=== PATIENT | female | born 1975 | race Caucasian/White ===

== ENCOUNTER 2017-04-24 07:11 | Outpatient (RCR) | payer OTHER, SELFPAY ==
[2017-04-24 08:33] LABS: Prothrombin Time (Protime)PT. 29.9 SECONDS (11.7-14.9)
== END 2017-04-24 07:30 | disposition home or self-care (01) ==
LOC: LAB 07:11
PROVIDERS: PCP Family Medicine
DX: D68.59 Other primary thrombophilia (principal); Z79.01 Long term (current) use of anticoagulants; I82.409 Acute embolism and thrombosis of unspecified deep veins of unspecified lower extremity
CPT/HCPCS: 36415; 85610

== ENCOUNTER 2017-05-30 07:32 | Outpatient (RCR) | payer OTHER, SELFPAY ==
[2017-05-30 08:23] LABS: International Normalized Ratio 2.2; Prothrombin Time (Protime)PT. 24.4 SECONDS (11.7-14.9)
== END 2017-05-30 08:00 | disposition home or self-care (01) ==
LOC: LAB 07:32
PROVIDERS: PCP Family Medicine
DX: D68.59 Other primary thrombophilia (principal); I82.409 Acute embolism and thrombosis of unspecified deep veins of unspecified lower extremity; Z79.01 Long term (current) use of anticoagulants
CPT/HCPCS: 36415; 85610

== ENCOUNTER 2017-07-19 07:41 | Outpatient (RCR) | payer OTHER, SELFPAY ==
[2017-07-19 09:10] LABS: International Normalized Ratio 2.9; Prothrombin Time (Protime)PT. 30.3 SECONDS (11.7-14.9)
== END 2017-07-19 08:00 | disposition home or self-care (01) ==
LOC: LAB 07:41
PROVIDERS: PCP Family Medicine
DX: D68.59 Other primary thrombophilia (principal); I82.409 Acute embolism and thrombosis of unspecified deep veins of unspecified lower extremity; Z79.01 Long term (current) use of anticoagulants
CPT/HCPCS: 36415; 85610

== ENCOUNTER 2017-08-12 09:26 | Outpatient (RCR) | payer OTHER, SELFPAY ==
[2017-08-12 10:38] LABS: Prothrombin Time (Protime)PT. 39.4 SECONDS (11.7-14.9)
== END 2017-08-12 10:00 | disposition home or self-care (01) ==
LOC: LAB 09:26
PROVIDERS: PCP Family Medicine
DX: D68.59 Other primary thrombophilia (principal); I82.409 Acute embolism and thrombosis of unspecified deep veins of unspecified lower extremity; Z79.01 Long term (current) use of anticoagulants
CPT/HCPCS: 36415; 85610

== ENCOUNTER 2017-09-14 08:26 | Outpatient (RCR) | payer OTHER, SELFPAY ==
[2017-08-23 09:20] LABS: Prothrombin Time (Protime)PT. 30.9 SECONDS (11.7-14.9)
[2017-09-14 09:32] LABS: International Normalized Ratio 2.6; Prothrombin Time (Protime)PT. 27.7 SECONDS (11.7-14.9)
== END 2017-09-14 10:00 | disposition home or self-care (01) ==
LOC: LAB 08:26
PROVIDERS: PCP Family Medicine
DX: D68.59 Other primary thrombophilia (principal); I82.409 Acute embolism and thrombosis of unspecified deep veins of unspecified lower extremity; Z79.01 Long term (current) use of anticoagulants
CPT/HCPCS: 36415; 85610

== ENCOUNTER 2017-11-01 07:32 | Outpatient (RCR) | payer OTHER, SELFPAY ==
[2017-11-01 07:57] LABS: International Normalized Ratio 2.2; Prothrombin Time (Protime)PT. 24.8 SECONDS (11.7-14.9)
== END 2017-11-01 09:00 | disposition home or self-care (01) ==
LOC: LAB 07:32
PROVIDERS: PCP Family Medicine
DX: I82.409 Acute embolism and thrombosis of unspecified deep veins of unspecified lower extremity (principal)
CPT/HCPCS: 36415; 85610

== ENCOUNTER 2017-12-11 07:39 | Outpatient (RCR) | payer OTHER, SELFPAY ==
[2017-12-11 08:10] LABS: Prothrombin Time (Protime)PT. 22.9 SECONDS (11.7-14.9)
== END 2017-12-11 09:00 | disposition home or self-care (01) ==
LOC: LAB 07:39
PROVIDERS: PCP Family Medicine
DX: I82.409 Acute embolism and thrombosis of unspecified deep veins of unspecified lower extremity (principal); Z79.01 Long term (current) use of anticoagulants
CPT/HCPCS: 36415; 85610

== ENCOUNTER 2018-03-05 15:42 | Outpatient (RCR) | payer OTHER, SELFPAY ==
[2018-03-05 16:45] LABS: International Normalized Ratio 2.7; Prothrombin Time (Protime)PT. 28.6 SECONDS (11.7-14.9)
--- OUTSIDE RECORDS SUMMARY | 2018-04-21 21:12 | XMS RPT_ITS ---
:1975 Author Organization [place] Support Name Relationship Address Phone OscarWarren Unavailable Unavailable + [facility] Unavailable [address] + [place] [address] WARREN MOORE Unavailable [address] + [place] [address] [facility] Unavailable [address] + [place] [address] WARREN MOORE Unavailable [address] + [place] [address] WARREN MOORE Unavailable Unavailable + [facility] Unavailable [address] + [place] [address] WARREN MOORE Unavailable [address] + [place] [address] [facility] Unavailable [address] + [place] [address] WARREN MOORE Unavailable [address] + [place] [address] [facility] Unavailable [address] + [place] [address] WARREN MOORE Unavailable [address] + [place] [address] [facility] Unavailable [address] + [place] [address] WARREN MOORE Unavailable [address] + [place] [address] [facility] Unavailable [address] + [place] [address] WARREN MOORE Unavailable [address] + [place] [address] MICKNA, WARREN Unavailable Unavailable + [facility] Unavailable [address] + [place] [address] OSCAR WARREN Unavailable [address] + [place] [address] [facility] Unavailable [address] + [place] [address] OSCAR WARREN Unavailable [address] + [place] [address] [facility] Unavailable [address] + [place] [address] OSCAR WARREN Unavailable [address] + [place] [address] Care Team Providers Name Role Phone Michelle, Saif Attending Unavailable ALLEN VÁSQUEZ Primary Care Unavailable Michelle, Saif Referring Unavailable Michelle, Saif Attending Unavailable Michelle, Saif Referring Unavailable ALLEN VÁSQUEZ Primary Care Unavailable Michelle, Saif Attending Unavailable Michelle, Saif Referring Unavailable Zay, Radha Primary Care Unavailable ALLEN VÁSQUEZ Primary Care Unavailable Michelle, Saif Attending Unavailable Michelle, Saif Referring Unavailable Michelle, Saif Attending Unavailable Michelle, Saif Referring Unavailable ALLEN VÁSQUEZ Primary Care Unavailable Michelle, Saif Attending Unavailable Michelle, Saif Referring Unavailable ALLEN VÁSQUEZ Primary Care Unavailable Michelle, Saif Attending Unavailable Michelle, Saif Referring Unavailable ALLEN VÁSQUEZ Primary Care Unavailable Michelle, Saif Attending Unavailable Michelle, Saif Referring Unavailable ALLEN VÁSQUEZ Primary Care Unavailable Michelle, Saif Attending Unavailable Michelle, Saif Referring Unavailable ALLEN VÁSQUEZ Primary Care Unavailable Michelle, Saif Attending Unavailable Michelle, Saif Referring Unavailable Zay, Radha Primary Care Unavailable Erlinda Espinosa Attending Unavailable Zay, Radha Referring Unavailable Zay, Radha Primary Care Unavailable Michelle, Saif Ur Admitting Unavailable Michelle, Saif Ur Attending Unavailable Dr. Joshua Lyle Referring Unavailable Michelle, Saif Ur Primary Care Unavailable Michelle, Saif Ur Admitting Unavailable Michelle, Saif Ur Attending Unavailable Dr. Joshua Lyle Referring Unavailable Michelle, Saif Ur Primary Care Unavailable PROBLEMS PROBLEMS DATE TYPE CONDITION / CODE ATTENDING STATUS SOURCE 03/24/2018 Unknown D68.59 - Other MichelleMark ramirez Active [facility] thrombophilia / Hospital D68.59(ICD-10) Repository 01/08/2018 Final diagnosis Other pulmonary MichelleMark ramirez Active [facility] (discharge) embolism without Hospitals acute cor pulmonale Repository / I26.99(ICD-10) 01/08/2018 Final diagnosis Acute embolism and MichelleMark ramirez [facility]discharge[facility]als unsp lower Repository extremity / I82.409(ICD-10) 12/25/2017 Unknown I82.409 - Acute MichelleSa ashley Active [facility] embolism and Community thrombosis of Hospital unspecified deep Repository veins of unspecified lower extremity / I82.409(ICD-10) PROCEDURES PROCEDURES No Procedure Records FoundRESULTS RESULTS MG BREAST TOMOSYNTHESIS Observed: 04/11/2018 Status: F Source: [facility] BL 12:00 AM SYSTEM REPOSITORY Patient Name: VAISHNAVI MOORE Mammography Exam Date/Time 04/11/2018 16:31:23 EST Exam MG Breast Tomosynthesis BI Scr Ordering Physician MD DAVID, ERLINDA Mares Accession Number [id number] CPT4 Codes 44778 (MG Breast Tomosynthesis Scr Bl), 47092 (MG MAMMO 2D SCREENING) Reason For Exam routine Report PATIENT HISTORY: Family history of breast cancer at age 52 in mother, unknown cancer at age 65 in paternal grandmother. Ultrasound-guided core biopsy of the right breast, January 27, 2013. Took hormonal contraceptives for 3 years. Patient is a former smoker, and smoked for 15 years. Patient's BMI is 30.5. TIME SINCE LAST MAMMOGRAM: Last mammogram was performed 1 year ago. REASON FOR EXAM: screening, asymptomatic. PROCEDURE: MG BREAST TOMOSYNTHESIS BL SCR: APRIL 11, 2018 - 2D/3D Procedure 3D Bilateral CC and MLO view(s) were taken. 2D Bilateral CC and MLO view(s) were taken. Prior study comparison: April 09, 2017, bilateral MG breast tomosynthesis bl scr performed at [facility]. February 23, 2016, bilateral screening mammogram performed at [facility]. February 10, 2015, bilateral screening mammogram performed at [facility]. TISSUE DENSITY: The breast tissue is heterogeneously dense, which could obscure underlying abnormalities. . FINDINGS: Percutaneous biopsy markers are present in the upper outer right breast at anterior and middle depths. A coarsely calcified benign appearing mass in the upper outer posterior right breast is unchanged and most likely represents a degenerated fibroadenoma. No suspicious masses, architectural distortions or suspiciously clustered microcalcifications are identified. There is no evidence of skin thickening or nipple retraction. There are no significant changes when compared with prior studies. Markings on images: BB's = Nipples; skin lesions Open [place] = Palpable Line = Scar 2D digital mammography and tomosynthesis imaging were performed and reviewed with CAD. ASSESSMENT: Category 1 Negative No mammographic evidence of malignancy. RECOMMENDATION: Routine screening mammogram of both breasts in 1 year. . Report Dictated on Cancer Risk Assessment: This risk assessment is based on patient provided information collected in a risk survey taken at the time of this examination. Lifetime breast cancer risk: 19.4% - If greater than or equal to 20%, consider annual mammogram and annual screening Breast MRI or follow up in high risk clinic. Is the patient at elevated risk based on the HBOC criteria? No (Hereditary Breast and Ovarian Cancer) - If yes, consider genetic counseling and testing with high risk follow up. HNPCC mutation risk (Devine Syndrome): 1% - if greater than or equal to 5%, consider genetic counseling, testing and screening colonoscopy. Final Signed Date and Time: 04/14/2018 8:53 am Signed by: MD TAM DIANE PROTHROMBIN TIME W/INR Collected: 03/05/2018 Status: F Source: [place] 3:[place] [facility] [place] CODE TESTS RESULT OUT OF RANGE REFERENCE UNITS LAB L300.4150 11.7-14.9 SECONDS High PROTIME 28.6 LAB L300.4200 Normal INR 2.7 Performed By: #### L300.3900 #### [facility] [place], [address] CLINIC NOTE - HEME Observed: 01/08/2018 Status: COMPLETED Source: [place] ONC-FOLLOW UP VISIT 1:48 PM HOSPITALS REPOSITORY Patient Visit Information: Visit Type: Follow Up Visit History of Present Illness: Chief Complaint: Pulmonary embolism, DVT Interval History: The patient was initially seen by me in November 2012 for possible thrombophilia. She developed DVT in 2000 after a cholecystectomy, the patient was treated with blood thinner, and then the patient also complained of menorrhagia and easy bruisability. 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 At that time, the patient was taking baby aspirin, she had Foltx one tablet everyday. She also has a history of miscarriages and patient was not taking the OPC. In November 2014, the patient presented with shortness of breath with chest pain, went to the emergency room at [facility]. CAT scan did show left lung pulmonary embolism. Currently she is taking Coumadin 5 mg by mouth daily. Status post hysterectomy in January 2017. Patient doing very well and the INR has been between 2.0-2.5. Review of Systems: Review of Systems: No headache No chest pain and shortness of breath No cough No nausea vomiting Sometime patient has nonspecific abdominal pain No history of bleeding She is working full-time She is very active Allergies and Intolerances: Allergies: Demerol HCl: Drug, Other, Active Xarelto: Drug, Other, Active Outpatient Medication Profile: * Patient Currently Takes Medications as of 08-Jan-2018 13:28 documented in Structured Notes Coumadin 5 mg oral tablet: Last Dose Taken: , 1 tab(s) orally once a day, Start Date: 19-Jun-2017 B-Complex SR oral tablet, extended release: Last Dose Taken: , 1 tab(s) orally once a day Vitamin C 100 mg oral tablet: Last Dose Taken: , 1 tab(s) orally once a day Zoloft 25 mg oral tablet: Last Dose Taken: , 1 tab(s) orally once a day Benadryl 25 mg oral tablet: Last Dose Taken: , 1 tab(s) orally once a day Medical History: Skin rash: Status: Active Iron deficiency anemia: Status: Active Anemia: Status: Active Right flank pain: Status: Active Miscarriage: Status: Active Pulmonary embolism: Status: Active Deep vein thrombosis: Status: Active On anticoagulant therapy: Status: Active Thrombophilia: Status: Active Surg History: History of hysterectomy: Status: Active Family History: FH: pulmonary embolism (Brother Age Unknown) Family history of DVT (Mother Age Unknown) FH: lupus (Father Age Unknown) Social History: Smoking Status: never smoker Alcohol Use: denies Vitals and Measurements: Vitals: Temp: 36.6 HR: 86 RR: 18 BP: 113/79 SPO2%: 97 Measurements: HT(cm): 167.7 WT(kg): 84.2 BSA: 1.98 BMI: 29.9 Last 3 Weights & Heights: Date: Weight/Scale Type:Height: 08-Jan-2018 13:2584.2 kg / standing zhblo532.7 cm 03-Jul-2017 12:5787.9 kg / standing uoxwg886.7 cm 09-Jan-2017 13:2386.9 kg / standing pnsji036.1 cm Physical Exam: Constitutional: awake/alert/oriented x3, no distress, Eyes: PERRL, EOMI, clear sclera ENMT: mucous membranes moist, no apparent injury, Head/Neck: Neck supple, thyroid without mass or tenderness, No JVD, trachea midline, no bruits Respiratory/Thorax: Patent airways, CTAB, normal breath sounds Cardiovascular: Regular, rate and rhythm, normal S 1and S 2 Gastrointestinal: Nondistended, soft, non-tender, no masses palpable, no organomegaly, +BS, Musculoskeletal: ROM intact, no joint swelling, Extremities: normal extremities, no cyanosis edema, no clubbing Neurological: alert and oriented x3, intact senses, motor, response and reflexes, normal strength Lymphatic: No lymphadenopathy Psychological: Appropriate mood and behavior Skin: Warm and dry, no lesions, no rashes Lab Results: Results CBC date/time WBC HGB HCT PLT Neut 08-Jan-2018 13:22 8.1 14.2 43.1 230 5.39 INR 2.0 Assessment and Plan: Assessment and Plan: Assessment: #1 DVT #2 pulmonary embolism #3 history of her miscarriages #4 heavy menses , status post heavy menses Clinically patient is doing very well. I will continue Coumadin 5 mg by mouth daily and recheck PT, INR every 2 months. Plan: Plan discussed with the patient follow up after 6 months. Note Recipients: Radha Collazo MD - [id number] Select Yes when ready to send to Provider(s) Listed Above: Note sent to providers named above Electronic Signatures: Mark Martinez) (Signed 08-Jan-2018 13:52) Authored: Patient Visit Information, History of Present Illness, Review of Systems, Allergies and Outpatient Medication Profile, Problem List, Social History, Performance Assessments, Vitals and Measurements, Physical Exam, Results, Assessment and Plan, To Send Document via Auto Fax Last Updated: 08-Jan-2018 13:52 by Mark Martinez) CLINIC NOTE - Observed: 01/08/2018 Status: UNK Source: [facility] 1:25 PM HOSPITALS REPOSITORY Patient Visit Information: Visit TypeFollow Up Visit Patient Stateshere for a follow-up appt. Source of Informationpatient Admission Information: Admission Since Last VisitNo Vital Signs: Temp (degrees C)36.6 degrees C Temperatureskin temporal Heart Rate (beats/min)86 beats per minute Respiration (breaths/min)18 breath per minute BP Systolic (mm Hg)113 mmHg BP Diastolic (mm Hg)79 mmHg BP Mean (mm Hg)90 mmHg Height in cm167.7 centimeter(s) Height Methodmeasured Heightstanding Weight in kg84.2 kilogram(s) Weight Methodstanding scale BMI (kg/m2)29.9 BSA (m2)1.98 SpO2 (%)97 % SpO2 Patient Onroom air Pain Screening: Patient States Painno (0) Semiconductor Equipment Technician for intimate exam offered to patient: Patient hasdeclined Allergies: Demerol HCl: Drug, Other, Active Xarelto: Drug, Other, Active Outpatient Medication Profile: * Patient Currently Takes Medications as of 08-Jan-2018 13:28 documented in Structured Notes Coumadin 5 mg oral tablet: Last Dose Taken: , 1 tab(s) orally once a day, Start Date: 19-Jun-2017 B-Complex SR oral tablet, extended release: Last Dose Taken: , 1 tab(s) orally once a day Vitamin C 100 mg oral tablet: Last Dose Taken: , 1 tab(s) orally once a day Zoloft 25 mg oral tablet: Last Dose Taken: , 1 tab(s) orally once a day Benadryl 25 mg oral tablet: Last Dose Taken: , 1 tab(s) orally once a day Notification: NotificationsAnnual Screens Due Dates Advanced Directives: Jul 03, 2018 Family Violence: Jul 03, 2018 Depression: Jul 03, 2018 Substance Use - Alcohol: Jul 03, 2018 Substance Use - Drugs: Jul 03, 2018 Nutrition: Jul 03, 2018 Learning: Jul 03, 2018 Falls: Have you fallen in the last 6 monthsno Do you have a fear of fallingno Do you feel you need assistanceno Is the patient using an assistive deviceno Spiritual/Procedural: Spiritual/cultural/sikh practices important for us to knowno Electronic Signatures: Sobeida Boyd (NEHA Resendez) (Signed 08-Jan-2018 13:30) Authored: Patient Visit Information, Vital Signs, Semiconductor Equipment Technician, Allergies, Outpatient Medication Profile, Adult Admission Risk Screen Last Updated: 08-Jan-2018 13:30 by Sobeida Boyd (NEHA Resendez) CBC AND DIFFERENTIAL Collected: 01/08/2018 Status: F Source: [place] 1:22 PM HOSPITALS REPOSITORY TYPE CODE TESTS RESULT OUT OF REFERENCE UNITS RANGE LAB WBCR(LOINC 4.4 - 11.3 x10E9/L ) WBC 8.1 LAB RBCCT(LOIN 4.00 - 5.20 x10E12/L C) RBC 5.00 LAB HGB(LOINC) 12.0 - 16.0 g/dL HGB 14.2 LAB HCT(LOINC) 36.0 - 46.0 % HCT 43.1 LAB MCV(LOINC) 80 - 100 fL MCV 86 LAB MCHC2(LOIN 32.0 - 36.0 g/dL C) MCHC 32.9 LAB PLTCT(LOIN 150 - 450 x10E9/L C) PLT 230 LAB RDWCV(LOIN 11.5 - 14.5 % C) RDW-CV 13.8 LAB NEUT(LOINC 40.0 - 80.0 % ) % NEUTROPHIL 66.7 LAB LYMPH(LOIN 13.0 - 44.0 % C) % LYMPHOCYTE 25.0 LAB MONO(LOINC 2.0 - 10.0 % ) % MONOCYTE 6.2 LAB EOS(LOINC) 0.0 - 6.0 % % EOSINOPHIL 1.9 LAB BASO(LOINC 0.0 - 2.0 % ) % BASOPHIL 0.2 LAB #NEUT(LOIN 1.20 - 7.70 x10E9/L C) NEUTROPHIL 5.39 Result Comment: Percent differential counts (%) should be interpreted in the context of the absolute cell counts (cells/L). LAB #LYMP(LOINC) 1.20 - x10E9/L 4.80 LYMPHOCYTE 2.02 LAB #MONO(LOINC) 0.10 - x10E9/L 1.00 MONOCYTE 0.50 LAB #EOS(LOINC) 0.00 - x10E9/L 0.70 EOSINOPHIL 0.15 LAB #BASO(LOINC) 0.00 - x10E9/L 0.10 BASOPHIL 0.02 Performed By: #### CBCDF #### [address] [address] PT/INR Collected: 01/08/2018 Status: F Source: [place] 1:22 PM [facility] REPOSITORY TYPE CODE TESTS RESULT OUT OF REFERENCE UNITS RANGE LAB PT(LOINC) 9.8 - 12.7 sec PROTHROMBIN High TIME 32.4 LAB INR(LOINC) 0.9 - 1.1 PT, INR High 2.9 Performed By: #### PTINR #### [facility] [address] [place] [address] HOMOCYSTEINE Collected: 01/08/2018 Status: F Source: [place] 1:22 [facility] REPOSITORY TYPE CODE TESTS RESULT OUT OF REFERENCE UNITS RANGE LAB HOMC(LOINC 5.00 - 13.90 umol/L ) HOMOCYSTEINE 10.30 Result Comment: Patients receiving more than 5 mg/day of biotin may have interference in test results. A sample should be taken no sooner than eight hours after previous dose. Contact [phone] for additional information. Performed By: #### HOMC #### [facility] [address] [place] [address] PROTHROMBIN TIME W/INR Collected: 12/11/2017 Status: F Source: [place] 7:[place] [facility] [place] CODE TESTS RESULT OUT OF RANGE REFERENCE UNITS LAB L300.4150 11.7-14.9 SECONDS High PROTIME 22.9 LAB L300.4200 Normal INR 2.0 Performed By: #### L300.3900 #### [facility] [address] [place], [address] PROTHROMBIN TIME W/INR Collected: 11/01/2017 Status: F Source: [place] 7:36 [place] [facility] [place] CODE TESTS RESULT OUT OF RANGE REFERENCE UNITS LAB L300.4150 11.7-14.9 SECONDS High PROTIME 24.8 LAB L300.4200 Normal INR 2.2 Performed By: #### L300.3900 #### [facility] [address] [place], [address] PROTHROMBIN TIME W/INR Collected: 09/14/2017 Status: F Source: [place] 8:29 AM [facility] [place] CODE TESTS RESULT OUT OF RANGE REFERENCE UNITS LAB L300.4150 11.7-14.9 SECONDS High PROTIME 27.7 LAB L300.4200 Normal INR 2.6 Performed By: #### L300.3900 #### [facility] [place], [address] PROTHROMBIN TIME W/INR Collected: 08/23/2017 Status: F Source: [place] 7:35 AM [facility] [place] CODE TESTS RESULT OUT OF RANGE REFERENCE UNITS LAB L300.4150 11.7-14.9 SECONDS High PROTIME 30.9 LAB L300.4200 Normal INR 3.0 Performed By: #### L300.3900 #### [facility] [place], [address] PROTHROMBIN TIME W/INR Collected: 08/12/2017 Status: F Source: [place] 9:29 AM [facility] [place] CODE TESTS RESULT OUT OF REFERENCE UNITS RANGE LAB L300.4150 11.7-14.9 SECONDS High PROTIME 39.4 LAB L300.4200 High alert INR 4.0 Result Comment: CRITICAL VALUE VERIFIED. CALLED TO ALYSSIA SOLOMON 08/12/17 Gus4 Clayton Putnam RESULTS READ BACK BY SAME. Performed By: #### L300.3900 #### [facility] [address] [place], [address] PROTHROMBIN TIME W/INR Collected: 07/19/2017 Status: F Source: [place] 7:49 AM [facility] [place] TYPE CODE TESTS RESULT OUT OF RANGE REFERENCE UNITS LAB L300.4150 11.7-14.9 SECONDS High PROTIME 30.3 LAB L300.4200 Normal INR 2.9 Performed By: #### L300.3900 #### [facility] [address] [place], [address] CLINIC NOTE - HEME Observed: 07/03/2017 Status: COMPLETED Source: [place] ONC-FOLLOW UP VISIT 1:10 PM HOSPITALS REPOSITORY Patient Visit Information: Visit Type: Follow Up Visit History of Present Illness: Chief Complaint: Pulmonary embolism in 2014, DVT in 2000 Interval History: The patient was initially seen by me in November 2012 for possible thrombophilia. She developed DVT in 2000 after a cholecystectomy, the patient was treated with blood thinner, and then the patient also complained of menorrhagia and easy bruisability. 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 At that time, the patient was taking baby aspirin, she had Foltx one tablet everyday. She also has a history of miscarriages and patient was not taking the OPC. In November 2014, the patient presented with shortness of breath with chest pain, went to the emergency room at [facility]. CAT scan did show left lung pulmonary embolism. Currently she is taking Coumadin 6 mg by mouth alternating 5 mg by mouth daily. Status post hysterectomy in January 2017. Patient doing very well and the INR has been therapeutic. Review of Systems: Review of Systems: No headache No chest pain No shortness of breath No abdominal pain No rectal bleeding, no black stool No dysuria and hematuria No joint pain Working full-time Very active Allergies and Intolerances: Allergies: Demerol HCl: Drug, Other, Active Xarelto: Drug, Other, Active Outpatient Medication Profile: * Patient Currently Takes Medications as of 03-Jul-2017 13:04 documented in Structured Notes Coumadin 5 mg oral tablet: Last Dose Taken: , 1 tab(s) orally once a day, Start Date: 19-Jun-2017 Coumadin 1 mg oral tablet: Last Dose Taken: , 1 tab(s) orally once a day, Start Date: 30-Jul-2016 B-Complex SR oral tablet, extended release: Last Dose Taken: , 1 tab(s) orally once a day Vitamin C 100 mg oral tablet: Last Dose Taken: , 1 tab(s) orally once a day Zoloft 25 mg oral tablet: Last Dose Taken: , 1 tab(s) orally once a day Medical History: Skin rash: Status: Active Iron deficiency anemia: Status: Active Anemia: Status: Active Right flank pain: Status: Active Miscarriage: Status: Active Pulmonary embolism: Status: Active Deep vein thrombosis: Status: Active On anticoagulant therapy: Status: Active Thrombophilia: Status: Active Surg History: History of hysterectomy: Status: Active Family History: FH: pulmonary embolism (Brother Age Unknown) Family history of DVT (Mother Age Unknown) FH: lupus (Father Age Unknown) Social History: Smoking Status: never smoker (1) Alcohol Use: denies(1) Drug Use: denies (1) Vitals and Measurements: Vitals: Temp: 36.4 HR: 82 RR: 16 BP: 114/75 SPO2%: 96 Measurements: HT(cm): 167.7 WT(kg): 87.9 BSA: 2.02 BMI: 31.2 Last 3 Weights & Heights: Date: Weight/Scale Type: Height: 03-Jul-2017 12:57 87.9 kg / standing scale 167.7 cm 09-Jan-2017 13:23 86.9 kg / standing scale 167.1 cm 11-Jul-2016 13:15 85 kg / standing scale 167.1 cm Physical Exam: Constitutional: Well developed, awake/alert/oriented x3, no distress, Eyes: PERRL, EOMI, clear sclera ENMT: mucous membranes moist, no apparent injury, Head/Neck: Neck supple, thyroid without mass or tenderness, No JVD, trachea midline, no bruits Respiratory/Thorax: Patent airways, CTAB, normal breath sounds Cardiovascular: Regular, rate and rhythm, normal S 1and S 2 Gastrointestinal: Nondistended, soft, non-tender, no rebound tenderness or guarding, no masses palpable, no organomegaly, +BS, Musculoskeletal: ROM intact, no joint swelling, normal strength Extremities: normal extremities, no cyanosis edema, no clubbing Neurological: alert and oriented x3, Lymphatic: No lymphadenopathy Psychological: Appropriate mood and behavior Skin: Warm and dry, no lesions, no rashes Lab Results: ? Results CBC date/time WBC HGB HCT PLT Neut 03-Jul-2017 12:45 8.3 14.0 42.0 217 5.95 Assessment and Plan: Assessment and Plan: Assessment: #1 DVT #2 pulmonary embolism #3 history of her miscarriages #4 heavy menses Plan: Clinically stable, continue same dose of Coumadin. Patient advised to have regular exercise. Reevaluation after 6 months. We have long discussion regarding stopping the Coumadin. Patient has 2 episodes of 4 thrombosis including DVT in 2000 and pulmonary embolism in 2014 IE suggest to continue anticoagulant. The other option are #1 continue therapeutic dose of Coumadin #2. Preventive dose of anticoagulant-like Coumadin 3 mg by mouth daily or Eliquis 2.5 mg by mouth twice a day. After long discussion patient continued to take therapeutic dose of Coumadin and will be reevaluated after the six-month period Note Recipients: Radha Collazo MD - [id number] Select Yes when ready to send to Provider(s) Listed Above: Note sent to providers named above Electronic Signatures: Mark Martinez) (Signed 03-Jul-2017 13:40) Authored: Patient Visit Information, History of Present Illness, Review of Systems, Allergies and Outpatient Medication Profile, Problem List, Social History, Performance Assessments, Vitals and Measurements, Physical Exam, Results, Assessment and Plan, To Send Document via Auto Fax Last Updated: 03-Jul-2017 13:40 by Mark Martinez) References: 1. Data Referenced From Clinic Note - Heme Onc-Follow Up Visit 01/09/2017 01:20 PM CLINIC NOTE - Observed: 07/03/2017 Status: UNK Source: [facility] 12:57 PM HOSPITALS REPOSITORY Patient Visit Information: ? Visit Type Follow Up Visit ? Patient States follow up appt. ? Source of Information patient Admission Information: ? Admission Since Last Visit No Vital Signs: ? Temp (degrees C) 36.4 degrees C ? Temperature tympanic ? Heart Rate (beats/min) 82 beats per minute ? Respiration (breaths/min) 16 breath per minute ? BP Systolic (mm Hg) 114 mmHg ? BP Diastolic (mm Hg) 75 mmHg ? BP Mean (mm Hg) 88 mmHg ? Height in cm 167.7 centimeter(s) ? Height Method measured 07/03/17- no shoes on ? Height standing ? Weight in kg 87.9 kilogram(s) ? Weight Method standing scale ? BMI (kg/m2) 31.2 ? BSA (m2) 2.02 ? SpO2 (%) 96 % ? SpO2 Patient On room air Pain Screening: ? Patient States Pain no (0) Semiconductor Equipment Technician for intimate exam offered to patient: ? Patient has declined Allergies: Demerol HCl: Drug, Other, Active Xarelto: Drug, Other, Active Outpatient Medication Profile: * Patient Currently Takes Medications as of 03-Jul-2017 13:04 documented in Structured Notes Coumadin 5 mg oral tablet: Last Dose Taken: , 1 tab(s) orally once a day, Start Date: 19-Jun-2017 Coumadin 1 mg oral tablet: Last Dose Taken: , 1 tab(s) orally once a day, Start Date: 30-Jul-2016 B-Complex SR oral tablet, extended release: Last Dose Taken: , 1 tab(s) orally once a day Vitamin C 100 mg oral tablet: Last Dose Taken: , 1 tab(s) orally once a day Zoloft 25 mg oral tablet: Last Dose Taken: , 1 tab(s) orally once a day Each Visit: Have you fallen in the last 6 months? no Do you have a fear of falling? no Is the patient using an assistive device no Do you feel you need assistance? no Annual: Declaration of Mental Health Treatment no Healthcare POA no Are you or have you been threatened or abused physically,emotionally or sexually abused by anyone no Do you feel UNSAFE going back to the place you are living no During the past two weeks, have you felt down, depressed or hopeless no Have you had thoughts of harming anyone else no Have you had thoughts of harming yourself no During the past two weeks, have you felt little interest or pleasure doing things no How many times in the past year have you had 4 or more drinks within 24 hours 0 How many times in past year have you used recreational or prescription drugs for non-medical reasons 0 In the past month, was there any day when you or anyone in your family went hungry because you didn't have enough food no Primary Language Malay Other Venegas Learner no Living Will no Do you, or those with you today, need extra help because of problems with hearing, speaking, seeing, moving around, or learning no Patient Declined to Answer no social drinker Living Will Forms declines more information Healthcare POA Forms declined more information Mental Health Forms declines more information Electronic Signatures: Sobeida Boyd I) (Signed 03-Jul-2017 13:05) Authored: Patient Visit Information, Vital Signs, Semiconductor Equipment Technician, Allergies, Outpatient Medication Profile, Adult Admission Risk Screen Last Updated: 03-Jul-2017 13:05 by Sobieda Boyd I) CBC AND DIFFERENTIAL Collected: 07/03/2017 Status: F Source: [place] 12:45 PM HOSPITALS REPOSITORY TYPE CODE TESTS RESULT OUT OF REFERENCE UNITS RANGE LAB WBCR(LOINC 4.4 - 11.3 x10E9/L ) WBC 8.3 LAB RBCCT(LOIN 4.00 - 5.20 x10E12/L C) RBC 5.06 LAB HGB(LOINC) 12.0 - 16.0 g/dL HGB 14.0 LAB HCT(LOINC) 36.0 - 46.0 % HCT 42.0 LAB MCV(LOINC) 80 - 100 fL MCV 83 LAB MCHC2(LOIN 32.0 - 36.0 g/dL C) MCHC 33.3 LAB PLTCT(LOIN 150 - 450 x10E9/L C) PLT 217 LAB RDWCV(LOIN 11.5 - 14.5 % C) RDW-CV 14.5 LAB NEUT(LOINC 40.0 - 80.0 % ) % NEUTROPHIL 71.5 LAB LYMPH(LOIN 13.0 - 44.0 % C) % LYMPHOCYTE 20.0 LAB MONO(LOINC 2.0 - 10.0 % ) % MONOCYTE 6.6 LAB EOS(LOINC) 0.0 - 6.0 % % EOSINOPHIL 1.8 LAB BASO(LOINC 0.0 - 2.0 % ) % BASOPHIL 0.1 LAB #NEUT(LOIN 1.20 - 7.70 x10E9/L C) NEUTROPHIL 5.95 Result Comment: Percent differential counts (%) should be interpreted in the context of the absolute cell counts (cells/L). LAB #LYMP(LOINC) 1.20 - x10E9/L 4.80 LYMPHOCYTE 1.67 LAB #MONO(LOINC) 0.10 - x10E9/L 1.00 MONOCYTE 0.55 LAB #EOS(LOINC) 0.00 - x10E9/L 0.70 EOSINOPHIL 0.15 LAB #BASO(LOINC) 0.00 - x10E9/L 0.10 BASOPHIL 0.01 Performed By: #### CBCDF #### [id number] [place] [address] PT/INR Collected: 07/03/2017 Status: F Source: [place] 12:45 PM [facility] REPOSITORY TYPE CODE TESTS RESULT OUT OF REFERENCE UNITS RANGE LAB PT(LOINC) 9.8 - 12.7 sec PROTHROMBIN High TIME 35.1 LAB INR(LOINC) 0.9 - 1.1 PT, INR High 3.1 Performed By: #### PTINR #### [facility] [address] [place] [address] PROTHROMBIN TIME W/INR Collected: 05/30/2017 Status: F Source: [place] 7:36 [place] [facility] [place] CODE TESTS RESULT OUT OF RANGE REFERENCE UNITS LAB L300.4150 11.7-14.9 SECONDS High PROTIME 24.4 LAB L300.4200 Normal INR 2.2 Performed By: #### L300.3900 #### [facility] [address] [place], [place], [address] PROTHROMBIN TIME W/INR Collected: 04/24/2017 Status: F Source: [place] 7:13 [place] [facility] [place] CODE TESTS RESULT OUT OF RANGE REFERENCE UNITS LAB L300.4150 11.7-14.9 SECONDS High PROTIME 29.9 LAB L300.4200 Normal INR 3.0 Performed By: #### L300.3900 #### [facility] [address] [place], [address] ALLERGIES ALLERGIES DATE TYPE / CODE NAME / CODE REACTION SEVERITY SOURCE 01/23/2017 Drug meperidine Nausea Unknown [place] Allergy/365580518(S HCl/[id number]( Community NOMED CT) RXNORM) Hospital Repository 01/23/2017 Drug Sulfa Rash Unknown [place] Allergy/621030500(S (Sulfonamide Community NOMED CT) Antibiotics)/F0 Hospital [id number](RXNORM Repository ) 01/23/2017 Drug rivaroxaban/F00 CHEST PAIN Unknown [place] Allergy/924588452(S 9714127(RXNORM) [facility] NOMED CT) Hospital Repository 01/23/2017 Miscellaneous IV IRON Hives Unknown [place] Allergy/804397898(S Community NOMED CT) Hospital Repository ENCOUNTERS ENCOUNTERS ADMIT/DISCHARGE ACCOUNT NUMBER ADMITTING ENCOUNTER LOCATION SOURCE CLASS 04/11/2018 [id number] Ambulatory [facility] Repository 03/25/2018 [id number] [facility] ding:LAB Repository 03/05/2018/03/05/20 [id number] Ambulatory [address] ding:LAB Repository 01/08/2018 [id number] [facility] Ambulatory [facility] Repository 12/11/2017/12/12/19 [id number] Ambulatory [address] ding:LAB Repository 11/01/2017/11/02/19 [id number] Ambulatory [address] ding:LAB Repository 09/14/2017/09/15/19 [id number] Ambulatory [address] ding:LAB Repository 08/12/2017/08/13/19 [id number] Ambulatory [address] ding:LAB Repository 07/19/2017/07/20/19 [id number] Ambulatory [address] ding:LAB Repository 07/03/2017 [id number] [facility] Ambulatory [facility] Repository 05/30/2017/05/31/19 [id number] Ambulatory [address] ding:LAB Repository 04/30/2017 [id number] Ambulatory [facility] ding:LAB Repository 04/24/2017/04/24/19 [id number] Ambulatory [facility] ding:LAB Repository PAYERS PAYERS ENCOUNTER GUARANTOR PAYER SUBSCRIBER SOURCE 04/11/2018 Vaishnavi Kc [facility] MicknaDOB: Insurance:Medical MicknaDOB: System [id number] [facility] [id number] [facility] Number: [place] Date: [address]Dav: () 03/25/2018 VAISHNAVI L Primary Insurance:MED WARREN Ely [id number] [facility] MICKNADOB: [facility] Number: [id number] [place], [place] [id number] Repository 265[address]Gcu: (330) Date:9693-11-08KQ [phone] () [address], [place] [address]OD: CHECK WEBSITE 03/25/2018 Secondary NOT GIVENUNK [place] Insurance:SELF PAY [facility] Number: Effective Repository Date:2018-03-24 03/05/2018 VAISHNAVI L Primary Insurance:MED WARREN Ely [id number] [facility] MICKNADOB: [facility] Number: [id number] [id number] Repository [address]Nhr: (330) Date:8029-91-48IR [phone] () [address], [place] [address]HL: CHECK WEBSITE 03/05/2018 Secondary NOT GIVENUNK [place] Insurance:SELF PAY [facility] Number: Effective Repository Date:2017-12-25 01/08/2018 [facility] Primary [facility] MICKNADOB: Insurance:Medical MICKNADOB: [facility] [id number] [facility] [id number] [facility] Number: [address] [place], [place] [id number] [place], [place] [address]Ulj: (330) Date:Plan Name:Health [id number]: () [phone] () 12/11/2017 VAISHNAVI L Primary Insurance:MED Warren Ely [id number] [facility] MicknaDOB: [facility] Number: [id number] [place], [place] [id number] Repository [address]Hdu: (330) Date:6311-77-54BE [phone] () [address], [place] [address]LO: CHECK WEBSITE 12/11/2017 Secondary NOT GIVENUNK [place] Insurance:SELF PAY [facility] Number: Effective Repository Date:2017-11-26 11/01/2017 VAISHNAVI L Primary Insurance:MED Warren A [facility] [place] [id number] MUTUAL TPAPolicy MicknaDOB: [facility] Number: [id number] [place], [place] [id number] Repository [address]Hdz: (330) Date:5154-94-16GV [phone] () [address], [place] [address]DW: CHECK WEBSITE 11/01/2017 Secondary NOT GIVENUNK [place] Insurance:SELF PAY [facility] Number: Effective Repository Date:2017-09-20 09/14/2017 VAISHNAVI L Primary Insurance:MED Warren A [place] [id number] MUTUAL TPAPolicy MicknaDOB: [facility] Number: [id number] [place], [place] [id number] Repository [address]Uyh: (330) Date:7675-49-65CM [phone] () [address]AD[place]OY[place], [place] [address]FH: CHECK WEBSITE 09/14/2017 Secondary NOT GIVENUNK [place] Insurance:SELF PAY [facility] Number: Effective Repository Date:2017-08-22 08/12/2017 VAISHNAVI L Primary Insurance:MED Warren A [place] [id number] MUTUAL TPAPolicy MicknaDOB: [facility] Number: [id number] [place], [place] [id number] Repository [address]Jts: (330) Date:5652-59-99FQ [phone] () [address]RVRFZXUSF, [place] [address]VB: CHECK WEBSITE 08/12/2017 Secondary NOT GIVENUNK [place] Insurance:SELF PAY [facility] Number: Effective Repository Date:2017-07-23 07/19/2017 VAISHNAVI L Primary Insurance:MED Warren A [place] [id number] MUTUAL TPAPolicy MicknaDOB: [facility] Number: [id number] [place], [place] [id number] Repository 4[address]Nau: (330) Date:4282-19-87UK [phone] () [address]GWMWBTFGV, [place] [address]OT: CHECK WEBSITE 07/19/2017 Secondary NOT GIVENUNK [place] Insurance:SELF PAY [facility] Number: Effective Repository Date:2017-06-24 07/03/2017 VAISHNAVI Primary [facility] MICKNADOB: Insurance:Medical MICKNADOB: [facility] [id number] [facility] [id number] Repository [place] Number: [address] [place], [place] [id number] [place], [place] [address]Oer: (330) Date:Plan Name:Health [id number]: (HP) [phone] (HP) 05/30/2017 Vaishnavi Primary Insurance:MED Warren A [place] [id number] [facility]UAL [facility] MicknaD[facility]: [facility] Number: [id number] [place], [place] [id number] Repository [address]Vnt: (330) Date:6377-37-95ZO [phone] () [address]FATZFVJLV, [place] [address]JF: CHECK WEBSITE 05/30/2017 Secondary NOT GIVENUNK [place] Insurance:SELF PAY [facility] Number: Effective Repository Date:2017-05-30 04/30/2017 Vaishnavi Primary Insurance:MED Warren A [place] [id number] [facility] MicknaDOB: [facility] Number: [id number] [place], [place] [id number] Repository [address]Pfe: (330) Date:8445-63-19IJ [phone] () [address]QAAHK[place], [place] [address]AH: CHECK WEBSITE 04/30/2017 Secondary NOT GIVENUNK [place] Insurance:SELF PAY [facility] Number: Effective Repository Date:2017-04-30 04/24/2017 Vaishnavi Primary Insurance:MED Warren A Jhoana [id number] MUTUAL [facility]ITALPoly MicknaDOB: [facility] Number: [id number] [place], [place] [id number] Repository [address]Yar: (330) Date:6946-65-08VB [phone] ([place]) [address]MTYSCVSWI, [place] [address]VM: CHECK WEBSITE 04/24/2017 Secondary NOT GIVENUNK [place] Insurance:SELF PAY [facility] Number: Effective Repository Date:2017-03-25
== END 2018-03-05 16:00 | disposition home or self-care (01) ==
LOC: LAB 15:42
PROVIDERS: Family Provider Family Medicine; PCP Family Medicine
DX: D68.59 Other primary thrombophilia (principal); I82.409 Acute embolism and thrombosis of unspecified deep veins of unspecified lower extremity; Z79.01 Long term (current) use of anticoagulants
CPT/HCPCS: 36415; 85610

== ENCOUNTER → 2018-05-09 15:45 | Outpatient (CLI) | payer OTHER, SELFPAY ==
--- NOTE | 2018-05-09 | COLBX_PTH ---
PATIENT: ANTIONETTE MOORE LOC: DES U#:[id number] AGE/SX: 49/F ROOM: RE05/09/[address]: Dr. Homero Lucero MD : 1975 BED: DIS: SPEC #: [id number] RECD: 05/09/18 15:30 STATUS: HEAVEN TOMÁS #: [id number] JESSICA: 05/09/18 00:[address]: Homero Lucero DEPT: SURGICAL PATHOLOGY RECD BY: Patrick Aquino ENTERED: 05/12/18 08:04 SP TYPE: COLON BX OTHR DR: Dr. Radha Collazo MD [facility] Tissues: Sigmoid colon biopsy Procedures: Surgery Specimen Level IV HEADER OPERATION: Colonoscopy with polypectomy PRE-OP DIAGNOSIS: Rectal bleeding TISSUE SUBMITTED: Sigmoid polyp, rule out adenoma MICROSCOPIC DIAGNOSIS Sigmoid colon polyp, biopsy: Tubular adenoma. AM:leeroy 05/13/18 MICROSCOPIC DESCRIPTION Slides are reviewed. GROSS DESCRIPTION Received in fixative is one container labeled with the patient's name and designated sigmoid. The specimen consists of one irregular fragment of light olea soft tissue that measures 0.3 x 0.3 x 0.2 cm. The specimen is totally submitted in one cassette. / SJ:leeroy 05/12/18 TC:5 CPT: 06367
== END ==
PROVIDERS: Family Provider Family Medicine; PCP Family Medicine; Referring Provider Internal Medicine Gastroenterology; Visit Provider Internal Medicine Gastroenterology
DX: K62.5 Hemorrhage of anus and rectum (principal)
CPT/HCPCS: 88305

== ENCOUNTER 2018-05-17 08:48 | Outpatient (RCR) | payer OTHER, SELFPAY ==
[2018-05-03 11:15] LABS: International Normalized Ratio 2.5; Prothrombin Time (Protime)PT. 26.9 SECONDS (11.7-14.9)
[2018-05-17 10:22] LABS: Prothrombin Time (Protime)PT. 22.6 SECONDS (11.7-14.9)
== END 2018-05-22 14:18 | disposition home or self-care (01) ==
LOC: LAB 08:48
PROVIDERS: Family Provider Family Medicine; PCP Family Medicine
DX: I82.409 Acute embolism and thrombosis of unspecified deep veins of unspecified lower extremity (principal); Z79.01 Long term (current) use of anticoagulants
CPT/HCPCS: 36415; 85610

== ENCOUNTER 2018-06-25 07:20 | Outpatient (RCR) | payer OTHER, SELFPAY ==
[2018-06-25 09:21] LABS: International Normalized Ratio 3.4; Prothrombin Time (Protime)PT. 34.5 SECONDS (11.7-14.9)
== END 2018-07-22 16:00 | disposition home or self-care (01) ==
LOC: LAB 07:20
PROVIDERS: Family Provider Family Medicine; PCP Family Medicine
DX: I82.409 Acute embolism and thrombosis of unspecified deep veins of unspecified lower extremity (principal); Z79.01 Long term (current) use of anticoagulants
CPT/HCPCS: 36415; 85610

== ENCOUNTER 2018-09-03 07:37 | Outpatient (RCR) | payer OTHER, SELFPAY ==
[2018-08-25 13:45] LABS: International Normalized Ratio 3.2; Prothrombin Time (Protime)PT. 33.1 SECONDS (11.7-14.9)
[2018-09-03 08:17] LABS: International Normalized Ratio 2.5; Prothrombin Time (Protime)PT. 27.2 SECONDS (11.7-14.9)
== END 2018-09-21 12:00 | disposition home or self-care (01) ==
LOC: LAB 07:37
PROVIDERS: Family Provider Family Medicine; PCP Family Medicine
DX: I82.409 Acute embolism and thrombosis of unspecified deep veins of unspecified lower extremity (principal); Z79.01 Long term (current) use of anticoagulants
CPT/HCPCS: 36415; 85610

== ENCOUNTER 2018-10-04 10:39 | Outpatient (RCR) | payer OTHER, SELFPAY ==
[2018-10-04 11:18] LABS: International Normalized Ratio 1.2
[2018-10-18 09:19] LABS: International Normalized Ratio 1.7; Prothrombin Time (Protime)PT. 19.5 SECONDS (11.7-14.9)
== END 2018-10-04 11:00 | disposition home or self-care (01) ==
LOC: LAB 10:39
PROVIDERS: Family Provider Family Medicine; PCP Family Medicine
DX: I82.409 Acute embolism and thrombosis of unspecified deep veins of unspecified lower extremity (principal); Z79.01 Long term (current) use of anticoagulants
CPT/HCPCS: 36415; 85610

== ENCOUNTER 2018-11-10 07:40 | Outpatient (RCR) | payer OTHER, SELFPAY ==
[2018-11-10 08:57] LABS: International Normalized Ratio 1.9; Prothrombin Time (Protime)PT. 21.4 SECONDS (11.7-14.9)
== END 2018-11-10 09:00 | disposition home or self-care (01) ==
LOC: LAB 07:40
PROVIDERS: Family Provider Family Medicine; PCP Family Medicine
DX: I82.409 Acute embolism and thrombosis of unspecified deep veins of unspecified lower extremity (principal); Z79.01 Long term (current) use of anticoagulants
CPT/HCPCS: 36415; 85610

== ENCOUNTER 2018-12-17 07:38 | Outpatient (RCR) | payer OTHER, SELFPAY ==
[2018-11-29 13:02] LABS: International Normalized Ratio 1.8; Prothrombin Time (Protime)PT. 20.7 SECONDS (11.7-14.9)
[2018-12-17 09:05] LABS: International Normalized Ratio 3.2; Prothrombin Time (Protime)PT. 33.1 SECONDS (11.7-14.9)
== END 2018-12-17 10:00 | disposition home or self-care (01) ==
LOC: LAB 07:38
PROVIDERS: Family Provider Family Medicine; PCP Family Medicine
DX: I82.409 Acute embolism and thrombosis of unspecified deep veins of unspecified lower extremity (principal); Z79.01 Long term (current) use of anticoagulants
CPT/HCPCS: 36415; 85610

== ENCOUNTER 2019-01-10 09:32 | Outpatient (RCR) | payer OTHER, SELFPAY ==
[2019-01-10 11:02] LABS: International Normalized Ratio 1.6; Prothrombin Time (Protime)PT. 19.1 SECONDS (11.7-14.9)
[2019-01-10 11:35] LABS: ALB/GLOB Ratio 1.1 RATIO (0.9-2.4); AST(SGOT) 12 U/L (15-37); Alanine Aminotransfer ALT/SGPT 21 U/L (13-56); Albumin, Serum 3.6 g/dL (3.2-5.0); Alkaline Phosphatase 55 U/L (45-117); Anion Gap 5 (5-15); BUN 13 mg/dL (7-18); BUN/Creat Ratio 21.7 RATIO (10-20); Chloride 109 mmol/L (98-107); Cholesterol 222 mg/dL (200); EST Glomerular Filtration Rate 115 mL/min (>60); Est Glom Filt Rate - Afr Amer 139 mL/min (>60); Globulin 3.4 g/dL (2.2-4.2); Glucose 91 mg/dL (74-106); High Density Lipoprotein 44 mg/dL; Sodium Level 143 mmol/L (136-145); Triglycerides 113 mg/dL; Very Low Density Lipoprotein 23 mg/dL (5-40)
== END 2019-01-10 18:00 | disposition home or self-care (01) ==
LOC: LAB 09:32
PROVIDERS: Family Provider Family Medicine; PCP Family Medicine
DX: D68.59 Other primary thrombophilia (principal); Z86.718 Personal history of other venous thrombosis and embolism; Z86.711 Personal history of pulmonary embolism; Z13.1 Encounter for screening for diabetes mellitus; Z13.220 Encounter for screening for lipoid disorders
CPT/HCPCS: 36415; 80053; 80061; 85610

== ENCOUNTER 2019-07-24 11:02 | Emergency (ER) | payer OTHER, SELFPAY ==
[2019-07-24 11:03] VITALS: BP 140/100; PULSE 109; RESP 29; TEMP 36.6; O2SAT 100; BMI 30.6
--- NOTE | 2019-07-24 11:22 | EKG12_ITS ---
Test Reason : CP Blood Pressure : / mmHG Vent. Rate : 110 BPM Atrial Rate : 110 BPM P-R Int : 124 ms QRS Dur : 078 ms QT Int : 344 ms P-R-T Axes : 059 027 048 degrees QTc Int : 465 ms Sinus tachycardia Nonspecific ST abnormality Abnormal ECG Confirmed by LAMIN PIERSON, DOMENIC ([id number]), film and video editor MARIAM TOMLINSON ([id number]) on 07/27/2019 2:32:47 PM Referred By: MARINO Confirmed By:DOMENIC KIMBLE MD
--- NOTE | 2019-07-24 11:26 | ED.DCSUM_ITS ---
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 She was having palpitations rapid heart rate and shortness of breath she thought it was anxiety which she has a history of and took a Xanax but it did not help. She called squad. They noticed her heart rate was 220. They gave her 6 mg of adenosine which did not help and they gave her 12 mg of adenosine and on arrival she has a normal sinus rhythm rate of 100 bpm which she states is her normal heart rate. No history of similar. She feels well at this time. Rest review of systems are negative Prior similar symptoms: No Recent Illness/Hospitalization: No <Raymundo Torres - Last Filed: 07/24/19 12:33> <John Cartwright - Last Filed: 07/24/19 15:05> Chief Complaint: Palpitations Past Medical History Prior records reviewed: Yes Past Medical History: - - Clotting Disorder and pulmonary embolism Surgical History: hysterectomy Lives: With Family Smoking Status: Former smoker Alcohol: None Drugs: None <Raymundo Torres - Last Filed: 07/24/19 12:33> <John Cartwright - Last Filed: 07/24/19 15:05> - Allergies and Home Meds Allergies/Adverse Reactions: Allergies rivaroxaban [From Xarelto] Allergy (Verified 07/24/19 11:03) CHEST PAIN Sulfa (Sulfonamide Antibiotics) Allergy (Verified 07/24/19 11:03) Rash meperidine HCl [From Demerol] Adverse Reaction (Verified 07/24/19 11:03) Nausea IV IRON Allergy (Uncoded 07/24/19 11:03) Hives Primary Care Physician: Henrique Medina MD [Primary Care Provider] - Jsoe Johnson MD [STAFF PHYSICIAN] - As soon as possible Review of Systems All systems negative except as indicated General: Denies: Chills, Fever Eyes: Denies: Visual changes - bilaterally, Blurred Vision - bilaterally, Diplopia ENT: Denies: Rhinorrhea, Sore throat Cardiovascular: Reports: Palpitations, Heart racing. Denies: Chest pain Respiratory: Denies: Dyspnea, Cough, Sputum Gastrointestinal: Denies: Abdominal pain, Nausea, Vomiting, Diarrhea Genitourinary: Denies: Dysuria, Hematuria, Frequency Musculoskeletal: Denies: Myalgias, Arthralgias, Neck pain, Back pain, Swelling, Extremity Pain Skin: Denies: Rash, Abscess, Abrasions, Wounds Neurological: Denies: Headache, Weakness, Parasthesia, Numbness Psych: Reports: Depression, Anxiety. Denies: Suicidal thoughts, Suicidal ideations <Raymundo Torres - Last Filed: 07/24/19 12:33> Physical Exam Vital Signs/Narrative: Vital Signs Temp Pulse Resp BP Pulse Ox 07/24/19 11:03 97.8 F 109 H 29 H 140/100 H 100 Inital Vital Signs reviewed: Yes General: Well nourished, Well developed, No Acute Distress Head: Normocephalic, Atraumatic Eyes: Perrl, EOMI ENT: Moist mucous membranes Neck: Supple, Nontender, No lymphadenopathy, No JVD Cardiovascular: Regular rhythm, No murmurs, Tachycardia Respiratory: No distress, CTA bilaterally, Chest nontender Abdomen: Soft, Nontender, Nondistended, Normal bowel sounds, No masses Back: Nontender, Normal Inspection Extremities: Nontender, No edema Skin: Normal color, No rash, No Trauma Neurological: Alert, Oriented x3 Psychological: Normal affect, Normal Mood <Raymundo Torres - Last Filed: 07/24/19 12:33> Vital Signs/Narrative: Vital Signs Temp Pulse Resp BP Pulse Ox 07/24/19 12:37 97 12 116/86 H 96 07/24/19 11:59 112 H 19 H 103/71 97 07/24/19 11:39 112 H 21 H 127/91 H 98 07/24/19 11:03 97.8 F 109 H 29 H 140/100 H 100 <John Cartwright - Last Filed: 07/24/19 15:05> Diagnostic/Tx/Re-eval Chest X-Ray - ED: 1 View, Read by ED Physician, Read by Radiologist, No Acute Disease - Rhythm Strip Rhythm Strip: Sinus Rhythm Rate: 111 Ectopy: None - EKG Initial EKG Interpretation: No Acute Injury Pattern, Sinus Tachycardia Prior: No Prior - Medical Decision Making On patient's arrival to the emergency department she is in sinus rhythm rate of 110 bpm. EKG showed no signs of ischemia. Paramedics report patient has been given an initial dose of 6 mg of adenosine because the patient had a heart rate of 220 bpm. That did not improve the patient's heart rate they ended up giving her 12 mg adenosine with a second dose. Her heart rate then improved to 120 bpm. Patient had a normal blood pressure. Her laboratory work-up in the emergency department was unremarkable. Her chest x-ray was unremarkable as well. Her heart rate remained around 100 bpm in sinus rhythm. She does admit to taking Sudafed for a cold that she is currently experiencing. This could have contributed to her symptoms. At this time we feel she is safe for discharge. Her INR level was 2.7. She will follow-up with cardiology as an outpatient next week. Return precautions discussed. <Raymundo Torres - Last Filed: 07/24/19 12:33> - Medical Decision Making Patient was seen with me. I did a [id number] examination with the patient. Patient presents with palpitations that began today. Patient sat down to work at home today when she started feeling lightheaded. Patient states she felt like this might be an anxiety attack coming on so she took a half a tablet of Xanax. Patient had no improvement after this. Patient checked her heart rate and it was 220 at home. Patient called EMS. EMS administered 6 mg of adenosine with no improvement. EMS then administered 12 mg of adenosine. Patient converted back to a normal sinus rhythm after this. Vital signs are stable here in the emergency department. Patient is afebrile. Patient is in no acute distress. Oral mucosa is pink and moist. Neck is supple. Trachea is midline. There is no JVD. Heart was regular rate and rhythm. Lungs are clear and equal bilaterally. Abdomen is soft and nontender. Cranial nerves II through XII are intact. There are no focal motor or sensory deficits noted. EKG showed sinus tachycardia but there are no acute ST or T wave changes. Chest x-ray was unremarkable. CBC, metabolic profile, and troponin were obtained were all within normal limits. On reevaluation, the patient stated she had been taking Sudafed for an ear infection. Patient was instructed to stop taking the Sudafed. Patient was instructed to finish her antibiotic as prescribed. Patient was instructed to follow-up with her primary care physician in 5 to 7 days. Patient understood and was agreeable with the plan. All questions were answered. <John Cartwright - Last Filed: 07/24/19 15:05> ED Disposition <Raymundo Torres - Last Filed: 07/24/19 12:33> <John Cartwright - Last Filed: 07/24/19 15:05> - Plan for ED Patient: Disposition: Home or Assisted Living Diagnosis: SVT (supraventricular tachycardia) Instructions: ED Tachycardia PAT Referrals: Henrique Medina MD [Primary Care Provider] - Jose Johnson MD [STAFF PHYSICIAN] - As soon as possible
[2019-07-24 11:28] LABS: Absolute Lymphocyte Count 1.65 X10^3/uL (0.83-4.51); Absolute Neutrophil Count 3.7 X10^3/uL (2.0-7.7); Basophil# 0.02 X10^3/uL; Basophil% 0.3 % (0-1); Eosinophils% 1.7 % (0-5); Hemoglobin 14.5 g/dL (12.0-15.0); Lymphocyte # 1.65 X10^3/ul (4.0); Lymphocyte % 28.5 % (19-41); Mean Corp Hgb Conc 33.7 g/dL (32-36); Mean Corpuscular Volume 83.2 fL (81-99); Mean Platelet Vol. 10.3 fl (6.2-12.0); Monocyte# 0.32 X10^3/uL; Monocyte% 5.5 % (0-10); NRBC Flagged by Analyzer 0 % (0-5); Neutrophil # 3.68 X10^3/uL (2.7-7.7); Neutrophil % 63.7 % (47-70); Platelet Count 192 K/mm3 (150-450); RBC Distribution Width CV 13.2 % (11.6-14.6); Red Blood Count 5.17 M/mm3 (4.2-5.4); White Blood Count 5.8 K/mm3 (4.4-11.0)
--- NOTE | 2019-07-24 11:29 | RAD_ITS ---
STUDY: X-RAY CHEST REASON FOR EXAM: Female, 44 years old. Sudden palpitations with chest pain and sob. TECHNIQUE: Single AP portable view of the chest. COMPARISON: None. FINDINGS: EKG electrodes are seen. The lungs are clear and expanded. There is no demonstrated pleural abnormality. Normal size heart. Normal mediastinum and oren. Normal visualized pulmonary arteries. Normal visualized aortic arch and descending thoracic aorta. Normal visualized thoracic spine. Normal visualized ribs, clavicles, and shoulders. There is no demonstrated abnormality of the visualized soft tissue structures of the upper abdomen. RAD/Chest 1 View (Portable) IMPRESSION: Normal x-ray examination of the chest. Electronically Signed: Roderick Moreira, at 12:08 EDT , Service support ,
[2019-07-24 11:34] LABS: International Normalized Ratio 2.7; Prothrombin Time (Protime)PT. 28.3 SECONDS (11.7-14.9)
[2019-07-24 11:39] VITALS: BP 127/91; PULSE 112; RESP 21; O2SAT 98
[2019-07-24 11:49] LABS: Anion Gap 10 (5-15); BUN 9 mg/dL (7-18); Calcium,Total 8.8 mg/dL (8.5-10.1); Chloride 109 mmol/L (98-107); Creatinine, Serum 0.75 mg/dL (0.55-1.02); EST Glomerular Filtration Rate 88 mL/min (>60); Est Glom Filt Rate - Afr Amer 107 mL/min (>60); Estimated Creatinine Clearance 87.74 ml/min; Glucose 135 mg/dL (74-106); Potassium 2.9 mmol/L (3.5-5.1); Sodium Level 141 mmol/L (136-145); Thyroid Stim Hormone (TSH) 1.34 uIU/mL (0.358-3.74)
[2019-07-24 11:59] VITALS: BP 103/71; PULSE 112; RESP 19; O2SAT 97
[2019-07-24 12:37] VITALS: BP 116/86; PULSE 97; RESP 12; O2SAT 96
== END 2019-07-24 13:01 | disposition home or self-care (01) ==
PROVIDERS: Emergency Provider Physician Assistant Medical; PCP Family Medicine
DX: I47.1 Supraventricular tachycardia (principal); Z86.711 Personal history of pulmonary embolism; Z79.01 Long term (current) use of anticoagulants; Z87.891 Personal history of nicotine dependence
CPT/HCPCS: 71045; 80048; 84443; 84484; 85025; 85610; 93005; 99285

== ENCOUNTER → 2019-08-07 13:06 | Outpatient (CLI) | payer OTHER, SELFPAY ==
[2019-08-05 15:40] VITALS: BMI 29.6
[2019-08-07 15:08] LABS: Anion Gap 7 (5-15); BUN 12 mg/dL (7-18); BUN/Creat Ratio 20.7 RATIO (10-20); Calcium,Total 8.7 mg/dL (8.5-10.1); Chloride 107 mmol/L (98-107); Creatinine, Serum 0.58 mg/dL (0.55-1.02); EST Glomerular Filtration Rate 119 mL/min (>60); Est Glom Filt Rate - Afr Amer 144 mL/min (>60); Glucose 82 mg/dL (74-106); Magnesium 1.9 mg/dL (1.6-2.6); Potassium 3.8 mmol/L (3.5-5.1); Sodium Level 141 mmol/L (136-145)
== END ==
PROVIDERS: PCP Family Medicine; Referring Provider Internal Medicine Cardiovascular Disease; Visit Provider Internal Medicine Cardiovascular Disease
DX: R00.0 Tachycardia, unspecified (principal); I26.99 Other pulmonary embolism without acute cor pulmonale; Z86.718 Personal history of other venous thrombosis and embolism
CPT/HCPCS: 36415; 80048; 83735

== ENCOUNTER → 2019-08-10 09:00 | Outpatient (CLI) | payer OTHER, SELFPAY ==
[2019-08-05 15:40] VITALS: BMI 29.6
== END ==
PROVIDERS: PCP Family Medicine; Referring Provider Internal Medicine Cardiovascular Disease; Visit Provider Internal Medicine Cardiovascular Disease
DX: R00.0 Tachycardia, unspecified (principal); I26.99 Other pulmonary embolism without acute cor pulmonale; Z86.718 Personal history of other venous thrombosis and embolism
CPT/HCPCS: 93225; 93226

== ENCOUNTER → 2019-08-21 10:31 | Outpatient (CLI) | payer OTHER, SELFPAY ==
[2019-08-05 15:40] VITALS: BMI 29.6
[2019-08-21 11:09] LABS: Anion Gap 3 (5-15); BUN 9 mg/dL (7-18); BUN/Creat Ratio 13.7 RATIO (10-20); Calcium,Total 9.1 mg/dL (8.5-10.1); Chloride 111 mmol/L (98-107); Creatinine, Serum 0.66 mg/dL (0.55-1.02); EST Glomerular Filtration Rate 103 mL/min (>60); Est Glom Filt Rate - Afr Amer 125 mL/min (>60); Glucose 90 mg/dL (74-106); Potassium 4.3 mmol/L (3.5-5.1); Sodium Level 142 mmol/L (136-145)
== END ==
PROVIDERS: PCP Family Medicine; Referring Provider Internal Medicine Cardiovascular Disease; Visit Provider Internal Medicine Cardiovascular Disease
DX: R00.0 Tachycardia, unspecified (principal); E87.6 Hypokalemia
CPT/HCPCS: 36415; 80048

== ENCOUNTER → 2019-08-26 10:02 | Outpatient (CLI) | payer OTHER, SELFPAY ==
[2019-08-05 15:40] VITALS: BMI 29.6
--- NOTE | 2019-08-26 10:04 | ECHOCS_ITS ---
Reason For Study: ARRHYTHMIA Procedure This was a 2D Doppler, Color Flow transthoracic echocardiogram. The study was technically difficult. Due to respiratory interference. Contrast injection was performed. Exam performed in department. Left Ventricle Normal LV size. Apical false tendon noted. Left ventricular systolic function is normal. The estimated ejection fraction is 55 %. No evidence for diastolic dysfunction. No regional wall motion abnormalities noted. Right Ventricle Normal RV size. Normal systolic function. Atria Normal left atrium. Normal right atrium. No doppler evidence for ASD. Mitral Valve There is no mitral annular calcification. Normal mitral valve. Trivial mitral valve insufficiency. Tricuspid Valve Normal tricuspid valve. Trivial tricuspid valve insufficiency. Unable to estimate RV systolic pressure/pulmonary artery pressure due to technically difficult study. Aortic Valve Trisinus/trileaflet aortic valve. Mild focal aortic valve calcification. Pulmonic Valve The pulmonic valve is not well visualized. Great Vessels Normal sized aortic root. Pericardium/Pleural No pericardial effusion. Medication 22 gauge I.V. with prn adaptor inserted into right arm. Diluted definity 3.0ml given slow IV push to enhance endocardial definition. MMode/2D Measurements & Calculations LVIDd: 5.1 cm IVSd: 0.88 cm Ao root diam: 2.7 cm LVIDs: 3.5 cm LVPWd: 0.83 cm RVDd: 2.9 cm FS: 30.5 % LAV(MOD-bp): 53.4 ml LA A4 area: 19.0 cm2 LA dimension(2D): 3.6 cm LAV(MOD-bp) Indexed: 27.4 ml/m2 LAV(MOD-sp2): 48.9 ml LAV(MOD-sp4): 54.4 ml RA A4 area: 14.3 cm2 Time Measurements MV dec time: 0.14 sec Doppler Measurements & Calculations MV E max prince: 81.1 cm/sec Lat Peak E' Prince: 13.2 cm/sec Med Peak E' Prince: 8.4 cm/sec MV A max prince: 65.4 cm/sec E/E' lat: 6.1 E/E' med: 9.7 MV E/A: 1.2 Ao V2 max: 109.5 cm/sec LV V1 max: 96.7 cm/sec PA V2 max: 84.6 cm/sec Ao max P.8 mmHg LV V1 max P.7 mmHg Interpretation Summary The study was technically difficult. Contrast injection was performed. Left ventricular systolic function is normal. The estimated ejection fraction is 55 %. Apical false tendon noted. Trivial mitral valve insufficiency. Trivial tricuspid valve insufficiency. Mild focal aortic valve calcification. Unable to estimate RV systolic pressure/pulmonary artery pressure due to technically difficult study. No evidence for diastolic dysfunction. Ordering Physician: Jose Johnson Referring Physician: Henrique Medina Performed By: Lynette Vega RDCS, RVT
== END ==
PROVIDERS: PCP Family Medicine; Referring Provider Internal Medicine Cardiovascular Disease; Visit Provider Internal Medicine Cardiovascular Disease
DX: R00.0 Tachycardia, unspecified (principal); I26.99 Other pulmonary embolism without acute cor pulmonale; Z86.718 Personal history of other venous thrombosis and embolism
CPT/HCPCS: 93306; Q9957; A4216; C8929

== ENCOUNTER 2019-08-26 11:12 | Outpatient (RCR) | payer OTHER, SELFPAY ==
[2019-08-05 15:40] VITALS: BMI 29.6
[2019-08-26 11:52] LABS: International Normalized Ratio 1.8
== END 2019-08-26 18:00 | disposition home or self-care (01) ==
LOC: LAB 11:12
PROVIDERS: PCP Family Medicine; Referring Provider Registered Nurse; Visit Provider Registered Nurse
DX: D68.9 Coagulation defect, unspecified (principal)
CPT/HCPCS: 36415; 85610

== ENCOUNTER 2019-10-08 10:40 | Outpatient (RCR) | payer OTHER, SELFPAY ==
[2019-08-05 15:40] VITALS: BMI 29.6
[2019-10-08 11:21] LABS: International Normalized Ratio 2.5; Prothrombin Time (Protime)PT. 26.6 SECONDS (11.7-14.9)
== END 2019-10-08 18:00 | disposition home or self-care (01) ==
LOC: LAB 10:40
PROVIDERS: PCP Family Medicine; Referring Provider Registered Nurse; Visit Provider Registered Nurse
DX: D68.9 Coagulation defect, unspecified (principal)
CPT/HCPCS: 36415; 85610

== ENCOUNTER → 2019-10-20 13:31 | Outpatient (CLI) | payer OTHER, SELFPAY ==
[2019-08-05 15:40] VITALS: BMI 29.6
== END ==
PROVIDERS: PCP Family Medicine; Visit Provider Family Medicine Hospice and Palliative Medicine
DX: Z11.59 Encounter for screening for other viral diseases (principal)
CPT/HCPCS: 87635; 94799; U0003

== ENCOUNTER 2019-11-16 09:26 | Outpatient (RCR) | payer OTHER, SELFPAY ==
[2019-08-05 15:40] VITALS: BMI 29.6
[2019-11-04 11:35] VITALS: BMI 29.7
[2019-11-04 13:52] LABS: International Normalized Ratio 3.3; Prothrombin Time (Protime)PT. 33.2 SECONDS (11.7-14.9)
[2019-11-16 10:11] LABS: International Normalized Ratio 2.7; Prothrombin Time (Protime)PT. 28.1 SECONDS (11.7-14.9)
== END 2019-11-23 18:00 | disposition home or self-care (01) ==
LOC: LAB 09:26
PROVIDERS: PCP Family Medicine; Referring Provider Registered Nurse; Visit Provider Registered Nurse
DX: D68.9 Coagulation defect, unspecified (principal)
CPT/HCPCS: 36415; 85610

== ENCOUNTER 2019-12-17 16:00 | Outpatient (RCR) | payer OTHER, SELFPAY ==
[2019-11-04 11:35] VITALS: BMI 29.7
[2019-12-04 15:20] LABS: International Normalized Ratio 3.5
[2019-12-17 17:25] LABS: International Normalized Ratio 2.4
== END 2019-12-17 18:00 | disposition home or self-care (01) ==
LOC: LAB 16:00
PROVIDERS: PCP Family Medicine; Referring Provider Registered Nurse; Visit Provider Registered Nurse
DX: D68.9 Coagulation defect, unspecified (principal)
CPT/HCPCS: 36415; 85610

== ENCOUNTER 2020-01-13 10:17 | Outpatient (RCR) | payer OTHER, SELFPAY ==
[2019-11-04 11:35] VITALS: BMI 29.7
[2020-01-13 11:03] LABS: International Normalized Ratio 2.6; Prothrombin Time (Protime)PT. 27.8 SECONDS (11.7-14.9)
== END 2020-01-13 18:00 | disposition home or self-care (01) ==
LOC: LAB 10:17
PROVIDERS: PCP Family Medicine; Referring Provider Registered Nurse; Visit Provider Registered Nurse
DX: D68.9 Coagulation defect, unspecified (principal)
CPT/HCPCS: 36415; 85610

== ENCOUNTER → 2020-02-16 10:16 | Outpatient (CLI) | payer OTHER, SELFPAY ==
[2019-11-04 11:35] VITALS: BMI 29.7
== END ==
PROVIDERS: PCP Family Medicine; Referring Provider Internal Medicine Cardiovascular Disease; Visit Provider Internal Medicine Cardiovascular Disease
DX: R00.0 Tachycardia, unspecified (principal)
CPT/HCPCS: 93225; 93226

== ENCOUNTER 2020-02-16 11:07 | Outpatient (RCR) | payer OTHER, SELFPAY ==
[2019-11-04 11:35] VITALS: BMI 29.7
[2020-02-16 12:18] LABS: International Normalized Ratio 1.9; Prothrombin Time (Protime)PT. 21.5 SECONDS (11.7-14.9)
[2020-02-16 12:55] LABS: Anion Gap 2 (5-15); BUN 10 mg/dL (7-18); BUN/Creat Ratio 18.5 RATIO (10-20); Calcium,Total 8.9 mg/dL (8.5-10.1); Chloride 109 mmol/L (98-107); Creatinine, Serum 0.54 mg/dL (0.55-1.02); EST Glomerular Filtration Rate 128 mL/min (>60); Est Glom Filt Rate - Afr Amer 155 mL/min (>60); Glucose 87 mg/dL (74-106); Potassium 4.1 mmol/L (3.5-5.1); Sodium Level 140 mmol/L (136-145)
== END 2020-02-16 18:00 | disposition home or self-care (01) ==
LOC: LAB 11:07
PROVIDERS: PCP Family Medicine; Referring Provider Registered Nurse; Visit Provider Registered Nurse
DX: D68.9 Coagulation defect, unspecified (principal)
CPT/HCPCS: 36415; 80048; 83735; 85610

== ENCOUNTER 2020-04-20 14:59 | Outpatient (RCR) | payer OTHER, SELFPAY ==
[2019-11-04 11:35] VITALS: BMI 29.7
[2020-03-28 09:53] LABS: International Normalized Ratio 2.4; Prothrombin Time (Protime)PT. 25.7 SECONDS (11.7-14.9)
[2020-04-04 17:47] LABS: International Normalized Ratio 2.7; Prothrombin Time (Protime)PT. 27.8 SECONDS (11.7-14.9)
[2020-04-20 17:48] LABS: International Normalized Ratio 2.3
== END 2020-04-20 18:00 | disposition home or self-care (01) ==
LOC: LAB 14:59
PROVIDERS: PCP Family Medicine; Referring Provider Registered Nurse; Visit Provider Registered Nurse
DX: D68.9 Coagulation defect, unspecified (principal)
CPT/HCPCS: 36415; 85610

== ENCOUNTER 2020-05-12 09:16 | Outpatient (RCR) | payer OTHER, SELFPAY ==
[2019-11-04 11:35] VITALS: BMI 29.7
[2020-05-02 14:14] LABS: International Normalized Ratio 2.2; Prothrombin Time (Protime)PT. 24.2 SECONDS (11.7-14.9)
[2020-05-12 10:12] LABS: Prothrombin Time (Protime)PT. 30.7 SECONDS (11.7-14.9)
== END 2020-05-12 18:00 | disposition home or self-care (01) ==
LOC: LAB 09:16
PROVIDERS: PCP Family Medicine; Referring Provider Registered Nurse; Visit Provider Registered Nurse
DX: D68.9 Coagulation defect, unspecified (principal)
CPT/HCPCS: 36415; 85610

== ENCOUNTER 2020-06-15 09:38 | Outpatient (RCR) | payer OTHER, SELFPAY ==
[2019-11-04 11:35] VITALS: BMI 29.7
[2020-05-25 09:53] LABS: International Normalized Ratio 2.8; Prothrombin Time (Protime)PT. 29.5 SECONDS (11.7-14.9)
[2020-06-15 10:56] LABS: International Normalized Ratio 2.5; Prothrombin Time (Protime)PT. 26.4 SECONDS (11.7-14.9)
== END 2020-06-15 18:00 | disposition home or self-care (01) ==
LOC: LAB 09:38
PROVIDERS: PCP Family Medicine; Referring Provider Registered Nurse; Visit Provider Registered Nurse
DX: D68.9 Coagulation defect, unspecified (principal)
CPT/HCPCS: 36415; 85610

== ENCOUNTER 2020-07-04 12:26 | Outpatient (RCR) | payer OTHER, SELFPAY ==
[2019-11-04 11:35] VITALS: BMI 29.7
[2020-07-04 13:01] LABS: International Normalized Ratio 2.7; Prothrombin Time (Protime)PT. 27.8 SECONDS (11.7-14.9)
== END 2020-07-04 18:00 | disposition home or self-care (01) ==
LOC: LAB 12:26
PROVIDERS: PCP Family Medicine; Referring Provider Registered Nurse; Visit Provider Registered Nurse
DX: D68.9 Coagulation defect, unspecified (principal); Z79.01 Long term (current) use of anticoagulants
CPT/HCPCS: 36415; 85610

== ENCOUNTER 2020-07-29 07:35 | Outpatient (RCR) | payer OTHER, SELFPAY ==
[2019-11-04 11:35] VITALS: BMI 29.7
[2020-07-29 08:25] LABS: International Normalized Ratio 2.3; Prothrombin Time (Protime)PT. 24.3 SECONDS (11.7-14.9)
== END 2020-07-29 18:00 | disposition home or self-care (01) ==
LOC: LAB 07:35
PROVIDERS: PCP Family Medicine; Referring Provider Registered Nurse; Visit Provider Registered Nurse
DX: D68.9 Coagulation defect, unspecified (principal); Z79.01 Long term (current) use of anticoagulants
CPT/HCPCS: 36415; 85610

== ENCOUNTER 2020-09-12 10:13 | Outpatient (RCR) | payer OTHER, SELFPAY ==
[2019-11-04 11:35] VITALS: BMI 29.7
[2020-09-01 09:49] LABS: International Normalized Ratio 1.8
[2020-09-12 11:44] LABS: International Normalized Ratio 2.3; Prothrombin Time (Protime)PT. 24.2 SECONDS (11.7-14.9)
== END 2020-09-12 18:00 | disposition home or self-care (01) ==
LOC: LAB 10:13
PROVIDERS: PCP Family Medicine; Referring Provider Registered Nurse; Visit Provider Registered Nurse
DX: D68.9 Coagulation defect, unspecified (principal); Z79.01 Long term (current) use of anticoagulants
CPT/HCPCS: 36415; 85610

== ENCOUNTER 2020-09-30 10:12 | Outpatient (RCR) | payer OTHER, SELFPAY ==
[2019-11-04 11:35] VITALS: BMI 29.7
[2020-09-30 11:34] LABS: Prothrombin Time (Protime)PT. 21.9 SECONDS (11.7-14.9)
== END 2020-09-30 18:00 | disposition home or self-care (01) ==
LOC: LAB 10:12
PROVIDERS: PCP Family Medicine; Referring Provider Registered Nurse; Visit Provider Registered Nurse
DX: D68.9 Coagulation defect, unspecified (principal); Z79.01 Long term (current) use of anticoagulants
CPT/HCPCS: 36415; 85610

== ENCOUNTER 2020-11-03 07:58 | Outpatient (RCR) | payer OTHER, SELFPAY ==
[2019-11-04 11:35] VITALS: BMI 29.7
[2020-11-03 08:27] LABS: International Normalized Ratio 3.2; Prothrombin Time (Protime)PT. 31.6 SECONDS (11.7-14.9)
== END 2020-11-03 18:00 | disposition home or self-care (01) ==
LOC: LAB 07:58
PROVIDERS: PCP Family Medicine; Referring Provider Registered Nurse; Visit Provider Registered Nurse
DX: D68.9 Coagulation defect, unspecified (principal); Z79.01 Long term (current) use of anticoagulants
CPT/HCPCS: 36415; 85610

== ENCOUNTER 2020-12-15 07:51 | Outpatient (RCR) | payer OTHER, SELFPAY ==
[2020-11-22 23:30] VITALS: BMI 29.7
[2020-11-24 08:28] LABS: International Normalized Ratio 2.4; Prothrombin Time (Protime)PT. 25.6 SECONDS (11.7-14.9)
[2020-12-15 09:39] LABS: International Normalized Ratio 2.5; Prothrombin Time (Protime)PT. 26.2 SECONDS (11.7-14.9)
== END 2020-12-15 18:00 | disposition home or self-care (01) ==
LOC: LAB 07:51
PROVIDERS: Registered Nurse; PCP Family Medicine; Referring Provider Internal Medicine Cardiovascular Disease; Visit Provider Internal Medicine Cardiovascular Disease
DX: D68.9 Coagulation defect, unspecified (principal); Z79.01 Long term (current) use of anticoagulants; Z86.718 Personal history of other venous thrombosis and embolism; Z86.711 Personal history of pulmonary embolism
CPT/HCPCS: 36415; 85610

== ENCOUNTER 2021-01-18 07:42 | Outpatient (RCR) | payer OTHER, SELFPAY ==
[2020-12-22 21:21] VITALS: BMI 29.7
[2021-01-18 09:29] LABS: International Normalized Ratio 3.1; Prothrombin Time (Protime)PT. 31.4 SECONDS (11.7-14.9)
== END 2021-01-22 18:00 | disposition home or self-care (01) ==
LOC: LAB 07:42
PROVIDERS: PCP Family Medicine; Referring Provider Internal Medicine Cardiovascular Disease; Visit Provider Internal Medicine Cardiovascular Disease
DX: D68.9 Coagulation defect, unspecified (principal); Z79.01 Long term (current) use of anticoagulants; Z86.711 Personal history of pulmonary embolism; Z86.718 Personal history of other venous thrombosis and embolism
CPT/HCPCS: 36415; 85610

== ENCOUNTER 2021-02-15 07:43 | Outpatient (RCR) | payer OTHER, SELFPAY ==
[2021-01-22 20:10] VITALS: BMI 29.7
[2021-02-15 09:13] LABS: Prothrombin Time (Protime)PT. 30.7 SECONDS (11.7-14.9)
== END 2021-02-21 18:00 | disposition home or self-care (01) ==
LOC: LAB 07:43
PROVIDERS: PCP Family Medicine; Referring Provider Internal Medicine Cardiovascular Disease; Visit Provider Internal Medicine Cardiovascular Disease
DX: D68.9 Coagulation defect, unspecified (principal); Z79.01 Long term (current) use of anticoagulants; Z86.711 Personal history of pulmonary embolism; Z86.718 Personal history of other venous thrombosis and embolism
CPT/HCPCS: 36415; 85610

== ENCOUNTER 2021-03-02 08:12 | Outpatient (RCR) | payer OTHER, SELFPAY ==
[2021-02-22 03:28] VITALS: BMI 29.7
[2021-02-23 09:05] LABS: International Normalized Ratio 1.8; Prothrombin Time (Protime)PT. 20.5 SECONDS (11.7-14.9)
[2021-03-02 09:44] LABS: International Normalized Ratio 2.1; Prothrombin Time (Protime)PT. 22.4 SECONDS (11.7-14.9)
== END 2021-03-25 18:00 | disposition home or self-care (01) ==
LOC: LAB 08:12
PROVIDERS: PCP Family Medicine; Referring Provider Internal Medicine Cardiovascular Disease; Visit Provider Internal Medicine Cardiovascular Disease
DX: D68.9 Coagulation defect, unspecified (principal); Z79.01 Long term (current) use of anticoagulants; Z86.711 Personal history of pulmonary embolism; Z86.718 Personal history of other venous thrombosis and embolism
CPT/HCPCS: 36415; 85610

== ENCOUNTER 2021-03-31 09:51 | Outpatient (RCR) | payer OTHER, SELFPAY ==
[2021-03-26 04:30] VITALS: BMI 29.7
[2021-03-31 11:26] LABS: International Normalized Ratio 2.9; Prothrombin Time (Protime)PT. 29.4 SECONDS (11.7-14.9)
== END 2021-04-24 18:00 | disposition home or self-care (01) ==
LOC: LAB 09:51
PROVIDERS: PCP Family Medicine; Referring Provider Internal Medicine Cardiovascular Disease; Visit Provider Internal Medicine Cardiovascular Disease
DX: D68.9 Coagulation defect, unspecified (principal); Z79.01 Long term (current) use of anticoagulants; Z86.718 Personal history of other venous thrombosis and embolism; Z86.711 Personal history of pulmonary embolism
CPT/HCPCS: 36415; 85610

== ENCOUNTER 2021-05-09 07:45 | Outpatient (RCR) | payer OTHER, SELFPAY ==
[2021-04-25 01:20] VITALS: BMI 29.7
[2021-05-09 08:42] LABS: International Normalized Ratio 2.7; Prothrombin Time (Protime)PT. 27.6 SECONDS (11.7-14.9)
== END 2021-05-09 23:59 | disposition home or self-care (01) ==
LOC: LAB 07:45
PROVIDERS: PCP Family Medicine; Referring Provider Internal Medicine Cardiovascular Disease; Visit Provider Internal Medicine Cardiovascular Disease
DX: D68.9 Coagulation defect, unspecified (principal); Z79.01 Long term (current) use of anticoagulants; Z86.711 Personal history of pulmonary embolism; Z86.718 Personal history of other venous thrombosis and embolism
CPT/HCPCS: 36415; 85610

== ENCOUNTER 2021-06-14 09:02 | Outpatient (RCR) | payer OTHER, SELFPAY ==
[2021-05-23 09:48] VITALS: BMI 29.7
[2021-06-14 09:54] LABS: International Normalized Ratio 3.4; Prothrombin Time (Protime)PT. 33.5 SECONDS (11.7-14.9)
== END 2021-06-22 18:00 | disposition home or self-care (01) ==
LOC: LAB 09:02
PROVIDERS: PCP Family Medicine; Referring Provider Internal Medicine Cardiovascular Disease; Visit Provider Internal Medicine Cardiovascular Disease
DX: D68.9 Coagulation defect, unspecified (principal); Z79.01 Long term (current) use of anticoagulants; Z86.718 Personal history of other venous thrombosis and embolism; Z86.711 Personal history of pulmonary embolism
CPT/HCPCS: 36415; 85610

== ENCOUNTER 2021-07-07 07:56 | Outpatient (RCR) | payer OTHER, SELFPAY ==
[2021-06-23 02:36] VITALS: BMI 29.7
[2021-07-07 08:36] LABS: International Normalized Ratio 2.5; Prothrombin Time (Protime)PT. 26.3 SECONDS (11.7-14.9)
== END 2021-07-07 18:00 | disposition home or self-care (01) ==
LOC: LAB 07:56
PROVIDERS: PCP Family Medicine; Referring Provider Internal Medicine Cardiovascular Disease; Visit Provider Internal Medicine Cardiovascular Disease
DX: D68.9 Coagulation defect, unspecified (principal); Z79.01 Long term (current) use of anticoagulants; Z86.718 Personal history of other venous thrombosis and embolism; Z86.711 Personal history of pulmonary embolism
CPT/HCPCS: 36415; 85610

== ENCOUNTER 2021-08-17 12:42 | Outpatient (RCR) | payer OTHER, SELFPAY ==
[2021-07-23 03:30] VITALS: BMI 29.7
[2021-08-17 13:25] LABS: International Normalized Ratio 1.8
== END 2021-08-17 18:00 | disposition home or self-care (01) ==
LOC: LAB 12:42
PROVIDERS: PCP Family Medicine; Referring Provider Internal Medicine Cardiovascular Disease; Visit Provider Internal Medicine Cardiovascular Disease
DX: D68.9 Coagulation defect, unspecified (principal); Z79.01 Long term (current) use of anticoagulants; Z86.718 Personal history of other venous thrombosis and embolism; Z86.711 Personal history of pulmonary embolism
CPT/HCPCS: 36415; 85610

== ENCOUNTER 2021-09-07 12:21 | Outpatient (RCR) | payer OTHER, SELFPAY ==
[2021-08-22 20:50] VITALS: BMI 29.7
[2021-09-07 13:34] LABS: International Normalized Ratio 3.1; Prothrombin Time (Protime)PT. 31.8 SECONDS (11.7-14.9)
== END 2021-09-07 23:59 | disposition home or self-care (01) ==
LOC: LAB 12:21
PROVIDERS: PCP Family Medicine; Referring Provider Internal Medicine Cardiovascular Disease; Visit Provider Internal Medicine Cardiovascular Disease
DX: D68.9 Coagulation defect, unspecified (principal); Z79.01 Long term (current) use of anticoagulants; Z86.718 Personal history of other venous thrombosis and embolism; Z86.711 Personal history of pulmonary embolism
CPT/HCPCS: 36415; 85610

== ENCOUNTER 2021-10-03 11:01 | Outpatient (RCR) | payer OTHER, SELFPAY ==
[2021-09-22 07:07] VITALS: BMI 29.7
[2021-10-03 12:42] LABS: International Normalized Ratio 2.2; Prothrombin Time (Protime)PT. 23.7 SECONDS (11.7-14.9)
== END 2021-10-22 02:45 | disposition home or self-care (01) ==
LOC: LAB 11:01
PROVIDERS: PCP Family Medicine; Referring Provider Internal Medicine Cardiovascular Disease; Visit Provider Internal Medicine Cardiovascular Disease
DX: D68.9 Coagulation defect, unspecified (principal); Z79.01 Long term (current) use of anticoagulants; Z86.711 Personal history of pulmonary embolism; Z86.718 Personal history of other venous thrombosis and embolism
CPT/HCPCS: 36415; 85610

== ENCOUNTER 2021-11-17 14:31 | Outpatient (RCR) | payer OTHER, SELFPAY ==
[2021-10-22 02:46] VITALS: BMI 29.7
[2021-11-17 15:59] LABS: International Normalized Ratio 1.6
== END 2021-11-17 18:00 | disposition home or self-care (01) ==
LOC: LAB 14:31
PROVIDERS: PCP Family Medicine; Referring Provider Internal Medicine Cardiovascular Disease; Visit Provider Internal Medicine Cardiovascular Disease
DX: D68.9 Coagulation defect, unspecified (principal); Z79.01 Long term (current) use of anticoagulants; Z86.711 Personal history of pulmonary embolism; Z86.718 Personal history of other venous thrombosis and embolism
CPT/HCPCS: 36415; 85610

== ENCOUNTER 2021-12-11 11:30 | Outpatient (RCR) | payer OTHER, SELFPAY ==
[2021-11-22 23:11] VITALS: BMI 29.7
[2021-12-11 13:05] LABS: Anion Gap 7 (5-15); BUN 13 mg/dL (7-18); BUN/Creat Ratio 22.3 RATIO (10-20); Chloride 108 mmol/L (98-107); Creatinine, Serum 0.58 mg/dL (0.55-1.02); EST Glomerular Filtration Rate 117 mL/min (>60); Est Glom Filt Rate - Afr Amer 141 mL/min (>60); Glucose 98 mg/dL (74-106); Sodium Level 142 mmol/L (136-145)
== END 2021-12-11 18:00 | disposition home or self-care (01) ==
LOC: LAB 11:30
PROVIDERS: Nurse Practitioner Gerontology; PCP Family Medicine; Referring Provider Internal Medicine Cardiovascular Disease; Visit Provider Internal Medicine Cardiovascular Disease
DX: D68.9 Coagulation defect, unspecified (principal); Z79.01 Long term (current) use of anticoagulants; Z86.711 Personal history of pulmonary embolism; Z86.718 Personal history of other venous thrombosis and embolism
CPT/HCPCS: 36415; 80048; 85610

== ENCOUNTER 2022-01-30 10:42 | Outpatient (RCR) | payer OTHER, SELFPAY ==
[2021-12-22 21:42] VITALS: BMI 29.7
[2022-01-30 11:29] LABS: International Normalized Ratio 2.2; Prothrombin Time (Protime)PT. 24.5 SECONDS (11.7-14.9)
== END 2022-02-21 18:00 | disposition home or self-care (01) ==
LOC: LAB 10:42
PROVIDERS: PCP Family Medicine; Referring Provider Internal Medicine Cardiovascular Disease; Visit Provider Internal Medicine Cardiovascular Disease
DX: D68.9 Coagulation defect, unspecified (principal); Z79.01 Long term (current) use of anticoagulants; Z86.711 Personal history of pulmonary embolism; Z86.718 Personal history of other venous thrombosis and embolism
CPT/HCPCS: 36415; 85610

== ENCOUNTER 2022-04-02 10:39 | Outpatient (RCR) | payer OTHER, SELFPAY ==
[2022-02-22 00:30] VITALS: BMI 29.7
[2022-04-02 11:25] LABS: International Normalized Ratio 2.4; Prothrombin Time (Protime)PT. 25.4 SECONDS (11.7-14.9)
== END 2022-04-02 18:00 | disposition home or self-care (01) ==
LOC: LAB 10:39
PROVIDERS: PCP Family Medicine; Referring Provider Internal Medicine Cardiovascular Disease; Visit Provider Internal Medicine Cardiovascular Disease
DX: D68.9 Coagulation defect, unspecified (principal); Z79.01 Long term (current) use of anticoagulants; Z86.711 Personal history of pulmonary embolism; Z86.718 Personal history of other venous thrombosis and embolism
CPT/HCPCS: 36415; 85610

== ENCOUNTER 2022-04-27 11:19 | Emergency (ER) | payer OTHER, SELFPAY ==
[2022-04-27 11:20] VITALS: BP 122/70; PULSE 96; RESP 21; TEMP 36.4; O2SAT 98; BMI 32.5
--- NOTE | 2022-04-27 11:31 | EKG12_ITS ---
Test Reason : Blood Pressure : / mmHG Vent. Rate : 096 BPM Atrial Rate : 096 BPM P-R Int : 136 ms QRS Dur : 076 ms QT Int : 350 ms P-R-T Axes : 052 004 020 degrees QTc Int : 442 ms Normal sinus rhythm Normal ECG Confirmed by ASTIRD CAICEDO MD ([id number]), publication editor SHIV SOUSA ([id number]) on 04/30/2022 11:09:59 AM Referred By: ABNER Confirmed By:ASTRID CAICEDO MD
--- NOTE | 2022-04-27 11:32 | EX.ED.DYSGE1 ---
HPI History of Present Illness Chief Complaint: Palpitations Informant: patient Onset/Context/Timing Onset: Today Narrative Narrative: Patient presents via EMS secondary to SVT. Patient states that she has had 1 prior episode of SVT in the past. This morning she leaned over to let her dogs out and felt sudden onset of heart racing and palpitations. She denies chest pain. Did not feel she was going to pass out. Actually took a shower and then called EMS. Squad gave 6 mg of IV adenosine and patient is currently in sinus rhythm. [facility] Medical History Clotting disorder History of DVT (deep vein thrombosis) History of pulmonary embolus (PE) Hypokalemia [facility] (current) use of anticoagulants Panic attacks Paroxysmal supraventricular tachycardia Tachycardia Home Medications vitamin B complex-folic acid 0.4 mg tablet 0.4 mg PO QHS 01/23/17 [History Last Taken Unknown] alprazolam 0.25 mg tablet 0.25 mg PO TID PRN PRN Anxiety 07/24/19 [History Last Taken Unknown] metoprolol succinate 25 mg tablet,extended release 24 hr 25 mg PO DAILY #90 tabs 05/08/21 [Rx Last Taken Unknown] warfarin 5 mg tablet 5 mg PO DAILY #90 tabs 06/20/21 [Rx Last Taken Unknown] acetaminophen 650 mg tablet,extended release (Tylenol Arthritis Pain) 650 mg PO Q12H 11/29/21 [History Last Taken Unknown] ascorbic acid (vitamin C) 500 mg capsule mg PO DAILY 11/29/21 [History Last Taken Unknown] atorvastatin 20 mg tablet 20 mg PO QHS 11/29/21 [History Last Taken Unknown] cetirizine 10 mg capsule (Zyrtec) 10 mg PO DAILY PRN 11/29/21 [History Last Taken Unknown] coenzyme Q10 75 mg capsule (Ultra CoQ10) 75 mg PO DAILY 11/29/21 [History Last Taken Unknown] zinc acetate 50 mg (zinc) capsule (Galzin) 50 mg PO DAILY 11/29/21 [History Last Taken Unknown] potassium chloride 10 mEq tablet,extended release 10 meq PO DAILY #90 tabs 04/04/22 [Rx Last Taken Unknown] metoprolol succinate 50 mg tablet,extended release 24 hr 50 mg PO DAILY #30 tabs 04/27/22 [Rx Last Taken Unknown] Allergy/AdvReac Type Severity Reaction Status Date / Time adhesive tape Allergy Unknown Unknown Verified 04/27/22 11:26 rivaroxaban [From Xarelto] Allergy CHEST PAIN Verified 04/27/22 11:26 Sulfa (Sulfonamide Allergy Rash Verified 04/27/22 11:26 Antibiotics) meperidine [From Demerol] AdvReac Severe Nausea and Verified 04/27/22 11:26 vomiting meperidine HCl [From Demerol] AdvReac Nausea Verified 04/27/22 11:26 IV IRON Allergy Hives Uncoded 04/27/22 11:26 Family History Mother Hypertension History of DVT (deep vein thrombosis) Cancer breast Father Heart disease Diabetes Hypertension Lupus Surgical History History of cholecystectomy History of hysterectomy Social History Smoking Status: Former smoker alcohol intake: never substance use type: does not use caffeine: No ROS ROS ED Constitutional Constitutional ED: Denies chills or fever(s) Eyes Eyes: Denies change in vision or discharge from eye(s) ENT ENT ED: Denies discharge from eye(s), rhinorrhea or sore throat Cardiovascular Cardiovascular: Reports palpitations and racing heartbeat; Denies chest pain Respiratory/Chest Respiratory/Chest: Denies cough or dyspnea Gastrointestinal Gastrointestinal: Denies abdominal pain, diarrhea, nausea or vomiting Genitourinary Genitourinary ED: Denies difficulty urinating or dysuria Musculoskeletal Musculoskeletal: Denies back pain or extremity pain Integumentary Denies Abrasions or rash Neurologic Neurologic: Denies headache(s) or weakness Psychiatric Psychiatric: Denies anxiety or depression Allergic/Immunologic Allergic/Immunologic ED: Denies lip swelling or urticaria EXAM Physical Exam Const Vital Signs: 04/27/22 11:20 04/27/22 11:26 Temperature 97.6 F L Temperature Source Oral Pulse Rate 96 Respiratory Rate 21 H Respiratory Effort Normal Non-Labored Respiratory Pattern Normal Blood Pressure 122/70 H Blood Pressure Mean 87 Pulse Ox 98 Oxygen Delivery Method Room Air Positive well nourished and well developed General Appearance ED: well developed HEENT Reports normocephalic and head/scalp atraumatic Eyes PERRL and EOMs intact bilaterally Neck supple Chest Wall inspection of chest normal and palpation of chest normal Resp normal respiratory effort and clear to auscultation bilaterally Cardio regular rate and regular rhythm GI normal to inspection, nondistended, normoactive bowel sounds Palpation: soft Extremity normal to inspection Neuro oriented x3 and no sensory deficits noted Sensorium / Orientation: alert Motor Exam: strength 5/5 throughout Psych mental status grossly normal Skin no rashes or lesions noted MDM MDM MDM Narrative Medical decision making narrative: Patient placed on press smith helper. EKG and lab work obtained. Lab Data Attestation: I reviewed the patient's lab results. Labs: Laboratory Results - last 24 hr 04/27/22 04/27/22 04/27/22 11:35 11:35 11:35 WBC 6.4 RBC 5.34 Hgb 15.2 H Hct 45.6 MCV 85.4 MCH 28.5 MCHC 33.3 RDW Std Deviation 39.0 RDW Coeff of Marilee 12.7 Plt Count 198 MPV 10.3 Immature Gran % (Auto) 0.500 Neut % (Auto) 68.2 Lymph % (Auto) 21.5 [place] % (Auto) 6.9 Eos % (Auto) 2.4 Baso % (Auto) 0.5 Absolute Neuts (auto) 4.4 Absolute Lymphs (auto) 1.37 Nucleated RBC % 0 PT 24.5 H INR 2.3 Sodium 148 H Potassium 3.4 L Chloride 112 H Carbon Dioxide 27.0 Anion Gap 9 BUN 10 Creatinine 0.66 Estim Creat Clear Calc 96.52 Est GFR (MDRD) Af Amer 122 Est GFR (MDRD) Non-Af 101 BUN/Creatinine Ratio 15.1 Glucose 113 H Calcium 9.4 Troponin I High Sens 10 TSH 1.91 EKG Initial EKG: Attestation: I personally reviewed and interpreted this EKG as follows: Interpretation: Sinus Rhythm (Sinus at 96 with no acute ischemia.) Treatment and Re-Evaluation Narrative: I reviewed the 4-lead from EMS. Patient had evidence of narrow complex tachycardia consistent with SVT. No evidence of WPW. Patient has been in sinus rhythm with heart rate in the 90s since arrival to the emergency room. CBC is unremarkable. Chemistry studies revealed slightly low potassium at 3.4. Her sodium was 148 and her chloride is 112. Troponin is normal at 10. TSH is normal at 1.91. INR is therapeutic at 2.3. On repeat evaluation patient's had no recurrent symptoms. I saw her cardiology. Patient will increase her metoprolol from 25 mg nightly to 50 mg. New prescription will be sent for her. Return instructions given. Discharge Plan Triage Chief Complaint: Palpitations ED Provider: Italia Palacio Dx/Rx/DC Orders Clinical Impression: SVT (supraventricular tachycardia) Instructions: ED Understanding Supraventricular Tachycardia (SVT) Prescriptions: New metoprolol succinate 50 mg tablet extended release 24 hr 50 mg PO DAILY Qty: 30 0RF No Action atorvastatin 20 mg tablet 20 mg PO QHS Ultra CoQ10 75 mg capsule 75 mg PO DAILY acetaminophen [Tylenol Arthritis Pain] 650 mg tablet extended release 650 mg PO Q12H ascorbic acid (vitamin C) 500 mg capsule PO DAILY Galzin 50 mg (zinc) capsule 50 mg PO DAILY Zyrtec 10 mg capsule 10 mg PO DAILY PRN vitamin B complex-folic acid 0.4 MG tablet 0.4 mg PO QHS alprazolam 0.25 MG tablet 0.25 mg PO TID PRN PRN (Reason: Anxiety) metoprolol succinate 25 mg tablet extended release 24 hr 25 mg PO DAILY Qty: 90 3RF warfarin 5 mg tablet 5 mg PO DAILY Qty: 90 3RF Protocol: Dose Management Condition: Saturday Dose/Route: 5 mg Instruction: 1 x 5 mg tablet Condition: Saturday Dose/Route: 5 mg Instruction: 1 x 5 mg tablet Condition: Saturday Dose/Route: 5 mg Instruction: 1 x 5 mg tablet Condition: Saturday Dose/Route: 5 mg Instruction: 1 x 5 mg tablet Condition: Dose/Route: 5 mg Instruction: 1 x 5 mg tablet Condition: Saturday Dose/Route: 5 mg Instruction: 1 x 5 mg tablet Condition: Saturday Dose/Route: 5 mg Instruction: 1 x 5 mg tablet Protocol Text: Adjustment Start Date: Saturday04/02/22 INR Value: 2.4 INR Date: 04/02/22 Recheck Date: 04/30/22 potassium chloride 10 mEq tablet extended release 10 meq PO DAILY Qty: 90 3RF Primary Care Provider: Henrique Medina Referrals: Henrique Medina MD [Primary Care Provider] - Jose Johnson MD [Med Staff - Active Staff] - 1-2 Weeks Disposition Disposition: Home, Self Care
[2022-04-27 11:43] LABS: Absolute Lymphocyte Count 1.37 X10^3/uL (0.83-4.51); Absolute Neutrophil Count 4.4 X10^3/uL (2.0-7.7); Basophil# 0.03 X10^3/uL; Basophil% 0.5 % (0-1); Eosinophil# 0.15 X10^3/uL; Eosinophils% 2.4 % (0-5); Hematocrit 45.6 % (37-47); Hemoglobin 15.2 g/dL (12.0-15.0); Lymphocyte # 1.37 X10^3/ul (0.83-4.51); Lymphocyte % 21.5 % (19-41); Mean Corp Hgb Conc 33.3 g/dL (32-36); Mean Corpuscular Hgb 28.5 pg (27.0-32.0); Mean Corpuscular Volume 85.4 fL (81-99); Mean Platelet Vol. 10.3 fl (6.2-12.0); Monocyte# 0.44 X10^3/uL; Monocyte% 6.9 % (0-10); NRBC Flagged by Analyzer 0 % (0-5); Neutrophil # 4.36 X10^3/uL (2.7-7.7); Neutrophil % 68.2 % (47-70); Platelet Count 198 K/mm3 (150-450); RBC Distribution Width CV 12.7 % (11.6-14.6); Red Blood Count 5.34 M/mm3 (4.2-5.4); White Blood Count 6.4 K/mm3 (4.4-11.0)
[2022-04-27 12:13] LABS: Anion Gap 9 (5-15); BUN 10 mg/dL (7-18); BUN/Creat Ratio 15.1 RATIO (10-20); Calcium,Total 9.4 mg/dL (8.5-10.1); Chloride 112 mmol/L (98-107); Creatinine, Serum 0.66 mg/dL (0.55-1.02); EST Glomerular Filtration Rate 101 mL/min (>60); Est Glom Filt Rate - Afr Amer 122 mL/min (>60); Estimated Creatinine Clearance 96.52 ml/min; Glucose 113 mg/dL (74-106); Potassium 3.4 mmol/L (3.5-5.1); Sodium Level 148 mmol/L (136-145); Thyroid Stim Hormone (TSH) 1.91 uIU/mL (0.358-3.74); Troponin-I HS 10 pg/mL (3.0-54.0)
[2022-04-27 12:18] LABS: International Normalized Ratio 2.3; Prothrombin Time (Protime)PT. 24.5 SECONDS (11.7-14.9)
[2022-04-27 12:56] VITALS: BP 126/95; PULSE 87; RESP 12; O2SAT 98
[2022-04-27] MEDS: Potassium Chloride Oral Tablet 20 MEQ 40 MEQ PO (12:57)
== END 2022-04-27 13:03 | disposition home or self-care (01) ==
PROVIDERS: Emergency Provider Emergency Medicine; PCP Family Medicine; Visit Provider Emergency Medicine
DX: I47.1 Supraventricular tachycardia (principal); Z86.718 Personal history of other venous thrombosis and embolism; Z86.711 Personal history of pulmonary embolism; Z87.891 Personal history of nicotine dependence
CPT/HCPCS: 80048; 84443; 84484; 85025; 85610; 93005; 99285

== ENCOUNTER → 2024-12-29 | Outpatient (CLI) | payer OTHER, SELFPAY ==
[2024-12-29 08:42] LABS: Prothrombin Time (Protime)PT. 31.5 SECONDS (11.7-14.9)
== END | disposition home or self-care (01) ==
PROVIDERS: PCP Nurse Practitioner Family; Referring Provider Nurse Practitioner Family; Visit Provider Nurse Practitioner Family
DX: Z86.718 Personal history of other venous thrombosis and embolism (principal); Z86.711 Personal history of pulmonary embolism
CPT/HCPCS: 36415; 85610

== ENCOUNTER → 2025-01-07 | Outpatient (CLI) | payer OTHER, SELFPAY ==
--- OUTSIDE RECORDS SUMMARY | 2025-01-07 08:11 | XMS RPT_ITS | CCD ---
Author Organization [facility] Care Team Providers Care Nick Setter Name Role Phone Henrique Mckee Primary Care Provider Yareli Louis Attending Unavailable PROVIDER, UNKNOWN Referring Unavailable Rylee, Henrique Primary Care Unavailable Yareli Louis Attending Unavailable PROVIDER, UNKNOWN Referring Unavailable Rylee, Henrique Primary Care Unavailable Rylee, Henrique Primary Care Unavailable Yareli Louis Attending Unavailable PROVIDER, UNKNOWN Referring Unavailable Dr. Henrique Mckee Primary Care Provider Dr. Henrique Mckee Referring Provider [phone] Matteo PROTOTYPE DEICER ASSEMBLER, PROTOTYPE DEICER ASSEMBLER-C Marisela Attending Provider Henrique Mckee Primary Care Provider Dr. Henrique Mckee Primary Care Provider Dr. Henrique Mckee Referring Provider [phone] Matteo PROTOTYPE DEICER ASSEMBLER, PROTOTYPE DEICER ASSEMBLER-C Marisela Attending Provider Henrique Mckee MD Primary Care Provider Henrique Mckee MD Primary Care Provider HENRIQUE MCKEE Primary Care Unavailable RYLEE, HENRIQUE Primary Care Unavailable YARELI LOUIS Attending Unavailable RYLEE, HENRIQUE Primary Care Unavailable RYLEE, HENRIQUE Primary Care Unavailable YARELI LOUIS Attending Unavailable RYLEE, HENRIQUE Primary Care Unavailable YARELI LOUIS Attending Unavailable RYLEE, HENRIQUE Primary Care Unavailable RLYEE, HENRIQUE Primary Care Unavailable RYLEE, HENRIQUE Primary Care Unavailable YARELI LOUIS Attending Unavailable YARELI LOUIS Referring Unavailable RYLEE, HENRIQUE Primary Care Unavailable YARELI LOUIS Attending Unavailable YARELI LOUIS Referring Unavailable RYLEE, HENRIQUE Primary Care Unavailable RYLEE, HENRIQUE Primary Care Unavailable YARELI LOUIS Attending Unavailable RYLEE, HENRIQUE Primary Care Unavailable RYLEE, HENRIQUE Primary Care Unavailable RYLEE, HENRIQUE Primary Care Unavailable RYLEE, HENRIQUE Primary Care Unavailable MARIA DEL CARMEN GARZA Attending Unavailable MAINOR LAKHANI Attending Unavailable YARELI LOUIS Referring Unavailable RYLEE, HENRIQUE Primary Care Unavailable RYLEE, HENRIQUE Primary Care Unavailable RYLEE, HENRIQUE Primary Care Unavailable RYLEE, HENRIQUE Primary Care Unavailable Genevieve Llanos Attending Unavailable Genevieve Llanos Primary Care Unavailable Genevieve Llanos Attending Unavailable Boyd Llanosley Referring Unavailable Tannhof, Genevieve Primary Care Unavailable Allergies Allergy Classification Reported Allergen(s) Allergy Type Date of Onset Reaction(s) Facility (20 sources) Azithromycin Drug Allergy 5 Nausea Only, Hives, Unknown, Diarrhea [place] (20 sources) Iron Drug Allergy 6 Itching, H[place] (20 sources) Meperidine Drug Allergy 7 Nausea [place] Vomiting [place] (18 sources) rivaroxaban Drug Allergy 6 Intolerance [place] (13 sources) Adhesive Tape; Translations: [adhesive tape] Propensity to adverse reactions to drug 0 Other (See Comments) [place] (4 sources) Sulfonamides (Antibiotic) Propensity to adverse reactions to drug 7 [place] (8 sources) Iron Drug Allergy 1 Hives [facility] (20 sources) Meperidine; Translations: [meperidine HCl] Drug Allergy 1 Nausea [facility] (10 sources) Sulfonamides (Antibiotic); Translations: [Sulfa (Sulfonamide Antibiotics)] Allergy to substance 7 Rash [facility] (20 sources) rosuvastatin Drug Allergy 2 Unknown [facility] Work Phone: (1 source) Adhesive agent Drug Allergy 0 Hives, Unknown [facility] (1 source) Meperidine Drug Allergy 7 Vomiting [facility] Work Phone: (20 sources) Enoxaparin Drug Allergy 2 [facility] (20 sources) rivaroxaban Drug Allergy 6 Unknown [facility] (20 sources) Rosuvastatin calcium Propensity to adverse reactions 2 [facility] (20 sources) Sulfonamides (Antibiotic) Drug Intolerance 7 Rash [facility] (20 sources) Wound Dressing Adhesive Drug Intolerance 0 Hives, Unknown [facility] (20 sources) Adhesive Tape Drug Intolerance 3 [facility] (20 sources) nickel sulfate Drug Allergy 3 [facility] (4 sources) Seasonal allergy Propensity to adverse reactions 5 [facility] (1 source) Iron Drug Allergy 3 [facility] (1 source) Meperidine Drug Allergy 3 [facility] (1 source) rivaroxaban Drug Allergy 3 [facility] Medications Current Medications Medication Drug Class(es) Dates Sig (Normalized) Sig (Original) 8 hr acetaminophen 650 mg extended release oral tablet (20 sources) Start: 11-29-2021 acetaminophen (Tylenol 8 Hour) 650 MG ER tablet Take by mouth. 11/29/2021 Active Comment on above: Take by mouth. [id number] 200 actuat albuterol 0.09 mg/actuat metered dose inhaler (15 sources) beta2-Adrenergic Agonist Start: 12-08-2024 End: 02-06-2025 take 2 puff(s) by inhalation every four hours as needed for wheezing albuterol (Ventolin HFA) 108 (90 Base) MCG/ACT inhaler Indications: Shortness of breath Inhale 2 puffs every 4 hours as needed for wheezing or shortness of breath. 8 g 1 12/08/2024 02/06/2025 Active Start: 12-09-2018 End: 06-13-2022 take 2 puff(s) by inhalation every six hours as needed albuterol 108 (90 Base) MCG/ACT inhaler Inhale 2 puffs every 6 hours as needed. 0 12/09/2018 06/13/2022 Discontinued (Therapy completed) Comment on above: Inhale 2 Puffs as in structed every 6 hours as needed. ALPRAZolam 0.25 mg oral tablet (20 sources) Benzodiazepine Start: 3 End: 5 take 1 tablet by mouth every eight hours as needed for anxiety and anxiety and anxiety ALPRAZolam (Xanax) 0.25 MG tablet Indications: Anxiety Take 1 tablet (0.25 mg) by mouth every 8 hours as needed for anxiety. 15 tablet 09/16/2024 Active Start: 07-24-2019 ALPRAZolam (Xa nax) 0.25 MG tablet Take 0.25 mg by mouth. 0 07/24/2019 Active Start: 07-24-2019 ALPRAZolam (Xa nax) 0.25 MG tablet Take 0.25 mg by mouth. 0 07/24/2019 Active Comment on above: Take 0.25 mg by mout h. ascorbic acid 500 mg oral capsule (20 sources) Vitamin C Start: 11-29-2021 take 1 mg by mouth once daily Ascorbic Acid (Vitamin C) Active MG PO DAILY November 28, 2021 11:00pm Start: 01-23-2017 ascorbic acid (Vitamin C) 500 MG ER capsule Take 500 mg by mouth. 01/23/2017 Active Start: 01-23-2017 ascorbic acid, vitamin C, 500 mg cap Take 500 mg by mouth. 0 01/23/2017 Active Ascorbic Acid (V ITAMIN C) 250 MG tablet Take by mouth daily 0 Active Comment on above: Take 500 mg by mouth . atorvastatin 20 mg oral tablet (20 sources) HMG-CoA Reductase Inhibitor Start: 5 take 1 tablet by mouth once daily atorvastatin (Lipitor) 20 MG tablet Take 1 tablet (20 mg) by mouth daily. 90 tablet 1 11/09/2024 Active Start: 07-09-2022 End: 11-07-2024 take 1 tablet by mouth once daily atorvastatin (Lipitor) 20 MG tablet take 1 tablet by mouth once daily 180 tablet 04/06/2024 11/07/2024 Discontinued (Reorder) Start: 11-10-2021 take 1 tablet by carlos th once daily atorvastatin (Lipitor) 20 MG tablet Take 1 tablet by mouth daily. 0 11/29/2021 Active Comment on above: Take by mouth. b complex vitamins capsule (20 sources) take 1 capsule by mouth once daily b complex vitamins capsule Take 1 capsule by mouth daily. Active take 1 capsule by mouth once gaurav ly b complex vitamins capsule Take 1 capsule by mouth daily. 0 Active take 1 capsule by mouth once gaurav ly b complex vitamins capsule Take 1 capsule by mouth daily 0 Active 24 hr buPROPion hydrochloride 150 mg extended release oral tablet (19 sources) Aminoketone Start: 09-16-2024 End: 11-15-2024 take 1 tablet by mouth once daily in the morning buPROPion XL (Wellbutrin XL) 150 MG 24 hr tablet Indications: Other depression , Difficulty concentrating Take 1 tablet (150 mg) by mouth every morning. Do not crush, chew, or split. 90 tablet 1 11/09/2024 Active cetirizine hydrochloride 10 mg oral capsule (20 sources) Histamine-1 Receptor Antagonist Start: 07-24-2019 End: 11-29-2021 take 1 capsule by mouth once daily Cetirizine (Zyrtec) 10 mg capsule Active 10 MG PO DAILY November 28, 2021 11:00pm cetirizine (ZyrT EC) 10 MG tablet Take by mouth. Active diphenhydrAMINE hydrochloride 25 mg oral capsule (20 sources) Histamine-1 Receptor Antagonist Start: 01-23-2017 take 1 capsule by mouth every eight hours as needed diphenhydrAMINE (BENADryl) 25 MG capsule Take 25 mg by mouth every 8 hours as needed. 01/23/2017 Active Comment on above: 25 mg. fluticasone propionate 0.05 mg/actuat metered dose nasal spray (20 sources) Corticosteroid Start: 01-10-2022 fluticasone (Flonase) 50 MCG/ACT nasal spray Administer 2 sprays into each nostril as needed. 01/10/2022 Active guaiFENesin 20 mg/ml oral solution (4 sources) Start: 01-14-2019 take 10 mL by mouth three times daily as needed for cough guaiFENesin (ROBITUSSIN) 100 MG/5ML liquid Indications: Productive cough Take 10 mLs by mouth 3 times daily as needed for Cough or Congestion 210 mL 0 01/14/2019 Active lidocaine 0.05 mg/mg medicated patch (20 sources) Antiarrhythmic, Amide Local Anesthetic Start: 01-01-2022 lidocaine (Lidoderm) 5 % patch Place 1 patch on the skin. 01/01/2022 Active Start: 01-01-2022 End: 04-12-2022 apply 1 dose transdermal route once daily lidocaine (Lidoderm) 5 % patch PLACE 1 PATCH ONTO THE SKIN DAILY 12 HOURS ON AND 12 HOURS OFF 0 01/01/2022 04/12/2022 Discontinued (Duplicate order) 24 hr metoprolol succinate 50 mg extended release oral tablet (20 sources) beta-Adrenergic Lv Start: 05-14-2022 End: 09-30-2024 take 1 tablet by mouth once daily metoprolol succinate XL (Toprol-XL) 50 MG 24 hr tablet Indications: SVT (supraventricular tachycardia) (HCC) Take 1 tablet (50 mg) by mouth daily. 90 tablet 1 09/30/2024 Active Start: 10-28-2021 End: 04-12-2022 take 1 tablet by mouth every twenty-four hours in the morning metoprolol succinate XL (Toprol-XL) 25 MG 24 hr tablet Take 25 mg by mouth in the morning. 0 10/28/2021 04/12/2022 Discontinued (Duplicate order) Start: 12-22-2020 End: 05-14-2022 take 1 tablet by mouth once daily metoprolol succinate XL (Toprol-XL) 25 MG 24 hr tablet Take 1 tablet by mouth daily. 0 04/12/2021 05/14/2022 Discontinued Start: 02-25-2020 End: 12-22-2020 take 12.5 mg by mouth once daily Metoprolol Succinate Discontinued 12.5 MG PO DAILY February 25, 2020 4:06pm December 22, 2020 3:15pm Comment on above: Take 25 mg by mouth once daily. mometasone furoate 1 mg/ml topical cream (5 sources) Corticosteroid Start: 05-09-2017 mometasone (ELOCON) 0.1 % cream Indications: Rash and nonspecific skin eruption Apply topically daily. 15 g 1 05/09/2017 Active mupirocin 0.02 mg/mg topical ointment (20 sources) RNA Synthetase Inhibitor Antibacterial Start: 05-03-2021 mupirocin (Bactroban) 2 % ointment APPLY TO AFFECTED AREA 3 TIMES A DAY 05/03/2021 Active Start: 05-03-2021 mupirocin (NICOLA TROBAN) 2 % ointment APPLY TO AFFECTED AREA 3 TIMES A DAY 22 g 3 05/03/2021 Active potassium chloride 10 meq extended release oral tablet (20 sources) Start: 12-04-2023 take 2 tablets by mouth once daily potassium chloride CR (Klor-Con) 10 MEQ ER tablet Indications: SVT (supraventricular tachycardia) (HCC) , Hypokalemia Take 20 mEq by mouth daily. 12/04/2023 Active Start: 05-14-2022 End: 01-31-2024 potassium chloride CR (Klor- Con M10) 10 MEQ ER tablet Indications: Hypokalemia Take 2 tablets (20 mEq) by mouth in the morning. 1 tablet 05/14/2022 01/31/2024 Discontinued (Med list cleanup) Start: 12-19-2020 End: 05-14-2022 take 1 tablet by mouth in the morning potassium chloride CR (Klor-Con M10) 10 MEQ ER tablet Take 1 tablet by mouth in the morning. 0 12/19/2020 05/14/2022 Discontinued Start: 11-10-2019 take 1 tablet by carlos th once daily potassium chloride (KLOR-CON M) 10 MEQ extended release tablet Take 1 tablet by mouth daily 30 tablet 3 11/10/2019 Active Start: 07-31-2019 End: 04-12-2022 take 1 tablet by mouth once daily potassium chloride CR (Klor-Con) 10 MEQ ER tablet Take 10 mEq by mouth daily. 0 02/02/2022 04/12/2022 Discontinued (Duplicate order) Comment on above: Take 1 tablet by carlos th once daily. pramoxine hydrochloride 10 mg/ml rectal foam (20 sources) Start: 2023 pramoxine (Proctofoam) 1 % foam Indications: External hemorrhoids Apply to anal area, as needed, up to 5 times daily. 15 g 11/11/2023 Active 72 hr scopolamine 0.0139 mg/hr transdermal system (20 sources) Anticholinergic Start: 2024 scopolamine (Transderm-Scop) 1 MG/3DAYS patch 72 hour Indications: Motion sickness, initial encounter Apply 1 patch behind ear at least 4 hours prior to required antiemetic effect for use up to 72 hours; if needed for >72 hours, remove old patch and place new one behind other ear. 10 patch 05/20/2024 Active semaglutide (Ozempic) 2 MG/3ML solution pen-injector (13 sources) Start: 08-25- 2025 inject 0.25 mg by subcutaneous injection every week semaglutide (Ozempic) 2 MG/3ML solution pen-injector Indications: Hyperlipidemia LDL goal , Prediabetes , Class 1 obesity due to excess calories without serious comorbidity with body mass index (BMI) of 33.0 to 33.9 in adult Inject 0.25 mg under the skin 1 (one) time per week. 3 mL 11/16/2024 Active sertraline 25 mg oral tablet (20 sources) Serotonin Reuptake Inhibitor Start: 2024 take 1 tablet by mouth once daily sertraline (Zoloft) 25 MG tablet Indications: Anxiety Take 1 tablet (25 mg) by mouth daily. 11/16/2024 Active Start: 10-07-2023 End: 11-16-2024 take 1 tablet by mouth once daily sertraline (Zoloft) 50 MG tablet Indications: Anxiety , Grief take 1 tablet by mouth once daily 90 tablet 1 04/21/2024 11/16/2024 Discontinued Start: 09-03-2022 End: 04-01-2023 take 1 tablet by mouth once daily sertraline (Zoloft) 50 MG tablet Indications: Anxiety , Grief take 1 tablet by mouth once daily 90 tablet 1 04/01/2023 Active Start: 05-14-2022 End: 07-27-2022 take 1 tablet by mouth once daily sertraline (Zoloft) 50 MG tablet Indications: Anxiety Take 1 tablet (50 mg) by mouth daily. 90 tablet 1 05/28/2022 07/27/2022 Active Start: 01-27-2022 take 1 tablet by carlos once daily sertraline (Zoloft) 25 MG tablet Take 25 mg by mouth daily. 0 01/27/2022 Active Start: 01-23-2017 End: 12-29-2021 take 25 mg by mouth at bedtime Sertraline Discontinued 25 MG PO AT BEDTIME January 22, 2017 11:00pm November 29, 2021 2:33pm Comment on above: Take 25 mg by mouth once daily. spironolactone 50 mg oral tablet (20 sources) Aldosterone Antagonist Start: 024 End: take 1 tablet by mouth once daily spironolactone (Aldactone) 50 MG tablet Indications: Acne vulgaris take 1 tablet by mouth once daily 30 tablet 1 04/06/2024 04/28/2024 Discontinued (Ineffective) tretinoin 0.25 mg/ml topical cream (20 sources) Retinoid Start: 023 End: tretinoin (Retin-A) 0.025 % cream Indications: Acne vulgaris Apply a thin layer to affected areas every third night, increase to nightly as tolerated. 45 g 6 12/24/2022 Active triamcinolone acetonide 1 mg/ml topical cream (20 sources) Corticosteroid Start: 024 End: triamcinolone (Kenalog) 0.1 % cream Indications: Rash and nonspecific skin eruption Apply thin layer to affected area 1-2 times daily as needed. 45 g 09/23/2023 11/22/2023 Active Start: 10-29-2022 End: 12-28-2022 triamcinolone (Kenalog) 0.1 % cream Indications: Chronic eczema Apply thin layer to affected area 1-2 times daily as needed. 45 g 0 10/29/2022 12/28/2022 Active ubidecarenone 75 mg oral capsule (20 sources) Start: 11-29-2021 End: 11-11-2023 coenzyme Q-10 75 MG capsule Take by mouth. 0 11/29/2021 Active Comment on above: Take by mouth. Vitamin B Complex-Folic Acid (8 sources) Start: 01-23-2017 take 0.4 mg by mouth at bedtime Vitamin B Complex-Folic Acid Active 0.4 MG PO AT BEDTIME January 23, 2017 2:59pm Start: 01-23-2017 take 0.4 mg by mouth at bedtim e Vitamin B Complex-Folic Acid Active 0.4 MG PO AT BEDTIME January 22, 2017 11:00pm Start: 01-23-2017 take 0.4 mg by mouth at bedtim e Vitamin B Complex-Folic Acid Active 0.4 MG PO AT BEDTIME January 23, 2017 12:00am warfarin sodium 5 mg oral tablet (20 sources) Vitamin K Antagonist Start: 03-02-2024 End: 08-28-2024 take 1 tablet by mouth once daily warfarin (Coumadin) 5 MG tablet take 1 tablet by mouth NIGHTLY 90 tablet 1 08/28/2024 Active Start: 08-05-2023 take 1 tablet by carlos th once daily warfarin (Coumadin) 5 MG tablet take 1 tablet by mouth nightly 90 tablet 1 08/05/2023 Active Start: 12-06-2022 End: 11-09-2024 warfarin (Coumadin) 1 MG tab let Indications: Clotting disorder (CMS/HCC) (HCC) take 1 tablet by mouth ON SATURDAY, SATURDAY, AND SATURDAY ALONG WITH 5MG TABLET TO EQUAL 6MG 60 tablet 1 10/22/2023 11/09/2024 Discontinued Start: 07-17-2022 End: 01-28-2023 take 1 tablet by mouth once daily warfarin (Coumadin) 5 MG tablet take 1 tablet by mouth nightly 90 tablet 1 01/28/2023 Active Start: 12-18-2021 End: 04-12-2022 take 1 tablet by mouth once warfarin (Coumadin) 5 MG t ablet take 1 tablet by mouth once daily or PER PROTOCOL 0 12/18/2021 04/12/2022 Discontinued (Duplicate order) Start: 08-21-2019 warfarin (COUM VALORIE) 1 MG tablet As directed for Coumadin dosing 30 tablet 2 08/21/2019 Active Start: 08-21-2019 take 1 tablet by carlos th once daily warfarin (COUMADIN) 3 MG tablet Take 1 tablet by mouth daily 30 tablet 2 08/21/2019 Active Start: 07-31-2019 End: 11-30-2020 take 1 tablet by mouth once daily Warfarin (Coumadin) 1 mg tablet Discontinued 1 MG PO DAILY July 30, 2019 11:00pm November 30, 2020 1:57pm Start: 07-31-2019 End: 11-30-2020 take 1 tablet by mouth once daily Warfarin (Coumadin) 4 mg tablet Discontinued 4 MG PO DAILY July 30, 2019 11:00pm November 30, 2020 1:57pm Start: 06-11-2019 warfarin (COUM VALORIE) 1 MG tablet Alternate 5 mg and 6 mg dosing with 4 mg tablets. 30 tablet 1 06/11/2019 Active Start: 04-20-2019 warfarin (COUM VALORIE) 1 MG tablet ALTERNATE 5 MG AND 6 MG DOSING WITH 4 MG TABLETS. 30 tablet 1 04/20/2019 Active Start: 03-16-2019 warfarin (COUM VALORIE) 1 MG tablet ALTERNATE 5 MG AND 6 MG DOSING WITH 4 MG TABLETS. 30 tablet 0 03/16/2019 Active Start: 01-29-2019 warfarin (COUM VALORIE) 4 MG tablet Take 1 tablet on Mondays and Fridays 30 tablet 0 01/29/2019 Active Start: 10-17-2017 End: 06-20-2021 take 1 tablet by mouth once daily warfarin (Coumadin) 5 MG tablet Take 1 tablet by mouth daily. 0 10/17/2017 Active Start: 01-23-2017 End: 07-31-2019 take 5 mg by mouth every other day Warfarin Discontinued 5 MG PO EVERY OTHER DAY January 22, 2017 11:00pm July 31, 2019 2:56pm Start: 01-23-2017 End: 07-31-2019 take 6 mg by mouth every other day Warfarin Discontinued 6 MG PO EVERY OTHER DAY January 22, 2017 11:00pm July 31, 2019 2:57pm Comment on above: TAKE 1 TABLET BY CARLOS TH EVERY DAY zinc acetate 50 mg oral capsule (20 sources) Start: 11-29-2021 Zinc Acetate 50 MG capsule Take by mouth. 11/29/2021 Active Comment on above: Take by mouth. Completed/Discontinued Medications Medication Drug Class(es) Dates Sig (Normalized) Sig (Original) aspirin 81 mg oral tablet (1 source) Platelet Aggregation Inhibitor, Nonsteroidal Anti-inflammatory Drug Start: 09-22-2011 End: 12-29-2021 take 1 tablet by mouth once daily at mealtime Aspirin 81 mg Tab Take 1 tablet by mouth once daily. Take with food. 30 tablet 11 09/22/2011 12/29/2021 Discontinued Comment on above: Take 1 tablet by carlos th once daily. Take with food. azithromycin 250 mg oral tablet (20 sources) Macrolide Antimicrobial Start: 04-19-2023 End: 09-09-2023 azithromycin (Zithromax) 250 MG tablet Take 2 tabs (500 mg) on day 1, and take 1 tab (250 mg) on days 2 through 5 6 tablet 0 04/19/2023 09/09/2023 Discontinued (Med list cleanup) Start: 06-13-2022 End: 06-18-2022 azithromycin (Zithromax) 250 MG tablet Indications: Acute non-recurrent frontal sinusitis Take 2 tabs (500 mg) by mouth today, than 1 daily for 4 days. 6 tablet 0 06/13/2022 06/18/2022 Active benzoyl peroxide 50 mg/ml topical solution (20 sources) Start: 03-07-2022 End: 11-16-2024 benzoyl peroxide (Benzoyl Peroxide Wash) 5 % external wash Indications: Hidradenitis suppurativa Use to wash affected areas on the face and groin once daily in the shower. Rinse thoroughly as this can bleach out fabrics, so rinse skin well. 236 g 6 06/27/2022 11/16/2024 Discontinued (Therapy completed) 12 hr buPROPion hydrochloride 90 mg / naltrexone hydrochloride 8 mg extended release oral tablet (20 sources) Opioid Antagonist, Aminoketone Start: 10-29-2022 End: 04-12-2023 naltrexone-buPROPion ER (Contrave) 8-90 MG ER tablet Indications: Class 1 obesity due to excess calories without serious comorbidity with body mass index (BMI) of 32.0 to 32.9 in adult One tab once daily in the morning for 1 week; week 2, increase to 1 table twice daily; at week 3, increase to 2 tablets in the morning and 1 tablet in the evening; at week 4, increase to 2 tablets twice daily. 70 tablet 0 02/13/2023 04/12/2023 Discontinued cholecalciferol 0.05 mg oral capsule (20 sources) Vitamin D End: 05-20-2024 take 1 capsule by mouth once daily cholecalciferol (Vitamin D-3) 50 MCG (2000 UT) capsule Take 400 Units by mouth daily. 05/20/2024 Discontinued (Med list cleanup) clindamycin 10 mg/ml topical lotion (20 sources) Lincosamide Antibacterial Start: 03-07-2022 End: 11-16-2024 clindamycin (Cleocin T) 1 % lotion Indications: Hidradenitis suppurativa Apply a thin layer to affected areas on the face and groin once daily. 60 mL 6 06/27/2022 11/16/2024 Discontinued (Therapy completed) cyclobenzaprine hydrochloride 10 mg oral tablet (2 sources) Muscle Relaxant Start: 12-29-2021 End: 04-13-2022 take 0.5-1 tablets by mouth three times daily cyclobenzaprine (Flexeril) 10 MG tablet take 1/2 to 1 tablet by mouth three times a day if needed for up to 15 DAYS 0 12/29/2021 04/13/2022 Discontinued (Med list cleanup) Comment on above: Take 0.5-1 tablets b y mouth three times daily as needed for up to 15 days. diclofenac sodium 0.01 mg/mg topical gel (19 sources) Nonsteroidal Anti-inflammatory Drug Start: 04-13-2022 End: 10-29-2022 Diclofenac Sodium (Voltaren) 1 % gel Indications: Chronic right hip pain , Chronic pain of left thumb Apply 2 g topically 2 times daily as needed (pain). 50 g 2 04/13/2022 10/29/2022 Discontinued (Med list cleanup) docusate sodium 100 mg oral capsule (8 sources) Start: 02-04-2017 End: 07-31-2019 take 100 mg by mouth twice daily as needed Docusate Sodium Discontinued 100 MG PO TWICE DAILY NEEDED 60 February 04, 2017 12:00am July 31, 2019 2:57pm docusate sodium 50 mg / sennosides, fci 8.6 mg oral tablet (17 sources) Start: 07-24-2019 End: 07-31-2019 take 1 tablet by mouth at bedtime Sennosides-Docusate Sodium Discontinued 1 TABLET PO AT BEDTIME July 23, 2019 11:00pm July 31, 2019 2:57pm take 8.6-50 mg by mouth once sen na-docusate (PERICOLACE) 8.6-50 MG per tablet Take 1 tablet by mouth daily 0 Active doxycycline hyclate 100 mg oral capsule (2 sources) Tetracycline-class Drug Start: 05-01-2024 End: 05-20-2024 doxycycline (Vibramycin) 100 MG capsule Take 1 capsule (100 mg) by mouth 2 times daily for 7 days. Take with at least 8 ounces (large glass) of water, do not lie down for 30 minutes after 14 capsule 05/01/2024 05/20/2024 Discontinued (Therapy completed) Start: 12-09-2018 End: 12-29-2021 take 1 capsule by mouth twice daily doxycycline monohydrate (MONODOX) 100 mg capsule Indications: Pneumonia of right lung due to infectious organism, unspecified part of lung Take 1 capsule by mouth twice daily. 20 capsule 0 12/09/2018 12/29/2021 Discontinued Comment on above: Take 1 capsule by [facility] twice daily. fexofenadine hydrochloride 6 mg/ml oral suspension (1 source) Histamine-1 Receptor Antagonist End: 04-13-2022 fexofenadine (Skye) 30 MG/5ML suspension Take by mouth. 0 04/13/2022 Discontinued (Med list cleanup) folic acid 1 mg oral tablet (11 sources) Start: 12-23-2009 End: 06-13-2022 folic acid (Folvite) 1 MG tablet Take by mouth. 0 12/23/2009 06/13/2022 Discontinued (Therapy completed) Comment on above: Take one(1) tablet d aily. hydrocortisone acetate 25 mg/ml / pramoxine hydrochloride 10 mg/ml rectal cream (20 sources) Corticosteroid Start: 01-10-2022 End: 04-12-2022 pramoxine-hydrocortiso ne, perianal, (Analpram-HC) 2.5-1 % cream APPLY RECTALLY 3 TIMES A DAY 0 01/10/2022 04/12/2022 Discontinued (Duplicate order) Start: 04-16-2018 Pramoxine-HC ( Hydrocortisone Shay-Pramoxine) 2.5-1 % cream Insert into the rectum. 04/16/2018 Active Start: 04-16-2018 Pramoxine-HC ( Hydrocortisone Shay-Pramoxine) 2.5-1 % cream Insert into the rectum. 0 04/16/2018 Active Start: 04-16-2018 hydrocortisone -pramoxine (ANALPRAM-HC) 2.5-1 % rectal cream APPLY TO AFFECTED AREA TWICE A DAY 1 04/16/2018 Active iopamidol (Isovue-370) 76 % injection 75 mL (4 sources) Start: 11-27-2023 End: 11-27-2023 take 75 mL intravenously once as needed 75 mL, IntraVENous, IMG once PRN, contrast, Starting on Sat11/27/23 at 1040, For 1 dose Start: 08-12-2023 End: 08-12-2023 iopamidol (Isovue-370) 76 % injection 75 mL ketoconazole 20 mg/ml topical cream (1 source) Azole Antifungal Start: 12-14-2011 End: 12-29-2021 ketoconazole 2 % cream Indications: Tinea Apply 1 application to affected area twice daily. 60 g 1 12/14/2011 12/29/2021 Discontinued Comment on above: Apply 1 application to affected area twice daily. rosuvastatin calcium 5 mg oral tablet (11 sources) HMG-CoA Reductase Inhibitor Start: 11-17-2020 End: 04-13-2022 take 1 tablet by mouth once daily rosuvastatin (Crestor) 5 MG tablet Take 5 mg by mouth daily. 0 09/07/2021 04/13/2022 Discontinued (Med list cleanup) sennosides, fci 8.6 mg oral capsule (8 sources) Start: 08-05-2019 End: 11-29-2021 take 1 capsule by mouth twice daily Sennosides (Senna) 8.6 mg capsule Discontinued 8.6 MG PO TWICE A DAY August 04, 2019 11:00pm November 29, 2021 2:34pm Vitamin B Complex (1 source) Start: 12-23-2009 vitamin b comp julius (B COMPLEX-VITAMIN B12) ORAL Tab vitamin b6 100 mg oral tablet (11 sources) Start: 09-22-2011 End: 06-13-2022 take 1 tablet by mouth in the morning pyridoxine (B-6) 100 MG tablet Take 100 mg by mouth in the morning. 0 09/22/2011 06/13/2022 Discontinued (Therapy completed) Comment on above: Take 1 tablet by carlos th once daily. Problems Active Problems Problem Classification Problem Date Documented Date Episodic/Chronic Abdominal pain (2 sources) Abdominal pain - cause unknown; Translations: [Right sided abdominal pain] 05-20-2024 Episodic Adjustment disorders (5 sources) Grief finding; Translations: [Adjustment disorder with depressed mood] 09-12-2022 Chronic Anxiety disorders (20 sources) Anxiety about body function or health; Translations: [Panic attack] Onset: 08-09-19 17 08-08-2016 Chronic Cardiac dysrhythmias (20 sources) Supraventricular tachycardia; Translations: [Supraventricular tachycardia] Onset: 11-11-19 24 07-25-2019 Chronic Coagulation and hemorrhagic disorders (20 sources) Blood coagulation disorder; Translations: [Disorder of hemostatic system] Onset: 08-09-19 17 08-08-2016 Chronic Diabetes mellitus without complication (20 sources) Prediabetes; Translations: [Prediabetes] Onset: 11-12-19 24 11-12-2023 Episodic Disorders of lipid metabolism (20 sources) Hyperlipidemia; Translations: [Hyperlipidemia, unspecified] Onset: 10-15-19 21 10-14-2020 Chronic Essential hypertension (20 sources) Essential hypertension; Translations: [Essential (primary) hypertension] Onset: 01-31-20 24 01-31-2024 Chronic Fluid and electrolyte disorders (20 sources) Hypokalemia; Translations: [Hypokalemia] Onset: 07-29-19 20 07-29-2019 Episodic Hemorrhoids (20 sources) Hemorrhoids; Translations: [Other hemorrhoids] Onset: 01-11-2003-07-2022 Episodic Immunizations and screening for infectious disease (3 sources) Tuberculosis screening status; Translations: [Encounter for screening for respiratory tuberculosis] 10-29-2022 Episodic Mood disorders (20 sources) Depressive disorder; Translations: [Depression] Onset: 09-17-19 25 09-16-2024 Chronic Other acquired deformities (6 sources) Disorder of skull; Translations: [Other acquired deformity of head] 02-13-2023 Episodic Other aftercare (8 sources) Long-term current use of anticoagulant; Translations: [emt intermediate (current) use of anticoagulants] 12-15-2020 Episodic Other and unspecified benign neoplasm (7 sources) Benign neoplasm of skull and facial bones; Translations: [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] 11-13-2023 Episodic Other diseases of veins and lymphatics (1 source) Stasis dermatitis; Translations: [Venous insufficiency (chronic) (peripheral)] 10-01-2023 Episodic Other female genital disorders (8 sources) Abnormal vaginal bleeding; Translations: [Abnormal uterine and vaginal bleeding, unspecified] 01-27-2015 Chronic Other lower respiratory disease (3 sources) Dyspnea; Translations: [Shortness of breath] Onset: 12-09-1912-08-2024 Episodic Other lower respiratory disease (1 source) Shortness of breath; Translations: [Shortness of breath] Onset: 12-09-19 Episodic Other nervous system disorders (2 sources) Poor concentration; Translations: [Attention and concentration deficit] 09-16-2024 Chronic Other nutritional; endocrine; and metabolic disorders (20 sources) Hyperhomocysteinemia ; Translations: [Homocystinuria] Onset: 08-09-19 Resolved : 12-25-19 19 12-24-2018 Chronic Other nutritional; endocrine; and metabolic disorders (2 sources) Obesity; Translations: [Other obesity due to excess calories] 10-29-2022 Chronic Other nutritional; endocrine; and metabolic disorders (15 sources) Obesity caused by energy imbalance; Translations: [Other obesity due to excess calories] Onset: 11-17-1902-13-2023 Chronic Other nutritional; endocrine; and metabolic disorders (2 sources) Homocystinuria; Translations: [Homocystinuria (HCC)] Onset: 03-07-20 Chronic Other nutritional; endocrine; and metabolic disorders (2 sources) Other obesity due to excess calories; Translations: [Other obesity due to excess calories] Onset: 11-17-19 Chronic Other nutritional; endocrine; and metabolic disorders (2 sources) Body mass index (BMI) 33.0-33.9, adult; Translations: [Body mass index (BMI) 33.0-33.9, adult] Onset: 11-17-19 Chronic Other screening for suspected conditions (not mental disorders or infectious disease) (20 sources) Homocystinemia; Translations: [Other specified abnormal findings of blood chemistry] Onset: 05-26-19 Resolved : 12-25-1912-24-2018 Episodic Other skin disorders (3 sources) Hidradenitis suppurativa; Translations: [Hidradenitis suppurativa] Episodic Other skin disorders (4 sources) Mass of scalp; Translations: [Localized swelling, mass and lump, head] 08-12-2023 Episodic Other skin disorders (1 source) Eruption; Translations: [Rash and other nonspecific skin eruption] 09-09-2023 Episodic Other skin disorders (2 sources) Pilar cyst of scalp; Translations: [Pilar cyst] 10-01-2023 Episodic Other skin disorders (1 source) Seborrheic keratosis; Translations: [Other seborrheic keratosis] 11-16-2024 Episodic Other skin disorders (2 sources) Other seborrheic keratosis; Translations: [Other seborrheic keratosis] Onset: 11-17-19 Episodic Other upper respiratory disease (2 sources) Seasonal allergic rhinitis; Translations: [Other seasonal allergic rhinitis] 12-08-2024 Chronic Other upper respiratory infections (20 sources) Acute frontal sinusitis; Translations: [Acute frontal sinusitis, unspecified] Onset: 03-22-20 23 Resolved : 07-19-19 23 Episodic Phlebitis; thrombophlebitis and thromboembolism (20 sources) H/O: Deep vein thrombosis; Translations: [Personal history of other venous thrombosis and embolism] Onset: 08-09-19 17 08-08-2016 Episodic Pulmonary heart disease (18 sources) Pulmonary embolism; Translations: [Other pulmonary embolism without acute cor pulmonale] Onset: 01-06-20 Resolved : 12-25-19 19 12-24-2018 Episodic Residual codes; unclassified (1 source) H/O: hysterectomy; Translations: [History of hysterectomy] Onset: 09-16-19 20 09-16-2019 Episodic Residual codes; unclassified (1 source) Tobacco use and exposure - finding; Translations: [Tobacco use] 09-22-2011 Episodic Residual codes; unclassified (3 sources) Family history of diabetes mellitus; Translations: [Family history of diabetes mellitus] 11-11-2023 Episodic Residual codes; unclassified (1 source) Influenza vaccination declined; Translations: [Immunization not carried out because of patient refusal] 05-20-2024 Episodic Residual codes; unclassified (2 sources) Generalized aches and pains; Translations: [Pain, unspecified] 12-08-2024 Episodic Residual codes; unclassified (2 sources) Pain, unspecified; Translations: [Pain, unspecified] Onset: 12-09-19 Episodic Unclassified (1 source) Supraventricular tachycardia, unspecified (HCC); Translations: [Supraventricular tachycardia, unspecified (HCC)] Onset: 11-11-19 Unclassified (1 source) Obesity, class 1; Translations: [Obesity, class 1] Onset: 11-17-19 Unclassified (2 sources) Blood Work; Translations: [Blood Work] Onset: 03-23-20 24 Viral infection (2 sources) Disease caused by 2019-nCoV; Translations: [COVID-19] 04-12-2023 Episodic Past or Other Problems Problem Classification Problem Date Documented Date Episodic/Chronic Allergic reactions (20 sources) Chronic eczema; Translations: [Dermatitis, unspecified] Onset: 3 10-29-2022 Episodic Calculus of urinary tract (20 sources) Kidney stone; Translations: [Calculus of kidney] Onset: 7 08-08-2016 Episodic Cardiac dysrhythmias (20 sources) Tachycardia; Translations: [Tachycardia, unspecified] Onset: 0 Resolved: 0 09-16-2019 Episodic E Codes: Fall (1 source) Falling injury; Translations: [Unspecified fall, initial encounter] Episodic Mood disorders (20 sources) Mood disorders Onset: 3 Resolved: 5 09-03-2022 Nonmalignant breast conditions (14 sources) Mammographic calcification found on diagnostic imaging of breast; Translations: [Mammographic microcalcification found on diagnostic imaging of breast] Onset: 2 Episodic Other and unspecified benign neoplasm (2 sources) 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; Translations: [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] Onset: 4 Episodic Other connective tissue disease (20 sources) Epicondylitis; 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] Onset: 2 Resolved: 3 2021 Episodic Other connective tissue disease (4 sources) Chronic pain of left upper limb; Translations: [Pain in left finger(s)] Episodic Other injuries and conditions due to external causes (2 sources) Motion sickness; Translations: [Motion sickness, initial encounter] Onset: 5 05-20-2024 Episodic Other injuries and conditions due to external causes (1 source) Motion sickness, initial encounter; Translations: [Motion sickness, initial encounter] Onset: 5 Episodic Other non-traumatic joint disorders (6 sources) Hip pain; Translations: [Pain in left hip] Onset: 1 Resolved: 2 04-12-2021 Episodic Other nutritional; endocrine; and metabolic disorders (6 sources) Homocystinemia; Translations: [Increased homocysteine] Resolved: 9 12-24-2018 Chronic Other skin disorders (10 sources) Acne vulgaris; Translations: [Acne vulgaris] Onset: 4 Episodic Other skin disorders (1 source) Finding of trunk structure; Translations: [Localized swelling, mass and lump, trunk] Episodic Other skin disorders (1 source) Acne vulgaris; Translations: [Acne vulgaris] Onset: 4 Episodic Otitis media and related conditions (20 sources) Dysfunction of left eustachian tube; Translations: [Other specified disorders of Eustachian tube, left ear] Onset: 2 03-07-2022 Episodic Residual codes; unclassified (20 sources) Family history of breast cancer; Translations: [Family history of malignant neoplasm of breast] Onset: 0 07-29-2019 Episodic Spondylosis; intervertebral disc disorders; other back problems (20 sources) Acute low back pain; Translations: [Acute right-sided low back pain without sciatica] Onset: 2 Resolved: 3 Episodic Unclassified (1 source) Supraventricular tachycardia, unspecified (HCC); Translations: [Supraventricular tachycardia, unspecified (HCC)] Onset: 5 Unclassified (1 source) Obesity, class 1; Translations: [Obesity, class 1] Onset: 5 Results Test Name Value Interpretation Reference Range Facility 12-31-2024 36 Lm on Matt's phone for pt to call the office- mailed letter to pt to call the office [place] [id number] 12-30-2024 36 Lm to return call- sched INR Normal [facility] Prothrombin Time w/INRon INR Coag (PPP) [Relative time] 3.0 {INR} [facility] Comment on above: Performed By: #### L 300.3900 #### [facility] [address] [place], [address] PT Coag (PPP) [Time] 31.5 s High 11.7-14.9 [facility] Comment on above: Performed By: #### L 300.3900 #### [facility] [address] [place], [address] 36on 12-28-2024 36 Lm to let pt know huy has INR 12/29/24 [facility] 36on 12-25-2024 36 Left detailed messag huy with information and that pt needs to let me know she received this message [place] [id number] 12-24-2024 36 Lm for pt to return call or respond to [facility] msg Normal [facility] 36on 12-23-2024 36 INR 1.6 on 12/21/24 Coumadin level is borderline low, recheck in 1 week. Left detailed message and sched pt for 12/29/24 at 9:30 and for pt to let me know if this is ok Normal [facility] Progress Noteon 12-23-2024 Progress Note INR 1.6 on 12/21/24 Coumadin level is borderline low, recheck in 1 week. Left detailed message and sched pt for 12/29/24 at 9:30 and for pt to let me know if this is ok Normal [facility] PT Coag (Bld) [Time]on 12-22 INR Coag (PPP) [Relative time] 1.6 {INR} [facility] Comment on above: Reference Range 0.9- 1.1 Moderate-intensity Warfarin Therapy 2.0-3.0 Higher-intensity Warfarin Therapy 3.0-4.0 Interpretation and review of laboratory results Abnormal [facility] PT Coag (PPP) [Time] 16 s High [facility] Comment on above: For additional infor mation, please refer to [email or web address] - ASO/faq/JGS111 (This link is being provided for informational/ educational purposes only.) [facility] Progress Noteon 12-21-2024 Progress Note Lab/venipuncture completed by [facility] Normal [facility] PT Coag (Bld) [Time]on 12-15 INR Coag (PPP) [Relative time] 4.8 {INR} [facility] Comment on above: Reference Range 0.9- 1.1 Moderate-intensity Warfarin Therapy 2.0-3.0 Higher-intensity Warfarin Therapy 3.0-4.0 Interpretation and review of laboratory results Abnormal [facility] PT Coag (PPP) [Time] 46.1 s High [facility] Comment on above: For additional infor mation, please refer to [email or web address] - ASO/faq/QDN858 (This link is being provided for informational/ educational purposes only.) [facility] Progress Noteon 12-15-2024 Progress Note Goal INR 2-3. Previously at goal. Elevated INR now 4.8. hold warfarin x 2 days and then resume dosing, recheck in 1 week. Was she taking any new over the counter medications or start anything new since we checked it last? Normal [facility] Progress Note INR 4.8 on 12/14/24 Goal INR 2-3. Previously at goal. Elevated INR now 4.8. hold warfarin x 2 days and then resume dosing, recheck in 1 week. Was she taking any new over the counter medications or start anything new since we checked it last? Pt notified- coumadin dose confirmed pt sched for 12/21/24 Pt states no new otc meds just the zinc, vit c and states she was very sick last week and barely ate anything [facility] Progress Noteon 12-14-2024 Progress Note Lab/venipuncture completed by [facility] No Panel InformationOrdered By: Franny De Los Santos on 12-08-2024 Inflenza A Ag Negative [facility] Influ[facility] B Ag [facility] Office Visiton 12-08-2024 Follow-up visit [id number] Ricky Sandoval ed 1975 F Date Provider Department Center 12/08/2024 [id number]-[id number] DEL CARMEN GARZA [facility] Family History Problem Relation Age of Onset Breast cancer Mother 52 Comments: 52 and again at 70 Other Mother Comments: DVT High Blood Pressure Mother Cancer Mother Depression Mother Hyperlipidemia Mother Heart attack Mother Diabetes Father High Blood Pressure Father Heart disease Father Hypertension Father Stroke Maternal Grandmother Cervical cancer Paternal Grandmother 65 Family Status - Relation Status Age at Mother Father Maternal Grandmother Paternal Grandmother Level of Service:76080 [place] OFFICE/OUTPATIENT ESTABLISHED LOW MDM 20 MIN Reason for Visit and Comments: Generalized Body Aches [107790] - COVID test last from yesterday was negative, all symptoms started Saturday Chills [701711] Nausea [70] Poor Appetite [711] Fever [47] [facility] Progress Noteon 12-08-2024 Progress Note 12/08/2024 Antionette Sandoval (: 1975) is a 49 y.o. female , Established patient, here for evaluation of the following chief complaint(s): Generalized Body Aches (COVID test last from yesterday was negative, all symptoms started Saturday ), Chills, Nausea, Poor Appetite, and Fever ASSESSMENT/PLAN: 1. Upper respiratory tract infection, unspecified type Acute, no signs distress. Home COVID test was negative, Rapid Flu test negative. Advised to continue with Tylenol, Zinc, and Vitamin C for immune support. Advised rest and hydration and to report if symptoms worsen or persist. - AMB POC RAPID INFLUENZA DNA/RNA 2. Body aches See above. - AMB POC RAPID INFLUENZA DNA/RNA 3. Shortness of breath Acute, patient reports occasional and mild shortness of breath with onset of symptoms yesterday. Shortness of breath occurs with activity. Patient denies any chest pain or respiratory distress. Will prescribe albuterol for relief of symptoms as patient states she had similar illness last year and required albuterol inhaler, which helped. Advised to report if symptoms worsen or persist. - albuterol (Ventolin HFA) 108 (90 Base) MCG/ACT inhaler; Inhale 2 puffs every 4 hours as needed for wheezing or shortness of breath., Starting 12/08/2024, Until 02/06/2025 at 2359, Normal 4. Seasonal allergic rhinitis, unspecified trigger Chronic, stable. Continue with Zyrtec 10 mg daily and Flonase as needed. Patient advised to report if symptoms worsen or persist. Follow up if symptoms worsen or fail to improve. SUBJECTIVE/OBJECTIVE: ERICA Sandoval (: 1975) is a 49 y.o. female , Established patient, here for the evaluation of the following chief complaint(s): Generalized Body Aches (COVID test last from yesterday was negative, all symptoms started Saturday ), Chills, Nausea, Poor Appetite, and Fever Patient presents for concerns of flu-like symptoms. Symptoms began suddenly yesterday morning with nausea, muscle aches, chills, and fever. She has decreased appetite and occasional shortness of breath. Denies sore throat, chest pain, cough, vomiting, or diarrhea. She has a mild runny nose attributed to allergies which she takes Zyrtec and Flonase for. No known sick contacts. She has been taking Tylenol, vitamin C, zinc, and hot baths which help. Symptoms are unchanged today. She has been mostly resting, sleeping, and taking baths since onset. She reports that she had a similar illness in 2019 with pneumonia and shortness of breath requiring albuterol inhaler. COVID test at home last night was negative. Current Medications[1] Review of Systems Constitutional: Positive for appetite change, chills and fever. Negative for activity change, diaphoresis, fatigue and unexpected weight change. Decreased appetite, still able to tolerate oral intake HENT: Positive for rhinorrhea. Negative for congestion, ear discharge, ear pain, postnasal drip, sinus pressure, sinus pain, sneezing, sore throat and trouble swallowing. Eyes: Negative. Respiratory: Positive for shortness of breath. Negative for apnea, cough, choking, chest tightness, wheezing and stridor. Cardiovascular: Negative. Gastrointestinal: Positive for nausea. Negative for abdominal distention, abdominal pain, blood in stool, constipation, diarrhea and vomiting. Genitourinary: Negative. Musculoskeletal: Positive for myalgias. Negative for arthralgias, back pain, gait problem, joint swelling, neck pain and neck stiffness. Skin: Negative. Neurological: Negative. Psychiatric/Behavioral: Negative. Vitals: 12/08/24 1556 BP: 129/78 Pulse: 69 Temp: 36.7 ?C (98 ?F) TempSrc: Oral SpO2: 95% Weight: 207 lb 9.6 oz (94.2 kg) Height: 5' 6.5" (1.689 m) Physical Exam Vitals reviewed. Constitutional: Appearance: Normal appearance. She is obese. HENT: Head: Normocephalic and atraumatic. Right Ear: Tympanic membrane, ear canal and external ear normal. Left Ear: Tympanic membrane and ear canal normal. Nose: Rhinorrhea present. Mouth/Throat: Mouth: Mucous membranes are moist. Pharynx: Oropharynx is clear. No oropharyngeal exudate or posterior oropharyngeal erythema. Eyes: Extraocular Movements: Extraocular movements intact. Conjunctiva/sclera: Conjunctivae normal. Pupils: Pupils are equal, round, and reactive to light. Cardiovascular: Rate and Rhythm: Normal rate and regular rhythm. Pulses: Normal pulses. Heart sounds: Normal heart sounds. Pulmonary: Effort: Pulmonary effort is normal. Breath sounds: Normal breath sounds. Comments: No signs of respiratory distress, Patient is speaking in full sentences and moving around comfortably Abdominal: General: Abdomen is flat. Bowel sounds are normal. There is no distension. Palpations: Abdomen is soft. Tenderness: There is abdominal tenderness. There is no guarding. Musculoskeletal: General: Normal range of motion. Cervical back: Neck supple. Lymp (more content not included)... [place] [id number] 36 Spoke with patient de rm advised of soraya's message. Patient would like to know what route she should take now, please advise. [place] [id number] 36 We are no longer allowed to prescribe compounded GLP-1 medications as they are not approved by the FDA as there is no longer a shortage of the medications. [facility] 36 PA was denied throug h patients insurance this medication is only covered if patient has a diagnosis of Type 2 Diabetes. I did notify patient and she wants to know if you do compounding and if so she would like it sent to [facility] in [place] ([phone]) fax ([phone]). See patients media for denial letter. [place] [id number] 36 Called patient and updated her on PA and that is was faxed by paper to her insurance company yesterday 11/19/24 and this could take up to 2 weeks for a decision from insurance company. Patient voiced understanding and I will follow up on PA Saturday when I am back in the office. [place] [id number] Name of caller: Ricky ward Contact phone number: [phone] Relationship to Patient: patient Provider: Dr Mckee Practice: [facility] Chief Complaint/Reason for Call: Patient is following up on request for prior authorization for semaglutide (Ozempic) 2 MG/3ML solution pen-injector. Patient states that she has not received an update from office or insurance provider and she would like status. Please advise. Best time of day caller can be reached: any Patient advised that office/PCP has 24-48 business hours to return their call: Yes [place] [id number] 36 PA started 11/19/24 f or patients Ozempic sent by fax. See scanned in PA Form that was filled out and sent with patients recent office notes and labs. Normal [facility] PT Coag (Bld) [Time]on 11-17 INR Coag (PPP) [Relative time] 2.1 {INR} [facility] Comment on above: Reference Range 0.9- 1.1 Moderate-intensity Warfarin Therapy 2.0-3.0 Higher-intensity Warfarin Therapy 3.0-4.0 Interpretation and review of laboratory results Abnormal [facility] PT Coag (PPP) [Time] 21.5 s High [facility] Comment on above: For additional infor mation, please refer to http://education.AppUpper - ASO/faq/FLL364 (This link is being provided for informational/ educational purposes only.) [facility] Progress Noteon 11-17-2024 Progress Note INR 2.1 on 11/16/24 Coumadin level is good, recheck in 4 weeks. Pt notified and sched 12/11/24 Normal [facility] Office Visiton 11-16-2024 Follow-up visit [id number] Ricky Sandoval ed 1975 F Date Provider Department Center 11/16/2024 YARELI REYNOSO [facility] Family History Problem Relation Age of Onset Breast cancer Mother 52 Comments: 52 and again at 70 Other Mother Comments: DVT High Blood Pressure Mother Cancer Mother Depression Mother Hyperlipidemia Mother Heart attack Mother Diabetes Father High Blood Pressure Father Heart disease Father Hypertension Father Stroke Maternal Grandmother Cervical cancer Paternal Grandmother 65 Family Status - Relation Status Age at Mother Father Maternal Grandmother Paternal Grandmother Level of Service:09958 [place] PERIODIC PREVENTIVE MED EST PATIENT 40-64YRS Reason for Visit and Comments: Well Women Visit [738] Blood Work [968505] Health Maintenance [872] - Zoster- refused PNA- refused COVID 4- refused Normal [facility] Progress Noteon 11-16-2024 Progress Note [facility] [address] [facility] [address] Antionette Sandoval is a 49 y.o. female who presents for Well Women Visit, Blood Work, and Health Maintenance (Zoster- refused/PNA- refused /COVID 4- refused) Assessment/Plan 1. Well female exam with routine gynecological exam (Z01.419) - Pap smear performed today - Mammogram completed in July, stable findings, resume routine screening 2. SVT (supraventricular tachycardia) (I47.10) - chronic, stable - Continue metoprolol 3. Clotting disorder (D68.9) - chronic, stable - Continue Coumadin 5mg daily - INR checked today, last value 2.4 on October 13 4. Hyperhomocysteinemia (E72.11) - chronic, stable - Continue Coumadin 5mg daily - INR checked today, last value 2.4 on October 13 5. Mild episode of recurrent major depressive disorder (F33.0) - improving - Patient reports feeling much better on combination of Sertraline and Wellbutrin - Adjust Sertraline to 25mg daily and continue Wellbutrin as prescribed 6. Essential hypertension (I10) - chronic, stable - Continue metoprolol as prescribed 7. Hypokalemia (E87.6) - chronic, stable - Continue potassium supplementation 20mEq daily - Last level in April was 4.2 mmol/L, rechecking today 8. Hyperlipidemia LDL goal <100 (E78.5) - chronic, stable - Continue atorvastatin daily - Lipid panel ordered today 9. H/O deep venous thrombosis (Z86.718) - chronic, stable - Continue Coumadin 5mg daily - INR checked today, last value 2.4 on October 13 10. Anxiety (F41.9) - improving - Continue current management with Sertraline and as-needed Xanax, and continue Wellbutrin as prescribed 11. Panic attack (F41.0) - episodic - Continue as-needed Xanax, patient reports minimal use - Adjust Sertraline to 25mg daily and continue Wellbutrin as prescribed 12. Prediabetes (R73.03) - chronic, stable - Last A1C 5.9% - A1C ordered today - Discussed starting Ozempic for prediabetes management - Prescription for Ozempic 0.25mg weekly initiated 13. Class 1 obesity due to excess calories without serious comorbidity with body mass index (BMI) of 33.0 to 33.9 in adult (E66.811, E66.09, Z68.33) - chronic - Discussed starting Ozempic for weight management - Encouraged continuation of current exercise routine and diet modifications 14. Other hemorrhoids (K64.8) - acute, worsening - Patient reports current flare - Recommend continued use of Preparation H as needed 15. Seborrheic keratosis (L82.1) - Multiple seborrheic keratoses noted on back - Benign in appearance, no concerning features - Discussed option for cryotherapy if desired 16. Encounter for Papanicolaou smear for cervical cancer screening (Z12.4) - Pap smear performed today - Follow-up: - Plan to follow up in one month to assess response to Ozempic Antionette was seen today for well women visit, blood work and health maintenance. Diagnoses and all orders for this visit: Well female exam with routine gynecological exam (Primary) SVT (supraventricular tachycardia) (HCC) - Comprehensive metabolic panel; Future - CBC; Future - Comprehensive metabolic panel - CBC Clotting disorder (CMS/HCC) (HCC) - Comprehensive metabolic panel; Future - CBC; Future - Comprehensive metabolic panel - CBC Hyperhomocysteinemia (HCC) - Comprehensive metabolic panel; Future - CBC; Future - Comprehensive metabolic panel - CBC Mild episode of recurrent major depressive disorder (HCC) - Comprehensive metabolic panel; Future - CBC; Future - Comprehensive metabolic panel - CBC Essential hypertension - Comprehensive metabolic panel; Future - CBC; Future - Comprehensive metabolic panel - CBC Hypokalemia - Comprehensive metabolic panel; Future - CBC; Future - Comprehensive metabolic panel - CBC Hyperlipidemia LDL goal <100 - Comprehensive metabolic panel; Future - Lipid panel; Future - CBC; Future - semaglutide (Ozempic) 2 MG/3ML solution pen-injector; Inject 0.25 mg under the skin 1 (one) time per week. - Comprehensive metabolic panel - Lipid panel - CBC H/O deep venous thrombosis - Comprehensive metabolic panel; Future - CBC; Future - Comprehensive metabolic panel - CBC Anxiety - Comprehensive metabolic panel; Future - CBC; Future - sertraline (Zoloft) 25 MG tablet; Take 1 tablet (25 mg) by mouth daily. - Comprehensive metabolic panel - CBC Panic attack - Comprehensive metabolic panel; Future - CBC; Future - Comprehensive metabolic panel - CBC Prediabetes - Comprehensive metabolic panel; Future - Hemoglobin A1c; Future - semaglutide (Ozempic) 2 MG/3ML solution pen-injector; Inject 0.25 mg under the skin 1 (one) time per week. - Comprehensive metabolic panel - Hemoglobin A1c Class 1 obesity due to excess calories without serious comorbidity with body mass index (BMI) of 33.0 to 33.9 in adult - semagluti (more content not included)... Normal [address] 11-11-2024 36 Message released to patient as written re missed INR lab draw 11/10/24. Patient's further questions if applicable: Patient states she was called yesterday 11/10/24 and it has been rescheduled for 11/17/24. Were all questions from office addressed or relayed to the patient from encounter: Yes Normal [facility] 36 Lm to return call [address] 11-10-2024 36 Lm letting pt know s he missed having her inr drawn today- pt can call the office or send mychart msg on when she is able to come in for inr [address] 11-09-2024 36 Rx sent. Follow up a s scheduled. [place] [id number] Rx sent. Follow up a s scheduled. [place] [id number] Prescription Request : Last medication check: 09/16/24 Last physical exam:11/11/23 Last completed appointment: 09/16/24 Next scheduled appointment: 11/16/24 Last date of refill on this medication:10/09/24 [place] [id number] Prescription Request : Last medication check: 05/20/24 Last physical exam: 11/11/23 Next scheduled appointment: 11/16/24 Last date of refill on this medication 04/06/24 180 tablets no refills Normal [facility] PT Coag (Bld) [Time]on 10-14 INR Coag (PPP) [Relative time] 2.4 {INR} High [facility] Comment on above: Reference Range 0.9- 1.1 Moderate-intensity Warfarin Therapy 2.0-3.0 Higher-intensity Warfarin Therapy 3.0-4.0 Interpretation and review of laboratory results Abnormal [facility] PT Coag (PPP) [Time] 24 s High [facility] Comment on above: For additional infor kurt, please refer to http://education.Analiza.Scicasts/faq/CNZ761 (This link is being provided for informational/ educational purposes only.) [facility] Progress Noteon 10-14-2024 Progress Note INR 2.4 on 10/13/24 Coumadin level is good, recheck 4 weeks Pt notified, confirmed coumadin dose and sched 11/10/24 [facility] Progress Noteon 10-13-2024 Progress Note Venipuncture complet ed by Elsa. [facility] [id number] 09-30-2024 [id number] Called and spoke shamar Riggins, advised her that we cannot address anything regarding her on her account. Gave her the option to do proxy use, states she will talk to him about that and if it is decided to go that route she will let me know. Since Antionette is listed as a contact we can speak to on [place] chart, did refill request in separate encounter. Patient also states she needs a refill on her metoprolol sent to [facility] in [place]. Please send. [facility] 36on 09-30-2024 36 Already sent in today [facility] 36 Reviewed chart. Refi ll appropriate. RX sent. [facility] Office Visiton 09-16-2024 Follow-up visit [id number] Ricky Sandoval 1975 F Date Provider Department Center 09/16/2024 [id number] L[place]IS [facility] Family History Problem Relation Age of Onset Breast cancer Mother 52 Comments: 52 and again at 70 Other Mother Comments: DVT High Blood Pressure Mother Cancer Mother Depression Mother Hyperlipidemia Mother Heart attack Mother Diabetes Father High Blood Pressure Father Heart disease Father Hypertension Father Stroke Maternal Grandmother Cervical cancer Paternal Grandmother 65 Family Status - Relation Status Age at Mother Father Maternal Grandmother Paternal Grandmother Level of Service:25885 [place] OFFICE/OUTPATIENT ESTABLISHED MOD MDM 30 MIN Reason for Visit and Comments: Medication Check [[id number]] - Discuss alternative medications, some of her medications are not working for her. [facility] PT Coag (Bld) [Time]on 09-16 INR Coag (PPP) [Relative time] 2.5 {INR} [facility] Comment on above: Reference Range 0.9 -1.1 Moderate-intensity Warfarin Therapy 2.0-3.0 Higher-intensity Warfarin Therapy 3.0-4.0 Interpretation and review of laboratory results Abnormal [facility] PT Coag (PPP) [Time] 24.7 s High [facility] Comment on above: For additional infor kurt, please refer to http://education.Analiza.Scicasts/faq/TJS065 (This link is being provided for informational/ educational purposes only.) [facility] Progress Noteon 09-16-2024 Progress Note 09/16/2024 Antionette Sandoval (: 1975) is a 49 y.o. female , Established patient, here for evaluation of the following chief complaint(s): Medication Check (Discuss alternative medications, some of her medications are not working for her. ) I obtained verbal consent from the patient and/or patient?s guardian to use ambient listening technology during this encounter before the ambient technology was engaged. Assessment/Plan 1. Other depression - buPROPion XL (Wellbutrin XL) 150 MG 24 hr tablet; Take 1 tablet (150 mg) by mouth every morning. Do not crush, chew, or split., Starting Sat09/16/2024, Until 11/15/2024, Normal - acute, worsening - PHQ-9 score indicates severe depression - Continue sertraline - Add Wellbutrin XL (bupropion) for depression and focus/concentration- Information provided in AVS on new medication. - Follow up in 2 months (November 16) to assess medication efficacy 2. Difficulty concentrating - buPROPion XL (Wellbutrin XL) 150 MG 24 hr tablet; Take 1 tablet (150 mg) by mouth every morning. Do not crush, chew, or split., Starting Sat09/16/2024, Until 11/15/2024, Normal - Acute, worsening - Will start on Wellbutrin XL (bupropion) and see if this helps her focus and concentrate more effectively- Information provided in AVS on new medication. 3. Anxiety - ALPRAZolam (Xanax) 0.25 MG tablet; Take 1 tablet (0.25 mg) by mouth every 8 hours as needed for anxiety., Starting Sat09/16/2024, Normal - chronic, stable - ARTHUR-7 score indicates well-controlled anxiety - Continue current management with sertraline - Refill alprazolam (Xanax) 0.25 mg, #15 tablets for as-needed use - New controlled substance agreement to be signed - [place]AR[place] report reviewed with no discrepancies I performed the above service AI scribed on my behalf, and I have reviewed and confirmed the accuracy and completeness of the medical documentation. Follow up in 2 months (on 11/16/2024) for Next scheduled follow-up. Subjective History of Present Illness Antionette Sandoval, a 49-year-old female, presents today to discuss her prescriptions, specifically sertraline, which she feels is not working well for her. She reports feeling sad for the past couple of months. Initially, she thought it might be due to finishing school and preparing for board exams, but now believes the medication is no longer effective. She describes having trouble focusing, stating she'll go into a room to do something and get distracted, unable to accomplish tasks. She lacks motivation and doesn't want to clean her house. The patient reports a history of being on Effexor, which she states "really made me crazy." She also tried Wellbutrin in the past to quit smoking, which was successful, but she is unsure why she stopped taking it. She currently takes sertraline and alprazolam as needed for anxiety. She mentions her alprazolam prescription has , with only 2-3 tablets remaining. Antionette expresses confusion about her current state, noting that she has positive life events occurring, such as starting a new job on Saturday and taking board exams next month. Despite these positive developments, she continues to experience persistent feelings of sadness. The patient enjoys camping with her in their new camper, which seems to be the only activity she currently enjoys. Her favorite camping spot is [facility], and they also go to [place] to ride their [id number]. Review of Systems Respiratory: Negative for shortness of breath. Cardiovascular: Negative for chest pain. Psychiatric/Behavioral: Positive for decreased concentration and dysphoric mood. Negative for self-injury and suicidal ideas. The patient is nervous/anxious. Objective Vitals: 09/16/24 1040 BP: 106/75 BP Location: Left arm Patient Position: Sitting Pulse: 77 SpO2: 95% Weight: 208 lb (94.3 kg) Height: 5' 6" (1.676 m) Body mass index is 33.57 kg/m?. Last 3 ARTHUR-7 Scores 09/16/2024 1000 ARTHUR-7 Total Score: 0 Last 3 PHQ-2 Scores 09/16/2024 1049 Patient Health Questionnaire-2 Score: 6 Last 3 PHQ-9 Scores 09/16/2024 1049 Patient Health Questionnaire-9 Score: 18 Physical Exam Constitutional: General: She is not in acute distress. Appearance: She is not ill-appearing or diaphoretic. Cardiovascular: Rate and Rhythm: Normal rate and regular rhythm. Heart sounds: Normal heart sounds. No murmur heard. No friction rub. Pulmonary: Effort: Pulmonary effort is normal. Skin: General: Skin is warm and dry. Coloration: Skin is not pale. Findings: No erythema or rash. Neurological: Mental Status: She is alert and oriented to person, place, and time. Psychiatric: Attention and Perception: Attention and perception normal. Mood and Affect: Affect is flat. Speech: Speech normal. Behavior: Behavior normal. Behavior is cooperative. Thought Content: Thought content normal. Cognition and Memory: Cognitio (more content not included)... Normal [facility] Progress Note Patient verified by last name and . Normal [facility] Progress Note INR on 09/15 is 2.5 Normal [facility] Progress Note Notified patient shaun jones she was here for appt Normal [facility] Progress Noteon 09-15-2024 Progress Note Lab/venipuncture completed by [facility] 36on 08-28-2024 36 Rx sent. Follow up a s scheduled. Normal [facility] PT Coag (Bld) [Time]on 08-19 INR Coag (PPP) [Relative time] 2.2 {INR} [facility] Comment on above: Reference Range 0.9- 1.1 Moderate-intensity Warfarin Therapy 2.0-3.0 Higher-intensity Warfarin Therapy 3.0-4.0 Interpretation and review of laboratory results Abnormal [facility] PT Coag (PPP) [Time] 21.9 s High [facility] Comment on above: For additional infor kurt, please refer to http://education.AppUpper - ASO/faq/EOW249 (This link is being provided for informational/ educational purposes only.) [facility] Progress Noteon 08-19-2024 Progress Note INR 2.2 on 08/18/24 Coumadin level is good recheck 4 weeks. Pt notified and sched for 09/15/24 Also verified coumadin dose and pt is taking 5mg every day [facility] Progress Noteon 08-18-2024 Progress Note Lab/venipuncture completed by Elsa [facility] 36on 08-11-2024 36 Message released to patient as written. Yes Patient's further questions if applicable: No Were all questions from office addressed or relayed to the patient from encounter: Yes [facility] 36 Lm to return call- a lso sent mychart msg to pt [facility] 36 ----- Message from MIGEL Pino CNP sent at 08/10/2024 9:47 AM EDT ----- Diagnostic mammogram of the left breast shows benign calcifications. Recommendation is to return to annual routine screening mammograms. ----- Message ----- From: Interface, Radiology Results In Sent: 08/10/2024 9:01 AM EDT To: MIGEL Wagner CNP [facility] 36on 08-10-2024 36 Lm to return call- g jasvir mammogram results below [facility] 36 ----- Message from MIGEL Pino CNP sent at 08/10/2024 9:47 AM EDT ----- Diagnostic mammogram of the left breast shows benign calcifications. Recommendation is to return to annual routine screening mammograms. ----- Message ----- From: Interface, Radiology Results In Sent: 08/10/2024 9:01 AM EDT To: MIGEL Wagner CNP [facility] DBT Breast - left diagnostic on 08-10-2024 Benign calcifications within the inferomedial left breast. The patient may return to annual mammographic screening. ASSESSMENT: Category 2 Benign RECOMMENDATION: Return to normal screening Bilateral CANCER RISK ASSESSMENT: This risk assessment is based on patient provided information collected in a risk survey taken at the time of this examination. LIFETIME BREAST CANCER RISK: Vasiliy 8: 13.76% - If greater than or equal to 20%, consider annual mammogram and annual screening Breast MRI or follow up in high risk clinic. Is the patient at elevated risk based on the HBOC criteria? No (Hereditary Breast and Ovarian Cancer) - If Yes, consider genetic counseling and testing with high risk follow up Is the patient at elevated risk based on the Devine Syndrome criteria? No - If Yes, consider genetic counseling and testing with high risk follow up. Report Dictated on Electronically Signed By: Reena Busch DO Electronically Signed Date/Time: 08/10/2024 9:00 AM EDT [facility] Patient Name: ANTIONETTE SANDOVAL : 1975 Exam Date/Time: 08/10/2024 08:30 Procedure: BI MAMMOGRAM DIAGNOSTIC TOMOSYNTHESIS LEFT Ordering Provider: LOUIS HOLLY Reason For Exam: This exam was performed at [place] [address] PATIENT CANCER HISTORY: No Personal History of Cancer FAMILY CANCER HISTORY: Mother Breast Cancer age 52 DIAGNOSTIC MAMMOGRAM: Technique: 2D CC and MLO views 3D CC and MLO views Images reviewed with CAD Markings on images: BB's = Nipples; skin lesions Open crow = Palpable Line = Scar COMPARISON: 825, 07/03/2023, 06/27/2022, 12/04/2021, 05/31/2021, 05/25/2021 Tissue Density: BIRADS C - The breasts are heterogeneously dense, which may obscure small masses. FINDINGS: The patient presents for evaluation of left breast calcifications noted on her screening mammogram. Coarse calcifications within the medial left breast localized to the inferior breast on the true lateral magnification view and correspond with the noted calcifications on the screening examination. These appear stable from 2021. There are additional similar-appearing calcifications scattered throughout the left breast. Benign left breast biopsy clip. No new suspicious left breast abnormality. [facility] Reena Busch DO - 08/10/2024 Patient Name: ANTIONETTE SANDOVAL : 1975 Exam Date/Time: 08/10/2024 08:30 Procedure: BI MAMMOGRAM DIAGNOSTIC TOMOSYNTHESIS LEFT Ordering Provider: LOUIS HOLLY Reason For Exam: This exam was performed at [place] [address] [address] [place] [address] PATIENT CANCER HISTORY: No Personal History of Cancer FAMILY CANCER HISTORY: Mother Breast Cancer age 52 DIAGNOSTIC MAMMOGRAM: Technique: 2D CC and MLO views 3D CC and MLO views Images reviewed with CAD Markings on images: BB's = Nipples; skin lesions Open crow = Palpable Line = Scar COMPARISON: 825, 07/03/2023, 06/27/2022, 12/04/2021, 05/31/2021, 05/25/2021 Tissue Density: BIRADS C - The breasts are heterogeneously dense, which may obscure small masses. FINDINGS: The patient presents for evaluation of left breast calcifications noted on her screening mammogram. Coarse calcifications within the medial left breast localized to the inferior breast on the true lateral magnification view and correspond with the noted calcifications on the screening examination. These appear stable from 2021. There are additional similar-appearing calcifications scattered throughout the left breast. Benign left breast biopsy clip. No new suspicious left breast abnormality. IMPRESSION: Benign calcifications within the inferomedial left breast. The patient may return to annual mammographic screening. ASSESSMENT: Category 2 Benign RECOMMENDATION: Return to normal screening Bilateral CANCER RISK ASSESSMENT: This risk assessment is based on patient provided information collected in a risk survey taken at the time of this examination. LIFETIME BREAST CANCER RISK: Vasiliy 8: 13.76% - If greater than or equal to 20%, consider annual mammogram and annual screening Breast MRI or follow up in high risk clinic. Is the patient at elevated risk based on the HBOC criteria? No (Hereditary Breast and Ovarian Cancer) - If Yes, consider genetic counseling and testing with high risk follow up Is the patient at elevated risk based on the Devine Syndrome criteria? No - If Yes, consider genetic counseling and testing with high risk follow up. Report Dictated on Electronically Signed By: Reena Busch DO Electronically Signed Date/Time: 08/10/2024 9:00 AM EDT [facility] Radiology Study observation (narrative) [facility] DBT Breast - left diagnostic Ordered By: Reena Busch on 08-10-2024 [facility] [employer] Phone: 36on 08-07-2024 36 Standing lab order signed. Normal [facility] 36on 08-06-2024 36 Per Rosemarie, patient' s standing order will in October. Please place new standing order. Normal [facility] DBT Breast - bilateral scree ningOrdered By: Monique Martines on 07-30-2024 Interpretation and review of laboratory results Abnormal [facility] [employer] Phone: [facility] [employer] Phone: DBT Breast - bilateral scree ningon 07-30-2024 Left breast calcifications. ASSESSMENT: Category 0 Incomplete: need additional imaging evaluation RECOMMENDATION: Follow-up diagnostic mammogram Left CANCER RISK ASSESSMENT: This risk assessment is based on patient provided information collected in a risk survey taken at the time of this examination. LIFETIME BREAST CANCER RISK: Vasiliy 8: 13.76% - If greater than or equal to 20%, consider annual mammogram and annual screening Breast MRI or follow up in high risk clinic. Is the patient at elevated risk based on the HBOC criteria? No (Hereditary Breast and Ovarian Cancer) - If Yes, consider genetic counseling and testing with high risk follow up Is the patient at elevated risk based on the Devine Syndrome criteria? No - If Yes, consider genetic counseling and testing with high risk follow up. Report Dictated on Electronically Signed By: Monique Martines MD Electronically Signed Date/Time: 07/30/2024 11:49 AM [facility] Patient Name: ANTIONETTE [facility] 1975 [id number] Exam Date/Time: 07/30/2024 10:23 Procedure: BI MAMMOGRAM SCREENING TOMOSYNTHESIS BILATERAL Ordering Provider: LOUIS HOLLY Reason For Exam: This exam was performed at [address] [address] PATIENT CANCER HISTORY: No Personal History of Cancer FAMILY CANCER HISTORY: Mother Breast Cancer age 52 Image views: 2D Bilateral CC and MLO views were acquired. 3D Bilateral CC and MLO views were acquired. Images were reviewed with CAD. Markings on images: BB's = Nipples; skin lesions Open crow = Palpable Line = Scar COMPARISON: 05/25/2021, 06/10/2021, 12/04/2021, 06/27/2022, 07/03/2023 TISSUE DENSITY: BIRADS C - The breasts are heterogeneously dense, which may obscure small masses. FINDINGS: There is a grouping of calcifications in the middle depth of the medial left breast in the cc view. These are difficult to visualize in the MLO view. Additional imaging is recommended. No discrete masses, parenchymal distortion or suspicious calcifications are seen on the right. There is no skin thickening or nipple retraction. [facility] Monique Martines MD - 07/30/2024 Patient Name: ANTIONETTE SANDOVAL : 1975 Exam Date/Time: 07/30/2024 10:23 Procedure: BI MAMMOGRAM SCREENING TOMOSYNTHESIS BILATERAL Ordering Provider: LOUIS HOLLY Reason For Exam: This exam was performed at [place] [id number] PATIENT CANCER HISTORY: No Personal History of Cancer FAMILY CANCER HISTORY: Mother Breast Cancer age 52 Image views: 2D Bilateral CC and MLO views were acquired. 3D Bilateral CC and MLO views were acquired. Images were reviewed with CAD. Markings on images: BB's = Nipples; skin lesions Open crow = Palpable Line = Scar COMPARISON: 05/25/2021, 06/10/2021, 12/04/2021, 06/27/2022, 07/03/2023 TISSUE DENSITY: BIRADS C - The breasts are heterogeneously dense, which may obscure small masses. FINDINGS: There is a grouping of calcifications in the middle depth of the medial left breast in the cc view. These are difficult to visualize in the MLO view. Additional imaging is recommended. No discrete masses, parenchymal distortion or suspicious calcifications are seen on the right. There is no skin thickening or nipple retraction. IMPRESSION: Left breast calcifications. ASSESSMENT: Category 0 Incomplete: need additional imaging evaluation RECOMMENDATION: Follow-up diagnostic mammogram Left CANCER RISK ASSESSMENT: This risk assessment is based on patient provided information collected in a risk survey taken at the time of this examination. LIFETIME BREAST CANCER RISK: JennieMaruTitiradha 8: 13.76% - If greater than or equal to 20%, consider annual mammogram and annual screening Breast MRI or follow up in high risk clinic. Is the patient at elevated risk based on the HBOC criteria? No (Hereditary Breast and Ovarian Cancer) - If Yes, consider genetic counseling and testing with high risk follow up Is the patient at elevated risk based on the Devine Syndrome criteria? No - If Yes, consider genetic counseling and testing with high risk follow up. Report Dictated on Electronically Signed By: Monique Martines MD Electronically Signed Date/Time: 07/30/2024 11:49 AM EDT [facility] Radiology Study observation (narrative) [facility] PT Coag (Bld) [Time]on 07-22 INR Coag (PPP) [Relative time] 2.2 {INR} High [facility] Comment on above: Reference Range 0.9- 1.1 Moderate-intensity Warfarin Therapy 2.0-3.0 Higher-intensity Warfarin Therapy 3.0-4.0 Interpretation and review of laboratory results Abnormal [facility] PT Coag (PPP) [Time] 22 s High [facility] Comment on above: For additional infor mation, please refer to http://education.AppUpper - ASO/faq/RIV433 (This link is being provided for informational/ educational purposes only.) [facility] Progress Noteon 07-22-2024 Progress Note INR 2.2.on 07/21/24 Coumadin level is good, recheck 4 weeks Pt notified and sched for 08/18/24 [facility] Progress Noteon 07-21-2024 Progress Note Lab/venipuncture completed by [employer] [facility] PT Coag (Bld) [Time]on 06-23 INR Coag (PPP) [Relative time] 2.9 {INR} High [facility] Comment on above: Reference Range 0.9- 1.1 Moderate-intensity Warfarin Therapy 2.0-3.0 Higher-intensity Warfarin Therapy 3.0-4.0 Interpretation and review of laboratory results Abnormal [facility] PT Coag (PPP) [Time] 28.1 s High [facility] Comment on above: For additional infor kurt, please refer to http://Comfort Line.AppUpper - ASO/faq/HZM574 (This link is being provided for informational/ educational purposes only.) [facility] Progress Noteon 06-23-2024 Progress Note INR 2.9 on 06/22/24 Coumadin level is good, recheck 4 weeks. Pt notified and sched 07/21/24 Normal [facility] Progress Noteon 06-22-2024 Progress Note Lab/venipuncture completed by [facility] 36on 06-11-2024 36 Appointment scheduled Normal [facility] PT Coag (Bld) [Time]on 06-11 INR Coag (PPP) [Relative time] 4.4 {INR} High [facility] Comment on above: Reference Range 0.9- 1.1 Moderate-intensity Warfarin Therapy 2.0-3.0 Higher-intensity Warfarin Therapy 3.0-4.0 Interpretation and review of laboratory results Abnormal [facility] PT Coag (PPP) [Time] 41.3 s High [facility] Comment on above: For additional infor kurt, please refer to http://Comfort Line.AppUpper - ASO/faq/MOP352 (This link is being provided for informational/ educational purposes only.) [facility] Progress Noteon 06-11-2024 Progress Note Patient notified and scheduled Normal [facility] Progress Note INR on 06/10/[address] Mckee, I know this was resulted in the result notes. I just have to result it in a anticoag encounter as well. Thanks! Normal [facility] Progress Noteon 06-10-2024 Progress Note Lab/venipuncture completed by [facility] PT Coag (Bld) [Time]on 05-21 INR Coag (PPP) [Relative time] 3.2 {INR} High [facility] Comment on above: Reference Range 0.9- 1.1 Moderate-intensity Warfarin Therapy 2.0-3.0 Higher-intensity Warfarin Therapy 3.0-4.0 Interpretation and review of laboratory results Abnormal [facility] PT Coag (PPP) [Time] 30.7 s High [facility] Comment on above: For additional infor kurt, please refer to http://education.AppUpper - ASO/faq/DLQ343 (This link is being provided for informational/ educational purposes only.) [facility] Progress Noteon 05-21-2024 Progress Note INR 3.2 on 05/20/[address] Mckee, Coumadin level is borderline high hold x 1 day then restart at current dose and recheck in 2 weeks." Notified and scheduled. Normal [facility] Office Visiton 05-20-2024 Follow-up visit [id number] Ricky Sandoval ed 1975 F Date Provider Department Center 05/20/2024 YARELI REYNOSO [facility] Family History Problem Relation Age of Onset Breast cancer Mother 52 Comments: 52 and again at 70 Other Mother Comments: DVT High Blood Pressure Mother Cancer Mother Depression Mother Hyperlipidemia Mother Heart attack Mother Diabetes Father High Blood Pressure Father Heart disease Father Hypertension Father Stroke Maternal Grandmother Cervical cancer Paternal Grandmother 65 Family Status - Relation Status Age at Mother Father Maternal Grandmother Paternal Grandmother Level of Service:90489 [place] OFFICE/OUTPATIENT ESTABLISHED MOD MDM 30 MIN Reason for Visit and Comments: Medication Check [6484662912] Anxiety [9] Health Maintenance [872] - Flu- not due until july PNA- declines 4th Covid- not done Hypertension [407261] Hyperlipidemia [182] Normal [facility] Progress Noteon 05-20-2024 Progress Note 05/20/2024 Antionette Sandoval (: 1975) is a 49 y.o. female , Established patient, here for evaluation of the following chief complaint(s): Medication Check, Anxiety, Health Maintenance (Flu- not due until july /PNA- declines / Covid- not done ), Hypertension, and Hyperlipidemia ASSESSMENT/PLAN: 1. SVT (supraventricular tachycardia) (HCC) - Comprehensive metabolic panel - Stable with Metoprolol. Will continue current treatment plan. 2. Essential hypertension - Comprehensive metabolic panel - Stable with Metoprolol. Will continue current treatment plan. 3. Hypokalemia - Comprehensive metabolic panel - Stable with Potassium supplementation. Will continue current treatment plan. 4. Hyperlipidemia LDL goal <100 - Comprehensive metabolic panel - Stable with Atorvastatin. Will continue current treatment plan. 5. Clotting disorder (CMS/HCC) (HCC) - Comprehensive metabolic panel - Stable with Coumadin. Will continue current treatment plan. 6. H/O deep venous thrombosis - Stable with Coumadin. Will continue current treatment plan. 7. Hyperhomocysteinemia (HCC) - Comprehensive metabolic panel - Stable. Will continue current treatment plan. 8. Anxiety - Comprehensive metabolic panel - Stable with daily Sertraline and PRN Alprazolam. Will continue current treatment plan. 9. Panic attack - Comprehensive metabolic panel - Stable with daily Sertraline and PRN Alprazolam. Will continue current treatment plan. 10. Prediabetes - Hemoglobin A1c - Comprehensive metabolic panel - Will notify of blood work results and provide recommendations accordingly. 11. Motion sickness, initial encounter - scopolamine (Transderm-Scop) 1 MG/3DAYS patch 72 hour; Apply 1 patch behind ear at least 4 hours prior to required antiemetic effect for use up to 72 hours; if needed for >72 hours, remove old patch and place new one behind other ear., Normal 12. Right sided abdominal pain - Comprehensive metabolic panel - Will notify of blood work results. - Discussed signs and symptoms warranting follow up in the office- verbalized understanding. 13. Screening mammogram for breast cancer - Bilateral screening mammogram with tomosynthesis 14. Influenza vaccine refused Follow up in about 6 months (around 11/17/2024) for WFE and fasting blood work. SUBJECTIVE/OBJECTIVE: ERICA Riggins presents today for follow up on her chronic health conditions. SVT/Hypertension: Takes Metoprolol as prescribed and feels symptoms are well controlled. Last saw cardiology, Dr. Lakhani, in January 2024. States she only needed to follow up with cardiology as needed. Hypokalemia: Takes Potassium 20 mEq supplementation as prescribed. Potassium stable at 4.0 mmol/L on 01/22/24. Will check her potassium level today. Hyperlipidemia: Takes her Atorvastatin daily as prescribed. Last had her cholesterol checked in October of 2023. Component Ref Range & Units 6 mo ago (11/11/23) 1 yr ago (10/29/22) 2 yr ago (12/11/21) 3 yr ago (11/16/20) 3 yr ago (10/12/20) 4 yr ago (09/16/19) CHOLESTEROL, TOTAL <200 mg/dL 170 168 HDL CHOLESTEROL > OR = 50 mg/dL 41 Low 39 Low 36 Low R 37 Low R 30 Low R 39 Low R TRIGLYCERIDES <150 mg/dL 164 High 172 High 146 199 Abnormal 304 Abnormal 142 LDL-CHOLESTEROL mg/dL (calc) 103 High 102 High CM CHOL/HDLC RATIO <5.0 (calc) 4.1 4.3 NON HDL CHOLESTEROL <130 mg/dL (calc) 129 129 CM Clotting Disorder/History of Venous Thrombosis/Hyperhomocys teinemia: Takes her Coumadin as prescribed. Denies signs of active bleeding. Most recent INR was 2.4 on 04/27/24. Will recheck today. Anxiety/Panic Attack: Takes daily Sertraline and will take Alprazolam as needed. Feels the medications work well for her. Pre-Diabetes: Most recent hemoglobin A1c was 6.1% on 11/11/23. Strives for a diet rich in protein. Trying to limit sugars and carbohydrates in diet. Will be going on a cruise at the end of May and want to have Scopolamine patches on hand. Has been experiencing some right sided pain that feels "deep". Had a similar pain a few years ago and imaging did not reveal anything. Would like to have her liver enzymes checked today. Health Maintenance: Last mammogram was 07/03/23- would like an order placed for this year's imaging today. Last pap smear was 10/29/22. Vaccinated for COVID-19 x3 with most recent dose on 02/11/21- declines additional doses. Declines to be vaccinated for shingles. Tdap current: 08/08/16. Colonoscopy: 07/24/[address] 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 Declines a pneumococcal vaccination. Declines a flu vaccination. Review of Systems Constitutional: Negative for chills and fever. Respiratory: Negative for chest tightness and shortness of breath. Cardiovascular: Negative for chest pain, palpitations and leg swelling. Gastrointestinal: Positive for abdominal pain (right side). Negative for abdominal distention and blood in stool. Endocrine: Negative for polydipsia, poly (more content not included)... Normal [facility] 2904-28-2024 29 Addended by: HENRIQUE MCKEE on: 04/28/2024 05:36 AM Modules accepted: Orders [facility] 36on 04-28-2024 36 Order signed [facility] 36 New standing INR ord er needed, order pended. Thanks! [facility] 36 Okay, chart updated [facility] Progress Noteon 04-28-2024 Progress Note INR 2.4 on 04/27/[address] Mckee, Coumadin level is good, recheck 4 weeks." Notified. [facility] 36on 04-27-2024 36 Patient came into e office today to have her INR labs checked, she did want to notify you that she is no longer taking her Spironolactone since she is going on vacation and wants to olea she also stated it was no longer helping her acne. Please update med list. [facility] Progress Noteon 04-27-2024 Progress Note Venipuncture complet ed Patient was identified by name and date of -orders verified in [facility]. Site cleansed with alcohol swab and using a sterile needle, right AC accessed per [facility]'s policy and procedure. Bandage applied to site no bleeding or hematoma noted, patient tolerated well. X 1 attempts. Advised to leave bandage on for at least 20 minutes to prevent swelling and bruising. [facility] 36on 04-21-2024 36 Reviewed chart. Refi ll appropriate. RX sent. [facility] 36 Prescription Request : Last medication check: 01/22/24 Last physical exam: 11/11/23 Next scheduled appointment: 05/04/24 Last date of refill on this medication 10/07/23 [place] [address]on 04-06-2024 36 Reviewed chart. Refi ll appropriate. RX sent. [facility] 36 Prescription Request : Last medication check: 01/22/24 Last physical exam: 11/11/23 Next scheduled appointment: 05/11/24 Last date of refill on this medication 09/06/23 [facility] 36 Refill request recei nayana for Spironolactone. Last filled 01/02/2024 by Racheal. Patient last seen 10/01/2023 by Racheal. Patient does have a follow up appointment scheduled on 06/03/2024. [facility] PT Coag (Bld) [Time]on 03-24 INR Coag (PPP) [Relative time] 2.4 {INR} High [facility] Comment on above: Reference Range 0.9- 1.1 Moderate-intensity Warfarin Therapy 2.0-3.0 Higher-intensity Warfarin Therapy 3.0-4.0 Interpretation and review of laboratory results Abnormal [facility] PT Coag (PPP) [Time] 23.5 s High [facility] Comment on above: For additional infor kurt, please refer to http://education.AppUpper - ASO/faq/UOE186 (This link is being provided for informational/ educational purposes only.) [facility] Progress Noteon 03-24-2024 Progress Note INR 2.4 on 03/23/24 INR good recheck 1 month Pt notified and sched Normal [facility] Progress Note INR 2.4, goal 2-3. Continue current dose and check INR in 1 month [facility] Progress Noteon 03-23-2024 Progress Note Venipuncture complet ed by [employer]. [facility] 36on 03-02-2024 36 Rx sent. Follow up a s scheduled. [facility] 36 Prescription Request : Last medication check: 01/22/24 Last physical exam: 11/11/23 Next scheduled appointment: 05/11/24 Last date of refill on this medication 08/05/23 [place] [address] 02-26-2024 36 Notified. [facility] Progress Noteon 02-26-2024 Progress Note INR 2.9 on 02/24/24 MIGEL Wilson CNP to Helen Guthrie MA 02/25/24 8:58 AM Note INR 2.9 (good), INR goal 2-3. Continue current dosing and recheck in 1 month See TE from yesterday, message left for pt. [place] [address]on 02-25-2024 36 Left a message to return call. [facility] 36 INR 2.9 (good), INR goal 2-3. Continue current dosing and recheck in 1 month [facility] 36 PT/INR Results INR: 2.9 PT: 28.3 Normal [facility] PT Coag (Bld) [Time]on 02-24 INR Coag (PPP) [Relative time] 2.9 {INR} High [facility] Comment on above: Reference Range 0.9- 1.1 Moderate-intensity Warfarin Therapy 2.0-3.0 Higher-intensity Warfarin Therapy 3.0-4.0 Interpretation and review of laboratory results Abnormal [facility] PT Coag (PPP) [Time] 28.3 s High [facility] Comment on above: For additional infor kurt, please refer to http://education.AppUpper - ASO/faq/ELE664 (This link is being provided for informational/ educational purposes only.) [facility] Progress Noteon 02-24-2024 Progress Note Venipuncture complet ed by [employer]. *Patient stated she did not take her Warfarin this morning (02/23) prior to blood draw* Normal [facility] 36on 01-31-2024 36 Called patient and s he wanted surgery by end of year for deduct. Advised on vacation for holiday. 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 She will call back when ready to schedule. Normal [facility] 36 Missed Tre's call , please call back. Normal [facility] 36 LM with patient to dana ybarra surgery to 04-13-24. Needs ACH due to SVT. Normal [facility] 36 Wants to know if in fact she is scheduled for sx in Feb because she needs to notify her boss. Normal [facility] No Panel Informationon 01-30 Sinus Rhythm Low voltage in precordial leads. -Nonspecific T-abnormality. [facility] Office Visiton 01-31-2024 Follow-up visit [id number] Ricky Sandoval 1975 F Date Provider Department Center 01/31/2024 [id number] [facility] None Family History Problem Relation Age of Onset Breast cancer Mother 52 Comments: 52 and again at 70 Other Mother Comments: DVT High Blood Pressure Mother Cancer Mother Depression Mother Hyperlipidemia Mother Heart attack Mother Diabetes Father High Blood Pressure Father Heart disease Father Hypertension Father Stroke Maternal Grandmother Cervical cancer Paternal Grandmother 65 Family Status - Relation Status Age at Mother Father Maternal Grandmother Paternal Grandmother Level of Service:30665 [place] OFFICE/OUTPATIENT ESTABLISHED MOD MDM 30 MIN Reason for Visit and Comments: Follow-up [994004] Normal [facility] Progress Noteon 01-31-2024 Progress Note On aldactone for ski n condition which also helps support K+ level. Also on K+ suppl as well. -F/u with PCP with labs to be sure K+ continues to be stable. 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 No hx of CAD, CVD, HF. Very low RCRI risk. Hx of SVT easy to break with adenosine. -Low risk of cardiac events, ok to proceed to non-cardiac surgery -Biggest cardiac risk is for SVT which can be handled with intra-op and post-op monitoring; if occurs start with Valsalva maneuver, if fails then use routine adenosine protocol for that facility -Continue Toprol perioperatively -Continue lipitor perioperatively Normal [facility] Progress Note [facility] [place] [facility] [place] [address] [place] [id number] Dept: [phone] Dept Visit type: Established : 1975 Reason for Visit: Follow-up Assessment and Plan 1. SVT (supraventricular tachycardia) (HCC) Assessment & Plan: Hx of presumed SVT with c/w description of increased HR and broke with adenosine. But no scanned strips of these rhythms available. Has hx of palpitations. She is aware of manuvers that break the arrhythmia. Episodes 2019 and 2022. 02/2020 24 hr Holter showed no significant arrhythmia. 04/2022 48 hr holter that showed no atrial arrhythmia despite symptoms of palpitations. -Continue Toprol -Pt will send copy of EMS tracing to us via [employer] -She does not feel the need to EP at this time -If has frequent symptomatic recurrence, rec 30 d event monitor and referral to EP to discuss risks/benefits of ablation -1 yr followup with me; can see us yearly or PRN given infrequency of the arrhythmia Orders: - ECG 12 lead - [facility] 2. Clotting disorder (CMS/HCC) (HCC) Assessment & Plan: Hx multiple thrombotic episodes. One of those was unprovoked. Believed to have hypercoagulable state. Side effect with Xarelto, switched to warfarin, without recurrent episodes. Also has quit smoking. -Not on OAC for cardiac reasons -Mgt per PCP Orders: - [facility] 3. Essential hypertension Assessment & Plan: Stable. Target <130/80 mmHg -Continue Toprol, aldactone 4. Hypokalemia Assessment & Plan: On aldactone for skin condition which also helps support K+ level. Also on K+ suppl as well. -F/u with PCP with labs to be sure K+ continues to be stable. 5. 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 No hx of CAD, CVD, HF. Very low RCRI risk. Hx of SVT easy to break with adenosine. -Low risk of cardiac events, ok to proceed to non-cardiac surgery -Biggest cardiac risk is for SVT which can be handled with intra-op and post-op monitoring; if occurs start with Valsalva maneuver, if fails then use routine adenosine protocol for that facility -Continue Toprol perioperatively -Continue lipitor perioperatively Follow up in about 1 year (around 01/30/2025) for me. Subjective Establish new cardiovascular physician. Formerly saw [facility] and Dr. Reynoso (who is further away at [facility]). Hx SVT documented X2 requiring medical intervention. First time she thought she was just anxious. Had a sinus infection and was on Sudafed. Then was clear it was a tachyarrhythmia. Needed two dose of adenosine to break it. Toprol 25 started. Second time, she bent over to get her dog out of the kennel and felt HR go fast. 3.4 K+. Needed one dose of adenosine to break rhythm and vagal manuvers did not help. Toprol increased to 50 mg after this episode. Has done well. Previously was having regular palpitations but these were not by the satellite project site monitor associated with concerning arrhythmias and improved with the BB by past report. Recently aldactone 50 mg added for acne but also has benefit of supporting her potassium level which has been on the lower side. Per pt f/u labs have been stable. 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 Brother has Afib and is s/p multiple ablations. She would not want this. Discussed that her rhythm issues are not like his and if ablated, would most likely but curative. Hx hypercoag state with mult thrombotic events, managed by PCP on warfarin (intolerant to Xarelto). Tob- quit 9 yrs ago ETOH- minimal Recr drugs - none [facility] f[facility]. Antionette Sandoval Review of Systems Constitutional: Negative for activity change, chills, diaphoresis, fatigue and fever. HENT: Negative for nosebleeds and trouble swallowing. Eyes: Negative for discharge and visual disturbance. Respiratory: Negative for apnea, cough, chest tightness, shortness of breath and wheezing. Cardiovascular: Positive for leg swelling (left leg, occasional). Negative for chest pain and palpitations. Gastrointestinal: Negative for abdominal distention, abdominal pain, blood in stool, diarrhea, nausea and vomiting. Endocrine: Negative for cold intolerance and heat intolerance. Genitourinary: Negative for hematuria. Musculoskeletal: Negative for gait problem and myalgias. Skin: Negative for color change and rash. Neurological: Negative for dizziness, seizures, syncope, facial asymmetry, speech difficulty, weakness, light-headedness, numbness and headaches. Hematological: Does not bruise/bleed easily. Psychiatric/Behavioral: Negative for dysphoric mood. Allergies Allergen Re (more content not included)... Normal [facility] Progress Note Stable. Target <130/ 80 mmHg -Continue Toprol, aldactone Normal [facility] Progress Note Hx of presumed SVT w ith c/w description of increased HR and broke with adenosine. But no scanned strips of these rhythms available. Has hx of palpitations. She is aware of manuvers that break the arrhythmia. Episodes 2019 and 2022. 02/2020 24 hr Holter showed no significant arrhythmia. 04/2022 48 hr holter that showed no atrial arrhythmia despite symptoms of palpitations. -Continue Toprol -Pt will send copy of EMS tracing to us via [employer] -She does not feel the need to EP at this time -If has frequent symptomatic recurrence, rec 30 d event monitor and referral to EP to discuss risks/benefits of ablation -1 yr followup with me; can see us yearly or PRN given infrequency of the arrhythmia Normal [facility] Progress Note Hx multiple thrombot ic episodes. One of those was unprovoked. Believed to have hypercoagulable state. Side effect with Xarelto, switched to warfarin, without recurrent episodes. Also has quit smoking. -Not on OAC for cardiac reasons -Mgt per PCP Normal [facility] 36on 01-24-2024 36 Potassium is normal I would keep her on the same potassium. Normal [facility] 36 Notified and schedul ed, she wants to know if you want to keep her potassium dose the same or lower it? States to notify her via [employer]. Normal [facility] 36on 01-23-2024 36 RALPH Corbett to Tre Boyd 12/25/23 3:07 PM Robert Toledo, I already sent you this patient's chart. I see you already made a telephone encounter with the surgical orders. I talked to her today, and she is comfortable proceeding with scheduling at this point of time. Of note, she is on Coumadin for clotting disorder. She will need to stop the Coumadin at least 5 days prior to surgery and restart on the day of her surgery. 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 Please let me know if you have any questions. MARC Askew, You please schedule this patient for Excision right occipital bony mass excision with bone substitute in the form of hydroxyapatite to fill the deficit. General. 1.5 hours. City only. Genevieve Cardona PA-C Normal [facility] 36 ----- Message from Henrique Mckee MD sent at 01/23/2024 5:22 AM EDT ----- Potassium is normal Coumadin level is normal, recheck 4 weeks Left a message to return call. Schedule nurse visit in 4 weeks please. Normal [facility] PT Coag (Bld) [Time]on 01-22 INR Coag (PPP) [Relative time] 2 {INR} [facility] Comment on above: Reference Range 0.9- 1.1 Moderate-intensity Warfarin Therapy 2.0-3.0 Higher-intensity Warfarin Therapy 3.0-4.0 Interpretation and review of laboratory results Abnormal [facility] PT Coag (PPP) [Time] 20.6 s High [facility] Comment on above: For additional infor kurt, please refer to http://education.AppUpper - ASO/faq/EOQ117 (This link is being provided for informational/ educational purposes only.) [facility] Progress Noteon 01-23-2024 Progress Note INR 2.0 on 01/22/[address] Mckee, Coumadin level is normal, recheck 4 weeks" Left a message to return call. Normal [facility] 36on 01-22-2024 36 Noted. 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 Fisher 03/16/24. She is a former patient of Dr. Reynoso last seen 07/23/22, that was due for follow up 08/15. She lives in [place] and wants to establish with a new walking dragline oiler, and is now scheduled to see Dr. Lakhani 01/31/24. Normal [facility] Office Visiton 01-22-2024 Follow-up visit [id number] Ricky Sandoval ed 1975 F Date Provider Department Center 01/22/2024 [id number] LOUIS [facility] Family History Problem Relation Age of Onset Breast cancer Mother 52 Comments: 52 and again at 70 Other Mother Comments: DVT High Blood Pressure Mother Cancer Mother Depression Mother Hyperlipidemia Mother Heart attack Mother Diabetes Father High Blood Pressure Father Heart disease Father Hypertension Father Stroke Maternal Grandmother Cervical cancer Paternal Grandmother 65 Family Status - Relation Status Age at Mother Father Maternal Grandmother Paternal Grandmother Level of Service:[id number] [place] OFFICE/OUTPATIENT ESTABLISHED LOW MDM 20 MIN Reason for Visit and Comments: Procedure [88] - Surgery scheduled for February, mainly wants to talk about how her coumadin and inr would play out with the surgery [facility] Progress Noteon 01-22-2024 Progress Note 01/22/2024 Antionette Sandoval (: 1975) is a 48 y.o. female , Established patient, here for evaluation of the following chief complaint(s): Procedure (Surgery scheduled for February, mainly wants to talk about how her coumadin and inr would play out with the surgery) ASSESSMENT/PLAN: 1. 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 2. Acne vulgaris - Potassium - Will notify of blood work results. 3. SVT (supraventricular tachycardia) (HCC) - Potassium - [facility] - Referral placed with Dr. Segovia for cardiac clearance and for management of anticoagulation management for upcoming surgery. 4. Clotting disorder (CMS/HCC) (HCC) - [facility] - Referral placed with Dr. Segovia for cardiac clearance and for management of anticoagulation management for upcoming surgery. 5. Hypokalemia - Potassium - Will notify of blood work results. Follow up for surgical clearance within 30 days of surgery on 03/16/24. SUBJECTIVE/OBJECTIVE: ERICA Riggins presents today for discussion of an upcoming surgery in February. Will be getting a benign tumor excised from her scalp and was told she will need to be off of her Coumadin to have the procedure done. Will be having pre-admission testing completed on 03/09/24 and the surgery will be on 03/16/24. Will be getting put under via general anesthesia. Was told she will need cardiac clearance as well for the surgery- has not seen cardiology in over a year and a half and would like to see Dr. Segovia. Has been taking Spironolactone for her acne and is also on potassium supplementation for her hypokalemia and would like to have her potassium level checked today. Is also due to have her INR level checked today. Health Maintenance: Had a flu vaccination in July due to school so she does not want one today. Review of Systems Constitutional: Negative for chills and fever. Respiratory: Negative for shortness of breath. Cardiovascular: Negative for chest pain, palpitations and leg swelling. Vitals: 01/22/24 1507 BP: 122/80 Pulse: 71 SpO2: 97% Weight: 204 lb 1.6 oz (92.6 kg) Height: 5' 6" (1.676 m) Body mass index is 32.94 kg/m?. Physical Exam Constitutional: General: She is not in acute distress. Appearance: She is not ill-appearing or diaphoretic. Cardiovascular: Rate and Rhythm: Normal rate and regular rhythm. Heart sounds: Normal heart sounds. No murmur heard. No friction rub. Pulmonary: Effort: Pulmonary effort is normal. Skin: General: Skin is warm and dry. Coloration: Skin is not pale. Findings: No bruising or erythema. Neurological: Mental Status: She is alert and oriented to person, place, and time. Psychiatric: Mood and Affect: Mood normal. Behavior: Behavior normal. Thought Content: Thought content normal. Judgment: Judgment normal. An electronic signature was used to authenticate this note. Yareli Louis APRN - NILDA 01/22/2024 3:47 PM Normal [facility] Progress Note Patient verified by last name and . Normal [facility] PT Coag (Bld) [Time]on 12-25 INR Coag (PPP) [Relative time] 2.4 {INR} High [facility] Comment on above: Reference Range 0.9- 1.1 Moderate-intensity Warfarin Therapy 2.0-3.0 Higher-intensity Warfarin Therapy 3.0-4.0 Interpretation and review of laboratory results Abnormal [facility] PT Coag (PPP) [Time] 23.5 s High [facility] Comment on above: For additional infor matenrico, please refer to [email or web address] [email or web address] - ASO/faq/TTT571 (This link is being provided for informational/ educational purposes only.) [facility] PT Coag (Bld) [Time]on 12-09 INR Coag (PPP) [Relative time] 3.2 {INR} High [facility] Comment on above: Reference Range 0.9- 1.1 Moderate-intensity Warfarin Therapy 2.0-3.0 Higher-intensity Warfarin Therapy 3.0-4.0 Interpretation and review of laboratory results Abnormal [facility] PT Coag (PPP) [Time] 31.2 s High [facility] Comment on above: For additional infor matenrico, please refer to [email or web address] [email or web address] - ASO/faq/YMP657 (This link is being provided for informational/ educational purposes only.) [facility] CT Maxillofacial region W co ntrast Ann 11-27-2023 1. There is slight smooth asymmetry in the cortex of the calvarium in the right parietal area which is thicker on the right compared to the left (can be seen in retrospect on CT 3.5 months ago and is unchanged, measuring 5 mm in depth and 20 mm in width). No adjacent skin or subcutaneous soft tissue abnormalities are seen. No other areas of focal skull thickening are seen. Report Dictated on Electronically Signed By: Joe Foster MD Electronically Signed Date/Time: 11/27/2023 3:49 PM EDT [facility] Patient Name[facility] ANTION[facility] 1975 [id number] Exam Date/Time: 11/27/2023 10:58 Procedure: CT MAXILLOFACIAL W IV CONTRAST Ordering Provider: FISHER MOHEB Reason For Exam: Bone mass or bone pain, skull, no prior imaging HISTORY: Tumor of bone or skull Axial scans of the paranasal sinuses were performed with coronal and sagittal reconstructions. Dose reduction was employed with automated exposure control. A radiopaque marker is placed over the area of palpable abnormality. The frontal, ethmoid, and sphenoid sinuses show no abnormality. There is mild rightward nasal septal deviation with left-sided bob bullosa. Maxillary sinuses show no abnormalities. Partial ossification stylohyoid ligaments, degenerated disc at C5-C6, periodontal disease about wisdom teeth. [facility] Joe Foster MD - 11/27/2023 Patient Name: ANTIONETTE [facility] 1975 [id number] Exam Date/Time: 11/27/2023 10:58 Procedure: CT MAXILLOFACIAL W IV CONTRAST Ordering Provider: FISHER MOHEB Reason For Exam: Bone mass or bone pain, skull, no prior imaging HISTORY: Tumor of bone or skull Axial scans of the paranasal sinuses were performed with coronal and sagittal reconstructions. Dose reduction was employed with automated exposure control. A radiopaque marker is placed over the area of palpable abnormality. The frontal, ethmoid, and sphenoid sinuses show no abnormality. There is mild rightward nasal septal deviation with left-sided bob bullosa. Maxillary sinuses show no abnormalities. Partial ossification stylohyoid ligaments, degenerated disc at C5-C6, periodontal disease about wisdom teeth. IMPRESSION: 1. There is slight smooth asymmetry in the cortex of the calvarium in the right parietal area which is thicker on the right compared to the left (can be seen in retrospect on CT 3.5 months ago and is unchanged, measuring 5 mm in depth and 20 mm in width). No adjacent skin or subcutaneous soft tissue abnormalities are seen. No other areas of focal skull thickening are seen. Report Dictated on Electronically Signed By: Joe oFster MD Electronically Signed Date/Time: 11/27/2023 3:49 PM EDT [facility] Radiology Study observation (narrative) [facility] Maxillofacial region W co ntrast IVOrdered By: Joe Foster on 11-27-2023 [facility] Work Phone: PT Coag (Bld) [Time]on 11-11 INR Coag (PPP) [Relative time] 2.6 {INR} High [facility] Comment on above: Reference Range 0.9- 1.1 Moderate-intensity Warfarin Therapy 2.0-3.0 Higher-intensity Warfarin Therapy 3.0-4.0 Interpretation and review of laboratory results Abnormal [facility] PT Coag (PPP) [Time] 25.7 s High [facility] Comment on above: For additional infor mation, please refer to http://Comfort Line.Analiza.Scicasts/faq/KBO659 (This link is being provided for informational/ educational purposes only.) [facility] PT Coag (Bld) [Time]on 10-29 INR Coag (PPP) [Relative time] 3.5 {INR} High [facility] Comment on above: Reference Range 0.9- 1.1 Moderate-intensity Warfarin Therapy 2.0-3.0 Higher-intensity Warfarin Therapy 3.0-4.0 Interpretation and review of laboratory results Abnormal [facility] PT Coag (PPP) [Time] 34.2 s High [facility] Comment on above: For additional infor mation, please refer to http://Comfort [email or web address] - ASO/faq/EZL541 (This link is being provided for informational/ educational purposes only.) [facility] PT Coag (Bld) [Time]on 10-14 INR Coag (PPP) [Relative time] 2.6 {INR} High [facility] Comment on above: Reference Range 0.9- 1.1 Moderate-intensity Warfarin Therapy 2.0-3.0 Higher-intensity Warfarin Therapy 3.0-4.0 Interpretation and review of laboratory results Abnormal [facility] PT Coag (PPP) [Time] 26.1 s [facility] Comment on above: For additional infor kurt, please refer to http://Comfort Line.AppUpper - ASO/faq/VQY301 (This link is being provided for informational/ educational purposes only.) [facility] PT Coag (Bld) [Time]on 09-23 INR Coag (PPP) [Relative time] 2.1 {INR} High [facility] Comment on above: Reference Range 0.9- 1.1 Moderate-intensity Warfarin Therapy 2.0-3.0 Higher-intensity Warfarin Therapy 3.0-4.0 Interpretation and review of laboratory results Abnormal [facility] PT Coag (PPP) [Time] 20.8 s [facility] Comment on above: For additional infor kurt, please refer to http://Comfort Line.AppUpper - ASO/faq/TWM900 (This link is being provided for informational/ educational purposes only.) [facility] PT Coag (Bld) [Time]on 09-03 INR Coag (PPP) [Relative time] 2.3 {INR} High [facility] Comment on above: Reference Range 0.9- 1.1 Moderate-intensity Warfarin Therapy 2.0-3.0 Higher-intensity Warfarin Therapy 3.0-4.0 Interpretation and review of laboratory results Abnormal [facility] PT Coag (PPP) [Time] 22.8 s [facility] Comment on above: For additional infor kurt, please refer to http://Comfort Line.AppUpper - ASO/faq/ADS800 (This link is being provided for informational/ educational purposes only.) [facility] CT Head W contrast Ann [address] scan of the brain for age. No acute intracranial abnormalities. 2. The extracranial abnormality seen on ultrasound four weeks ago (superior to right ear) is not identified. Report Dictated on Electronically Signed By: Joe Foster MD Electronically Signed Date/Time: 08/12/2023 8:57 PM EDT [facility] Patient Name: ANTIONETTE SANDOVAL : 1975 Exam Date/Time: 08/12/2023 10:03 Procedure: CT HEAD W IV CONTRAST Ordering Provider: LOUIS HOLLY Reason For Exam: soft tissue mass HISTORY: Follow-up soft tissue nodule. Axial enhanced images of the brain were obtained. Dose reduction was employed with automated exposure control. Comparison ultrasound from 07/17/2023 There are normal sized, midline cerebral ventricles. There is no evidence of mass lesion, hemorrhage, nor brain edema. There is no evidence of acute infarction. There is no hydrocephalus, shift, or herniation. The brainstem and cerebellum are normal. There are no epidural or subdural collections. On the bone window images, there are no significant abnormalities, and the paranasal sinuses and mastoids are clear. [facility] Joe Foster MD - 08/12/2023 Patient Name: ANTIONETTE SANDOVAL : 1975 Exam Date/Time: 08/12/2023 10:03 Procedure: CT HEAD W IV CONTRAST Ordering Provider: LOUIS HOLLY Reason For Exam: soft tissue mass HISTORY: Follow-up soft tissue nodule. Axial enhanced images of the brain were obtained. Dose reduction was employed with automated exposure control. Comparison ultrasound from 07/17/2023 There are normal sized, midline cerebral ventricles. There is no evidence of mass lesion, hemorrhage, nor brain edema. There is no evidence of acute infarction. There is no hydrocephalus, shift, or herniation. The brainstem and cerebellum are normal. There are no epidural or subdural collections. On the bone window images, there are no significant abnormalities, and the paranasal sinuses and mastoids are clear. IMPRESSION: 1. Negative CT scan of the brain for age. No acute intracranial abnormalities. 2. The extracranial abnormality seen on ultrasound four weeks ago (superior to right ear) is not identified. Report Dictated on Electronically Signed By: Joe Foster MD Electronically Signed Date/Time: 08/12/2023 8:57 PM EDT [facility] Radiology Study observation (narrative) [facility] CT Head W contrast IVOrdered By: Joe Foster on 08-12-2023 [facility] Work Phone: PT Coag (Bld) [Time]on 08-06 INR Coag (PPP) [Relative time] 1.8 {INR} [facility] Comment on above: Reference Range 0.9- 1.1 Moderate-intensity Warfarin Therapy 2.0-3.0 Higher-intensity Warfarin Therapy 3.0-4.0 Interpretation and review of laboratory results Abnormal [facility] PT Coag (PPP) [Time] 18.4 s High [facility] Comment on above: For additional infor mation, please refer to http://Comfort Line.AppUpper - ASO/faq/LRZ130 (This link is being provided for informational/ educational purposes only.) [facility] PT Coag (Bld) [Time]on 07-09 INR Coag (PPP) [Relative time] 2.1 {INR} High [facility] Comment on above: Reference Range 0.9- 1.1 Moderate-intensity Warfarin Therapy 2.0-3.0 Higher-intensity Warfarin Therapy 3.0-4.0 Interpretation and review of laboratory results Abnormal [facility] PT Coag (PPP) [Time] 20.7 s High [facility] Comment on above: For additional infor kurt, please refer to http://Comfort Line.AppUpper - ASO/faq/ZFJ886 (This link is being provided for informational/ educational purposes only.) [facility] DBT Breast - bilateral diagn osticon 07-03-2023 Calcifications withi n the superior lateral quadrant of the right breast at middle depth remain unchanged dating back to 05/31/2021. This concludes a two year surveillance interval. Markings on images: BB's = Nipples; skin lesions Open crow = Palpable Line = Scar ASSESSMENT: Category 2 Benign RECOMMENDATION: Routine screening mammogram in 1 year. Bilateral CANCER RISK ASSESSMENT: This risk assessment is based on patient provided information collected in a risk survey taken at the time of this examination. LIFETIME BREAST CANCER RISK: Vasiliy: 19.25% - If greater than or equal to 20%, consider annual mammogram and annual screening Breast MRI or follow up in high risk clinic. Is the patient at elevated risk based on the HBOC criteria? No (Hereditary Breast and Ovarian Cancer) - If Yes, consider genetic counseling and testing with high risk follow up. Is the patient at elevated risk based on the Devine Syndrome criteria? No - If Yes, consider genetic counseling and testing with high risk follow up. Report Dictated on Electronically Signed By: Mauricio Hernandez MD Electronically Signed Date/Time: 07/03/2023 11:47 AM EDT [facility] Patient Name: ANTIONETTE SANDOVAL : 1975 Exam Date/Time: 07/03/2023 11:39 Procedure: BI MAMMOGRAM DIAGNOSTIC TOMOSYNTHESIS BILATERAL Ordering Provider: LOUIS HOLLY Reason For Exam: 1 year follow up Prior study Comparisons: 06/27/2022, 12/04/2021, 05/31/2021 Image views: 2D CC and MLO views were acquired. 3D CC and MLO views were acquired. Tissue Density: BIRADS B - There are scattered fibroglandular densities. Images were reviewed with CAD. Findings: The patient presents today for continued short-term follow-up of calcifications within the superior lateral right breast at middle depth. Surveillance first began on 05/31/2021. Magnification views performed today again show grouped calcifications within the superior lateral quadrant of the right breast at middle depth. These are not significantly changed in size or number dating back to 05/31/2021. Bilateral tissue markers remain unchanged. There are no new suspicious masses or areas of architectural distortion. No skin thickening or nipple retraction is identified. [facility] Yessi Hernandez MD - 07/03/2023 Patient Name: ANTIONETTE SANDOVAL : 1975 Exam Date/Time: 07/03/2023 11:39 Procedure: BI MAMMOGRAM DIAGNOSTIC TOMOSYNTHESIS BILATERAL Ordering Provider: LOUIS HOLLY Reason For Exam: 1 year follow up Prior study Comparisons: 06/27/2022, 12/04/2021, 05/31/2021 Image views: 2D CC and MLO views were acquired. 3D CC and MLO views were acquired. Tissue Density: BIRADS B - There are scattered fibroglandular densities. Images were reviewed with CAD. Findings: The patient presents today for continued short-term follow-up of calcifications within the superior lateral right breast at middle depth. Surveillance first began on 05/31/2021. Magnification views performed today again show grouped calcifications within the superior lateral quadrant of the right breast at middle depth. These are not significantly changed in size or number dating back to 05/31/2021. Bilateral tissue markers remain unchanged. There are no new suspicious masses or areas of architectural distortion. No skin thickening or nipple retraction is identified. IMPRESSION: Calcifications within the superior lateral quadrant of the right breast at middle depth remain unchanged dating back to 05/31/2021. This concludes a two year surveillance interval. Markings on images: BB's = Nipples; skin lesions Open crow = Palpable Line = Scar ASSESSMENT: Category 2 Benign RECOMMENDATION: Routine screening mammogram in 1 year. Bilateral CANCER RISK ASSESSMENT: This risk assessment is based on patient provided information collected in a risk survey taken at the time of this examination. LIFETIME BREAST CANCER RISK: Carlaer-Arnulfozick: 19.25% - If greater than or equal to 20%, consider annual mammogram and annual screening Breast MRI or follow up in high risk clinic. Is the patient at elevated risk based on the HBOC criteria? No (Hereditary Breast and Ovarian Cancer) - If Yes, consider genetic counseling and testing with high risk follow up. Is the patient at elevated risk based on the Devine Syndrome criteria? No - If Yes, consider genetic counseling and testing with high risk follow up. Report Dictated on Electronically Signed By: Mauricio Hernandez MD Electronically Signed Date/Time: 07/03/2023 11:47 AM EDT [facility] Radiology Study observation (narrative) [facility] DBT Breast - bilateral diagn osticOrdered By: Yessi Hernandez on 07-03-2023 [facility] Work Phone: PT Coag (Bld) [Time]on 06-11 INR Coag (PPP) [Relative time] 2.1 {INR} High [facility] Comment on above: Reference Range 0.9- 1.1 Moderate-intensity Warfarin Therapy 2.0-3.0 Higher-intensity Warfarin Therapy 3.0-4.0 Interpretation and review of laboratory results Abnormal [facility] PT Coag (PPP) [Time] 21.4 s [facility] Comment on above: For additional infor kurt, please refer to http://Comfort Line.AppUpper - ASO/faq/QCJ156 (This link is being provided for informational/ educational purposes only.) [facility] PT Coag (Bld) [Time]on 05-15 INR Coag (PPP) [Relative time] 1.9 {INR} High [facility] Comment on above: Reference Range 0.9- 1.1 Moderate-intensity Warfarin Therapy 2.0-3.0 Higher-intensity Warfarin Therapy 3.0-4.0 Interpretation and review of laboratory results Abnormal [facility] PT Coag (PPP) [Time] 18.7 s High [facility] Comment on above: For additional infor kurt, please refer to http://Comfort Line.AppUpper - ASO/faq/LIH496 (This link is being provided for informational/ educational purposes only.) [facility] PT Coag (Bld) [Time]on 05-08 INR Coag (PPP) [Relative time] 4.3 {INR} High [facility] Comment on above: Reference Range 0.9- 1.1 Moderate-intensity Warfarin Therapy 2.0-3.0 Higher-intensity Warfarin Therapy 3.0-4.0 Interpretation and review of laboratory results Abnormal [facility] PT Coag (PPP) [Time] 41.3 s High [facility] Comment on above: For additional infor kurt, please refer to http://Comfort Line.AppUpper - ASO/faq/AEZ321 (This link is being provided for informational/ educational purposes only.) [facility] PT Coag (Bld) [Time]on 03-28 INR Coag (PPP) [Relative time] 2.1 {INR} High [facility] Comment on above: Reference Range 0.9 -1.1 Moderate-intensity Warfarin Therapy 2.0-3.0 Higher-intensity Warfarin Therapy 3.0-4.0 Interpretation and review of laboratory results Abnormal [facility] PT Coag (PPP) [Time] 21.3 s High [facility] Comment on above: For additional infor mation, please refer to http://Comfort Line.AppUpper - ASO/faq/ARS725 (This link is being provided for informational/ educational purposes only.) [facility] PT Coag (Bld) [Time]on 02-27 INR Coag (PPP) [Relative time] 2.6 {INR} High [facility] Comment on above: Reference Range 0.9- 1.1 Moderate-intensity Warfarin Therapy 2.0-3.0 Higher-intensity Warfarin Therapy 3.0-4.0 Interpretation and review of laboratory results Abnormal [facility] PT Coag (PPP) [Time] 25.9 s [facility] Comment on above: For additional infor mation, please refer to http://Secerno/faq/UGZ827 (This link is being provided for informational/ educational purposes only.) [facility] (Bld) [Time]on 01-29 INR Coag (PPP) [Relative time] 2.1 {INR} High [facility] Comment on above: Reference Range 0.9- 1.1 Moderate-intensity Warfarin Therapy 2.0-3.0 Higher-intensity Warfarin Therapy 3.0-4.0 Interpretation and review of laboratory results Abnormal [facility] PT Coag (PPP) [Time] 21.3 s [facility] Comment on above: For additional infor mation, please refer to http://Secerno/faq/JFH037 (This link is being provided for informational/ educational purposes only.) [facility] PT Coag (Bld) [Time]on 01-18 INR Coag (PPP) [Relative time] 3.2 {INR} High [facility] Comment on above: Reference Range 0.9- 1.1 Moderate-intensity Warfarin Therapy 2.0-3.0 Higher-intensity Warfarin Therapy 3.0-4.0 Interpretation and review of laboratory results Abnormal [facility] PT Coag (PPP) [Time] 31.5 s [facility] Comment on above: For additional infor mation, please refer to http://Comfort Line.AppUpper - ASO/faq/IBN288 (This link is being provided for informational/ educational purposes only.) [facility] PT Coag (Bld) [Time]on 12-21 INR Coag (PPP) [Relative time] 2.0 {INR} High [facility] Comment on above: Reference Range 0.9- 1.1 Moderate-intensity Warfarin Therapy 2.0-3.0 Higher-intensity Warfarin Therapy 3.0-4.0 Interpretation and review of laboratory results Abnormal [facility] PT Coag (PPP) [Time] 20.3 s High [facility] Comment on above: For additional infor mation, please refer to http://Comfort Line.AppUpper - ASO/faq/JZY704 (This link is being provided for informational/ educational purposes only.) [facility] PT Coag (Bld) [Time]on 12-05 INR Coag (PPP) [Relative time] 1.1 {INR} [facility] Comment on above: Reference Range 0.9- 1.1 Moderate-intensity Warfarin Therapy 2.0-3.0 Higher-intensity Warfarin Therapy 3.0-4.0 PT Coag (PPP) [Time] 11.4 s [facility] Comment on above: For additional infor mation, please refer to http://Comfort Line.AppUpper - ASO/faq/LOD276 (This link is being provided for informational/ educational purposes only.) [facility] Cytology Cervical or vaginal smear or scraping studyOrdered By: Marisela Perry on 10-31-2022 Case Report Gynecologic Cytology Case: [id number] Authorizing Provider: MIGEL Wagner CNP Collected: 10/29/2022 1035 Ordering Location: [facility] Received: 10/29/2022 1520 Family Medicine First Screen: Marisela Perry, [facility] Specimen: ThinPrep, Pap, Vagina [facility] Case Screening Location [facility], [address] [place] [id number]; CLIA: [id number]; Joint Commission: [id number]; CAP: [id number] [facility] Interpretation NEGATIVE FOR [place] S INTRAEPITHELIAL LESION OR MALIGNANCY. [facility] TB Skin Teston 10-31-2022 Induration 0 mm [facility] Interpretation and review of laboratory results Normal [facility] TB Skin Test Negative Negative [facility] Comprehensive metabolic 1997 panelon 10-30-2022 Albumin [Mass/Vol] 4.0 g/dL 3.6 - 5.1 g/dL [facility] Albumin/Globulin [Mass ratio] 1.7 {ratio} [facility] ALP [Catalytic activity/Vol] 75 U/L 31 - 125 U/L [facility] ALT [Catalytic activity/Vol] 38 U/L High 6 - 29 U/L [facility] AST [Catalytic activity/Vol] 24 U/L 10 - 35 U/L [facility] Bilirubin [Mass/Vol] 0.4 mg/dL 0.2 - 1 .2 mg/dL [facility] Calcium [Mass/Vol] 9.2 mg/dL 8.6 - 10. 2 mg/dL [facility] Chloride [Moles/Vol] 106 mmol/L 98 - 11 0 mmol/L [facility] CO2 [Moles/Vol] 30 mmol/L 20 - 32 mmol/L [facility] Creatinine [Mass/Vol] 0.56 mg/dL 0.50 - 0.99 mg/dL [facility] GFR/1.73 sq M.predicted among non-blacks MDRD (S/P/Bld) [Vol rate/Area] 112 mL/min/{1.73_m2} > OR = 60 mL/min/1.73m 2 [facility] Globulin (S) [Mass/Vol] 2.4 g/dL [facility] Glucose [Mass/Vol] 91 mg/dL 65 - 99 mg/dL [facility] Comment on above: Fasting reference interval Potassium [Moles/Vol] 4.1 mmol/L 3.5 - 5.3 mmol/L [facility] Protein [Mass/Vol] 6.4 g/dL 6.1 - 8.1 g/dL [facility] Sodium [Moles/Vol] 142 mmol/L 135 - 146 mmol/L [facility] Urea nitrogen [Mass/Vol] 11 mg/dL 7 - 25 mg/dL [facility] Urea nitrogen/Creatinine [Mass ratio] SEE NOTE: [facility] Comment on above: Not Reported: BUN an d Creatinine are within reference range. Lipid 1995 panelon Cholesterol [Mass/Vol] 168 mg/dL NINF - 200 mg/dL [facility] Cholesterol in HDL [Mass/Vol] 39 mg/dL Low > OR = 50 [facility] Cholesterol in LDL [Mass/Vol] 102 mg/dL High mg/dL (calc) [facility] Comment on above: Reference range: <10 0 Desirable range <100 mg/dL for primary prevention; <70 mg/dL for patients with CHD or diabetic patients with > or = 2 CHD risk factors. LDL-C is now calculated using the Art calculation, which is a validated novel method providing better accuracy than the Friedewald equation in the estimation of LDL-C. Jared BELL et al. MATT. 2013;310(19): 2495-8315 (http://Comfort Line.[address]/faq/OGK761) Cholesterol non HDL [Mass/Vol] 129 mg/dL [facility] Comment on above: For patients with di abetes plus 1 major ASCVD risk factor, treating to a non-HDL-C goal of <100 mg/dL (LDL-C of <70 mg/dL) is considered a therapeutic option. Cholesterol.total/Cho lesterol in HDL [Mass ratio] 4.3 {ratio} [facility] Triglyceride [Mass/Vol] 172 mg/dL High [facility] - 150 mg/dL [facility] No Panel Informationon 10-30 Interpretation and review of laboratory results Abnormal [facility] PT Coag (Bld) [Time]on 10-30 INR Coag (PPP) [Relative time] 2.4 {INR} High [facility] Comment on above: Reference Range 0.9- 1.1 Moderate-intensity Warfarin Therapy 2.0-3.0 Higher-intensity Warfarin Therapy 3.0-4.0 PT Coag (PPP) [Time] 23.8 s High [facility] Comment on above: For additional infor kurt, please refer to http://education.AppUpper - ASO/faq/QVN681 (This link is being provided for informational/ educational purposes only.) DBT Breast - bilateral diagn osticon 06-27-2022 Stable probably lissette gn right breast calcifications. A one year follow-up bilateral diagnostic mammogram is recommended. Markings on images: BB's = Nipples; skin lesions Open crow = Palpable Line = Scar ASSESSMENT: Category 3 Probably benign RECOMMENDATION: Diagnostic mammogram in 1 year Bilateral Report Dictated on Electronically Signed By: Ary Barrett Electronically Signed Date/Time: 06/27/2022 11:43 AM EDT [facility] Name[facility] ANTION[facility] 1975 [id number] Exam Date/Time: 06/27/2022 11:45 Procedure: BI MAMMOGRAM DIAGNOSTIC TOMOSYNTHESIS BILATERAL Ordering Provider: LOUIS HOLLY Reason For Exam: 6 month follow up Prior study Comparisons: 12/04/2021, 05/31/2021, 05/25/2021 Image views: 2D CC and MLO views were acquired. 3D CC and MLO views were acquired. Tissue Density: BIRADS C - The breast tissue is heterogeneously dense, which could obscure underlying abnormalities. Images were reviewed with CAD. Findings: The patient presents for a bilateral diagnostic mammogram for follow-up of probably benign right breast calcifications. A stable group of calcifications is seen within the upper outer quadrant of the right breast, mid to posterior depth. These remain probably benign. There are additional bilateral benign breast calcifications. Biopsy clips are seen within both breasts. No new suspicious masses, calcifications, or architectural distortion is seen within either breast. [facility] Ary Barrett MD - 06/27/2022 Patient Name: ANTIONETTE SANDOVAL : 1975 Exam Date/Time: 06/27/2022 11:45 Procedure: BI MAMMOGRAM DIAGNOSTIC TOMOSYNTHESIS BILATERAL Ordering Provider: LOUIS HOLLY Reason For Exam: 6 month follow up Prior study Comparisons: 12/04/2021, 05/31/2021, 05/25/2021 Image views: 2D CC and MLO views were acquired. 3D CC and MLO views were acquired. Tissue Density: BIRADS C - The breast tissue is heterogeneously dense, which could obscure underlying abnormalities. Images were reviewed with CAD. Findings: The patient presents for a bilateral diagnostic mammogram for follow-up of probably benign right breast calcifications. A stable group of calcifications is seen within the upper outer quadrant of the right breast, mid to posterior depth. These remain probably benign. There are additional bilateral benign breast calcifications. Biopsy clips are seen within both breasts. No new suspicious masses, calcifications, or architectural distortion is seen within either breast. IMPRESSION: Stable probably benign right breast calcifications. A one year follow-up bilateral diagnostic mammogram is recommended. Markings on images: BB's = Nipples; skin lesions Open crow = Palpable Line = Scar ASSESSMENT: Category 3 Probably benign RECOMMENDATION: Diagnostic mammogram in 1 year Bilateral Report Dictated on Electronically Signed By: Ary Barrett Electronically Signed Date/Time: 06/27/2022 11:43 AM EDT [facility] Study observation (narrative) [facility] DBT Breast - bilateral diagn osticOrdered By: Ary Barrett on 06-27-2022 [facility] Work Phone: Follicle stimulating hormone on 05-30-2022 Follitropin Qn 74.3 m[IU]/mL mIU/mL [facility] Comment on above: Reference Range Follicular Phase 2.5-10.2 Mid-cycle Peak 3.1-17.7 Luteal Phase 1.5- 9.1 Postmenopausal 23.0-116.3 Luteinizing hormoneon 2022 Lutropin Qn 29.8 m[IU]/mL mIU/mL [facility] Comment on above: Reference Range Follicular Phase 1.9-12.5 Mid-Cycle Peak 8.7-76.3 Luteal Phase 0.5-16.9 Postmenopausal 10.0-54.7 No Panel Informationon 05-30 [facility] Prolactinon 05-30-2022 Prolactin [Mass/Vol] 9.0 ng/mL [facility] Comment on above: Reference Range Females Non- 3.0-30.0 10.0-209.0 Postmenopausal 2.0-20.0 T3, freeon 05-30-2022 Free T3 [Mass/Vol] 3.4 pg/mL 2.3 - 4.2 pg/mL [facility] T4, freeon 05-30-2022 Free T4 [Mass/Vol] 0.9 ng/dL 0.8 - 1.8 ng/dL [facility] TSHon 05-30-2022 TSH Qn 2.19 m[IU]/L mIU/L [facility] Comment on above: Reference Range > or = 20 Years 0.40-4.50 Ranges First trimester 0.26-2.66 Second trimester 0.55-2.73 Third trimester 0.43-2.91 XR Hip - right 3 Viewson No fracture or dislocation of the pelvis or right hip is identified. Mild osteoarthritis of the bilateral hips. Report Dictated on Electronically Signed By: Antione Ramírez Electronically Signed Date/Time: 05/10/2022 4:16 PM EST [facility] Patient Name: ANTIONETTE SANDOVAL : 1975 Exam Date/Time: 05/10/2022 11:37 Procedure: XR HIP 2 OR 3 VW RIGHT Ordering Provider: LOUIS HOLLY Reason For Exam: chronic right hip pain RIGHT HIP CLINICAL INDICATION: Right hip pain A single AP view of the pelvis followed by AP and lateral views of the right hip were obtained. COMPARISON: 12/07/2020 FINDINGS: No fracture or dislocation of the pelvis or right hip is identified. The right hip joint space is relatively well-preserved. Mild acetabular spurring is noted bilaterally. The sacroiliac joints appear grossly unremarkable. No lytic or blastic bony lesions are seen. [facility] Antione Ramírez MD - 05/10/2022 Patient Name: ANTIONETTE SANDOVAL : 1975 Exam Date/Time: 05/10/2022 11:37 Procedure: XR HIP 2 OR 3 VW RIGHT Ordering Provider: LOUIS HOLLY Reason For Exam: chronic right hip pain RIGHT HIP CLINICAL INDICATION: Right hip pain A single AP view of the pelvis followed by AP and lateral views of the right hip were obtained. COMPARISON: 12/07/2020 FINDINGS: No fracture or dislocation of the pelvis or right hip is identified. The right hip joint space is relatively well-preserved. Mild acetabular spurring is noted bilaterally. The sacroiliac joints appear grossly unremarkable. No lytic or blastic bony lesions are seen. IMPRESSION: No fracture or dislocation of the pelvis or right hip is identified. Mild osteoarthritis of the bilateral hips. Report Dictated on Electronically Signed By: Antione Ramírez Electronically Signed Date/Time: 05/10/2022 4:16 PM EST [facility] Radiology Study observation (narrative) [facility] XR Hip - right 3 ViewsOrdere d By: Antione Ramírez on 05-10-2022 [facility] Work Phone: INR in Blood by Coagulation assayOrdered By: Dr. Johnson on 04-02-2022 INR Coag (Bld) [Relative time] 2.4 {INR} [facility] - CoagulationOrde red By: Dr. Johnson on 04-02-2022 PT Coag (PPP) [Time] 25.4 s 11.7-14.9 [facility] INR in Blood by Coagulation assayOrdered By: Dr. Johnson on 01-30-2022 INR Coag (Bld) [Relative time] 2.2 {INR} [facility] - CoagulationOrde red By: Dr. Johnson on 01-30-2022 PT Coag (PPP) [Time] 24.5 s 11.7-14.9 [facility] XR Chest 2 Viewson No acute cardiopulmonary findings. The included soft tissues are grossly unremarkable. If there is clinical concern for a chest wall mass/lump, cross-sectional imaging or ultrasound may be helpful for further evaluation, as clinically warranted. Report Dictated on Electronically Signed By: Robin Llamas Electronically Signed Date/Time: 01/24/2022 1:02 PM T [facility] Patient Name: ANTIONETTE SANDOVAL Exam Date/Time: 01/24/2022 11:37 Procedure: XR CHEST 2 VIEWS Ordering Provider: JERNIGAN REBECCA Reason For Exam: CHEST RADIOGRAPH PA/LATERAL CLINICAL INDICATION: Chest wall mass or lump. LUMP RIGHT CHEST WALL Frontal and lateral plain films of the chest were obtained. COMPARISON: 12/22/2020 FINDINGS: Cardiomediastinal silhouette: The cardiac silhouette is not enlarged. Lungs: There is minimal bibasilar atelectasis. No focal pulmonary consolidation. No effusion or pneumothorax. Bones: Unremarkable. Other: Multiple surgical clips are present within the right upper quadrant abdomen, likely related to prior cholecystectomy. The included soft tissues are grossly unremarkable. [facility] Robin Llamas MD - 01/24/2022 [id number] Exam Date/Time: 01/24/2022 11:37 Procedure: XR CHEST 2 VIEWS Ordering Provider: JERNIGAN REBECCA Reason For Exam: CHEST RADIOGRAPH PA/LATERAL CLINICAL INDICATION: Chest wall mass or lump. LUMP RIGHT CHEST WALL Frontal and lateral plain films of the chest were obtained. COMPARISON: 12/22/2020 FINDINGS: Cardiomediastinal silhouette: The cardiac silhouette is not enlarged. Lungs: There is minimal bibasilar atelectasis. No focal pulmonary consolidation. No effusion or pneumothorax. Bones: Unremarkable. Other: Multiple surgical clips are present within the right upper quadrant abdomen, likely related to prior cholecystectomy. The included soft tissues are grossly unremarkable. IMPRESSION: No acute cardiopulmonary findings. The included soft tissues are grossly unremarkable. If there is clinical concern for a chest wall mass/lump, cross-sectional imaging or ultrasound may be helpful for further evaluation, as clinically warranted. Report Dictated on Electronically Signed By: Robin Llamas Electronically Signed Date/Time: 01/24/2022 1:02 PM EDT [facility] Radiology Study observation (narrative) [facility] XR Chest 2 ViewsOrdered By: Robin Llamas on 01-24-2022 [facility] Work Phone: Basophil percentageon 2021 Chloride [Moles/Vol] 108 mmol/L 98-[address] [facility] [address] [facility] Work Phone: Glucose [Mass/Vol] 98 mg/dL 74-106 [facility] Work Phone: Potassium [Moles/Vol] 4.0 mmol/L 3.5-5.[address] [facility] Work Phone: Sodium [Moles/Vol] 142 mmol/L 136-145 [facility] Work Phone: INR in Blood by Coagulation assayon 12-11-2021 INR Coag (Bld) [Relative time] 2.0 {INR} [facility] Work Phone: Laboratory - Chemistry and C hemistry - challengeon 12-11-2021 CO2 [Moles/Vol] 27.0 mmol/L 21.0-32.0 [facility] Work Phone: Urea nitrogen/Creatinine [Mass ratio] 22.3 mg/mg 10-20 [facility] Work Phone: Laboratory - Coagulationon 0 12-11-2021 PT Coag (PPP) [Time] 22.0 s 11.7-14.9 [facility] Work Phone: No Panel Informationon 12-11 Estimated GFR (MDRD) Amer 141 mL/min >60 [facility] Work Phone: Comment on above: GFR Calc Estimated GFR (MDRD) Non-Af Amer 117 mL/min >60 [facility] Work Phone: Comment on above: Non- GFR Calc Serum or plasma calcium raegan urement (mass/volume)on 12-11-2021 Calcium [Mass/Vol] 9.0 mg/dL 8.5-10.1 [facility] Work Phone: Serum or plasma creatinine m easurement (mass/volume)on 12-11-2021 Creatinine [Mass/Vol] 0.58 mg/dL 0.55-1.02 [facility] Work Phone: Comment on above: The validity of the calculated GFR & GFRAA in patients over 70 years has not been determined. Clinical correlation is essential. Serum or plasma urea nitroge n measurement (mass/volume)on 12-11-2021 Urea nitrogen [Mass/Vol] 13 mg/dL 7-18 [facility] Work Phone: Thin prep Papanicolaou smear with manual screeningon 12-11-2021 Thin prep Papanicolaou smear with manual screening 7 5-15 [facility] Work Phone: LIVIA MARTIN DIGITAL DIAGNOSTIC UNILATERAL RIGHTon 12-04-2021 Patient Name: ANTIONETTE SANDOVAL Mammography ACCESSION EXAM DATE/TIME PROCEDURE ORDERING PROVIDER [id number] 12/04/2021 13:52 EDT MG Breast Tomosynthesis NILDA LOUIS, YARELI S Diagnostic Right CPT code 03291 [id number] Reason For Exam (MG Breast Tomosynthesis Diagnostic Right) abnormal mammogram Rt, R92.8 Report TIME SINCE LAST MAMMOGRAM: Last mammogram was performed 6 months ago. REASON FOR EXAM: follow-up at short interval from prior study. PROCEDURE: MG BREAST TOMOSYNTHESIS RIGHT: 2021 - 2D/3D Procedure 3D views: CC and MLO view(s) were taken of the right breast. 2D views: CC, MLO, spot compression CC with magnification, and spot compression ML with magnification view(s) were taken of the right breast. Prior study comparison: May 31, 2021, right breast MG breast tomosynthesis right performed at [facility]. May 25, 2021, bilateral MG breast tomosynthesis bl scr performed at [facility]. April 20, 2020, bilateral MG breast tomosynthesis bl scr performed at [facility]. April 15, 2019, bilateral MG breast tomosynthesis bl scr performed at [facility]. TISSUE DENSITY: BIRADS C - The breast tissue is heterogeneously dense, which could obscure underlying abnormalities. . FINDINGS: The patient present for a right diagnostic mammogram for six-month follow-up of right breast calcifications. A stable group of calcifications are seen within the upper outer quadrant of the right breast, posterior depth. There are additional stable benign right breast calcifications. Biopsy clips are seen within the right breast. No new suspicious masses, calcifications or architectural distortion is identified. Stable probably benign right breast calcifications. A six-month follow-up bilateral diagnostic mammogram is recommended. Markings on images: BB's = Nipples; skin lesions Mammography Report Open crow = Palpable Line = Scar 2D digital mammography and tomosynthesis imaging were performed and reviewed with CAD. ASSESSMENT: Category 3 Probably benign RECOMMENDATION: Follow-up diagnostic mammogram of both breasts in 6 months. . Report Dictated on --- Final --- Signed Date and Time: 12/04/2021 1:52 pm Signed by: MD [facility] [facility] Ary Rangel MD - 12/04/2021 Patient Name: ANTIONETTE SANDOVAL Mammography ACCESSION EXAM DATE/TIME PROCEDURE ORDERING PROVIDER [id number] 12/04/2021 13:52 EDT MG Breast Tomosynthesis NILDA LOUIS HOLLY S Diagnostic Right CPT code 39434 [id number] Reason For Exam (MG Breast Tomosynthesis Diagnostic Right) abnormal mammogram Rt, R92.8 Report TIME SINCE LAST MAMMOGRAM: Last mammogram was performed 6 months ago. REASON FOR EXAM: follow-up at short interval from prior study. PROCEDURE: MG BREAST TOMOSYNTHESIS RIGHT: 2021 - 2D/3D Procedure 3D views: CC and MLO view(s) were taken of the right breast. 2D views: CC, MLO, spot compression CC with magnification, and spot compression ML with magnification view(s) were taken of the right breast. Prior study comparison: May 31, 2021, right breast MG breast tomosynthesis right performed at [facility]. May 25, 2021, bilateral MG breast tomosynthesis bl scr performed at [facility]. April 20, 2020, bilateral MG breast tomosynthesis bl scr performed at [facility]. April 15, 2019, bilateral MG breast tomosynthesis bl scr performed at [facility]. TISSUE DENSITY: BIRADS C - The breast tissue is heterogeneously dense, which could obscure underlying abnormalities. . FINDINGS: The patient present for a right diagnostic mammogram for six-month follow-up of right breast calcifications. A stable group of calcifications are seen within the upper outer quadrant of the right breast, posterior depth. There are additional stable benign right breast calcifications. Biopsy clips are seen within the right breast. No new suspicious masses, calcifications or architectural distortion is identified. Stable probably benign right breast calcifications. A six-month follow-up bilateral diagnostic mammogram is recommended. Markings on images: BB's = Nipples; skin lesions Mammography Report Open crow = Palpable Line = Scar 2D digital mammography and tomosynthesis imaging were performed and reviewed with CAD. ASSESSMENT: Category 3 Probably benign RECOMMENDATION: Follow-up diagnostic mammogram of both breasts in 6 months. . Report Dictated on --- Final --- Signed Date and Time: 12/04/2021 1:52 pm Signed by: MD JONY, ARY Sutton [facility] Work Phone: Radiology Study observation (narrative) [facility] Work Phone: LIVIA MARTIN DIGITAL DIAGNOSTIC UNILATERAL RIGHTOrdered By: Ary Barrett on 12-04-2021 [facility] MG Breast Tomosynthesis Diag nostic Righton 12-04-2021 MG Breast Tomosynthesis Diagnostic Right Patient Name: ANTIONETTE SANDOVAL Mammography ACCESSION EXAM DATE/TIME PROCEDURE ORDERING PROVIDER [id number] 12/04/2021 13:52 EDT MG Breast Tomosynthesis NILDA LOUIS HOLLY S Diagnostic Right CPT code 62873 11016 Reason For Exam (MG Breast Tomosynthesis Diagnostic Right) abnormal mammogram Rt, R92.8 Report TIME SINCE LAST MAMMOGRAM: Last mammogram was performed 6 months ago. REASON FOR EXAM: follow-up at short interval from prior study. PROCEDURE: MG BREAST TOMOSYNTHESIS RIGHT: 2021 - 2D/3D Procedure 3D views: CC and MLO view(s) were taken of the right breast. 2D views: CC, MLO, spot compression CC with magnification, and spot compression ML with magnification view(s) were taken of the right breast. Prior study comparison: May 31, 2021, right breast MG breast tomosynthesis right performed at [facility]. May 25, 2021, bilateral MG breast tomosynthesis bl scr performed at [facility]. April 20, 2020, bilateral MG breast tomosynthesis bl scr performed at [facility]. April 15, 2019, bilateral MG breast tomosynthesis bl scr performed at [facility]. TISSUE DENSITY: BIRADS C - The breast tissue is heterogeneously dense, which could obscure underlying abnormalities. . FINDINGS: The patient present for a right diagnostic mammogram for six-month follow-up of right breast calcifications. A stable group of calcifications are seen within the upper outer quadrant of the right breast, posterior depth. There are additional stable benign right breast calcifications. Biopsy clips are seen within the right breast. No new suspicious masses, calcifications or architectural distortion is identified. Stable probably benign right breast calcifications. A six-month follow-up bilateral diagnostic mammogram is recommended. Markings on images: BB's = Nipples; skin lesions Mammography Report Open crow = Palpable Line = Scar 2D digital mammography and tomosynthesis imaging were performed and reviewed with CAD. ASSESSMENT: Category 3 Probably benign RECOMMENDATION: Follow-up diagnostic mammogram of both breasts in 6 months. . Report Dictated on Final Signed Date and Time: 12/04/2021 1:52 pm Signed by: MD BARRETT ANN [facility] INR in Blood by Coagulation assayon 11-17-2021 INR Coag (Bld) [Relative time] 1.6 {INR} [facility] Work Phone: Laboratory - Coagulationon 0 11-17-2021 PT Coag (PPP) [Time] 19.0 s 11.7-14.9 [facility] Work Phone: [phone] INR in Blood by Coagulation assayon 10-03-2021 INR Coag (Bld) [Relative time] 2.2 {INR} [facility] Work Phone: Laboratory - Coagulationon 0 10-03-2021 PT Coag (PPP) [Time] 23.7 s 11.7-14.9 [facility] Work Phone: INR in Blood by Coagulation assayon 09-07-2021 INR Coag (Bld) [Relative time] 3.1 {INR} [facility] Work Phone: Laboratory - Coagulationon 0 09-07-2021 PT Coag (PPP) [Time] 31.8 s 11.7-14.9 [facility] Work Phone: [phone] INR in Blood by Coagulation assayon 08-17-2021 INR Coag (Bld) [Relative time] 1.8 {INR} [facility] Work Phone: Laboratory - Coagulationon 0 08-17-2021 PT Coag (PPP) [Time] 21.0 s 11.7-14.9 [facility] Work Phone: [phone] INR in Blood by Coagulation assayon 07-07-2021 INR Coag (Bld) [Relative time] 2.5 {INR} [facility] Work Phone: Laboratory - Coagulationon 0 07-07-2021 PT Coag (PPP) [Time] 26.3 s 11.7-14.9 [facility] Work Phone: [phone] INR in Blood by Coagulation assayon 06-14-2021 INR Coag (Bld) [Relative time] 3.4 {INR} [facility] Work Phone: [phone] Laboratory - Coagulationon 0 06-14-2021 PT Coag (PPP) [Time] 33.5 s 11.7-14.9 [facility] Work Phone: [phone] [facility] MARTIN DIGITAL DIAGNOSTIC UNILATERAL RIGHTon 05-31-2021 Patient Name: ANTIONETTE SANDOVAL Mammography ACCESSION EXAM DATE/TIME PROCEDURE ORDERING PROVIDER [id number] 05/31/2021 08:45 EST MG Breast Tomosynthesis NILDA LOUIS HOLLY S Diagnostic Right CPT code 29443 56299 Reason For Exam (MG Breast Tomosynthesis Diagnostic Right) R92.8 Abnormal of right breast Report TIME SINCE LAST MAMMOGRAM: Last mammogram was performed less than 1 month ago. REASON FOR EXAM: addl evaluation requested from abnormal screening. PROCEDURE: MG BREAST TOMOSYNTHESIS RIGHT: MAY 31, 2021 - 2D/3D Procedure 3D views: ML view(s) were taken of the right breast. 2D views: CC with magnification, ML with magnification, and ML view(s) were taken of the right breast. Prior study comparison: May 25, 2021, bilateral MG breast tomosynthesis bl scr performed at [facility]. April 20, 2020, bilateral MG breast tomosynthesis bl scr performed at [facility]. April 15, 2019, bilateral MG breast tomosynthesis bl scr performed at [facility]. TISSUE DENSITY: BIRADS C - The breast tissue is heterogeneously dense, which could obscure underlying abnormalities. . FINDINGS: Diagnostic imaging the right breast was performed to evaluate microcalcifications seen on screening mammogram. There is redemonstration of a small loosely grouped cluster of mixed punctate and amorphous microcalcification in the superior lateral quadrant at posterior depth. Many, but not all, show layering on the orthogonal view which is highly suggestive of benign milk of calcium. Surveillance recommended as a precaution. Markings on images: BB's = Nipples; skin lesions Open crow = Palpable Line = Scar 2D digital mammography and tomosynthesis imaging were performed and reviewed with CAD. Mammography Report ASSESSMENT: Category 3 Probably benign RECOMMENDATION: Follow-up diagnostic mammogram of the right breast in 6 months. . Report Dictated on --- Final --- Signed Date and Time: 05/31/2021 9:00 am Signed by: MD GREENE KERISTEN L [facility] Calderon Greene MD - 05/31/2021 Patient Name: ANTIONETTE SANDOVAL Mammography ACCESSION EXAM DATE/TIME PROCEDURE ORDERING PROVIDER [id number] 05/31/2021 08:45 EST MG Breast Tomosynthesis NILDA LOUIS HOLLY S Diagnostic Right CPT code 52319 [id number] Reason For Exam (MG Breast Tomosynthesis Diagnostic Right) R92.8 Abnormal of right breast Report TIME SINCE LAST MAMMOGRAM: Last mammogram was performed less than 1 month ago. REASON FOR EXAM: addl evaluation requested from abnormal screening. PROCEDURE: MG BREAST TOMOSYNTHESIS RIGHT: MAY 31, 2021 - 2D/3D Procedure 3D views: ML view(s) were taken of the right breast. 2D views: CC with magnification, ML with magnification, and ML view(s) were taken of the right breast. Prior study comparison: May 25, 2021, bilateral MG breast tomosynthesis bl scr performed at [facility]. April 20, 2020, bilateral MG breast tomosynthesis bl scr performed at [facility]. April 15, 2019, bilateral MG breast tomosynthesis bl scr performed at [facility]. TISSUE DENSITY: BIRADS C - The breast tissue is heterogeneously dense, which could obscure underlying abnormalities. . FINDINGS: Diagnostic imaging the right breast was performed to evaluate microcalcifications seen on screening mammogram. There is redemonstration of a small loosely grouped cluster of mixed punctate and amorphous microcalcification in the superior lateral quadrant at posterior depth. Many, but not all, show layering on the orthogonal view which is highly suggestive of benign milk of calcium. Surveillance recommended as a precaution. Markings on images: BB's = Nipples; skin lesions Open crow = Palpable Line = Scar 2D digital mammography and tomosynthesis imaging were performed and reviewed with CAD. Mammography Report ASSESSMENT: Category 3 Probably benign RECOMMENDATION: Follow-up diagnostic mammogram of the right breast in 6 months. . Report Dictated on --- Final --- Signed Date and Time: 05/31/2021 9:00 am Signed by: MD JC, CALDERON Hart [facility] Work Phone: Radiology Study observation (narrative) [facility] Work Phone: L[facility] MARTIN DIGITAL DIAGNOSTIC UNILATERAL RIGHTOrdered By: Calderon Greene on 05-31-2021 [facility] Work Phone: MG Breast Tomosynthesis Diag nostic Righton 05-31-2021 MG Breast Tomosynthesis Diagnostic Right Patient Name: ANTIONETTE SANDOVAL Mammography ACCESSION EXAM DATE/TIME PROCEDURE ORDERING PROVIDER [id number] 05/31/2021 08:45 EST MG Breast Tomosynthesis NILDA LOUIS HOLLY S Diagnostic Right CPT code 30223 32496 Reason For Exam (MG Breast Tomosynthesis Diagnostic Right) R92.8 Abnormal of right breast Report TIME SINCE LAST MAMMOGRAM: Last mammogram was performed less than 1 month ago. REASON FOR EXAM: addl evaluation requested from abnormal screening. PROCEDURE: MG BREAST TOMOSYNTHESIS RIGHT: MAY 31, 2021 - 2D/3D Procedure 3D views: ML view(s) were taken of the right breast. 2D views: CC with magnification, ML with magnification, and ML view(s) were taken of the right breast. Prior study comparison: May 25, 2021, bilateral MG breast tomosynthesis bl scr performed at [facility]. April 20, 2020, bilateral MG breast tomosynthesis bl scr performed at [facility]. April 15, 2019, bilateral MG breast tomosynthesis bl scr performed at [facility]. TISSUE DENSITY: BIRADS C - The breast tissue is heterogeneously dense, which could obscure underlying abnormalities. . FINDINGS: Diagnostic imaging the right breast was performed to evaluate microcalcifications seen on screening mammogram. There is redemonstration of a small loosely grouped cluster of mixed punctate and amorphous microcalcification in the superior lateral quadrant at posterior depth. Many, but not all, show layering on the orthogonal view which is highly suggestive of benign milk of calcium. Surveillance recommended as a precaution. Markings on images: BB's = Nipples; skin lesions Open crow = Palpable Line = Scar 2D digital mammography and tomosynthesis imaging were performed and reviewed with CAD. Mammography Report ASSESSMENT: Category 3 Probably benign RECOMMENDATION: Follow-up diagnostic mammogram of the right breast in 6 months. . Report Dictated on Final Signed Date and Time: 05/31/2021 9:00 am Signed by: MD GREENE KERISTEN L Normal [facility] LIVIA MARTIN DIGITAL SCREEN RACHEAL Trotter 05-25-2021 Patient Name: ANTIONETTE SANDOVAL Mammography ACCESSION EXAM DATE/TIME PROCEDURE ORDERING PROVIDER [id number] 05/25/2021 09:22 EST MG Breast Tomosynthesis NILDA LOUIS HOLLY S BI Scr CPT code 00951 10225 Reason For Exam (MG Breast Tomosynthesis BI Scr) routine Report TIME SINCE LAST MAMMOGRAM: Last mammogram was performed 1 year and 1 month ago. REASON FOR EXAM: screening, asymptomatic. PROCEDURE: MG BREAST TOMOSYNTHESIS BL SCR: MAY 25, 2021 - 2D/3D Procedure 3D Bilateral CC and MLO view(s) were taken. 2D Bilateral CC and MLO view(s) were taken. Prior study comparison: April 20, 2020, bilateral MG breast tomosynthesis bl scr performed at [facility]. April 15, 2019, bilateral MG breast tomosynthesis bl scr performed at [facility]. April 11, 2018, bilateral MG breast tomosynthesis bl scr performed at [facility]. TISSUE DENSITY: BIRADS C - The breast tissue is heterogeneously dense, which could obscure underlying abnormalities. . PATIENT CANCER HISTORY: No Personal History of Cancer FAMILY CANCER HISTORY: Mother Breast Cancer age 52 Paternal Grandmother Cervical Cancer age 65 FINDINGS: A group of calcifications are seen within the upper outer quadrant of the right breast, middle depth. No additional suspicious masses, calcifications or architectural distortion is identified. Markings on images: BB's = Nipples; skin lesions Open crow = Palpable Line = Scar Mammography Report 2D digital mammography and tomosynthesis imaging were performed and reviewed with CAD. ASSESSMENT: Category 0 Incomplete: need additional imaging evaluation RECOMMENDATION: Follow-up diagnostic mammogram of the right breast. . Report Dictated on Cancer Risk Assessment: This risk assessment is based on patient provided information collected in a risk survey taken at the time of this examination. Lifetime breast cancer risk: Average Risk - If greater than or equal to 20%, consider annual mammogram and annual screening Breast MRI or follow up in high risk clinic. A score of "Average Risk" indicates a score of less than 20%. Is the patient at elevated risk based on the HBOC criteria? No (Hereditary Breast and Ovarian Cancer) - If yes, consider genetic counseling and testing with high risk follow up. Is the patient at elevated risk based on the Devine Syndrome criteria? No - If yes, consider genetic counseling and testing with high risk follow up. --- Final --- Signed Date and Time: 05/25/2021 9:51 am Signed by: MD JONY, ARY Sutton [facility] Ary Barrett MD - 05/25/2021 Patient Name: ANTIONETTE SANDOVAL Mammography ACCESSION EXAM DATE/TIME PROCEDURE ORDERING PROVIDER [id number] 05/25/2021 09:22 EST MG Breast Tomosynthesis NILDA LOUIS HOLLY S BI Scr CPT code 23952 [id number] Reason For Exam (MG Breast Tomosynthesis BI Scr) routine Report TIME SINCE LAST MAMMOGRAM: Last mammogram was performed 1 year and 1 month ago. REASON FOR EXAM: screening, asymptomatic. PROCEDURE: MG BREAST TOMOSYNTHESIS BL SCR: MAY 25, 2021 - 2D/3D Procedure 3D Bilateral CC and MLO view(s) were taken. 2D Bilateral CC and MLO view(s) were taken. Prior study comparison: April 20, 2020, bilateral MG breast tomosynthesis bl scr performed at [facility]. April 15, 2019, bilateral MG breast tomosynthesis bl scr performed at [facility]. April 11, 2018, bilateral MG breast tomosynthesis bl scr performed at [facility]. TISSUE DENSITY: BIRADS C - The breast tissue is heterogeneously dense, which could obscure underlying abnormalities. . PATIENT CANCER HISTORY: No Personal History of Cancer FAMILY CANCER HISTORY: Mother Breast Cancer age 52 Paternal Grandmother Cervical Cancer age 65 FINDINGS: A group of calcifications are seen within the upper outer quadrant of the right breast, middle depth. No additional suspicious masses, calcifications or architectural distortion is identified. Markings on images: BB's = Nipples; skin lesions Open crow = Palpable Line = Scar Mammography Report 2D digital mammography and tomosynthesis imaging were performed and reviewed with CAD. ASSESSMENT: Category 0 Incomplete: need additional imaging evaluation RECOMMENDATION: Follow-up diagnostic mammogram of the right breast. . Report Dictated on Cancer Risk Assessment: This risk assessment is based on patient provided information collected in a risk survey taken at the time of this examination. Lifetime breast cancer risk: Average Risk - If greater than or equal to 20%, consider annual mammogram and annual screening Breast MRI or follow up in high risk clinic. A score of "Average Risk" indicates a score of less than 20%. Is the patient at elevated risk based on the HBOC criteria? No (Hereditary Breast and Ovarian Cancer) - If yes, consider genetic counseling and testing with high risk follow up. Is the patient at elevated risk based on the Devine Syndrome criteria? No - If yes, consider genetic counseling and testing with high risk follow up. --- Final --- Signed Date and Time: 05/25/2021 9:51 am Signed by: MD JONY, ARY Sutton [facility] Work Phone: Radiology Study observation (narrative) [facility] Work Phone: LIVIA MARTIN DIGITAL SCREEN BILA TERALOrdered By: Ary Barrett on 05-25-2021 [facility] MG Breast Tomosynthesis Scr Blon 05-25-2021 MG Breast Tomosynthesis Scr Bl Patient Name: ANTIONETTE SANDOVAL Mammography ACCESSION EXAM DATE/TIME PROCEDURE ORDERING PROVIDER [id number] 05/25/2021 09:22 EST MG Breast Tomosynthesis NILDA LOUIS HOLLY S BI Scr CPT code [id number] Reason For Exam (MG Breast Tomosynthesis BI Scr) routine Report TIME SINCE LAST MAMMOGRAM: Last mammogram was performed 1 year and 1 month ago. REASON FOR EXAM: screening, asymptomatic. PROCEDURE: MG BREAST TOMOSYNTHESIS BL SCR: MAY 25, 2021 - 2D/3D Procedure 3D Bilateral CC and MLO view(s) were taken. 2D Bilateral CC and MLO view(s) were taken. Prior study comparison: April 20, 2020, bilateral MG breast tomosynthesis bl scr performed at [facility]. April 15, 2019, bilateral MG breast tomosynthesis bl scr performed at [facility]. April 11, 2018, bilateral MG breast tomosynthesis bl scr performed at [facility]. TISSUE DENSITY: BIRADS C - The breast tissue is heterogeneously dense, which could obscure underlying abnormalities. . PATIENT CANCER HISTORY: No Personal History of Cancer FAMILY CANCER HISTORY: Mother Breast Cancer age 52 Paternal Grandmother Cervical Cancer age 65 FINDINGS: A group of calcifications are seen within the upper outer quadrant of the right breast, middle depth. No additional suspicious masses, calcifications or architectural distortion is identified. Markings on images: BB's = Nipples; skin lesions Open crow = Palpable Line = Scar Mammography Report 2D digital mammography and tomosynthesis imaging were performed and reviewed with CAD. ASSESSMENT: Category 0 Incomplete: need additional imaging evaluation RECOMMENDATION: Follow-up diagnostic mammogram of the right breast. . Report Dictated on Cancer Risk Assessment: This risk assessment is based on patient provided information collected in a risk survey taken at the time of this examination. Lifetime breast cancer risk: Average Risk - If greater than or equal to 20%, consider annual mammogram and annual screening Breast MRI or follow up in high risk clinic. A score of "Average Risk" indicates a score of less than 20%. Is the patient at elevated risk based on the HBOC criteria? No (Hereditary Breast and Ovarian Cancer) - If yes, consider genetic counseling and testing with high risk follow up. Is the patient at elevated risk based on the Devine Syndrome criteria? No - If yes, consider genetic counseling and testing with high risk follow up. Final Signed Date and Time: 05/25/2021 9:51 am Signed by: MD JONY, ARY Sutton [facility] INR in Blood by Coagulation assayon 05-09-2021 INR Coag (Bld) [Relative time] 2.7 {INR} [facility] Work Phone: Laboratory - Coagulationon 0 05-09-2021 PT Coag (PPP) [Time] 27.6 s 11.7-14.9 [facility] Work Phone: INR in Blood by Coagulation assayon 03-31-2021 INR Coag (Bld) [Relative time] 2.9 {INR} [facility] Work Phone: Laboratory - Coagulationon 0 03-31-2021 PT Coag (PPP) [Time] 29.4 s 11.7-14.9 [facility] Work Phone: CR Chest PA/LATon 12-22-2020 CR Chest PA/LAT Patient Name: ANTIONETTE SANDOVAL Diagnostic Radiology ACCESSION EXAM DATE/TIME PROCEDURE ORDERING PROVIDER [id number] 12/22/2020 13:01 EDT CR Chest PA and LAT [id number] PATRIZIA MARTIN CPT code 94807 Reason For Exam (CR Chest PA and LAT) See dx Report CLINICAL INFORMATION: Fever. Frontal and lateral views of the chest were obtained. No old examinations were available for comparison at the time of dictation. No acute pulmonary disease is noted. There is a tiny calcified granuloma in the right lung apex. The cardiovascular silhouette is within normal limits. There are no pleural effusions. IMPRESSION: No acute pulmonary disease. Report Dictated on Final Dictating Physician: DO BARRERA ANTHONY Signed Date and Time: 12/22/2020 4:11 pm Signed by: DO BARRERA ANTHONY Transcribed Date and Time: 12/22/2020 4:12 Normal [facility] Prothrombin Timeon 1 INR 3.5 High 0.9-1.1 [facility] Comment on above: Result Comment: Costa mmended Anticoagulant Therapy: SEE BELOW ----- INR of 2.0 - 3.0 : - Prophylaxis of Venous Thrombosis (high-risk surgery) - Treatment of Venous Thrombosis - Treatment of Pulmonary Embolism (Includes tissue heart valves, Acute Myocardial Infarction to prevent systemic embolism, Valvular Heart Disease, and Atrial Fibrillation) ----- INR of 2.5 - 3.5 : - Mechanical Prosthetic Valves (high risk) - If oral anticoagulant therapy is used to prevent Myocardial Infarction Performed By: #### P T ####[facility] [place] [address] PT Coag (PPP) [Time] 34.7 s High 9.0-12.0 [facility] Comment on above: Result Comment: . Performed By: #### P T ####[facility] [place] [address] Prothrombin Timeon 1 INR 2.8 High 0.9-1.1 [facility] Comment on above: Result Comment: [place] mmended Anticoagulant Therapy: SEE BELOW ----- INR of 2.0 - 3.0 : - Prophylaxis of Venous Thrombosis (high-risk surgery) - Treatment of Venous Thrombosis - Treatment of Pulmonary Embolism (Includes tissue heart valves, Acute Myocardial Infarction to prevent systemic embolism, Valvular Heart Disease, and Atrial Fibrillation) ----- INR of 2.5 - 3.5 : - Mechanical Prosthetic Valves (high risk) - If oral anticoagulant therapy is used to prevent Myocardial Infarction Performed By: #### P T ####[place] [address] [place] [address] PT Coag (PPP) [Time] 28.1 s High 9.0-12.0 [facility] Comment on above: Result Comment: . Performed By: #### P T ####[address] [place] [address] Basic Metabolic Panelon 11-23 Calcium [Mass/Vol] 9.1 mg/dL Normal 8.4-10.4 [facility] Comment on above: Performed By: #### Carlita MP3M, HEMOG #### [address] [place] [address] Glucose [Mass/Vol] 100 mg/dL Normal 70-100 [facility] Comment on above: Performed By: #### Carlita MP3M, HEMOG #### [address] [place] [address] Urea nitrogen [Mass/Vol] 12 mg/dL Normal 9-20 [facility] Comment on above: Performed By: #### Carlita MP3M, HEMOG #### [address] [place] [address] Anion gap [Moles/Vol] 2 mmol/L Low 3-13 [facility] Comment on above: Performed By: #### B MP3M, HEMOG #### [address] [place] [address] CO2 [Moles/Vol] 29 mmol/L Normal 22-30 [facility] Comment on above: Performed By: #### B MP3M, HEMOG #### [address] [place] [address] Creatinine [Mass/Vol] 0.55 mg/dL Normal 0.52-1.25 [facility] Comment on above: Performed By: #### B MP3M, HEMOG #### [facility] [address] [place] [address] eGFR OTHER > 90.0 Normal >60 [facility] Comment on above: Result Comment: KDIG O guidelines provide the following GFR categories: Stage GFR(ml/min/1.73 m2) Terms G1 >=90 Normal or high G2 60-89 Mildly decreased* G3a 45-59 Mildly to moderately decreased G3b 30-44 Moderately to severely decreased G4 15-29 Severely decreased G5 <15 Kidney failure *Relative to young adult level. In the absence of evidence of kidney damage, neither GFR category G1 nor G2 fulfill the criteria for CKD. The CKD-EPI equation is validated in individuals 18 years of age and older. Currently the best equation for estimating glomerular filtration rate (GFR) from serum creatinine in children is the Bedside Llamas equation. It is less accurate in patients with extremes of muscle mass, restriction of dietary protein, ingestion of creatine, extra-renal metabolism of creatinine, or treatment with medications that affect renal tubular creatinine secretion. Performed By: #### B MP3M, HEMOG #### [facility] [address] [place] [address] GFR/1.73 sq M.predicted among blacks MDRD (S/P/Bld) [Vol rate/Area] mL/min/{1.73_m2} Normal >60 [facility] Comment on above: Performed By: #### B MP3M, HEMOG #### [facility] [address] [place] [address] Potassium [Moles/Vol] 4.0 mmol/L Normal 3.5-5.1 [facility] Comment on above: Performed By: #### B MP3M, HEMOG #### [facility] [address] [place] [address] Chloride [Moles/Vol] 107 mmol/L Normal 98-107 [facility] Comment on above: Performed By: #### B MP3M, HEMOG #### [facility] [address] [place] [address] Sodium [Moles/Vol] 138 mmol/L Normal 135-145 [facility] Comment on above: Performed By: #### B MP3M, HEMOG #### [facility] [address] [place] [address] Hemogramon 12-08-2020 Erythrocyte distribution width (RBC) [Ratio] 13.9 % Normal 11.5-14.5 [facility] Comment on above: Performed By: #### B MP3M, HEMOG #### [facility] [address] [place] [address] Hematocrit (Bld) [Volume fraction] 40.1 % Normal 35.0-47.0 [facility] Comment on above: Performed By: #### B MP3M, HEMOG #### [facility] [address] [place] [address] Hemoglobin (Bld) [Mass/Vol] 13.6 g/dL Normal 11.7-16.0 [facility] Comment on above: Performed By: #### B MP3M, HEMOG #### [facility] [address] [place] [address] MCH (RBC) [Entitic mass] 29.4 pg Normal 26.0-34.0 [facility] Comment on above: Performed By: #### B MP3M, HEMOG #### [facility] [address] [place] [address] MCHC 33.9 % Normal 32.0-36.0 [facility] Comment on above: Performed By: #### B MP3M, HEMOG #### [facility] [address] [place] [address] MCV (RBC) [Entitic vol] 86.8 fL Normal 79.0-98.0 [facility] Comment on above: Performed By: #### B MP3M, HEMOG #### [facility] [address] [place] [address] Platelet mean volume (Bld) [Entitic vol] 9.0 fL Normal 7.4-10.4 [facility] Comment on above: Performed By: #### B MP3M, HEMOG #### [facility] [address] [place] [address] Platelets (Bld) [#/Vol] 195 10*3/uL Normal 140-440 [facility] Comment on above: Performed By: #### B MP3M, HEMOG #### [facility] [address] [place] [address] RBC (Bld) [#/Vol] 4.61 10*6/uL Normal 3.80-5.20 [facility] Comment on above: Performed By: #### B MP3M, HEMOG #### [facility] [address] [place] [address] WBC (Bld) [#/Vol] 7.8 10*3/uL Normal 3.6-10.7 [facility] Comment on above: Performed By: #### B MP3M, HEMOG #### [facility] [address] [place] [address] Prothrombin Timeon INR 3.9 High 0.9-1.1 [facility] Comment on above: Result Comment: Costa mmended Anticoagulant Therapy: SEE BELOW ----- INR of 2.0 - 3.0 : - Prophylaxis of Venous Thrombosis (high-risk surgery) - Treatment of Venous Thrombosis - Treatment of Pulmonary Embolism (Includes tissue heart valves, Acute Myocardial Infarction to prevent systemic embolism, Valvular Heart Disease, and Atrial Fibrillation) ----- INR of 2.5 - 3.5 : - Mechanical Prosthetic Valves (high risk) - If oral anticoagulant therapy is used to prevent Myocardial Infarction Performed By: #### P T #### [facility] [address] [place] [address] PT Coag (PPP) [Time] 38.6 s High 9.0-12.0 [facility] Comment on above: Result Comment: . Performed By: #### P T #### [facility] [address] [place] [address] Basic Metabolic Panelon 11-23 Calcium [Mass/Vol] 9.5 mg/dL Normal 8.4-10.4 [facility] Comment on above: Performed By: #### E SR, HEMOG, CRP2, BMP3 ####[facility] [place] [address] Glucose [Mass/Vol] 101 mg/dL High 70-100 [facility] Comment on above: Performed By: #### E SR, HEMOG, CRP2, BMP3 ####[facility] [address] [facility] [place] [address] Anion gap [Moles/Vol] 5 mmol/L Normal 3-13 [facility] Comment on above: Performed By: #### E SR, HEMOG, CRP2, BMP3 ####[facility] [address] [place] [address] CO2 [Moles/Vol] 28 mmol/L Normal 22-30 [facility] Comment on above: Performed By: #### E SR, HEMOG, CRP2, BMP3 ####[facility] [address] [address] [facility] [place] [address] Urea nitrogen [Mass/Vol] 13 mg/dL Normal 9-20 [facility] Comment on above: Performed By: #### E SR, HEMOG, CRP2, BMP3 ####[facility] [employer] [address] [facility]resc[facility]io[facility] [place] [address] Creatinine [Mass/Vol] 0.59 mg/dL Normal 0.52-1.25 [facility] Comment on above: Performed By: #### E SR, HEMOG, CRP2, BMP3 ####[facility] [employer] [address] [facility]resc[facility]io[facility] [place] [address] eGFR OTHER > 90.0 Normal >60 [facility] Comment on above: Result Comment: KDIG O guidelines provide the following GFR categories: Stage GFR(ml/min/1.73 m2) Terms G1 >=90 Normal or high G2 60-89 Mildly decreased* G3a 45-59 Mildly to moderately decreased G3b 30-44 Moderately to severely decreased G4 15-29 Severely decreased G5 <15 Kidney failure *Relative to young adult level. In the absence of evidence of kidney damage, neither GFR category G1 nor G2 fulfill the criteria for CKD. The CKD-EPI equation is validated in individuals 18 years of age and older. Currently the best equation for estimating glomerular filtration rate (GFR) from serum creatinine in children is the Bedside Llamas equation. It is less accurate in patients with extremes of muscle mass, restriction of dietary protein, ingestion of creatine, extra-renal metabolism of creatinine, or treatment with medications that affect renal tubular creatinine secretion. Performed By: #### E SR, HEMOG, CRP2, BMP3 ####[facility] [place] [address] GFR/1.73 sq M.predicted among blacks MDRD (S/P/Bld) [Vol rate/Area] mL/min/{1.73_m2} Normal >60 [facility] Comment on above: Performed By: #### E SR, HEMOG, CRP2, BMP3 ####[facility] [place] [address] Chloride [Moles/Vol] 105 mmol/L Normal 98-107 [facility] Comment on above: Performed By: #### E SR, HEMOG, CRP2, BMP3 ####[place] [address] [place] [address] Potassium [Moles/Vol] 4.0 mmol/L Normal 3.5-5.1 [facility] Comment on above: Performed By: #### E SR, HEMOG, CRP2, BMP3 ####[place] [address] [place] [address] Sodium [Moles/Vol] 138 mmol/L Normal 135-145 [facility] Comment on above: Performed By: #### E SR, HEMOG, CRP2, BMP3 ####[facility] [facility] [place] [address] C-Reactive Proteinon 021 CRP [Mass/Vol] mg/L Normal 0.0-9.9 [facility] Comment on above: Result Comment: . Performed By: #### E SR, HEMOG, CRP2, BMP3 ####[facility] [place] [address] CR Hip w/ Pelvis 2 or 3 View s Lefton 12-07-2020 CR Hip w/ Pelvis 2 or 3 Views Left Patient Name: ANTIONETTE SANDOVAL Diagnostic Radiology ACCESSION EXAM DATE/TIME PROCEDURE ORDERING PROVIDER [id number] 12/07/2020 13:40 EDT CR Hip w/ Pelvis 2 or 3 [id number] -AIYANA AMES Views Left n CPT code 68963 Reason For Exam (CR Hip w/ Pelvis 2 or 3 Views Left n) left hip pain Report HISTORY: Left hip pain Frontal view the pelvis and two views left hip are negative Report Dictated on Final Dictating Physician: MD FOSTER WILLIAM Signed Date and Time: 12/07/2020 2:07 pm Signed by: MD FOSTER WILLIAM Transcribed Date and Time: 12/07/2020 2:08 Normal [facility] Hemogramon 12-07-2020 Erythrocyte distribution width (RBC) [Ratio] 13.7 % Normal 11.5-14.5 [facility] Comment on above: Performed By: #### E SR, HEMOG, CRP2, BMP3 ####[address] [place] [address] Hematocrit (Bld) [Volume fraction] 41.9 % Normal 35.0-47.0 [facility] Comment on above: Performed By: #### E SR, HEMOG, CRP2, BMP3 ####[address] [address] Hemoglobin (Bld) [Mass/Vol] 14.1 g/dL Normal 11.7-16.0 [facility] Comment on above: Performed By: #### E SR, HEMOG, CRP2, BMP3 ####[address] [address] MCH (RBC) [Entitic mass] 29.0 pg Normal 26.0-34.0 [facility] Comment on above: Performed By: #### E SR, HEMOG, CRP2, BMP3 ####[address] [place] [address] MCHC 33.7 % Normal 32.0-36.0 [facility] Comment on above: Performed By: #### E SR, HEMOG, CRP2, BMP3 ####[address] [place] [address] MCV (RBC) [Entitic vol] 86.0 fL Normal 79.0-98.0 [facility] Comment on above: Performed By: #### E SR, HEMOG, CRP2, BMP3 ####[address] [place] [address] Platelet mean volume (Bld) [Entitic vol] 8.6 fL Normal 7.4-10.4 [facility] Comment on above: Performed By: #### Huy DRAPER, HEMOG, CRP2, BMP3 ####[address] [place] [address] Platelets (Bld) [#/Vol] 209 10*3/uL Normal 140-440 [facility] Comment on above: Performed By: #### Huy DRAPER, HEMOG, CRP2, BMP3 ####[address] [place] [address] RBC (Bld) [#/Vol] 4.87 10*6/uL Normal 3.80-5.20 [facility] Comment on above: Performed By: #### Huy RDAPER, HEMOG, CRP2, BMP3 ####[address] [place] [address] WBC (Bld) [#/Vol] 8.9 10*3/uL Normal 3.6-10.7 [facility] Comment on above: Performed By: #### Huy DRAPER, HEMOG, CRP2, BMP3 ####[address] [place] [address] Prothrombin Timeon 1 INR 4.7 Critically high 0.9-1.1 [facility] Comment on above: Result Comment: [place] mmended Anticoagulant Therapy: SEE BELOW ----- INR of 2.0 - 3.0 : - Prophylaxis of Venous Thrombosis (high-risk surgery) - Treatment of Venous Thrombosis - Treatment of Pulmonary Embolism (Includes tissue heart valves, Acute Myocardial Infarction to prevent systemic embolism, Valvular Heart Disease, and Atrial Fibrillation) ----- INR of 2.5 - 3.5 : - Mechanical Prosthetic Valves (high risk) - If oral anticoagulant therapy is used to prevent Myocardial Infarction Performed By: #### P T #### [place] [address] [place] [address] PT Coag (PPP) [Time] 45.5 s High 9.0-12.0 [facility] Comment on above: Result Comment: . Performed By: #### P T #### [facility] [address] [place] [address] Sed Rateon 12-07-2020 Sed Rate 10 mm/h Normal 0-20 [facility] [employer] [facility] Comment on above: Performed By: #### E SR, HEMOG, CRP2, BMP3 ####[employer] [place] [address] VL Venous Duplex US Lower Ex t Bilateralon 12-07-2020 VL Venous Duplex US Lower Ext Bilateral Patient Name: ANTIONETTE SANDOVAL Ultrasound ACCESSION EXAM DATE/TIME PROCEDURE ORDERING PROVIDER [id number] 12/07/2020 16:23 EDT VL Venous Duplex [place] [id number] -AIYANA AMES Lower Ext Bilateral CPT code 34181 Reason For Exam (VL Venous Duplex US Lower Ext Bilateral) left lower extremity swelling and pain Report [facility] -- Lower Extremity Venous Duplex Report Patient DO JaimeB: 1975 Study 12/07/2020 Name: Antionette (45yrs) Date: Age: 45 Account: [id number] Gender: F Loc: 444 BP: Ordering Physician: Aiyana Ames Manager Imaging: Homero Lawton RDMS, RVT Interpreting Physician: Timothy Byers MD -- Location: [facility] -- Indications: Left lower extemity swelling and pain for 1 day -- CRITICAL RESULTS: A critical finding, was reported to Aiyana Ames MD , by Phoenix Lawton RVT, [facility] , on 12/07/2020 , at 03:59 PM. Correct read-back was verified. -- Conclusions 1. Chronic superficial vein thrombosis noted in the right small saphenous vein. 2. Chronic deep vein thrombosis noted in the left popliteal vein and left gastrocnemius veins. 3. There is no evidence of acute deep or superficial venous thrombosis noted in the right lower extremity. 4. There is no evidence of acute deep or superficial venous thrombosis noted in the left lower extremity. -- History: Risk factors: Immobility. H/o dvt in left leg. -- Ultrasound Report Study data: Complete lower extremity venous duplex evaluation. Grayscale 2D imaging, color Doppler imaging, and spectral Doppler analysis. Location: Vascular laboratory. Procedure: A vascular evaluation was performed with the patient in the supine position. Images were obtained using a [employer] E9 vascular ultrasound machine. -- Venous flow and imaging: + +----- --+--------+ -------+ -+ +Location +Overall+Thrombus+Prope rties +Comments + + +----- --+--------+ -------+ -+ +R CFV +Patent +--------+Normal phasicity; + + + + + +spontaneous; + + + + + +normal + + + + + +augmentation; + + + + + +compressible + + + +----- --+--------+ -------+ -+ +R saphenofemoral+Patent +--------+Compressible + + +junction + + + + + + +----- --+--------+ -------+ -+ +R profunda +Patent +--------+ -----+ + +femoral + + + + + + +----- --+--------+ -------+ -+ +R FV - prox. +Patent +--------+Compressible + + + +----- --+--------+ -------+ -+ +R FV - mid +Patent +--------+Normal phasicity; + + + + + +spontaneous; + + + + + +normal + + + + + +augmentation; + + + + + +compressible + + + +----- --+--------+ -------+ -+ +R FV - distal +Patent +--------+Compressible + + + +----- --+--------+ -------+ -+ +R popliteal +Patent +--------+Normal phasicity; + + + + + +spontaneous; + + + + + +normal + + + + + +augmentation; + + + + + +compressible + + + +----- --+--------+ -------+ -+ +R gastrocnemius +Patent +--------+Compressible + + + +----- --+--------+ -------+ -+ +R PTV +Patent +--------+Compressible + + + +----- --+--------+ -------+ -+ +R peroneal +Patent +--------+Compressible + + + +----- --+--------+ -------+ -+ +R soleal +Patent +--------+Compressible + + + +----- --+--------+ -------+ -+ +R GSV +Patent +--------+Compressible + + + +----- --+--------+ -------+ -+ +R SSV +Patent +Chronic +Partially +Chronic vs wall + + + + +compressible +thickening. + + +----- --+--------+ -------+ -+ +L CFV +Patent +--------+Normal phasicity; + + + + + +spontaneous; + + + + + +normal + + + + + +augmentation; + + + (more content not included)... Normal [facility] NOVEL CORONAVIRUS NASOPHARYN GEAL - [facility] SPECIMEN ONLYon 12-23-2019 SARS-COV-2 NOT DETECTED Normal NOT DETECTED [facility] Comment on above: Order Comment: Viral transport media - Collection must be done while wearing N-95 mask, eye protection, gown and gloves. Please label ALL specimens as "2019-nCoV rule out" and deliver by hand. This test was performed using real time PCR and has been approved for the qualitative detection of SARS-CoV-2 nucleic acid. The test has been authorized by the FDA under an emergency use authorization for use by authorized laboratories. Result Comment: Nega tive results do not preclude SARS-CoV-2 infection and should not be used as the sole basis for treatment or other patient management decisions. Optimum specimen types and timing for peak viral levels during infections caused by SARS-CoV-2 has not been determined. The possibility of a false negative result should especially be considered if the patient's recent exposures or clinical presentation suggest that SARS-CoV-2 infection is probable, and diagnostic tests for other causes of illness (e.g., other respiratory illness) are negative. Collection of a new specimen and re-testing may be necessary if the patient is critically ill or clinically deteriorating. Performed By: #### L [id number] #### [facility] (DEFAULT) [address] [place] [address] NOVEL CORONAVIRUS NASOPHARYN GEAL - [facility] SPECIMEN ONLYon 12-16-2019 SARS-COV-2 NOT DETECTED Normal NOT DETECTED [facility] Comment on above: Order Comment: Viral transport media - Collection must be done while wearing N-95 mask, eye protection, gown and gloves. Please label ALL specimens as "2019-nCoV rule out" and deliver by hand. This test was performed using real time PCR and has been approved for the qualitative detection of SARS-CoV-2 nucleic acid. The test has been authorized by the FDA under an emergency use authorization for use by authorized laboratories. Result Comment: Nega tive results do not preclude SARS-CoV-2 infection and should not be used as the sole basis for treatment or other patient management decisions. Optimum specimen types and timing for peak viral levels during infections caused by SARS-CoV-2 has not been determined. The possibility of a false negative result should especially be considered if the patient's recent exposures or clinical presentation suggest that SARS-CoV-2 infection is probable, and diagnostic tests for other causes of illness (e.g., other respiratory illness) are negative. Collection of a new specimen and re-testing may be necessary if the patient is critically ill or clinically deteriorating. Performed By: #### L [id number] #### [facility] (DEFAULT) [address] [place] [id number] NOVEL CORONAVIRUS NASOPHARYN GEAL - [facility] SPECIMEN ONLYon 12-09-2019 SARS-COV-2 NOT DETECTED Normal NOT DETECTED [facility] Comment on above: Order Comment: Viral transport media - Collection must be done while wearing N-95 mask, eye protection, gown and gloves. Please label ALL specimens as "2019-nCoV rule out" and deliver by hand. This test was performed using real time PCR and has been approved for the qualitative detection of SARS-CoV-2 nucleic acid. The test has been authorized by the FDA under an emergency use authorization for use by authorized laboratories. Result Comment: Nega tive results do not preclude SARS-CoV-2 infection and should not be used as the sole basis for treatment or other patient management decisions. Optimum specimen types and timing for peak viral levels during infections caused by SARS-CoV-2 has not been determined. The possibility of a false negative result should especially be considered if the patient's recent exposures or clinical presentation suggest that SARS-CoV-2 infection is probable, and diagnostic tests for other causes of illness (e.g., other respiratory illness) are negative. Collection of a new specimen and re-testing may be necessary if the patient is critically ill or clinically deteriorating. Performed By: #### L [id number] #### [facility] (COUNTS INCLUDE [facility] BEDS AT THE [facility]) [address] [place] [address] MG BX Breast 1st Lesion Strt ctc LTon 05-13-2019 MG BX Breast 1st Lesion Strtctc LT Patient Name: ANTIONETTE SANDOVAL Mammography Exam Date/Time 05/13/2019 15:01:32 EST Exam MG BX Breast 1st Lesion Strtctc LT Ordering Physician BOOKER VASQUEZ Accession Number [id number] CPT4 Codes 43261 () Reason For Exam left calcs Report PROCEDURE: MG BX BREAST 1ST LESION STRTCTC LT: LEFT BREAST - MAY 13, 2019 - Technologist: Sameera Sam REASON FOR EXAMINATION: Calcifications for which biopsy was recommended CONSENT: The patient presents for stereotactic localization and biopsy for the left breast. Prior to the procedure red rules were performed which included patient name, date of , and procedure type. Risks, benefits and alternatives were explained to the patient and informed consent was obtained. The patient?s prior imaging dated 05/06/2019 was reviewed. PROCEDURE: I washed my hands and wore sterile gloves. The patient was sitting upright and calcifications were localized from a lateral approach. The patient was prepped in the usual sterile fashion. 16 mL of 1% Lidocaine was administered for local anesthesia. A 9-gauge Eviva vacuum assisted device was advanced to the targeted calcifications with stereotactic guidance. 13 core specimens were obtained. Following the procedure a tumark tissue marker was deployed at the site of biopsy. Hemostasis was obtained by holding manual pressure. A specimen radiograph demonstrates the calcifications within the specimen. The patient tolerated the procedure without immediate complications. Home-going instructions were given and the patient was discharged in good condition. Following the procedure a postprocedure 2D digital mammogram was performed in the lateral and CC projections demonstrating the tissue marker at the site of biopsy. IMPRESSION: Technically successful stereotactic biopsy of the left breast. . Report Dictated on PATHOLOGY RESULTS: BENIGN Pathology for the stereotactic guided biopsy showed benign breast tissue with stromal hyalinization and associated calcium oxalate microcalcifications. Imaging and pathology are concordant. This is benign pathology. A six-month postbiopsy mammogram is recommended. MG SURGICAL SPECIMEN: LEFT BREAST - MAY 13, 2019 - Technologist: Sameera Sam Final Signed Date and Time: 05/18/2019 4:10 pm Signed by: MD LEGER TOM A [facility] MG Surgical-Specimenon 05-13 MG Surgical-Specimen Patient Name: ANTIONETTE MAYES Mammography Exam Date/Time 05/13/2019 15:02:23 EST Exam MG Surgical-Specimen Ordering Physician BOOKER VASQUEZ Accession Number [id number] CPT4 Codes 37275 () Reason For Exam left calcs Report PROCEDURE: MG BX BREAST 1ST LESION STRTCTC LT: LEFT BREAST - MAY 13, 2019 - Technologist: Sameera Sam REASON FOR EXAMINATION: Calcifications for which biopsy was recommended CONSENT: The patient presents for stereotactic localization and biopsy for the left breast. Prior to the procedure red rules were performed which included patient name, date of , and procedure type. Risks, benefits and alternatives were explained to the patient and informed consent was obtained. The patient?s prior imaging dated 05/06/2019 was reviewed. PROCEDURE: I washed my hands and wore sterile gloves. The patient was sitting upright and calcifications were localized from a lateral approach. The patient was prepped in the usual sterile fashion. 16 mL of 1% Lidocaine was administered for local anesthesia. A 9-gauge Eviva vacuum assisted device was advanced to the targeted calcifications with stereotactic guidance. 13 core specimens were obtained. Following the procedure a tumark tissue marker was deployed at the site of biopsy. Hemostasis was obtained by holding manual pressure. A specimen radiograph demonstrates the calcifications within the specimen. The patient tolerated the procedure without immediate complications. Home-going instructions were given and the patient was discharged in good condition. Following the procedure a postprocedure 2D digital mammogram was performed in the lateral and CC projections demonstrating the tissue marker at the site of biopsy. IMPRESSION: Technically successful stereotactic biopsy of the left breast. . Report Dictated on PATHOLOGY RESULTS: BENIGN Pathology for the stereotactic guided biopsy showed benign breast tissue with stromal hyalinization and associated calcium oxalate microcalcifications. Imaging and pathology are concordant. This is benign pathology. A six-month postbiopsy mammogram is recommended. MG SURGICAL SPECIMEN: LEFT BREAST - MAY 13, 2019 - Technologist: Sameera Sam Final Signed Date and Time: 05/18/2019 4:10 pm Signed by: MD ARSEN, JACQUE cK [facility] Surgical Pathologyon 020 Surgical Pathology [id number] [facility] PATHOLOGY AND [facility]ORATORY MEDICINE [address] [place] [address] FINAL SURGICAL PATHOLOGY REPORT ___ NAME: ANTIONETTE SANDOVAL : 1975 44 Y F BILLING NO.: [id number] LOCATION: 1BRMM PROCEDURE 05/13/2019 DATE: SURGEON: BOOKER VASQUEZ M.D. RECEIVED 05/14/2019 DATE: ATTENDING: BOOKER VASQUEZ M.D. REPORT DATE: 05/15/2019 COPIES TO: JACQUE ARSEN ___ DIAGNOSIS: BREAST, LEFT, CALCIFICATIONS, CORE BIOPSY - BENIGN BREAST TISSUE WITH STROMAL HYALINIZATION AND ASSOCIATED CALCIUM OXALATE MICROCALCIFICATIONS. COMMENT: Additional step sections were examined. OAS/OAS Signature> IFTIKHAR DUNN MD ___ CLINICAL INFORMATION: Left breast calcifications SPECIMEN: BREAST NEEDLE CORE BIOPSY ___ GROSS DESCRIPTION: Left calcifications Received collected at 14:30 and placed into formalin at 14:35 are multiple floating, yellow-shah cores of tissue aggregating to 2 x 2 cm. Submitted in toto. (bits ns, 2) JCK/KMS1 Disclaimer: The following statement applies to all immunohistochemistry, in situ hybridization, molecular studies, and immunofluorescence testing. The use of one or more reagents in the above tests is regulated as an analyte specific reagent (ASR). These tests were developed and their performance characteristics determined by the clinical laboratories of [facility]. They have not been cleared by the US Food and Drug Administration (FDA). The FDA has determined that such clearance or approval is not necessary. All the above immunostains were performed on paraffin embedded tissue. Appropriate positive and negative controls (where applicable) were run in parallel with the patient's specimen; these controls showed expected staining pattern, with acceptable intensity of staining. Immunohistochemical assays have not been validated on decalcified tissues. Results should be interpreted with caution given the raised possibility of false negativity on decalcified specimens. Professional Performing Location: [address] [address]. DEPARTMENT OF PATHOLOGY AND LABORATORY MEDICINE [place], [place] [address] Normal [facility] US ABDOMEN COMPLETEon 2018 Patient Name: ANTIONETTE SANDOVAL ---Ultrasound--- Exam Date/Time 01/21/2019 08:11:39 EDT Exam US Abdomen Complete Ordering Physician NILDA LOUIS HOLLY S Accession Number [id number] CPT4 Codes 47211 () Reason For Exam chronic right sided abdominal pain Report SONOGRAM OF THE UPPER ABDOMEN History: Right abdominal pain , prior cholecystectomy Findings: Sonogram of the upper abdomen shows unremarkable liver and spleen. The gallbladder is not visualized (cholecystectomy). There is no intrahepatic bile ducts dilatation. The common bile duct measures 4 mm in diameter . To the extent visualized, the pancreatic head and body and also the upper abdominal aorta and IVC are unremarkable. The pancreatic tail could not be clearly visualized for proper evaluation due to degrading bowel gas artifacts. The partially visualized right and left kidneys measure 9.7 x 5.2 x 4.5 cm and 10.8 x 3.8 x 5.5 cm respectively without hydronephrosis. There is a 1.9 x 1.3 x 1.7 cm superior pole left renal cyst. IMPRESSION: Unremarkable liver and spleen. Pancreatic tail is not adequately visualized. Cholecystectomy. No biliary dilatation. Small left renal cyst. Report Dictated on --- Final --- Dictating Physician: MD SARGENT AHMAD Signed Date and Time: 01/21/2019 8:50 am Signed by: MD SARGENT AHMAD Transcribed Date and Time: 01/21/2019 8:51 [facility], [facility] Incoming Radiology Results From [facility] - 01/21/2019 8:51 AM EDT Patient Name: ANTIONETTE SANDOVAL ---Ultrasound--- Exam Date/Time 01/21/2019 08:11:39 EDT Exam US Abdomen Complete Ordering Physician NILDA LOUIS HOLLY S Accession Number [id number] CPT4 Codes 43464 () Reason For Exam chronic right sided abdominal pain Report SONOGRAM OF THE UPPER ABDOMEN History: Right abdominal pain , prior cholecystectomy Findings: Sonogram of the upper abdomen shows unremarkable liver and spleen. The gallbladder is not visualized (cholecystectomy). There is no intrahepatic bile ducts dilatation. The common bile duct measures 4 mm in diameter . To the extent visualized, the pancreatic head and body and also the upper abdominal aorta and IVC are unremarkable. The pancreatic tail could not be clearly visualized for proper evaluation due to degrading bowel gas artifacts. The partially visualized right and left kidneys measure 9.7 x 5.2 x 4.5 cm and 10.8 x 3.8 x 5.5 cm respectively without hydronephrosis. There is a 1.9 x 1.3 x 1.7 cm superior pole left renal cyst. IMPRESSION: Unremarkable liver and spleen. Pancreatic tail is not adequately visualized. Cholecystectomy. No biliary dilatation. Small left renal cyst. Report Dictated on --- Final --- Dictating Physician: MD SARGENT AHMAD Signed Date and Time: 01/21/2019 8:50 am Signed by: MD SARGENT AHMAD Transcribed Date and Time: 01/21/2019 8:51 [place], [place] XR CHEST STANDARD (2 VW)on Patient Name: ANTIONETTE SANDOVAL ---Diagnostic Radiology--- Exam Date/Time 01/07/2019 16:51:27 EDT Exam CR Chest PA/LAT Ordering Physician NILDA LOUIS HOLLY S Accession Number [id number] CPT4 Codes 32553 () Reason For Exam cough , pneumonia follow up Report CHEST (Frontal and lateral) History: Cough, pneumonia, follow-up Comparison chest x-ray: None available Findings: Frontal and lateral chest views show interstitial prominence of the lungs without acute infiltrates or congestion.. There is probable tiny calcified granuloma in the right lung apex. The heart is normal in size. There is no mediastinal widening or pleural effusion. IMPRESSION: No acute pulmonary process. Consider follow-up radiographs if clinically warranted. Report Dictated on Workstation: [id number] --- Final --- Dictating Physician: MD SARGENT AHMAD Signed Date and Time: 01/07/2019 4:56 pm Signed by: MD SARGENT AHMAD Transcribed Date and Time: 01/07/2019 4:57 [facility] ANDRA Luis Armando, [facility] Incoming Radiology Results From [facility] - 01/07/2019 4:57 PM EDT Patient Name: ANTIONETTE SANDOVAL ---Diagnostic Radiology--- Exam Date/Time 01/07/2019 16:51:27 EDT Exam CR Chest PA/LAT Ordering Physician NILDA LOUIS HOLLY S Accession Number [id number] CPT4 Codes 44279 () Reason For Exam cough , pneumonia follow up Report CHEST (Frontal and lateral) History: Cough, pneumonia, follow-up Comparison chest x-ray: None available Findings: Frontal and lateral chest views show interstitial prominence of the lungs without acute infiltrates or congestion.. There is probable tiny calcified granuloma in the right lung apex. The heart is normal in size. There is no mediastinal widening or pleural effusion. IMPRESSION: No acute pulmonary process. Consider follow-up radiographs if clinically warranted. Report Dictated on Workstation: [id number] --- Final --- Dictating Physician: MD SARGENT AHMAD Signed Date and Time: 01/07/2019 4:56 pm Signed by: MD SARGENT AHMAD Transcribed Date and Time: 01/07/2019 4:57 [facility] ANDRA PT/INRon 12-25-2018 INR Coag (PPP) [Relative time] 2.3 {INR} High 0.9 - 1.1 [facility] Comment on above: Performed By: #### P TINR ####[id number] [place] [address] PT Coag (PPP) [Time] 25.4 s High 9.7 - 12.7 [facility], [place], operated [facility] Comment on above: Performed By: #### P TINR ####[id number] [place] [address] Clinic Note - Heme Onc-Follo w Up Visiton 12-24-2018 Clinic Note - Heme Onc-Follow Up Visit Patient Visit Information: Visit Type: Follow Up Visit History of Present Illness: Chief Complaint: Pulmonary embolism, DVT Interval History: The patient was initially seen by me in November 2012 for possible thrombophilia. She developed DVT in 2000 after a cholecystectomy, the patient was treated with blood thinner, and then the patient also complained of menorrhagia and easy bruisability. DIRECTOR OF EDUCATION evaluation did show endometrial fibroid, which could [...] pain, went to the emergency room at [facility]. CAT scan did show left lung pulmonary embolism. Currently she is taking Coumadin 5 mg by mouth daily. Status post hysterectomy in January 2017. Patient doing very well and the INR has been between 2.0-2.5. To date INR is 3.4, no history of bleeding. Patient complaining facial rash and dryness of eyes no sore throat. Patient doing her exercises and the she lost approximately 27 pounds and INR was subtherapeutic. Coumadin was slightly increased. Done patient took antibiotic and repeated her INR was 3.2. Currently patient is taking 5 mg Coumadin by mouth daily. No history of bleeding, no any other complaint. Review of Systems: Review of Systems: No headache No chest pain and shortness of breath No cough No nausea vomiting Sometime patient has nonspecific abdominal pain No history of bleeding She is working full-time She is very active Complaining of facial rash Allergies and Intolerances: Allergies: Demerol HCl: Drug, Other, Active Xarelto: Drug, Other, Active Outpatient Medication Profile: * Patient Currently Takes Medications as of 24-Dec-2018 11:25 documented in Structured Notes Coumadin 5 mg oral tablet: Last Dose Taken: , 1 tab(s) orally once a day, Start Date: 07-Jul-2018 B-Complex SR oral tablet, extended release: Last Dose Taken: , 1 tab(s) orally once a day Vitamin C 100 mg oral tablet: Last Dose Taken: , 1 tab(s) orally once a day Zoloft 25 mg oral tablet: Last Dose Taken: , 1 tab(s) orally once a day Benadryl 25 mg oral tablet: Last Dose Taken: , 1 tab(s) orally once a day Senna S 50 mg-8.6 mg oral tablet: Last Dose Taken: , 1 tab(s) orally once a day (at bedtime) Medical History: Skin rash: Status: Active Iron [...] Status: never smoker (1) Alcohol Use: denies(1) Vitals and Measurements: Vitals: Temp: 37 HR: 76 RR: 16 BP: 101/75 SPO2%: 97 Measurements: HT(cm): 167.7 WT(kg): 77.2 BSA: 1.89 BMI: 27.4 Last 3 Weights & Heights: Date: Weight/Scale Type:Height: 24-Dec-2018 11:1877.2 kg 167.7 cm 25-Jun-2018 11:5386.2 kg / standing .7 cm 08-Jan-2018 13:2584.2 kg / standing vnikt900.7 cm Physical Exam: Constitutional: awake/alert/oriented x3, no [...] senses, motor, response and reflexes, normal strength Breast: No mass, nontender Lymphatic: No lymphadenopathy Psychological: Appropriate mood and behavior Skin: Warm and dry, a faint rashes seen on her cheek and chin Assessment and Plan: Assessment and Plan: Assessment: #1 DVT #2 pulmonary embolism #3 history of her miscarriages #4 heavy menses , status post heavy menses Clinically patient is doing very well. I will continue Coumadin 5 mg by mouth daily and recheck PT, INR every 2 months. Last week INR was 3.2. I will check PT/INR today. Clinically stable. Follow-up after 6 months. Plan: Plan discussed with the patient follow up after 6 months. Plan discussed with patient. Note Recipients: Radha Collazo MD - [id number] Henrique Mckee MD - [id number] Select "Yes" when ready to send to Provider(s) Listed Above: Note sent to providers named above Electronic Signatures: Mark Martinez) (Signed 24-Dec-2018 11:53) Authored: Patient Visit Information, History of Present Illness, Review of Systems, Allergies and Outpatient Medication Profile, Problem List, Social History, Performance Assessments, Vitals and Measurements, Physical Exam, Assessment and Plan, To Send Document via Auto Fax Last Updated: 24-Dec-2018 11:53 by Mark Martinez) References: 1. Data Referenced From Clinic Note - Heme Onc-Follow Up Visit" 25-Jun-2018 12:16 Normal [facility] Clinic Note - Intakeon 12-24 Clinic Note - Intake Patient Visit Information: Visit TypeFollow Up Visit Patient StatesFollow up Source of Informationpatient Admission Information: Admission Since Last VisitNo Vital Signs: Temp (degrees C)37 degrees C Temperaturecore Heart Rate (beats/min)76 beats per minute Respiration (breaths/min)16 breath per minute BP Systolic (mm Hg)101 mmHg BP Diastolic (mm Hg)75 mmHg BP Mean (mm Hg)83 mmHg Height in cm167.7 centimeter(s) Height Methodper last note Weight in kg77.2 kilogram(s) BMI (kg/m2)27.4 BSA (m2)1.89 Last 3 Weights & HeightsDate: Weight/Scale Type:Height: 25-Jun-2018 11:5386.2 kg / standing rutmb548.7 cm 08-Jan-2018 13:2584.2 kg / standing acomy483.7 cm SpO2 (%)97 % SpO2 Patient Onroom air Pain Screening: Patient States Painno (0) Allergies: Demerol HCl: Drug, Other, Active Xarelto: Drug, Other, Active Outpatient Medication Profile: * Patient Currently Takes Medications as of 24-Dec-2018 11:25 documented in Structured Notes Coumadin 5 mg oral tablet: Last Dose Taken: , 1 tab(s) orally once a day, Start Date: 07-Jul-2018 B-Complex SR oral tablet, extended release: Last Dose Taken: , 1 tab(s) orally once a day Vitamin C 100 mg oral tablet: Last Dose Taken: , 1 tab(s) orally once a day Zoloft 25 mg oral tablet: Last Dose Taken: , 1 tab(s) orally once a day Benadryl 25 mg oral tablet: Last Dose Taken: , 1 tab(s) orally once a day Senna S 50 mg-8.6 mg oral tablet: Last Dose Taken: , 1 tab(s) orally once a day (at bedtime) Notification: NotificationsAll annual screens currently due. Spiritual/Procedural: Spiritual/cultural/reli gious practices important for us to knowno Adv Dir: Living [facility] Healthcare POAyes Living Will Formsasked to bring forms next visit Healthcare POA Formsasked to bring forms next visit Violence: Do you feel UNSAFE going back to the place you are livingno Are you or have you been threatened or abused physically,emotionally or sexually abused by anyoneno Depression: 1) During the past 2 wks, have you felt down, depressed or hopelessno 4) Have you had thoughts of harming anyone elseno 2) During the past 2 wks, have you felt little interest/pleasure doing things no 3) Have you had thoughts of harming yourselfno Substance: How many times in the past year have you had 4 or more drinks within 24 hours0 How many times in past year have you used recreational or prescription drugs for non-medical reasons0 Patient Declined to Answerno Nutrition/Learning: In the past month, was there any day when you or anyone in your family went hungry because you didn't have enough foodno Primary LanguageEnglish Do you, or others today, need extra help due to problems with hearing,speaking, seeing, moving around or learningno Electronic Signatures: Cristy Orr) (Signed 24-Dec-2018 11:26) Authored: Patient Visit Information, Vital Signs, Allergies, Outpatient Medication Profile, Adult Admission Risk Screen Last Updated: 24-Dec-2018 11:26 by Cristy Orr) Cristela [facility] CNOVcammie 12-09-2018 CNOV Office Visit (UCWSTR ) ANTIONETTE SANDOVAL ([id number]) 1975 F Date Time Provider Department 12/09/18 11:45 AM GURWINDER HINES [facility] During your visit today, we recorded the following information about you: Temperature Pulse Respiration Blood pressure 102 degrees 100/minute 18/minute 102/78 Weight 77.1 kg Gurwinder Hines APRN.DIRECTOR OF BROADCAST 12/09/2018 1:46 PM Signed Subjective HPI Antionette Sandoval is a 43 year old female who presents with headache, body aches, fever, and chills for the last 2 days. She denies any shortness of breath or chest pain. 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 History of DVT and PE. On coumadin daily which is managed by cardiology. Patient denies any similarities of her symptoms with PE and again denies any trouble breathing or chest pain. Review of Systems Constitutional: Positive for chills, fever and malaise/fatigue. HENT: Positive for congestion. Negative for ear pain, sinus pain and sore throat. Respiratory: Positive for cough. Negative for hemoptysis, sputum production, shortness of breath and wheezing. Cardiovascular: Negative for chest pain, palpitations and leg swelling. Gastrointestinal: Negative for diarrhea and vomiting. Musculoskeletal: Positive for joint pain and myalgias. Skin: Negative for itching and rash. Bug bites resolved Neurological: Positive for headaches. Negative for dizziness. BP 102/78 Pulse 100 Temp (!) 38.9 ?C (102 ?F) (Tympanic) Resp 18 Wt 77.1 kg (170 lb) SpO2 93% BMI 27.23 kg/m? 94 % post albuterol. It should be noted patient has thick gel nail french on which may have created a barrier for an accurate SpO2 reading. 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 vitamin b complex (B COMPLEX-VITAMIN B12) ORAL Tab sertraline (ZOLOFT) 25 mg tablet Take 25 mg by mouth once daily. ketoconazole 2 % cream Apply 1 application to affected area twice daily. pyridoxine 100 mg tablet Take 1 tablet by mouth once daily. Aspirin 81 mg Tab Take 1 tablet by mouth once daily. Take with food. FAMILY HISTORY Problem Relation Age of Onset - Allergies Father - Breast Cancer Mother 52 - Cancer Paternal Grandmother 60 uterine - Coronary Artery Disease Father - Diabetes Father - Hypertension Father - other (lupus [Other]) Father from renal failure - Ischemic Heart Disease Maternal Grandfather - COPD Maternal Grandmother - COPD Paternal Grandfather - DVT Mother DVT x 2 - DVT Brother PE x 4 - Cancer Paternal Uncle multiple myeloma Social History Tobacco Use - Smoking status: Current Every Day Smoker Packs/day: 0.50 Years: 13.00 Pack years: 6.50 Types: Cigarettes - Smokeless tobacco: Never Used Substance Use Topics - Alcohol use: Yes Comment: less than 1 drink per month - Drug use: No Objective Physical Exam Constitutional: She is oriented to person, place, and time and well-developed, well-nourished, and in no distress. She appears not dehydrated. She has a sickly appearance. HENT: Head: Normocephalic and atraumatic. Right Ear: Tympanic membrane is bulging. Tympanic membrane is not erythematous. No middle ear effusion. Left Ear: Tympanic membrane is bulging. Tympanic membrane is not erythematous. No middle ear effusion. Nose: Rhinorrhea present. No mucosal edema. Right sinus exhibits no maxillary sinus tenderness and no frontal sinus tenderness. Left sinus exhibits no maxillary sinus tenderness and no frontal sinus tenderness. Mouth/Throat: No oropharyngeal exudate, posterior oropharyngeal edema or posterior oropharyngeal erythema. Eyes: Conjunctivae are normal. Cardiovascular: Normal rate, regular rhythm, normal heart sounds and intact distal pulses. Exam reveals no gallop and no friction rub. No murmur heard. Pulmonary/Chest: Effort normal. No accessory muscle usage. No tachypnea. No respiratory distress. She has wheezes (throughout). She has rales (right sided). She exhibits no tenderness. Musculoskeletal: She exhibits no edema. Lymphadenopathy: She has no cervical adenopathy. Neurological: She is alert and oriented to person, place, and time. Gait normal. Skin: Skin is warm and dry. She is not diaphoretic. Psychiatric: Mood, memory, affect and judgment normal. Patient prefers to go home and be called with CXR results. Her drove her here and will take her back home to rest. ASSESSMENT/PLAN: 1. Pneumonia of right lung due to infectious organism, unspecified part of lung - ICD9: 483.8, ICD10: J18.9 (primary diagnosis) - CXR IMPRESSION: Right hilar prominence with prominent perihilar bronchovascular markings suggesting pneumonia. Suggest follow-up to document full clearing. Manager Corporate Communications: CARLY ? Transcribe Date/Time: Dec 09 2018 12:34P Dictated by : NEYMAR DAVIDSON MD - discussed result via telephone at 1330 with patient - discussed the importance of a follow up with PCP to recheck and get repeat CXR for clearance, appt 12/24/18 for follow up. Encouraged to move appt up if able especially if symptoms are not improving in the next 3-5 days. 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 Fever, unspecified fever cause - ICD9: 780.60, ICD10: R50.9 - INFLUENZA AANDB MOLECULAR (POC)- negative in clinic 3. Low oxygen saturation - ICD9: 790.91, ICD10: R79.81 - SpO2 improved slightly from 93 to 94% with tx - will order albuterol to use at home - red flags discussed Patient understands if he/she develops any shortness of breath, chest pain, or persistent fever, they should be taken to the ER immediately or call 911. All of the above discussed with the patient in detail. Patient is in agreement with the above plan. Treatment and plan of care discussed including course of treatment, possible medication side effects, and what to watch for in regards to worsening signs and symptoms. All questions addressed. BANDAR Carnes LPN 12/09/2018 1:39 PM Signed 2.5 solution aerosol treatment given per provider's orders. Prior to treatment O2 sat is 93%. Treatment completed. O2 sat is 94%. Tolerated well. Laura Hines APRN.CNP 12/11/2018 6:24 AM Signed Addended by: GURWINDER HINES APRN.CNP on: 12/11/2018 06:24 AM Modules accepted: Orders Gurwinder Hines APRN.CNP 12/17/2018 12:41 PM Signed Addended by: GURWINDER HINES APRN.CNP on: 12/17/2018 12:41 PM Modules accepted: Orders Referring Provider: SELF [200] Allergies As of Date: 12/09/2018 Noted Allergy Reaction DEMEROL (MEPERIDINE (PF)) 10/04/2006 11 - Vomiting Comments: nausea Date Reviewed: 12/09/2018 Reviewed by: Gurwinder Hines - Fully Assessed Reason for Visit: Headache [52] Cmt: bodyaches, joint pain, bodyaches, fever and cough x 2 days Reason For Visit History Recorded Primary Visit Diagnosis:Pneumonia of right lung due to infectious organism, unspecified part of lung [J18.9] Other Visit Diagnoses:Fever, unspecified fever cause [R50.9] Low oxygen saturation [R79.81] Order(s):INFLUENZA AANDB MOLECULAR (POC) [3516150] Order #: [id number] FUTURE XR CHEST 2V FRONTAL/LAT [[id number]] Order #: [id number] FUTURE INFLUENZA AANDB MOLECULAR (POC) [[id number]] Order #: [id number]. #:[id number] doxycycline monohydrate (MONODOX) 100 mg capsuleTake 1 capsule by mouth twice daily.Disp: 20 capsuleRfl: 0 albuterol HFA (PROAIR HFA) 90 mcg/actuation inhalerInhale 2 Puffs as instructed every 6 hours as needed.Disp: 1 InhalerRfl: 0 [] albuterol 2.5 mg /3 mL (0.083 %) 2.5 mg (PROVENTIL)Disp: Rfl: Prescriptions as of 12/09/2018 Sig: WARFARIN 5 MG TABLET TAKE 1 TABLET BY MOUTH EVERY * * FOLIC ACID 1 MG TABLET Take one(1) tablet daily. * B COMPLEX-VITAMIN B12 TABLET SERTRALINE 25 MG TABLET Take 25 mg by mouth once sarah* DOXYCYCLINE MONOHYDRATE 100 M* Take 1 capsule by mouth twice* ALBUTEROL SULFATE HFA 90 MCG/* Inhale 2 Puffs as instructed * KETOCONAZOLE 2 % TOPICAL CREAM Apply 1 application to affect* Patient not taking: Reported on 12/09/2018 * PYRIDOXINE (VITAMIN B6) 100 M* Take 1 tablet by mouth once d* * ASPIRIN 81 MG TABLET Take 1 tablet by mouth once d* Problem List As Of Date 12/09/2018 Noted Resolved History of DVT of lower extremity [Z86.718] More... Renal calculus [N20.0] More... Hyperhomocysteinemia [E72.11] Tobacco use [Z72.0] Epicondylitis syndrome of elbow [CHX2288] More... Visit Notes: >> Laura Simon Dec 09, 2018 1:38 PM Status: Signed 2.5 solution aerosol treatment given per provider's orders. Prior to treatment O2 sat is 93%. Treatment completed. O2 sat is 94%. Tolerated well. Laura Olivares LPN Prescriptions ordered this encounter Disp Refills Start End DOXYCYCLINE MONOHYDRATE 100 MG CAPSU* 20 c* 0 12/09/2018 Route: ORAL Sig: Take 1 capsule by mouth twice daily. ALBUTEROL SULFATE HFA 90 MCG/ACTUATI* 1 In* 0 12/09/2018 Route: INHALATION Sig: Inhale 2 Puffs as instructed every 6 hours as needed. ALBUTEROL SULFATE 2.5 MG/3 ML (0.083* 12/09/2018 12/09/2018 Route: INHALATION ALBUTEROL SULFATE 2.5 MG/3 ML (0.083* 12/09/2018 12/09/2018 Route: INHALATION Medications Discontinued During This Encounter albuterol 2.5 mg /3 mL (0.083 %) 2.5* 12/09/2018 12/17/2018 Route: INHALATION Sig: Disc: Reason for discontinue is not on file. Letter Text Encounter Status:Closed by GURWINDER HINES APRN.CNP on 12/09/18 [facility] PROGRESSon 12-09-2018 PROGRESS HNO ID: [id number] Author: Shilpi Hart (RtNeal Carpenter Service: ? Author Type: Stroke Coordinator Type: Progress Notes Filed: 12/09/2018 12:30 PM Note Text: Radiology Service Progress Note PATIENT NAME: Antionette Sandoval DATE OF SERVICE: December 09, 2018 TIME: 12:19 PM PATIENT IDENTITY VERIFICATION COMPLETED USING TWO (2) METHODS: Name and Date of confirmed by patient verbally. PATIENT GENDER DATA: Female. status: : No status: NO. PATIENT RELEVANT IMPLANT DATA REVIEWED: Not Applicable RADIOLOGY DEPARTMENT: General X-ray: Exam(s) Completed: Chest X-Ray PERIPHERAL IV DATA: Not applicable SIGNED BY: RT Lana December 09, 2018 12:19 PM [facility] PROGRESS HNO ID: [id number] Author: Gurwinder Hines Service: ? Author Type: Nurse Practitioner Type: Progress Notes Filed: 12/09/2018 1:46 PM Note Text: Subjective HPI Antionette Sandoval is a 43 year old female who presents with headache, body aches, fever, and chills for the last 2 days. She denies any shortness of breath or chest pain. 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 History of DVT and PE. On coumadin daily which is managed by cardiology. Patient denies any similarities of her symptoms with PE and again denies any trouble breathing or chest pain. Review of Systems Constitutional: Positive for chills, fever and malaise/fatigue. HENT: Positive for congestion. Negative for ear pain, sinus pain and sore throat. Respiratory: Positive for cough. Negative for hemoptysis, sputum production, shortness of breath and wheezing. Cardiovascular: Negative for chest pain, palpitations and leg swelling. Gastrointestinal: Negative for diarrhea and vomiting. Musculoskeletal: Positive for joint pain and myalgias. Skin: Negative for itching and rash. Bug bites resolved Neurological: Positive for headaches. Negative for dizziness. BP 102/78 Pulse 100 Temp (!) 38.9 ?C (102 ?F) (Tympanic) Resp 18 Wt 77.1 kg (170 lb) SpO2 93% BMI 27.23 kg/m? 94 % post albuterol. It should be noted patient has thick gel nail french on which may have created a barrier for an accurate SpO2 reading. 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 vitamin b complex (B COMPLEX-VITAMIN B12) ORAL Tab sertraline (ZOLOFT) 25 mg tablet Take 25 mg by mouth once daily. ketoconazole 2 % cream Apply 1 application to affected area twice daily. pyridoxine 100 mg tablet Take 1 tablet by mouth once daily. Aspirin 81 mg Tab Take 1 tablet by mouth once daily. Take with food. FAMILY HISTORY Problem Relation Age of Onset - Allergies Father - Breast Cancer Mother 52 - Cancer Paternal Grandmother 60 uterine - Coronary Artery Disease Father - Diabetes Father - Hypertension Father - other (lupus [Other]) Father from renal failure - Ischemic Heart Disease Maternal Grandfather - COPD Maternal Grandmother - COPD Paternal Grandfather - DVT Mother DVT x 2 - DVT Brother PE x 4 - Cancer Paternal Uncle multiple myeloma Social History Tobacco Use - Smoking status: Current Every Day Smoker Packs/day: 0.50 Years: 13.00 Pack years: 6.50 Types: Cigarettes - Smokeless tobacco: Never Used Substance Use Topics - Alcohol use: Yes Comment: less than 1 drink per month - Drug use: No Objective Physical Exam Constitutional: She is oriented to person, place, and time and well-developed, well-nourished, and in no distress. She appears not dehydrated. She has a sickly appearance. HENT: Head: Normocephalic and atraumatic. Right Ear: Tympanic membrane is bulging. Tympanic membrane is not erythematous. No middle ear effusion. Left Ear: Tympanic membrane is bulging. Tympanic membrane is not erythematous. No middle ear effusion. Nose: Rhinorrhea present. No mucosal edema. Right sinus exhibits no maxillary sinus tenderness and no frontal sinus tenderness. Left sinus exhibits no maxillary sinus tenderness and no frontal sinus tenderness. Mouth/Throat: No oropharyngeal exudate, posterior oropharyngeal edema or posterior oropharyngeal erythema. Eyes: Conjunctivae are normal. Cardiovascular: Normal rate, regular rhythm, normal heart sounds and intact distal pulses. Exam reveals no gallop and no friction rub. No murmur heard. Pulmonary/Chest: Effort normal. No accessory muscle usage. No tachypnea. No respiratory distress. She has wheezes (throughout). She has rales (right sided). She exhibits no tenderness. Musculoskeletal: She exhibits no edema. Lymphadenopathy: She has no cervical adenopathy. Neurological: She is alert and oriented to person, place, and time. Gait normal. Skin: Skin is warm and dry. She is not diaphoretic. Psychiatric: Mood, memory, affect and judgment normal. Patient prefers to go home and be called with CXR results. Her drove her here and will take her back home to rest. ASSESSMENT/PLAN: 1. Pneumonia of right lung due to infectious organism, unspecified part of lung - ICD9: 483.8, ICD10: J18.9 (primary diagnosis) - CXR IMPRESSION: Right hilar prominence with prominent perihilar bronchovascular markings suggesting pneumonia. Suggest follow-up to document full clearing. Manager Corporate Communications: CARLY ? Transcribe Date/Time: Dec 09 2018 12:34P Dictated by : NEYMAR DAVIDSON MD - discussed result via telephone at 1330 with patient - discussed the importance of a follow up with PCP to recheck and get repeat CXR for clearance, appt 12/24/18 for follow up. Encouraged to move appt up if able especially if symptoms are not improving in the next 3-5 days. 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 Fever, unspecified fever cause - ICD9: 780.60, ICD10: R50.9 - INFLUENZA AANDB MOLECULAR (POC)- negative in clinic 3. Low oxygen saturation - ICD9: 790.91, ICD10: R79.81 - SpO2 improved slightly from 93 to 94% with tx - will order albuterol to use at home - red flags discussed Patient understands if he/she develops any shortness of breath, chest pain, or persistent fever, they should be taken to the ER immediately or call 911. All of the above discussed with the patient in detail. Patient is in agreement with the above plan. Treatment and plan of care discussed including course of treatment, possible medication side effects, and what to watch for in regards to worsening signs and symptoms. All questions addressed. Gurwinder Hines APRN.DIRECTOR OF BROADCAST Normal [facility] XR CHEST 2V FRONTAL/LATon XR CHEST 2V FRONTAL/LAT * * *Final Report* * * DATE OF EXAM: Dec 09 2018 12:30PM WOX [id number] - XR CHEST 2V FRONTAL/LAT / PROCEDURE REASON: multiple diagnoses * * * * Physician Interpretation * * * * EXAMINATION: CHEST RADIOGRAPH (2 VIEW FRONTAL and LATERAL) CLINICAL HISTORY: Fever, unspecified fever cause Low oxygen saturation MQ: XC2_5 Comparison: There are no prior studies for comparison RESULT: Lines, tubes, and devices: None. Lungs and pleura: There is right hilar prominence and perihilar peribronchial stranding suggesting right perihilar pneumonia. It is best appreciated on the frontal view. Cardiomediastinal silhouette: The cardiac silhouette and mediastinal shadows are within normal limits. Other: The bony structures are intact IMPRESSION: Right hilar prominence with prominent perihilar bronchovascular markings suggesting pneumonia. Suggest follow-up to document full clearing. Manager Corporate Communications: CARLY Transcribe Date/Time: Dec 09 2018 12:34P Dictated by : NEYMAR DAVIDSON MD This examination was interpreted and the report reviewed and electronically signed by: NEYMAR DAVIDSON MD on Dec 09 2018 1:23PM EST [id number] Normal [facility] ZENIA + LEIDA PANELon 06-27-2018 ANTI-CENTROMERE <0.2 Normal [facility] Comment on above: Result Comment: REF VALUES < 1.0 = NEGATIVE >=1.0 = POSITIVE Performed By: #### A NAP2 ####[id number] [place] [address] ANTI-CHROMATIN <0.2 Normal [facility] Comment on above: Result Comment: REF VALUES < 1.0 = NEGATIVE >=1.0 = POSITIVE Performed By: #### A NAP2 ####[id number] [place] [address] ANTI-DNA [DS] <1.0 Normal [facility] Comment on above: Result Comment: REF VALUES NEGATIVE: <= 4 IU/ML EQUIVOCAL: 5- 9 IU/ML POSITIVE: >=10 IU/ML Performed By: #### A NAP2 ####[id number] [place] [address] ANTI-GILLES-1 <0.2 Normal [facility] Comment on above: Result Comment: REF VALUES < 1.0 = NEGATIVE >=1.0 = POSITIVE Performed By: #### A NAP2 ####[id number] [place] [address] ANTI-RIBOSOMAL P 0.3 AI Normal [facility] Comment on above: Result Comment: REF VALUES < 1.0 = NEGATIVE >=1.0 = POSITIVE Performed By: #### A NAP2 ####[id number] [place] [address] ANTI-GLASS BEVELLER <0.2 Normal [facility] Comment on above: Result Comment: REF VALUES < 1.0 = NEGATIVE >=1.0 = POSITIVE Performed By: #### A NAP2 ####[id number] [place] [address] ANTI-SCL-70 <0.2 Normal [facility] Comment on above: Result Comment: REF VALUES < 1.0 = NEGATIVE >=1.0 = POSITIVE Performed By: #### A NAP2 ####[id number] [place] [address] ANTI-SM <0.2 Normal [facility] Comment on above: Result Comment: REF VALUES < 1.0 = NEGATIVE >=1.0 = POSITIVE Performed By: #### A NAP2 ####[id number] [place] [address] ANTI-SM/GLASS BEVELLER <0.2 Normal [facility] Comment on above: Result Comment: REF VALUES < 1.0 = NEGATIVE >=1.0 = POSITIVE Performed By: #### A NAP2 ####[id number] [place] [address] ANTI-SSA <0.2 Normal [facility] Comment on above: Result Comment: REF VALUES < 1.0 = NEGATIVE >=1.0 = POSITIVE Performed By: #### A NAP2 ####[id number] [place] [address] ANTI-SSB <0.2 Normal [facility] Comment on above: Result Comment: REF VALUES < 1.0 = NEGATIVE >=1.0 = POSITIVE Performed By: #### A NAP2 ####[id number] [place] [address] ZENIA + LEIDA PANELon 06-26-2018 ZENIA WITH REFLEX TO LEIDA Negative Normal NEGATIVE [facility] Comment on above: Performed By: #### A NAP2 ####[id number] [place] [address] MISCELLANEOUS TEST-SOARIANon 06-26-2018 MISCELLANEOUS Canceled Normal [facility] Comment on above: Order Comment: TEST MISCELLANEOUS TEST-SOARIAN WAS CANCELLED, 06/25/2018 12:27 RBS update.. Performed By: #### M ISCS #### GENERAL SENDOUT Order Comment: TEST MISCELLANEOUS TEST WAS CANCELLED, 06/26/2018 17:29 no testing ordered. Performed By: #### M ISC1 #### GENERAL SENDOUT NAME OF SEND OUT TEST Canceled Normal [facility] Comment on above: Order Comment: TEST MISCELLANEOUS TEST-SOARIAN WAS CANCELLED, 06/25/2018 12:27 RBS update.. Performed By: #### M ISCS #### GENERAL SENDOUT Order Comment: TEST MISCELLANEOUS TEST WAS CANCELLED, 06/26/2018 17:29 no testing ordered. Performed By: #### M ISC1 #### GENERAL SENDOUT C-REACTIVE PROTEINon 019 CRP [Mass/Vol] 0.26 mg/dL Normal [facility] Comment on above: Result Comment: REF VALUE < 1.00 Performed By: #### C RP #### [facility] [id number] [place] [address] Clinic Note - Heme Onc-Follo w Up Visiton 06-25-2018 Clinic Note - Heme Onc-Follow Up Visit Patient Visit Information: Visit Type: Follow Up Visit History of Present Illness: Chief Complaint: Pulmonary embolism, DVT Interval History: The patient was initially seen by me in November 2012 for possible thrombophilia. She developed DVT in 2000 after a cholecystectomy, the patient was treated with blood thinner, and then the patient also complained of menorrhagia and easy bruisability. DIRECTOR OF EDUCATION evaluation did show endometrial fibroid, which could [...] pain, went to the emergency room at [facility]. CAT scan did show left lung pulmonary embolism. Currently she is taking Coumadin 5 mg by mouth daily. Status post hysterectomy in January 2017. Patient doing very well and the INR has been between 2.0-2.5. To date INR is 3.4, no history of bleeding. Patient complaining facial rash and dryness of eyes no sore throat. Review of Systems: Review of Systems: No headache No chest pain and shortness of breath No cough No nausea vomiting Sometime patient has nonspecific abdominal pain No history of bleeding She is working full-time She is very active Complaining of facial rash Allergies and Intolerances: Allergies: Demerol HCl: Drug, Other, Active Xarelto: Drug, Other, Active Outpatient Medication Profile: * Patient Currently Takes Medications as of 25-Jun-2018 11:57 documented in Structured Notes Coumadin 5 mg oral tablet: Last Dose Taken: , 1 tab(s) orally once a day, Start Date: 22-Jan-2018 B-Complex SR oral tablet, extended release: Last Dose Taken: , 1 tab(s) orally once a day Vitamin C 100 mg oral tablet: Last Dose Taken: , 1 tab(s) orally once a day Zoloft 25 mg oral tablet: Last Dose Taken: , 1 tab(s) orally once a day Benadryl 25 mg oral tablet: Last Dose Taken: , 1 tab(s) orally once a day Senna S 50 mg-8.6 mg oral tablet: 1 tab(s) orally once a day (at bedtime) Medical History: Skin rash: Status: Active Iron [...] Status: never smoker (1) Alcohol Use: denies(1) Vitals and Measurements: Vitals: Temp: 36.7 HR: 72 RR: 18 BP: 129/71 SPO2%: 95 Measurements: HT(cm): 167.7 WT(kg): 86.2 BSA: 2 BMI: 30.6 Last 3 Weights & Heights: Date: Weight/Scale Type:Height: 25-Jun-2018 11:5386.2 kg / standing sazky995.7 cm 08-Jan-2018 13:2584.2 kg / standing heqro871.7 cm 03-Jul-2017 12:5787.9 kg / standing gmjki709.7 cm Physical Exam: Constitutional: awake/alert/oriented x3, no [...] senses, motor, response and reflexes, normal strength Breast: No mass, nontender Lymphatic: No lymphadenopathy Psychological: Appropriate mood and behavior Skin: Warm and dry, a faint rashes seen on her cheek and chin Lab Results: Results CBC date/time WBC HGB HCT PLT Neut 08-Jan-2018 13:22 8.1 14.2 43.1 230 5.39 Assessment and Plan: Assessment and Plan: Assessment: #1 DVT #2 pulmonary embolism #3 history of her miscarriages #4 heavy menses , status post heavy menses Clinically patient is doing very well. I will continue Coumadin 5 mg by mouth daily and recheck PT, INR every 2 months. Today INR is slightly elevated at 3.4, I will not change her Coumadin dose. Patient has history of skin rash and ZENIA was positive in the past I will initiate connective tissue workup. Plan: Plan discussed with the patient follow up after 6 months. Plan discussed with patient. Note Recipients: Radha Collazo MD - [id number] Select "Yes" when ready to send to Provider(s) Listed Above: Note sent to providers named above Electronic Signatures: Mark Martinez) (Signed 25-Jun-2018 12:20) Authored: Patient Visit Information, History of Present Illness, Review of Systems, Allergies and Outpatient Medication Profile, Problem List, Social History, Performance Assessments, Vitals and Measurements, Physical Exam, Results, Assessment and Plan, To Send Document via Auto Fax Last Updated: 25-Jun-2018 12:20 by Mark Martinez) References: 1. Data Referenced From Clinic Note - Heme Onc-Follow Up Visit" 01/08/2018 01:48 PM Normal [facility] Clinic Note - Intakeon 06-25 Clinic Note - Intake Patient Visit Information: Visit TypeFollow Up Visit Patient StatesFollow up appointment Source of Informationpatient Admission Information: Admission Since Last VisitNo Vital Signs: Temp (degrees C)36.7 degrees C Temperaturecore Heart Rate (beats/min)72 beats per minute Respiration (breaths/min)18 breath per minute BP Systolic (mm Hg)129 mmHg BP Diastolic (mm Hg)71 mmHg BP Mean (mm Hg)90 mmHg Height in cm167.7 centimeter(s) Height Methodstated Heightstanding Weight in kg86.2 kilogram(s) Weight Methodstanding scale BMI (kg/m2)30.6 BSA (m2)2 Last 3 Weights & HeightsDate: Weight/Scale Type:Height: 08-Jan-2018 13:2584.2 kg / standing .7 cm 03-Jul-2017 12:5787.9 kg / standing xzaem261.7 cm SpO2 (%)95 % SpO2 Patient Onroom air Pain Screening: Patient States Painno (0) Pain Scale UsedNumeric (0-10) Currently on a Pain Regimenno Table Maker for intimate exam offered to patient: Patient hasdeclined Allergies: Demerol HCl: Drug, Other, Active Xarelto: Drug, Other, Active Outpatient Medication Profile: * Patient Currently Takes Medications as of 25-Jun-2018 11:57 documented in Structured Notes Coumadin 5 mg oral tablet: Last Dose Taken: , 1 tab(s) orally once a day, Start Date: 22-Jan-2018 B-Complex SR oral tablet, extended release: Last Dose Taken: , 1 tab(s) orally once a day Vitamin C 100 mg oral tablet: Last Dose Taken: , 1 tab(s) orally once a day Zoloft 25 mg oral tablet: Last Dose Taken: , 1 tab(s) orally once a day Benadryl 25 mg oral tablet: Last Dose Taken: , 1 tab(s) orally once a day Senna S 50 mg-8.6 mg oral tablet: 1 tab(s) orally once a day (at bedtime) Notification: NotificationsAnnual Screens Due Dates Advanced Directives: [...] the patient using an assistive deviceno Spiritual/Procedural: Spiritual/cultural/reli gious practices important for us to knowno Electronic Signatures: Rosa Maria Bauer) (Signed 25-Jun-2018 11:57) Authored: Patient Visit Information, Vital Signs, Table Maker, Allergies, Outpatient Medication Profile, Adult Admission Risk Screen Last Updated: 25-Jun-2018 11:57 by Rosa Maria Bauer (NEHA) Normal [facility] CBC AND DIFFERENTIALon 01-08 Basophils (Bld) [#/Vol] 0.02 10*3/uL Normal 0.00 - 0.10 [facility] Comment on above: Performed By: #### C BCDF #### [address] [address] Basophils/100 WBC (Bld) 0.2 % Normal 0.0 - 2.0 [facility] Comment on above: Performed By: #### C BCDF #### [address] [address] Eosinophils (Bld) [#/Vol] 0.15 10*3/uL Normal 0.00 - 0.70 [facility] Comment on above: Performed By: #### C BCDF #### [address] [address] Eosinophils/100 WBC (Bld) 1.9 % Normal 0.0 - 6.0 [facility] Comment on above: Performed By: #### C BCDF #### [address] [address] Erythrocyte distribution width (RBC) [Ratio] 13.8 % Normal 11.5 - 14.5 [facility] Comment on above: Performed By: #### C BCDF #### [address] [address] Hematocrit (Bld) [Volume fraction] 43.1 % Normal 36.0 - 46.0 [facility] Comment on above: Performed By: #### C BCDF #### [address] [address] Hemoglobin (Bld) [Mass/Vol] 14.2 g/dL Normal 12.0 - 16.0 [facility] Comment on above: Performed By: #### C BCDF #### [address] [address] Lymphocytes (Bld) [#/Vol] 2.02 10*3/uL Normal 1.20 - 4.80 [facility] Comment on above: Performed By: #### C BCDF #### [address] [address] Lymphocytes/100 WBC (Bld) 25.0 % Normal 13.0 - 44.0 [facility] Comment on above: Performed By: #### C BCDF #### [address] [address] MCHC (RBC) [Mass/Vol] 32.9 g/dL Normal 32.0 - 36.0 [facility] Comment on above: Performed By: #### C BCDF #### [address] [address] MCV (RBC) [Entitic vol] 86 fL Normal 80 - 100 [facility] Comment on above: Performed By: #### C BCDF #### [address] [address] Monocytes (Bld) [#/Vol] 0.50 10*3/uL Normal 0.10 - 1.00 [facility] Comment on above: Performed By: #### C BCDF #### [address] [address] Monocytes/100 WBC (Bld) 6.2 % Normal 2.0 - 10.0 [facility] Comment on above: Performed By: #### C BCDF #### [address] [address] Neutrophils (Bld) [#/Vol] 5.39 10*3/uL Normal 1.20 - 7.70 [facility] Comment on above: Result Comment: Perc ent differential counts (%) should be interpreted in the context of the absolute cell counts (cells/L). Performed By: #### C BCDF #### [address] [address] Neutrophils/100 WBC (Bld) 66.7 % Normal 40.0 - 80.0 [facility] Comment on above: Performed By: #### C BCDF #### [address] [address] Platelets (Bld) [#/Vol] 230 10*3/uL Normal 150 - 450 [facility] Comment on above: Performed By: #### C BCDF #### [address] [address] RBC (Bld) [#/Vol] 5.00 x10E12/L Normal 4.00 - 5.20 [facility] Comment on above: Performed By: #### C BCDF #### [address] [address] WBC (Bld) [#/Vol] 8.1 10*3/uL Normal 4.4 - 11.3 [facility] [place] Comment on above: Performed By: #### C BCDF #### [address] [address] Clinic Note - Heme Onc-Follo w Up Visiton 01-08-2018 Clinic Note - Heme Onc-Follow Up Visit Patient Visit Information: Visit Type: Follow Up Visit History of Present Illness: Chief Complaint: Pulmonary embolism, DVT Interval History: The patient was initially seen by me in November 2012 for possible thrombophilia. She developed DVT in 2000 after a cholecystectomy, the patient was treated with blood thinner, and then the patient also complained of menorrhagia and easy bruisability. DIRECTOR OF EDUCATION evaluation did show endometrial fibroid, which could [...] pain, went to the emergency room at [facility]. CAT scan did show left lung pulmonary [...] Weight/Scale Type:Height: 08-Jan-2018 13:2584.2 kg / standing asjoo513.7 cm 03-Jul-2017 12:5787.9 kg / standing .7 cm 09-Jan-2017 13:2386.9 kg / standing yyhvc572.1 cm Physical Exam: Constitutional: awake/alert/oriented x3, no [...] months. Note Recipients: Radha Collazo MD - [phone] Select "Yes" when ready to send to Provider(s) Listed [...] Last Updated: 08-Jan-2018 13:52 by Mark Martinez) Normal [facility] Clinic Note - Intakeon 01-08 Clinic Note - Intake Patient Visit Information: Visit TypeFollow Up Visit [...] air Pain Screening: Patient States Painno (0) Table Maker for intimate exam offered to patient: Patient [...] the patient using an assistive deviceno Spiritual/Procedural: Spiritual/cultural/reli gious practices important for us to knowno Electronic Signatures: Sobeida Boyd I) (Signed 08-Jan-2018 13:30) Authored: Patient Visit Information, Vital Signs, Table Maker, Allergies, Outpatient Medication Profile, Adult Admission Risk Screen Last Updated: 08-Jan-2018 13:30 by Sobeida Boyd I) Normal [facility] HOMOCYSTEINEon 01-08-2018 HOMOCYSTEINE 10.30 umol/L Normal 5.00 - 13.90 [facility] Comment on above: Result Comment: Coreen ents receiving more than 5 mg/day of biotin may have interference in test results. A sample should be taken no sooner than eight hours after previous dose. Contact [phone] for additional information. Performed By: #### H OMC #### [facility] [address] [place] [address] PT/INRon 01-08-2018 INR Coag (PPP) [Relative time] 2.9 {INR} High 0.9 - 1.1 [facility] Comment on above: Performed By: #### P TINR #### [facility] [place] [address] [place] [address] PT Coag (PPP) [Time] 32.4 s High 9.8 - 12.7 [facility], [place], operated by [facility] Comment on above: Performed By: #### P TINR #### [facility] [place] [address] [place] [address] Vital Signs Date Time Vital Sign Value Performing Clinician Facility 12-08-2024 15:56-0400 Body height 168.9 cm Maria Del Carmen Garza APRN - DIRECTOR OF BROADCAST Work Phone: [facility] 12-08-2024 15:56-0400 Body mass index (BMI) [Ratio] 33.01 kg/m2 Maria Del Carmen Garza APRN - DIRECTOR OF BROADCAST Work Phone: [facility] 12-08-2024 15:56-0400 Body temperature 98.01 [degF] Maria Del Carmen Garza APRN - DIRECTOR OF BROADCAST Work Phone: [facility] 12-08-2024 15:56-0400 Body weight 94.17 kg Mraia Del Carmen Garza APRN - DIRECTOR OF BROADCAST Work Phone: [facility] 12-08-2024 15:56-0400 Diastolic blood pressure 78 mm[Hg] Maria Del Carmen Garza APRN - DIRECTOR OF BROADCAST Work Phone: [facility] 12-08-2024 15:56-0400 Heart rate 69 /min Maria Del Carmen Garza APRN - DIRECTOR OF BROADCAST Work Phone: [facility] 12-08-2024 15:56-0400 SaO2% (BldA) [Mass fraction] 95 % Maria Del Carmen Garza SURVEY ASSOCIATE - DIRECTOR OF BROADCAST Work Phone: [facility] 12-08-2024 15:56-0400 Systolic blood pressure 129 mm[Hg] Maria Del Carmen Garza SURVEY ASSOCIATE - DIRECTOR OF BROADCAST Work Phone: [facility] 11-16-2024 09:00-0400 Body height 168.9 cm Yareli Louis SURVEY ASSOCIATE - DIRECTOR OF BROADCAST Work Phone: [facility] 11-16-2024 09:00-0400 Body mass index (BMI) [Ratio] 33.13 kg/m2 Yareli Heriberto SURVEY ASSOCIATE - DIRECTOR OF BROADCAST Work Phone: [facility] 11-16-2024 09:00-0400 Body weight 94.53 kg Yareli Heriberto SURVEY ASSOCIATE - DIRECTOR OF BROADCAST Work Phone: [facility] 11-16-2024 09:00-0400 Diastolic blood pressure 66 mm[Hg] Yareli Louis SURVEY ASSOCIATE - DIRECTOR OF BROADCAST Work Phone: [facility] 11-16-2024 09:00-0400 Heart rate 72 /min Yareli Louis SURVEY ASSOCIATE - DIRECTOR OF BROADCAST Work Phone: [facility] 11-16-2024 09:00-0400 SaO2% (BldA) [Mass fraction] 93 % Yareli Louis SURVEY ASSOCIATE - DIRECTOR OF BROADCAST Work Phone: [facility] 11-16-2024 09:00-0400 Systolic blood pressure 98 mm[Hg] Yareli Heriberto SURVEY ASSOCIATE - DIRECTOR OF BROADCAST Work Phone: [facility] 09-16-2024 10:40-0400 Body height 167.6 cm Yareli Heriberto SURVEY ASSOCIATE - DIRECTOR OF BROADCAST Work Phone: [facility] 09-16-2024 10:40-0400 Body mass index (BMI) [Ratio] 33.57 kg/m2 Yareli Heriberto SURVEY ASSOCIATE - DIRECTOR OF BROADCAST Work Phone: [facility] 09-16-2024 10:40-0400 Body weight 94.35 kg Yareli Louis SURVEY ASSOCIATE - DIRECTOR OF BROADCAST Work Phone: [facility] 09-16-2024 10:40-0400 Diastolic blood pressure 75 mm[Hg] Yareli Louis SURVEY ASSOCIATE - DIRECTOR OF BROADCAST Work Phone: [facility] 09-16-2024 10:40-0400 Heart rate 77 /min Yareli Louis SURVEY ASSOCIATE - DIRECTOR OF BROADCAST Work Phone: [facility] 09-16-2024 10:40-0400 SaO2% (BldA) [Mass fraction] 95 % Yareli Louis SURVEY ASSOCIATE - DIRECTOR OF BROADCAST Work Phone: [facility] 09-16-2024 10:40-0400 Systolic blood pressure 106 mm[Hg] Yareli Heriberto SURVEY ASSOCIATE - DIRECTOR OF BROADCAST Work Phone: [facility] 07-30-2024 10:30-0400 Body height 167.6 cm Henrique Mckee MD Work Phone: [facility] 07-30-2024 10:30-0400 Body mass index (BMI) [Ratio] 32.28 kg/m2 Henrique Mckee MD Work Phone: [facility] 07-30-2024 10:30-0400 Body weight 90.72 kg Henrique Mckee MD Work Phone: [facility] 05-20-2024 13:42-0500 Body height 168.9 cm Yareli Louis SURVEY ASSOCIATE - DIRECTOR OF BROADCAST Work Phone: [facility] 05-20-2024 13:42-0500 Body mass index (BMI) [Ratio] 32.81 kg/m2 Yareli Louis SURVEY ASSOCIATE - DIRECTOR OF BROADCAST Work Phone: [facility] 05-20-2024 13:42-0500 Body weight 93.62 kg Yareli Louis SURVEY ASSOCIATE - DIRECTOR OF BROADCAST Work Phone: [facility] 05-20-2024 13:42-0500 Diastolic blood pressure 61 mm[Hg] Yareli Louis SURVEY ASSOCIATE - DIRECTOR OF BROADCAST Work Phone: [facility] 05-20-2024 13:42-0500 Heart rate 76 /min Yareli Louis SURVEY ASSOCIATE - DIRECTOR OF BROADCAST Work Phone: [facility] 05-20-2024 13:42-0500 SaO2% (BldA) [Mass fraction] 95 % Yareli Louis SURVEY ASSOCIATE - DIRECTOR OF BROADCAST Work Phone: [facility] 05-20-2024 13:42-0500 Systolic blood pressure 99 mm[Hg] Yareli Louis SURVEY ASSOCIATE - DIRECTOR OF BROADCAST Work Phone: [facility] 01-31-2024 10:14-0500 Body height 168.9 cm Mainor Lakhani MD Work Phone: [facility] 01-31-2024 10:14-0500 Body mass index (BMI) [Ratio] 32.27 kg/m2 Mainor Lakhani MD Work Phone: [facility] 01-31-2024 10:14-0500 Body weight 92.08 kg Mainor Lakhani MD Work Phone: [facility] 01-31-2024 10:14-0500 Diastolic blood pressure 72 mm[Hg] Mainor Lakhani MD Work Phone: [facility] 01-31-2024 10:14-0500 Heart rate 73 /min Mainor Lakhani MD Work Phone: [facility] 01-31-2024 10:14-0500 Systolic blood pressure 100 mm[Hg] Mainor Lakhani MD Work Phone: [facility] 01-22-2024 15:07-0400 Body height 167.6 cm Yareli Louis SURVEY ASSOCIATE - DIRECTOR OF BROADCAST Work Phone: [facility] 01-22-2024 15:07-0400 Body mass index (BMI) [Ratio] 32.94 kg/m2 Yareli Louis SURVEY ASSOCIATE - DIRECTOR OF BROADCAST Work Phone: [facility] 01-22-2024 15:07-0400 Body weight 92.58 kg Yareli Louis SURVEY ASSOCIATE - DIRECTOR OF BROADCAST Work Phone: [facility] 01-22-2024 15:07-0400 Diastolic blood pressure 80 mm[Hg] Yareli Louis SURVEY ASSOCIATE - DIRECTOR OF BROADCAST Work Phone: [facility] 01-22-2024 15:07-0400 Heart rate 71 /min Yareli Louis SURVEY ASSOCIATE - DIRECTOR OF BROADCAST Work Phone: [facility] 01-22-2024 15:07-0400 SaO2% (BldA) [Mass fraction] 97 % Yareli Louis SURVEY ASSOCIATE - DIRECTOR OF BROADCAST Work Phone: [facility] 01-22-2024 15:07-0400 Systolic blood pressure 122 mm[Hg] Yareli Louis SURVEY ASSOCIATE - DIRECTOR OF BROADCAST Work Phone: [facility] 12-25-2023 14:07-0400 Body height 167.6 cm Genevieve Cardona PA-C Work Phone: [facility] 12-25-2023 14:07-0400 Body mass index (BMI) [Ratio] 32.44 kg/m2 Genevieve Cardona PA-C Work Phone: [facility] 12-25-2023 14:07-0400 Body weight 91.17 kg Genevieve Cardona PA-C Work Phone: [facility] 12-25-2023 14:07-0400 Diastolic blood pressure 73 mm[Hg] Genevieve Cardona PA-C Work Phone: [facility] 12-25-2023 14:07-0400 Heart rate 79 /min Genevieve Cardona PA-C Work Phone: [facility] 12-25-2023 14:07-0400 Systolic blood pressure 109 mm[Hg] Genevieve Cardona PA-C Work Phone: [facility] 12-13-2023 14:18-0400 Body height 167.6 cm Genevieve Cardona PA-C Work Phone: [facility] 12-13-2023 14:18-0400 Body mass index (BMI) [Ratio] 32.6 kg/m2 Genevieve Cardona PA-C Work Phone: [facility] 12-13-2023 14:18-0400 Body weight 91.63 kg Genevieve Cardona PA-C Work Phone: [facility] 12-13-2023 14:18-0400 Diastolic blood pressure 85 mm[Hg] Genevieve Cardona PA-C Work Phone: [facility] 12-13-2023 14:18-0400 Heart rate 89 /min Genevieve Cardona PA-C Work Phone: [facility] 12-13-2023 14:18-0400 Systolic blood pressure 130 mm[Hg] Genevieve Arguetaeder PA-C Work Phone: [facility] 11-13-2023 11:20-0400 Body height 167.6 cm Shellie Fisher MD Work Phone: [facility] 11-13-2023 11:20-0400 Body mass index (BMI) [Ratio] 32.44 kg/m2 Shellie Fisher MD Work Phone: [facility] 11-13-2023 11:20-0400 Body weight 91.17 kg Shellie Fisher MD Work Phone: [facility] 11-13-2023 11:20-0400 Diastolic blood pressure 76 mm[Hg] Shellie Fisher MD Work Phone: [facility] 11-13-2023 11:20-0400 Heart rate 80 /min Shellie Fisher MD Work Phone: [facility] 11-13-2023 11:20-0400 Systolic blood pressure 110 mm[Hg] Shellie Fisher MD Work Phone: [facility] 11-11-2023 10:04-0400 Body height 168.9 cm Yareli Louis SURVEY ASSOCIATE - DIRECTOR OF BROADCAST Work Phone: [facility] 11-11-2023 10:04-0400 Body mass index (BMI) [Ratio] 31.99 kg/m2 Yareli Louis SURVEY ASSOCIATE - DIRECTOR OF BROADCAST Work Phone: [facility] 11-11-2023 10:04-0400 Body weight 91.26 kg Yareli Louis SURVEY ASSOCIATE - DIRECTOR OF BROADCAST Work Phone: [facility] 11-11-2023 10:04-0400 Diastolic blood pressure 82 mm[Hg] Yareli Louis SURVEY ASSOCIATE - DIRECTOR OF BROADCAST Work Phone: [facility] 11-11-2023 10:04-0400 Heart rate 84 /min Yareli Louis SURVEY ASSOCIATE - DIRECTOR OF BROADCAST Work Phone: [facility] 11-11-2023 10:04-0400 SaO2% (BldA) [Mass fraction] 96 % Yareli Louis SURVEY ASSOCIATE - DIRECTOR OF BROADCAST Work Phone: [facility] 11-11-2023 10:04-0400 Systolic blood pressure 118 mm[Hg] Yareli Louis SURVEY ASSOCIATE - DIRECTOR OF BROADCAST Work Phone: [facility] 09-09-2023 09:03-0400 Body height 168.9 cm Yareli Louis SURVEY ASSOCIATE - DIRECTOR OF BROADCAST Work Phone: [facility] 09-09-2023 09:03-0400 Body mass index (BMI) [Ratio] 32.43 kg/m2 Yareli Louis SURVEY ASSOCIATE - DIRECTOR OF BROADCAST Work Phone: [facility] 09-09-2023 09:03-0400 Body weight 92.53 kg Yareli Louis SURVEY ASSOCIATE - DIRECTOR OF BROADCAST Work Phone: [facility] 09-09-2023 09:03-0400 Diastolic blood pressure 84 mm[Hg] Yareli Louis SURVEY ASSOCIATE - DIRECTOR OF BROADCAST Work Phone: [facility] 09-09-2023 09:03-0400 Heart rate 83 /min Yareli Louis SURVEY ASSOCIATE - DIRECTOR OF BROADCAST Work Phone: [facility] 09-09-2023 09:03-0400 SaO2% (BldA) [Mass fraction] 96 % Yareli Louis SURVEY ASSOCIATE - DIRECTOR OF BROADCAST Work Phone: [facility] 09-09-2023 09:03-0400 Systolic blood pressure 126 mm[Hg] Yareli Louis SURVEY ASSOCIATE - DIRECTOR OF BROADCAST Work Phone: [facility] 07-03-2023 11:17-0400 Body height 167.6 cm Yareli Louis SURVEY ASSOCIATE - DIRECTOR OF BROADCAST Work Phone: [facility] 07-03-2023 11:17-0400 Body mass index (BMI) [Ratio] 29.05 kg/m2 Yareli Louis SURVEY ASSOCIATE - DIRECTOR OF BROADCAST Work Phone: [facility] 07-03-2023 11:17-0400 Body weight 81.65 kg Yareli Louis SURVEY ASSOCIATE - DIRECTOR OF BROADCAST Work Phone: [facility] 02-13-2023 10:06-0500 Body height 168.9 cm Yareli Louis SURVEY ASSOCIATE - DIRECTOR OF BROADCAST Work Phone: [facility] 02-13-2023 10:06-0500 Body mass index (BMI) [Ratio] 32.43 kg/m2 Yareli Louis SURVEY ASSOCIATE - DIRECTOR OF BROADCAST Work Phone: [facility] 02-13-2023 10:06-0500 Body weight 92.53 kg Yareli Louis SURVEY ASSOCIATE - DIRECTOR OF BROADCAST Work Phone: [facility] 02-13-2023 10:06-0500 Diastolic blood pressure 77 mm[Hg] Yareli Louis SURVEY ASSOCIATE - DIRECTOR OF BROADCAST Work Phone: [facility] 02-13-2023 10:06-0500 Heart rate 75 /min Yareli Louis SURVEY ASSOCIATE - DIRECTOR OF BROADCAST Work Phone: [facility] 02-13-2023 10:06-0500 SaO2% (BldA) [Mass fraction] 96 % Yareli Louis SURVEY ASSOCIATE - DIRECTOR OF BROADCAST Work Phone: [facility] 02-13-2023 10:06-0500 Systolic blood pressure 120 mm[Hg] Yareli Louis SURVEY ASSOCIATE - DIRECTOR OF BROADCAST Work Phone: [facility] 10-29-2022 09:55-0400 Body height 167.6 cm Yareli Louis SURVEY ASSOCIATE - DIRECTOR OF BROADCAST Work Phone: [facility] 10-29-2022 09:55-0400 Body mass index (BMI) [Ratio] 32.12 kg/m2 Yareli Louis SURVEY ASSOCIATE - DIRECTOR OF BROADCAST Work Phone: [employer] 10-29-2022 09:55-0400 Body weight 90.27 kg Yareli Heriberto SURVEY ASSOCIATE - DIRECTOR OF BROADCAST Work Phone: [facility] 10-29-2022 09:55-0400 Diastolic blood pressure 68 mm[Hg] Yareli Louis SURVEY ASSOCIATE - DIRECTOR OF BROADCAST Work Phone: [facility] 10-29-2022 09:55-0400 Heart rate 66 /min Yareil Louis SURVEY ASSOCIATE - DIRECTOR OF BROADCAST Work Phone: [facility] 10-29-2022 09:55-0400 SaO2% (BldA) [Mass fraction] 98 % Yareli Louis SURVEY ASSOCIATE - DIRECTOR OF BROADCAST Work Phone: [facility] 10-29-2022 09:55-0400 Systolic blood pressure 114 mm[Hg] Yareli Louis SURVEY ASSOCIATE - DIRECTOR OF BROADCAST Work Phone: [facility] 09-12-2022 09:41-0400 Body height 167.6 cm Yareli Louis SURVEY ASSOCIATE - DIRECTOR OF BROADCAST Work Phone: [facility] 09-12-2022 09:41-0400 Body mass index (BMI) [Ratio] 32.44 kg/m2 Yareli Louis SURVEY ASSOCIATE - DIRECTOR OF BROADCAST Work Phone: [facility] 09-12-2022 09:41-0400 Body weight 91.17 kg Yareli Louis SURVEY ASSOCIATE - DIRECTOR OF BROADCAST Work Phone: [facility] 09-12-2022 09:41-0400 Diastolic blood pressure 78 mm[Hg] Yareli Louis SURVEY ASSOCIATE - DIRECTOR OF BROADCAST Work Phone: [facility] 09-12-2022 09:41-0400 Heart rate 71 /min Yareli oLuis SURVEY ASSOCIATE - DIRECTOR OF BROADCAST Work Phone: [facility] 09-12-2022 09:41-0400 SaO2% (BldA) [Mass fraction] 98 % Yareli Louis SURVEY ASSOCIATE - DIRECTOR OF BROADCAST Work Phone: [facility] 09-12-2022 09:41-0400 Systolic blood pressure 130 mm[Hg] Yareli Louis SURVEY ASSOCIATE - DIRECTOR OF BROADCAST Work Phone: [facility] 07-23-2022 13:18-0400 Body height 167.6 cm George Reynoso MD Work Phone: [facility] 07-23-2022 13:18-0400 Body mass index (BMI) [Ratio] 32.18 kg/m2 George Reynoso MD Work Phone: [facility] 07-23-2022 13:18-0400 Body weight 90.45 kg George Reynoso MD Work Phone: [facility] 07-23-2022 13:18-0400 Diastolic blood pressure 60 mm[Hg] George Reynoso MD Work Phone: [facility] 07-23-2022 13:18-0400 Heart rate 79 /min George Reynoso MD Work Phone: [facility] 07-23-2022 13:18-0400 SaO2% (BldA) [Mass fraction] 95 % George Reynoso MD Work Phone: [facility] 07-23-2022 13:18-0400 Systolic blood pressure 110 mm[Hg] George Reynoso MD Work Phone: [facility] 06-27-2022 11:16-0400 Body height 168.9 cm [facility] 2 [facility] 06-27-2022 11:16-0400 Body mass index (BMI) [Ratio] 30.21 kg/m2 [facility] 2 [facility] 06-27-2022 11:16-0400 Body weight 86.18 kg [facility] 2 [facility] 05-28-2022 15:36-0500 Body height 161.3 cm Yareli Louis APRN - DIRECTOR OF BROADCAST Work Phone: [facility] 05-28-2022 15:36-0500 Body mass index (BMI) [Ratio] 34.87 kg/m2 Yareli Louis APRN - DIRECTOR OF BROADCAST Work Phone: [facility] 05-28-2022 15:36-0500 Body weight 90.72 kg Yareli Louis APRN - DIRECTOR OF BROADCAST Work Phone: [facility] 05-28-2022 15:36-0500 Diastolic blood pressure 60 mm[Hg] Yareli Louis SURVEY ASSOCIATE - DIRECTOR OF BROADCAST Work Phone: [facility] 05-28-2022 15:36-0500 Heart rate 74 /min Yareli Louis SURVEY ASSOCIATE - DIRECTOR OF BROADCAST Work Phone: [facility] 05-28-2022 15:36-0500 SaO2% (BldA) [Mass fraction] 98 % Yareli Louis SURVEY ASSOCIATE - DIRECTOR OF BROADCAST Work Phone: [facility] 05-28-2022 15:36-0500 Systolic blood pressure 108 mm[Hg] Yareli Louis SURVEY ASSOCIATE - DIRECTOR OF BROADCAST Work Phone: [facility] 05-14-2022 11:39-0500 Body height 168.9 cm Yareli Louis SURVEY ASSOCIATE - DIRECTOR OF BROADCAST Work Phone: [facility] 05-14-2022 11:39-0500 Body mass index (BMI) [Ratio] 31.16 kg/m2 Yareli Louis SURVEY ASSOCIATE - DIRECTOR OF BROADCAST Work Phone: [facility] 05-14-2022 11:39-0500 Body weight 88.91 kg Yareli Louis SURVEY ASSOCIATE - DIRECTOR OF BROADCAST Work Phone: [facility] 05-14-2022 11:39-0500 Diastolic blood pressure 78 mm[Hg] Yareli Louis SURVEY ASSOCIATE - DIRECTOR OF BROADCAST Work Phone: [facility] 05-14-2022 11:39-0500 Heart rate 79 /min Yareli Louis SURVEY ASSOCIATE - DIRECTOR OF BROADCAST Work Phone: [facility] 05-14-2022 11:39-0500 SaO2% (BldA) [Mass fraction] 98 % Yareli Louis SURVEY ASSOCIATE - DIRECTOR OF BROADCAST Work Phone: [facility] 05-14-2022 11:39-0500 Systolic blood pressure 122 mm[Hg] Yareli Louis SURVEY ASSOCIATE - DIRECTOR OF BROADCAST Work Phone: [facility] 04-13-2022 09:39-0500 Body height 166.4 cm Yareli Louis SURVEY ASSOCIATE - DIRECTOR OF BROADCAST Work Phone: [facility] 04-13-2022 09:39-0500 Body mass index (BMI) [Ratio] 32.12 kg/m2 Yareli Louis SURVEY ASSOCIATE - DIRECTOR OF BROADCAST Work Phone: [facility] 04-13-2022 09:39-0500 Body weight 88.91 kg Yareli Louis SURVEY ASSOCIATE - DIRECTOR OF BROADCAST Work Phone: [facility] 04-13-2022 09:39-0500 Diastolic blood pressure 76 mm[Hg] Yareli Louis SURVEY ASSOCIATE - DIRECTOR OF BROADCAST Work Phone: [facility] 04-13-2022 09:39-0500 Heart rate 80 /min Yareli Louis SURVEY ASSOCIATE - DIRECTOR OF BROADCAST Work Phone: [facility] 04-13-2022 09:39-0500 SaO2% (BldA) [Mass fraction] 98 % Yareli Louis SURVEY ASSOCIATE - DIRECTOR OF BROADCAST Work Phone: [facility] 04-13-2022 09:39-0500 Systolic blood pressure 130 mm[Hg] Yareli Louis SURVEY ASSOCIATE - DIRECTOR OF BROADCAST Work Phone: [facility] 02-22-2022 00:30-0500 Body mass index (BMI) [Ratio] 29.7 kg/m2 [facility] 12-29-2021 13:24-0400 Body temperature 97.9 [degF] Jeromy Stephens MD Work Phone: [facility] 12-29-2021 13:24-0400 Body weight 90.36 kg Jeromy Stephens MD Work Phone: [facility] 12-29-2021 13:24-0400 Diastolic blood pressure 84 mm[Hg] Jeromy Stephens MD Work Phone: [facility] 12-29-2021 13:24-0400 Heart rate 94 /min Jeromy Stephens MD Work Phone: [facility] 12-29-2021 13:24-0400 Respiratory rate 18 /min Jeromy Stephens MD Work Phone: [facility] 12-29-2021 13:24-0400 SaO2% (BldA) [Mass fraction] 98 % Jeromy Stephens MD Work Phone: [facility] 12-29-2021 13:24-0400 Systolic blood pressure 118 mm[Hg] Jeromy Stephens MD Work Phone: [facility] 12-22-2021 21:42-0400 Body mass index (BMI) [Ratio] 29.7 kg/m2 Dr. Henrique Mckee Work Phone: [facility] 11-29-2021 15:29-0400 Body height 167.[address] Henrique Mckee Work Phone: [facility] Work Phone: 11-29-2021 15:29-0400 Body mass index (BMI) [Ratio] 31.8 kg/m2 Dr. Henrique Mckee Work Phone: [facility] Work Phone: 11-29-2021 15:29-0400 Body weight 89.[address] Henrique Mckee Work Phone: [facility] Work Phone: 11-29-2021 15:29-0400 Diastolic blood pressure 66 mm[Hg] Dr. Henrique Mckee Work Phone: [facility] Work Phone: 11-29-2021 15:29-0400 Heart rate 66 /min Dr. Henrique Mckee Work Phone: [facility] Work Phone: 11-29-2021 15:29-0400 Respiratory rate 18 /min Dr. Henrique Mckee Work Phone: [facility] Work Phone: 11-29-2021 15:29-0400 SaO2% (BldA) [Mass fraction] 95 % Dr. Henrique Mckee Work Phone: [facility] Work Phone: 11-29-2021 15:29-0400 Systolic blood pressure 108 mm[Hg] Dr. Henrique Mckee Work Phone: [facility] Work Phone: 11-22-2021 23:11-0400 Body mass index (BMI) [Ratio] 29.7 kg/m2 Dr. Henrique Mckee Work Phone: [facility] Work Phone: 10-22-2021 02:46-0400 Body mass index (BMI) [Ratio] 29.7 kg/m2 [facility] Work Phone: 09-22-2021 07:07-0400 Body mass index (BMI) [Ratio] 29.7 kg/m2 [facility] Work Phone: 08-22-2021 20:50-0400 Body mass index (BMI) [Ratio] 29.7 kg/m2 [facility] Work Phone: 07-23-2021 03:30-0400 Body mass index (BMI) [Ratio] 29.7 kg/m2 [facility] Work Phone: 06-23-2021 02:36-0400 Body mass index (BMI) [Ratio] 29.7 kg/m2 [facility] Work Phone: 05-23-2021 09:48-0500 Body mass index (BMI) [Ratio] 29.7 kg/m2 [facility] Work Phone: 05-23-2021 08:48-0500 Body mass index (BMI) [Ratio] 29.7 kg/m2 [facility] Work Phone: 04-25-2021 00:20-0500 Body mass index (BMI) [Ratio] 29.7 kg/m2 [facility] Work Phone: 03-26-2021 03:30-0500 Body mass index (BMI) [Ratio] 29.7 kg/m2 [facility] Work Phone: Encounters Encounter Date Encounter Type Care Provider Facility Start: 01-05-2025 [facility] Facility :[facility] Start: 12-29-2024 ambulatory [facility] Facility :[facility] Start: 12-21-2024 End: 12-22-2024 Orders Only Yareli Louis SURVEY ASSOCIATE - DIRECTOR OF BROADCAST Work Phone: [facility] Start: 12-21-2024 End: 12-21-2024 ambulatory [facility] Start: 12-14-2024 End: 12-15-2024 Orders Only Yareli Louis SURVEY ASSOCIATE - DIRECTOR OF BROADCAST Work Phone: [facility] Start: 12-14-2024 End: 12-14-2024 ambulatory [facility] Start: 12-08-2024 End: 12-08-2024 ambulatory [facility] Start: 12-08-2024 End: 12-08-2024 Office outpatient visit 15 minutes Maria Del Carmen Garza SURVEY ASSOCIATE - DIRECTOR OF BROADCAST Work Phone: [facility] Comment on above: Upper respiratory tr act infection, unspecified type (Primary Dx); Body aches; Shortness of breath; Seasonal allergic rhinitis, unspecified trigger Start: 11-19-2024 End: 11-19-2024 Telephone encounter Franny De Los Santos MA [facility] Comment on above: Prior Authorization Start: 11-16-2024 End: 11-17-2024 Orders Only Yareli Louis SURVEY ASSOCIATE - DIRECTOR OF BROADCAST Work Phone: [facility] Start: 11-16-2024 End: 11-16-2024 Patient encounter status Yareli Louis SURVEY ASSOCIATE - DIRECTOR OF BROADCAST Work Phone: [facility] Work Phone: Start: 11-16-2024 End: 11-16-2024 Periodic preventive med est patient 40-64yrs Yareli Louis SURVEY ASSOCIATE - DIRECTOR OF BROADCAST Work Phone: [facility] Comment on above: Well female exam wit h routine gynecological exam (Primary Dx); SVT (supraventricular tachycardia) (HCC); Clotting disorder (CMS/HCC) (HCC); Hyperhomocysteinemia (HCC); Mild episode of recurrent major depressive disorder (HCC); Essential hypertension; Hypokalemia; Hyperlipidemia LDL goal <100; H/O deep venous thrombosis; Anxiety; Panic attack; Prediabetes; Class 1 obesity due to excess calories without serious comorbidity with body mass index (BMI) of 33.0 to 33.9 in adult; Other hemorrhoids; Seborrheic keratosis; Encounter for Papanicolaou smear for cervical cancer screening Start: 11-16-2024 End: 11-16-2024 ambulatory [facility] Start: 11-16-2024 End: 11-16-2024 Encounter for gynecological examination (general) (routine) without abnormal findings [facility] Start: 11-10-2024 End: 11-11-2024 Telephone encounter Eliz Lopez MA [facility] Comment on above: Orders; Release of I nformation (Re INR missed appointment) Start: 11-07-2024 End: 11-09-2024 Refill Yareli Louis SURVEY ASSOCIATE - DIRECTOR OF BROADCAST Work Phone: [facility] Comment on above: Other depression; Difficulty concentrating Start: 10-13-2024 End: 10-14-2024 Orders Only Henrique Mckee MD Work Phone: [facility] Start: 10-13-2024 End: 10-13-2024 ambulatory HENRIQUE MCKEE [facility] Start: 09-16-2024 End: 09-16-2024 Anticoagulant drug monitoring Henrique Mckee MD Work Phone: [facility] Start: 09-16-2024 End: 09-16-2024 Office outpatient visit 25 minutes Yareli Louis SURVEY ASSOCIATE - DIRECTOR OF BROADCAST Work Phone: [facility] Comment on above: Other depression (Pr imary Dx); Difficulty concentrating; Anxiety Start: 09-16-2024 End: 09-16-2024 ambulatory [facility] Start: 09-15-2024 End: 09-16-2024 Orders Only Henrique Mckee MD Work Phone: [facility] Start: 09-15-2024 End: 09-15-2024 ambulatory [facility] Start: 08-18-2024 End: 08-19-2024 Orders Only Henrique Mckee MD Work Phone: [facility] Start: 08-18-2024 End: 08-18-2024 ambulatory [facility] Start: 08-10-2024 End: 10-10-2024 Follow-up encounter Yareli Louis SURVEY ASSOCIATE - DIRECTOR OF BROADCAST Work Phone: [facility] Comment on above: Left diagnostic mamm ogram with tomosynthesis Start: 08-10-2024 End: 08-10-2024 ambulatory [facility] Start: 08-10-2024 End: 08-10-2024 Subsequent hospital visit by physician Yareli Louis SURVEY ASSOCIATE - DIRECTOR OF BROADCAST Work Phone: [facility] Comment on above: Calcification of lef t breast on mammography; Abnormality of left breast on screening mammogram Start: 07-31-2024 End: 07-31-2024 Orders Only Yareli Louis SURVEY ASSOCIATE - DIRECTOR OF BROADCAST Work Phone: [facility] Comment on above: Calcification of lef t breast on mammography (Primary Dx); Abnormality of left breast on screening mammogram Start: 07-30-2024 End: 07-30-2024 ambulatory [facility] Start: 07-30-2024 End: 07-30-2024 Subsequent hospital visit by physician Henrique Mckee MD Work Phone: [facility] Comment on above: Screening mammogram for breast cancer Start: 07-21-2024 End: 07-22-2024 Orders Only Henrique Mckee MD Work Phone: [facility] Start: 07-21-2024 End: 07-21-2024 ambulatory HENRIQUE RYLEE [facility] Start: 06-22-2024 End: 06-22-2024 ambulatory HENRIQUE MCKEE [facility] Start: 06-22-2024 End: 06-23-2024 Orders Only Henrique Mckee MD Work Phone: [facility] Start: 06-10-2024 End: 06-11-2024 Orders Only Henrique Mckee MD Work Phone: [facility] Start: 06-10-2024 End: 06-10-2024 ambulatory HENRIQUE RYLEE [facility] Start: 05-20-2024 End: 05-21-2024 Orders Only Henrique Mckee MD Work Phone: [facility] Start: 05-20-2024 End: 05-20-2024 Office outpatient visit 25 minutes Yareli Louis SURVEY ASSOCIATE - DIRECTOR OF BROADCAST Work Phone: [facility] Comment on above: SVT (supraventricula r tachycardia) (HCC) (Primary Dx); Essential hypertension; Hypokalemia; Hyperlipidemia LDL goal <100; Clotting disorder (CMS/HCC) (HCC); H/O deep venous thrombosis; Hyperhomocysteinemia (HCC); Anxiety; Panic attack; Prediabetes; Motion sickness, initial encounter; Right sided abdominal pain; Screening mammogram for breast cancer; Influenza vaccine refused Start: 05-20-2024 End: 05-20-2024 ambulatory YARELI HERIBERTO [facility] Start: 04-27-2024 End: 04-27-2024 Telephone encounter Josiane Romero [facility] Start: 04-27-2024 End: 04-27-2024 ambulatory HENRIQUE [facility] Start: 04-21-2024 End: 04-21-2024 Refill Yareli Louis SURVEY ASSOCIATE - DIRECTOR OF BROADCAST Work Phone: [facility] Comment on above: Anxiety; Grief Start: 04-06-2024 End: 04-06-2024 Refill Loraine Yomaira SURVEY ASSOCIATE - DIRECTOR OF BROADCAST Work Phone: [facility] Start: 04-03-2024 End: 04-06-2024 Refill Racheal De Leon PA-C Work Phone: [facility] Dermatology - Jorge Lozano Comment on above: Acne vulgaris Start: 03-23-2024 End: 03-24-2024 Orders Only Yareli Saul Heriberto SURVEY ASSOCIATE - DIRECTOR OF BROADCAST Work Phone: [facility] Start: 03-23-2024 End: 03-23-2024 ambulatory [facility] Start: 02-24-2024 End: 02-24-2024 ambulatory [facility] Start: 02-24-2024 End: 02-25-2024 Orders Only Yareli Louis SURVEY ASSOCIATE - DIRECTOR OF BROADCAST Work Phone: [facility] Start: 01-31-2024 End: 01-31-2024 Telephone encounter Tommy Marks MD Work Phone: [facility] - [facility] Comment on above: Surgery Scheduling ( Move surgery date ) Start: 01-31-2024 Encounter for preprocedural cardiovascular examination [facility] Start: 01-31-2024 End: 01-31-2024 ambulatory [facility] Start: 01-31-2024 End: 01-31-2024 Encounter for preprocedural cardiovascular examination [facility] Start: 01-31-2024 End: 01-31-2024 Office outpatient visit 25 minutes Mainor Lakhani MD Work Phone: [facility] Cardiology - [facility] Comment on above: SVT (supraventricula r tachycardia) (HCC) (Primary Dx); Clotting disorder (CMS/HCC) (HCC); Essential hypertension; Hypokalemia; Preop cardiovascular exam Start: 01-31-2024 End: 05-20-2024 Patient encounter status Mainor Lakhani MD Work Phone: [facility] Start: 01-22-2024 End: 01-22-2024 Office outpatient visit 15 minutes Yareli Hughes Heriberto SURVEY ASSOCIATE - DIRECTOR OF BROADCAST Work Phone: [facility] Comment on above: 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); Acne vulgaris; SVT (supraventricular tachycardia) (HCC); Clotting disorder (CMS/HCC) (HCC); Hypokalemia Start: 01-22-2024 End: 01-22-2024 ambulatory YARELI LOUIS [facility] Start: 01-22-2024 End: 01-23-2024 Orders Only Yareli Hughes Heriberto SURVEY ASSOCIATE - DIRECTOR OF BROADCAST Work Phone: [facility] Start: 01-02-2024 End: 01-02-2024 Refill Racheal De Leon PA-C Work Phone: [facility] - [facility] L[facility] Comment on above: Acne vulgaris Start: 12-25-2023 End: 12-25-2023 Office outpatient visit 10 minutes Genevieve Cardona PA-C Work Phone: [facility] [place] Comment on above: 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) Start: 12-25-2023 End: 12-26-2023 Orders Only Yareli Hughes Heriberto SURVEY ASSOCIATE - DIRECTOR OF BROADCAST Work Phone: [facility] Start: 12-20-2023 End: 12-20-2023 Admission to same day surgery center Genevieve Cardona PA-C Work Phone: [facility] Start: 12-20-2023 End: 12-20-2023 ambulatory Genevieve ROSAS-Wyatt Work Phone: [facility] Start: 12-20-2023 End: 12-25-2023 Telephone encounter Shellie Fisher MD Work Phone: [facility] - [place] Comment on above: Surgery Scheduling ( [facility]) Start: 12-13-2023 End: 12-13-2023 Office outpatient visit 10 minutes Genevieve Cardona PA-C Work Phone: [facility] Comment on above: 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) Start: 12-09-2023 End: 12-10-2023 Orders Only Yareli Hughes Heriberto SURVEY ASSOCIATE - DIRECTOR OF BROADCAST Work Phone: [facility] [place] Start: 11-27-2023 End: 11-27-2023 Subsequent hospital visit by physician Shellie Fisher MD Work Phone: [facility] Comment on above: 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 Start: 11-13-2023 End: 11-13-2023 Office outpatient new 30 minutes Shellie Fisher MD Work Phone: [facility] Comment on above: 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); Pilar cyst of scalp Start: 11-11-2023 End: 11-12-2023 Orders Only Yareli S Heriberto SURVEY ASSOCIATE - DIRECTOR OF BROADCAST Work Phone: [facility] Start: 11-11-2023 End: 11-11-2023 Patient encounter status Yareli S Heriberto SURVEY ASSOCIATE - DIRECTOR OF BROADCAST Work Phone: [facility] Work Phone: Start: 11-11-2023 End: 11-11-2023 Periodic preventive med est patient 40-64yrs Yareli S Heriberto SURVEY ASSOCIATE - DIRECTOR OF BROADCAST Work Phone: [facility] Comment on above: Well female exam wit h routine gynecological exam (Primary Dx); SVT (supraventricular tachycardia) (HCC); Hypokalemia; Hyperlipidemia LDL goal <100; Clotting disorder (CMS/HCC) (HCC); H/O deep venous thrombosis; Hyperhomocysteinemia (HCC); Anxiety; Panic attack; External hemorrhoids; Family history of diabetes mellitus; Screening for diabetes mellitus Start: 10-29-2023 End: 10-30-2023 Orders Only Henrique Mckee MD Work Phone: [facility] Start: 10-22-2023 End: 10-22-2023 Refill Loraine Bridenthal SURVEY ASSOCIATE - DIRECTOR OF BROADCAST Work Phone: [facility] Clinical Communication Comment on above: Clotting disorder (C MS/HCC) (HCC) Start: 10-15-2023 End: 10-15-2023 Anticoagulant drug monitoring Henrique Mckee MD Work Phone: [facility] Start: 10-15-2023 End: 10-15-2023 Telephone encounter Racheal De Leon PA-C Work Phone: [facility] Dermat[facility] Comment on above: Results Start: 10-14-2023 End: 10-15-2023 Orders Only Henrique Mckee MD Work Phone: [facility] Start: 10-01-2023 End: 10-01-2023 Office outpatient visit 25 minutes Racheal SUMMERSC Work Phone: [facility] Comment on above: Pilar cyst of scalp; Acne vulgaris; Hidradenitis suppurativa; Stasis dermatitis; Scalp mass Start: 09-23-2023 End: 09-24-2023 Orders Only Henrique Mckee MD Work Phone: [facility] Start: 09-09-2023 End: 09-09-2023 Office outpatient visit 15 minutes Yareli Louis SURVEY ASSOCIATE - DIRECTOR OF BROADCAST Work Phone: [facility] Comment on above: Rash and nonspecific skin eruption (Primary Dx) Start: 09-06-2023 Refill Loraine Briden thal SURVEY ASSOCIATE - DIRECTOR OF BROADCAST Work Phone: [facility] Start: 09-03-2023 Orders Only Henrique Mckee MD Work Phone: [facility] Start: 08-13-2023 Telephone encounter Yareli Goodman SURVEY ASSOCIATE - DIRECTOR OF BROADCAST Work Phone: [facility] Comment on above: Results Start: 08-12-2023 End: 08-12-2023 Subsequent hospital visit by physician Yareli Louis SURVEY ASSOCIATE - DIRECTOR OF BROADCAST Work Phone: [facility] Comment on above: Skull deformity; Scalp mass Start: 08-06-2023 Orders Only Henrique Mckee MD Work Phone: [facility] Start: 07-17-2023 End: 07-17-2023 Subsequent hospital visit by physician Loraine Jernigan SURVEY ASSOCIATE - DIRECTOR OF BROADCAST Work Phone: [facility] Comment on above: Skull deformity Start: 07-10-2023 End: 07-10-2023 Subsequent hospital visit by physician Loraine Jernigan SURVEY ASSOCIATE - DIRECTOR OF BROADCAST Work Phone: [facility] Comment on above: Canceled (Patient: S chedule Conflict) Start: 07-10-2023 [facility] Start: 07-10-2023 Patient encounter procedure Sigrid Leiva RN [facility] Clinical Communication Start: 07-09-2023 Orders Only Henrique Mckee MD Work Phone: [facility] Start: 07-03-2023 End: 07-03-2023 Subsequent hospital visit by physician Yareli Louis SURVEY ASSOCIATE - DIRECTOR OF BROADCAST Work Phone: [facility] Comment on above: Calcification of rig ht breast on mammography Start: 06-11-2023 Orders Only Henrique Mckee MD Work Phone: [facility] Start: 05-14-2023 Orders Only Henrique Mckee MD Work Phone: [facility] Start: 05-08-2023 Anticoagulant drug monitoring Henrique Mckee MD Work Phone: [facility] Start: 05-07-2023 Orders Only Loraine rey SURVEY ASSOCIATE - DIRECTOR OF BROADCAST Work Phone: [facility] Start: 04-29-2023 Refill Loraine rey SURVEY ASSOCIATE - DIRECTOR OF BROADCAST Work Phone: [facility] Clinical Communication Comment on above: Clotting disorder (C MS/HCC) ([facility]) Start: 04-17-2023 End: 04-17-2023 Office outpatient visit 15 minutes Yareli Louis SURVEY ASSOCIATE - DIRECTOR OF BROADCAST Work Phone: [facility] Comment on above: COVID-19 virus infec tion (Primary Dx); Clotting disorder (CMS/HCC) ([facility]) Start: 04-12-2023 ambulatory Sherrie Burr RN [facility] Clinical Communication Start: 04-12-2023 Patient encounter procedure [facility] Start: 04-12-2023 End: 04-12-2023 Office outpatient visit 15 minutes Yareli Louis SURVEY ASSOCIATE - DIRECTOR OF BROADCAST Work Phone: [facility] Comment on above: COVID-19 virus infec tion (Primary Dx); Clotting disorder (CMS/HCC) ([facility]) Start: 03-31-2023 Refill Loraineobi rey SURVEY ASSOCIATE - DIRECTOR OF BROADCAST Work Phone: [facility] Comment on above: Anxiety; Grief Start: 03-27-2023 Orders Only Loraien Jahaira rey SURVEY ASSOCIATE - DIRECTOR OF BROADCAST Work Phone: [facility] Start: 02-26-2023 Orders Only Loraine Jahaira thal SURVEY ASSOCIATE - DIRECTOR OF BROADCAST Work Phone: [facility] Start: 02-19-2023 End: 02-19-2023 Subsequent hospital visit by physician Yareli Louis SURVEY ASSOCIATE - DIRECTOR OF BROADCAST Work Phone: [facility] Radiology Comment on above: Skull deformity Start: 02-13-2023 End: 02-13-2023 Office outpatient visit 25 minutes Yareli Louis SURVEY ASSOCIATE - DIRECTOR OF BROADCAST Work Phone: [facility] Comment on above: Skull deformity (Veronika spencer Dx); Class 1 obesity due to excess calories without serious comorbidity with body mass index (BMI) of 32.0 to 32.9 in adult Start: 01-28-2023 Orders Only Loraine Jahaira thal SURVEY ASSOCIATE - DIRECTOR OF BROADCAST Work Phone: [facility] Start: 01-27-2023 Refill Henrique Mckee MD Work Phone: [facility] Start: 01-17-2023 Orders Only Loraine rey SURVEY ASSOCIATE - DIRECTOR OF BROADCAST Work Phone: [facility] Start: 12-30-2022 Refill Yareli Louis SURVEY ASSOCIATE - DIRECTOR OF BROADCAST Work Phone: [facility] Comment on above: Anxiety; Grief Start: 12-24-2022 End: 12-24-2022 Office outpatient visit 25 minutes Racheal ROSAS Work Phone: [facility] Comment on above: Acne vulgaris; Hidradenitis suppurativa Start: 12-20-2022 Orders Only Loraine rey SURVEY ASSOCIATE - DIRECTOR OF BROADCAST Work Phone: [facility] Start: 12-13-2022 Telephone encounter Henrique Elam MD Work Phone: [facility] Comment on above: fyi Start: 12-06-2022 Nurse Triage Yomaira Roberts RN [facility] Clinical Communication Comment on above: Clotting disorder (C MS/HCC) (HCC) (Primary Dx) Start: 12-05-2022 Anticoagulant drug monitoring Cat Duarte MA [facility] Comment on above: H/O deep venous thro mbosis [Z86.718 (ICD-10-CM)] Start: 12-04-2022 Orders Only Loraine rey SURVEY ASSOCIATE - DIRECTOR OF BROADCAST Work Phone: [facility] Start: 11-06-2022 Telephone encounter Josiane Romero [facility] Comment on above: Results Start: 10-29-2022 End: 10-29-2022 Patient encounter status Yareli Louis SURVEY ASSOCIATE - DIRECTOR OF BROADCAST Work Phone: [facility] Work Phone: Start: 10-29-2022 End: 10-29-2022 Periodic preventive med est patient 40-64yrs Yareli Louis SURVEY ASSOCIATE - DIRECTOR OF BROADCAST Work Phone: [facility] Comment on above: Well female exam wit h routine gynecological exam (Primary Dx); Hyperlipidemia LDL goal <100; Tachycardia; Clotting disorder (CMS/HCC) (HCC); H/O deep venous thrombosis; Hypokalemia; Anxiety; Panic attack; Class 1 obesity due to excess calories without serious comorbidity with body mass index (BMI) of 32.0 to 32.9 in adult; Chronic eczema; Screening for tuberculosis; Screening for diabetes mellitus; Encounter for Papanicolaou smear for cervical cancer screening Start: 10-09-2022 Telephone encounter Loraine Anand nieves SURVEY ASSOCIATE - [employer] Work Phone: [facility] Start: 09-12-2022 End: 09-12-2022 Office outpatient visit 15 minutes Yareli Louis SURVEY ASSOCIATE [employer] Work Phone: [facility] Comment on above: Anxiety (Primary Dx) ; Grief Start: 09-12-2022 End: 09-12-2022 Office outpatient visit 25 minutes Yareli Louis SURVEY ASSOCIATE - [employer] Work Phone: [facility] Comment on above: Anxiety (Primary Dx) ; Grief Start: 07-23-2022 End: 07-23-2022 Office outpatient visit 25 minutes George Reynoso MD Work Phone: [facility] Comment on above: SVT (supraventricula r tachycardia) (CMS/HCC) (HCC); Clotting disorder (CMS/HCC) (HCC); Hypokalemia; H/O deep venous thrombosis Start: 06-27-2022 End: 06-27-2022 Office outpatient visit 25 minutes Racheal ROSAS Work Phone: [facility] Comment on above: Hidradenitis suppura tiva; Acne vulgaris Start: 06-27-2022 End: 06-27-2022 Subsequent hospital visit by physician [facility] Exam Room [address] [facility] Comment on above: Calcification of rig ht breast on mammography Start: 06-13-2022 End: 06-13-2022 Office outpatient visit 15 minutes Loraine Jernigan SURVEY ASSOCIATE - DIRECTOR OF BROADCAST Work Phone: [facility] Comment on above: Acute non-recurrent frontal sinusitis (Primary Dx) Start: 06-11-2022 Telephone encounter Racheal ROSAS Work Phone: [facility] Comment on above: cancel and R/S appt Start: 06-04-2022 Refill Yareli Louis SURVEY ASSOCIATE - DIRECTOR OF BROADCAST Work Phone: [facility] Comment on above: SVT (supraventricula r tachycardia) (CMS/HCC) (HCC) Start: 05-28-2022 End: 05-28-2022 Office outpatient visit 15 minutes Yareli Louis SURVEY ASSOCIATE - DIRECTOR OF BROADCAST Work Phone: [facility] Comment on above: Anxiety (Primary Dx) ; SVT (supraventricular tachycardia) (CMS/HCC) (HCC); Tachycardia Start: 05-28-2022 End: 05-28-2022 Office outpatient visit 25 minutes Yareli Louis SURVEY ASSOCIATE - DIRECTOR OF BROADCAST Work Phone: [facility] Comment on above: Anxiety (Primary Dx) ; SVT (supraventricular tachycardia) (CMS/HCC) (HCC); Tachycardia Start: 05-14-2022 End: 05-14-2022 Office outpatient visit 25 minutes Yareli Louis SURVEY ASSOCIATE - DIRECTOR OF BROADCAST Work Phone: [facility] Comment on above: SVT (supraventricula r tachycardia) (CMS/HCC) (HCC) (Primary Dx); Clotting disorder (CMS/HCC) (HCC); H/O deep venous thrombosis; Hypokalemia; Anxiety; Panic attack; Chronic pain of left thumb Start: 05-10-2022 End: 05-10-2022 Subsequent hospital visit by physician Yareli Louis SURVEY ASSOCIATE - DIRECTOR OF BROADCAST Work Phone: [facility] Radiology Comment on above: Chronic pain of left thumb; Chronic right hip pain Start: 04-17-2022 Telephone encounter Yareli Goodman SURVEY ASSOCIATE - DIRECTOR OF BROADCAST Work Phone: [facility] Comment on above: Results (MAMM result s) Start: 04-13-2022 End: 04-13-2022 Office outpatient visit 15 minutes Yareli Hughes Heriberto SURVEY ASSOCIATE - DIRECTOR OF BROADCAST Work Phone: [facility] Comment on above: Chronic right hip pa in (Primary Dx); Chronic pain of left thumb; Injury due to fall, initial encounter; Elevated fasting glucose; Flu vaccine need; Screening for colon cancer Start: 04-02-2022 End: 04-02-2022 ambulatory [facility] Work Phone: Start: 04-02-2022 End: 04-02-2022 [facility] Start: 01-30-2022 End: 02-21-[address] Henrique Mckee Work Phone: [facility] Work Phone: Start: 01-30-2022 End: 02-21-[address] [facility] Start: 01-24-2022 Transcribe Orders Loraine blancas SURVEY ASSOCIATE - DIRECTOR OF BROADCAST Work Phone: [facility] Radiology Comment on above: Localized swelling, mass and lump, trunk (Primary Dx) Start: 12-29-2021 End: 12-29-2021 Patient encounter procedure Jeromy Stephens MD Work Phone: [facility] Comment on above: Acute right-sided lo w back pain without sciatica (Primary Dx) Start: 12-11-2021 End: 12-11-[address] Henrique Mckee Work Phone: [facility] Work Phone: Start: 12-11-2021 End: 12-11-[address] [facility] Start: 12-04-2021 [facility] Start: 12-04-2021 End: 12-04-2021 Subsequent hospital visit by physician Yareli Louis SURVEY ASSOCIATE - DIRECTOR OF BROADCAST Work Phone: [facility] Comment on above: Arrived Start: 11-29-2021 End: 11-29-[address] Henrique Mckee Work Phone: [facility] Start: 11-17-2021 End: 11-17-2021 ambulatory [facility] Work Phone: Start: 11-17-2021 End: 11-17-2021 Discharged Recurring [facility] Start: 10-03-2021 End: 10-22-2021 Discharged Recurring [facility] Start: 09-07-2021 End: 09-07-2021 Discharged Recurring [facility] Start: 08-17-2021 End: 08-17-2021 Discharged Recurring [facility] Start: 07-07-2021 End: 07-07-2021 Discharged Recurring [facility] Start: 06-14-2021 End: 06-22-2021 Discharged Recurring [facility] Start: 05-31-2021 ambulatory [facility] [employer] [facility] Start: 05-31-2021 End: 05-31-2021 Subsequent hospital visit by physician Yareli Louis SURVEY ASSOCIATE - DIRECTOR OF BROADCAST Work Phone: [facility] Comment on above: Abnormality of right breast on screening mammogram Start: 05-25-2021 ambulatory Yareli [employer] Start: 05-25-2021 End: 05-25-2021 Subsequent hospital visit by physician Yareli Louis SURVEY ASSOCIATE - DIRECTOR OF BROADCAST Work Phone: [facility] Comment on above: Arrived Start: 05-09-2021 End: 05-09-2021 Discharged [facility] Start: 03-31-2021 End: 04-24-2021 Discharged [facility] Start: 11-11-2019 End: 11-11-2019 Subsequent hospital visit by physician Booker Vasquez Work Phone: [facility] Comment on above: Arrived Start: 05-13-2019 End: 05-13-2019 Subsequent hospital visit by physician Booker Vasquez Work Phone: [facility] Comment on above: Arrived Start: 05-06-2019 End: 05-06-2019 Subsequent hospital visit by physician Timothy Espinosa Work Phone: [facility] Comment on above: Arrived Start: 04-15-2019 End: 04-15-2019 Subsequent hospital visit by physician Rosa 3 [facility] Comment on above: Arrived Start: 01-21-2019 End: 01-21-2019 Subsequent hospital visit by physician Yareli Louis Work Phone: [facility] Comment on above: Right-sided abdomina l pain of unknown cause Start: 01-07-2019 End: 01-07-2019 Subsequent hospital visit by physician Yareli Louis Work Phone: [facility] Procedures Date Procedure Procedure Detail Performing Clinician Start: 12-21-2024 Prothrombin time Yareli Louis SURVEY ASSOCIATE - DIRECTOR OF BROADCAST Work Phone: Start: 12-14-2024 Prothrombin time Yareli Louis SURVEY ASSOCIATE - DIRECTOR OF BROADCAST Work Phone: Start: 12-08-2024 Infectious agent dna/rna influenza 1st 2 types Maria Del Carmen Teodosiu SURVEY ASSOCIATE - DIRECTOR OF BROADCAST Work Phone: Start: 11-16-2024 Prothrombin time Yareli Louis SURVEY ASSOCIATE - DIRECTOR OF BROADCAST Work Phone: Start: 11-16-2024 Lipid 1996 panel - Serum or Plasma Yareli Louis SURVEY ASSOCIATE - DIRECTOR OF BROADCAST Work Phone: Start: 10-13-2024 Prothrombin time Henrique Mckee MD Work Phone: Start: 09-15-2024 Prothrombin time Henrique Mckee MD Work Phone: Start: 08-18-2024 Prothrombin time Henrique Mckee MD Work Phone: Start: 08-10-2024 End: 08-10-2024 Diagnostic mammography computer-aided detcj uni Yareli Louis SURVEY ASSOCIATE - DIRECTOR OF BROADCAST Work Phone: Start: 07-30-2024 End: 07-30-2024 Screening digital breast tomosynthesis bi Yareli Hughes Heriberto SURVEY ASSOCIATE - DIRECTOR OF BROADCAST Work Phone: Start: 07-21-2024 Prothrombin time Henrique Mckee MD Work Phone: Start: 06-22-2024 Prothrombin time Henrique Mckee MD Work Phone: Start: 06-10-2024 Prothrombin time Henrique Mckee MD Work Phone: Start: 05-20-2024 Prothrombin time Henrique Mckee MD Work Phone: Start: 03-23-2024 Prothrombin time Yareli Hughes Heriberto SURVEY ASSOCIATE - DIRECTOR OF BROADCAST Work Phone: Start: 02-24-2024 Prothrombin time Yareli Louis SURVEY ASSOCIATE - DIRECTOR OF BROADCAST Work Phone: Start: 01-31-2024 Ecg routine ecg w/least 12 lds w/i&r Mainor Lakhani MD Work Phone: Start: 01-22-2024 Prothrombin time Yareli Louis SURVEY ASSOCIATE - DIRECTOR OF BROADCAST Work Phone: Start: 12-25-2023 Prothrombin time Yareli Louis SURVEY ASSOCIATE - DIRECTOR OF BROADCAST Work Phone: Start: 12-09-2023 Prothrombin time Yareli Louis SURVEY ASSOCIATE - DIRECTOR OF BROADCAST Work Phone: Start: 11-27-2023 Ct maxillofacial w/contrast material Shellie Fisher MD Work Phone: Start: 11-11-2023 Prothrombin time Yareli Louis SURVEY ASSOCIATE - DIRECTOR OF BROADCAST Work Phone: Start: 11-11-2023 Adult depression screening assessment Yareli Heriberto SURVEY ASSOCIATE - DIRECTOR OF BROADCAST Work Phone: Start: 11-11-2023 Lipid 1996 panel - Serum or Plasma Yareli Heriberto SURVEY ASSOCIATE - DIRECTOR OF BROADCAST Work Phone: Start: 10-29-2023 Prothrombin time Henrique Mckee MD Work Phone: Start: 10-14-2023 Prothrombin time Henrique Mckee MD Work Phone: Start: 09-23-2023 Prothrombin time Henrique Mckee MD Work Phone: Start: 09-03-2023 Prothrombin time Henrique Mckee MD Work Phone: Start: 08-12-2023 Ct head/brain w/contrast material Yareli Louis SURVEY ASSOCIATE - DIRECTOR OF BROADCAST Work Phone: Start: 08-06-2023 Prothrombin time Henrique Mckee MD Work Phone: Start: 07-09-2023 Prothrombin time Henrique Mckee MD Work Phone: Start: 07-03-2023 End: 07-03-2023 Diagnostic mammography computer-aided detcj bi Yareli Louis SURVEY ASSOCIATE - DIRECTOR OF BROADCAST Work Phone: Start: 06-11-2023 Prothrombin time Henrique Mckee MD Work Phone: Start: 05-14-2023 Prothrombin time Henrique Mckee MD Work Phone: Start: 05-07-2023 Prothrombin time Loraine Bridenthal SURVEY ASSOCIATE - DIRECTOR OF BROADCAST Work Phone: Start: 03-27-2023 Prothrombin time Loraine Bridenthal SURVEY ASSOCIATE - DIRECTOR OF BROADCAST Work Phone: Start: 02-26-2023 Prothrombin time Loraine Bridenthal SURVEY ASSOCIATE - DIRECTOR OF BROADCAST Work Phone: Start: 01-28-2023 Prothrombin time Loraine Bridenthal SURVEY ASSOCIATE - DIRECTOR OF BROADCAST Work Phone: Start: 01-17-2023 Prothrombin time Loraine Bridenthal SURVEY ASSOCIATE - DIRECTOR OF BROADCAST Work Phone: Start: 12-20-2022 Prothrombin time Loraine Bridenthal SURVEY ASSOCIATE - DIRECTOR OF BROADCAST Work Phone: Start: 12-04-2022 Prothrombin time Loraine Bridenthal SURVEY ASSOCIATE - DIRECTOR OF BROADCAST Work Phone: Start: 10-31-2022 Skin test tuberculosis intradermal Yareli Louis SURVEY ASSOCIATE - DIRECTOR OF BROADCAST Work Phone: Start: 10-29-2022 Comprehensive metabolic panel Yareli Louis SURVEY ASSOCIATE - DIRECTOR OF BROADCAST Work Phone: Start: 10-29-2022 Lipid panel Yareli Louis SURVEY ASSOCIATE - DIRECTOR OF BROADCAST Work Phone: Start: 10-29-2022 Cytp cerv/vag auto thin layer prep mnl screen Yareli Louis SURVEY ASSOCIATE - DIRECTOR OF BROADCAST Work Phone: Start: 10-29-2022 Lipid 1996 panel - Serum or Plasma Yareli Louis SURVEY ASSOCIATE - DIRECTOR OF BROADCAST Work Phone: Start: 09-03-2022 Adult depression screening assessment Henrique Mckee MD Work Phone: Start: 08-11-2022 Colonoscopy Loraine Jernigan SURVEY ASSOCIATE - DIRECTOR OF BROADCAST Work Phone: Start: 07-23-2022 Ecg routine ecg w/least 12 lds trcg only w/o i&r George Reynoso MD Work Phone: Start: 06-27-2022 End: 06-27-2022 Mammography Yareli Louis SURVEY ASSOCIATE - DIRECTOR OF BROADCAST Work Phone: Start: 05-29-2022 Gonadotropin follicle stimulating hormone Yareli Louis SURVEY ASSOCIATE - DIRECTOR OF BROADCAST Work Phone: Start: 05-29-2022 Thyrotropin [Units/volume] in Serum or Plasma Yareli Louis SURVEY ASSOCIATE - DIRECTOR OF BROADCAST Work Phone: Start: 05-10-2022 Radex hip unilateral with pelvis 2-3 views Yareli Louis SURVEY ASSOCIATE - DIRECTOR OF BROADCAST Work Phone: Start: 12-11-2021 Lipid 1996 panel - Serum or Plasma Yareli Louis SURVEY ASSOCIATE - DIRECTOR OF BROADCAST Work Phone: Start: 12-04-2021 Diagnostic mammography computer-aided detcj uni Yareli Louis SURVEY ASSOCIATE - DIRECTOR OF BROADCAST Work Phone: Start: 05-31-2021 Diagnostic mammography computer-aided detcj uni Yareli Louis SURVEY ASSOCIATE - DIRECTOR OF BROADCAST Work Phone: Start: 05-25-2021 End: 05-25-2021 Screening digital breast tomosynthesis bi Yareli Louis SURVEY ASSOCIATE - DIRECTOR OF BROADCAST Work Phone: Start: 09-16-2019 H/O: hysterectomy History of hysterectomy Yareli Louis SURVEY ASSOCIATE - DIRECTOR OF BROADCAST Work Phone: Start: 01-21-2019 Us abdominal real time w/image documentation Yareli Louis Work Phone: Start: 01-07-2019 Radiologic exam chest 2 views Yareli Louis Work Phone: Start: 05-09-2018 Colonoscopy Yareli Louis SURVEY ASSOCIATE - DIRECTOR OF BROADCAST Work Phone: Plan of Treatment Date Care Activity Detail Author Start: 2048 RSV Immunization for Adults (1 - 1-dose 75+ series) RSV Immunization for Adults (1 - 1-dose 75+ series) [facility] Start: 2033 RSV Immunization aged 60 or older (1 - 1-dose 60+ series) RSV Immunization aged 60 or older (1 - 1-dose 60+ series) [facility] Start: 08-11-2032 Screening for malignant neoplasm of colon [facility] Start: 11-16-2029 Lipid panel Lipid Panel [facility] Start: 11-10-2028 Lipid panel Lipid Panel [facility] Start: 05-09-2028 Screening for malignant neoplasm of colon [facility] Start: 10-30-2027 Lipid panel Lipid Panel [facility] Start: 12-11-2026 Lipid panel Lipid Panel [facility] Start: 08-08-2026 DTaP/Tdap/Td vaccine (3 - Td or Tdap) DTaP/Tdap/Td vaccine (3 - Td or Tdap) [facility] Start: 08-08-2026 DTaP/Tdap/Td vaccine (3 - Td) DTaP/Tdap/Td vaccine (3 - Td) [place] Start: 08-08-2026 DTaP/Tdap/Td Vaccines (3 - Td or Tdap) DTaP/Tdap/Td Vaccines (3 - Td or Tdap) [facility] Start: 11-16-2025 Diabetes mellitus screening Diabetes Screening [facility] Start: 11-16-2025 Zoster Vaccines (1 of 2) Zoster Vaccines (1 of 2) [facility] Comment on above: Postponed from 2023 (Patient Refus ed) Start: 08-10-2025 Screening for malignant neoplasm of breast Mammogram [facility] Start: 07-30-2025 Screening for malignant neoplasm of breast Mammogram [facility] Start: 05-20-2025 COVID-19 Vaccine ( season) COVID-19 Vaccine () [facility] Comment on above: Postponed from 11/24/2023 (Patient Refus ed) Start: 05-20-2025 Diabetes mellitus screening Diabetes Screening [facility] Start: 05-20-2025 Pneumococcal Vaccine: 50+ Years (1 of 1 - PCV) Pneumococcal Vaccine: 50+ Years (1 of 1 - PCV) [facility] Comment on above: Postponed from 2023 (Patient Refus ed) Start: 03-18-2025 Depression Monitoring Depression Monitoring [facility] Start: 12-21-2024 End: 12-21-2024 Clinical Support 12/21/2024 7:30 AM EDT Clinical Support [facility] [address] [place] [address] [facility] Start: 12-11-2024 End: 12-11-2024 Patient encounter procedure 12/11/2024 8:00 AM EDT Office Visit [facility] [address] [place] [address] Yareli Louis S, SURVEY ASSOCIATE - DIRECTOR OF BROADCAST [address] [facility] [place] [address] [facility] Start: 11-23-2024 COVID-19 Vaccine () COVID-19 Vaccine () [facility] Start: 11-23-2024 Influenza vaccination [facility] Start: 11-17-2024 End: 11-17-2024 Clinical Support 11/17/2024 7:30 AM EDT Clinical Support [place] [address] [place] [address] [facility] Start: 11-16-2024 End: 11-16-2025 CBC panel - Blood by Automated count CBC Lab Routine SVT (supraventricular tachycardia) (HCC) Clotting disorder (CMS/HCC) (HCC) Hyperhomocysteinemia (HCC) Mild episode of recurrent major depressive disorder (HCC) Essential hypertension Hypokalemia Hyperlipidemia LDL goal <100 H/O deep venous thrombosis Anxiety Panic attack Expected: 11/16/2024 (Approximate), Expires: 11/16/2025 [facility] Comment on above: Expected: 11/16/2024 (Approximate), Expi res: 11/16/2025 Start: 11-16-2024 End: 11-16-2025 Comprehensive metabolic 1998 panel - Serum or Plasma Comprehensive metabolic panel Lab Routine SVT (supraventricular tachycardia) (HCC) Clotting disorder (CMS/HCC) (HCC) Hyperhomocysteinemia (HCC) Mild episode of recurrent major depressive disorder (HCC) Essential hypertension Hypokalemia Hyperlipidemia LDL goal <100 H/O deep venous thrombosis Anxiety Panic attack Prediabetes Expected: 11/16/2024 (Approximate), Expires: 11/16/2025 [facility] Work Phone: Comment on above: Expected: 11/16/2024 (Approximate), Expi res: 11/16/2025 Start: 11-16-2024 End: 11-16-2025 Hemoglobin A1c measurement Hemoglobin A1c Lab Routine Prediabetes Expected: 11/16/2024 (Approximate), Expires: 11/16/2025 [facility] Comment on above: Expected: 11/16/2024 (Approximate), Expi res: 11/16/2025 Start: 11-16-2024 End: 11-16-2025 Lipid 1996 panel - Serum or Plasma Lipid panel Lab Routine Hyperlipidemia LDL goal <100 Expected: 11/16/2024 (Approximate), Expires: 11/16/2025 [facility] Comment on above: Expected: 11/16/2024 (Approximate), Expi res: 11/16/2025 Start: 11-16-2024 End: 11-16-2024 Patient encounter procedure 11/16/2024 9:00 AM EDT Office Visit [facility] [address] [facility] [place] [address] Yareli Louis S, SURVEY ASSOCIATE - DIRECTOR OF BROADCAST [address] [facility] [address] [facility] [place] [address] [facility] Start: 11-10-2024 COVID-19 Vaccine () COVID-19 Vaccine () [facility] Comment on above: Postponed from 11/23/2022 (Patient Refus ed) Start: 11-10-2024 Depression Screening Depression Screening [facility] Start: 11-10-2024 Diabetes mellitus screening Diabetes Screening [facility] Start: 11-10-2024 Zoster Vaccines (1 of 2) Zoster Vaccines (1 of 2) [facility] Comment on above: Postponed from 2023 (Patient Refus ed) Start: 11-10-2024 End: 11-10-2024 Clinical Support 11/10/2024 7:30 AM EDT Clinical Support [facility] [address] [facility] [place] [address] [facility] Start: 10-13-2024 End: 10-13-2024 Clinical Support 10/13/2024 7:30 AM EDT Clinical Support [facility] [address] [facility] [place] [address] [facility] Start: 09-21-2024 Influenza vaccination Influenza Vaccine (#1) [facility] Comment on above: Postponed from 11/24/2023 (Patient Refus ed) Start: 09-15-2024 Lipid panel Lipid screen [facility] [place] Start: 09-15-2024 End: 09-15-2024 Clinical Support 09/15/2024 10:00 AM EDT Clinical Support [facility] [address] [facility] [place] [address] [facility] [place] Start: 08-18-2024 End: 08-18-2024 Clinical Support 08/18/2024 10:00 AM EDT Clinical Support [facility] [place] [address] [facility] [place] [address] [facility] [place] Start: 07-31-2024 End: 09-30-2025 DBT Breast - left diagnostic Left diagnostic mammogram with tomosynthesis Imaging Routine Calcification of left breast on mammography Abnormality of left breast on screening mammogram Expected: 07/31/2024, Expires: 09/30/2025 [facility] Work Phone: Comment on above: Expected: 07/31/2024, Expires: Start: 07-30-2024 End: 07-30-2024 Patient encounter procedure 07/30/2024 10:20 AM EDT Appointment [address] [phone] Henrique Mckee MD [address] [place] [address] [facility] Start: 07-21-2024 End: 07-21-2024 Clinical Support 07/21/2024 10:00 AM EDT Clinical Support [facility] [place] [address] [facility] [facility] [place] [address] [facility] [place] Start: 07-03-2024 End: 07-18-2025 DBT Breast - bilateral screening Bilateral screening mammogram with tomosynthesis Imaging Routine Screening mammogram for breast cancer Expected: 07/03/2024, Expires: 07/18/2025 [facility] Comment on above: Expected: 07/03/2024, Expires: Start: 07-02-2024 Screening for malignant neoplasm of breast Mammogram [facility] Start: 06-10-2024 End: 06-10-2024 Clinical Support 06/10/2024 10:30 AM EDT Clinical Support [facility] [address] [place] [address] [facility] Start: 06-03-2024 End: 06-03-2024 Patient encounter procedure 06/03/2024 11:20 AM EDT Office Visit [facility] [place] [address] [facility] [address] [place] [address] Racheal De Leon PA-C [address] [facility] [address] [place] [address] [facility] [place] Start: 05-25-2024 End: 05-25-2024 Clinical Support 05/25/2024 10:30 AM EST Clinical Support [facility] [address] [place] [address] [facility] Start: 05-20-2024 End: 05-20-2025 Comprehensive metabolic 1998 panel - Serum or Plasma Comprehensive metabolic panel Lab Routine SVT (supraventricular tachycardia) (HCC) Essential hypertension Hypokalemia Hyperlipidemia LDL goal <100 Clotting disorder (CMS/HCC) (HCC) Hyperhomocysteinemia (HCC) Anxiety Panic attack Prediabetes Right sided abdominal pain Expected: 05/20/2024 (Approximate), Expires: 05/20/2025 [facility] Comment on above: Expected: 05/20/2024 (Approximate), Expi res: 05/20/2025 Start: 05-20-2024 End: 05-20-2025 Hemoglobin A1c measurement Hemoglobin A1c Lab Routine Prediabetes Expected: 05/20/2024 (Approximate), Expires: 05/20/2025 [facility] Work Phone: Comment on above: Expected: 05/20/2024 (Approximate), Expi res: 05/20/2025 Start: 05-13-2024 Depression Monitoring Depression Monitoring [facility] Start: 05-11-2024 End: 05-11-2024 Patient encounter procedure [facility] Start: 05-04-2024 End: 05-04-2024 Patient encounter procedure 05/04/2024 10:40 AM EST Office Visit [facility] [place] [address] [place] [address] [place] [address] Yareli Louis, MIGEL - DIRECTOR OF BROADCAST [address] [place] [address] [place] [address] [facility] [place] Start: 04-27-2024 End: 04-27-2024 Clinical Support 04/27/2024 10:00 AM EST Clinical Support [facility] [place] [address] [place] [address] [place] [address] [facility] [place] Start: 04-20-2024 End: 04-20-2024 Clinical Support 04/20/2024 2:00 PM EST Clinical Support [facility] [place] [address] [place] [address] [place] [address] [facility] [place] Start: 03-31-2024 End: 03-31-2024 Patient encounter procedure [facility] Start: 03-27-2024 End: 03-27-2024 Patient encounter procedure 03/27/2024 10:00 AM EST Office Visit [facility] [address] [place] [phone] Genevieve Cardona PA-C [address] [place] [address] [address] [place], [place] [id number] [facility] Start: 03-16-2024 End: 03-16-2024 Admission to same day surgery center 03/16/2024 7:30 AM EST - 03/16/2024 9:00 AM EST Surgery [facility] MA[facility] OR [address] [place] [phone] Shellie Fisher MD [address] [place] [address] [address] [place], [place] [id number] REPAIR COMPLEX WOUND OF EYELIDS NOSE EARS LIPS 1.1 CM TO 2.5 [65269 (CPT )] [facility] Comment on above: REPAIR COMPLEX WOUND OF EYELIDS NOSE EAR S LIPS 1.1 CM TO 2.5 [77095 (CPT )] Start: 03-16-2024 End: 03-16-2024 Rad resection tumor soft tiss face/scalp < 2cm RADICAL RESECTION OF TUMOR SOFT TISSUE FACE OR SCALP 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 03/16/2024 7:30 AM EST [facility] Start: 03-16-2024 End: 03-16-2024 Repair complex eyelid/nose/ear/lip 1.1-2.5 cm REPAIR COMPLEX WOUND OF EYELIDS NOSE 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 03/16/2024 7:30 AM EST [facility] Operating Room Start: 03-16-2024 End: 03-16-2024 Repair intermediate f/e/e/n/l&/muc 2.5 cm/< REPAIR INTERMEDIATE WOUNDS OF FACE EARS EYELIDS NOSE LIPS MUCOUS MEMBRANES 2.5 CM OR LESS 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 03/16/2024 7:30 AM EST [facility] Operating Room Start: 03-16-2024 Subsequent hospital visit by physician 03/16/2024 7:30 AM EST Hospital Encounter [facility] OR [address] [place] [address] Shellie Fisher MD [address] [place] [address] [place] [address] [facility] Start: 03-13-2024 End: 03-13-2024 Patient encounter procedure 03/13/2024 11:30 AM EST Office Visit [facility] [address] [place] [phone] Genevieve Cardona PA-C [address] [place] [address] [facility] Start: 03-09-2024 End: 03-09-2024 Admission to establishment 03/09/2024 9:30 AM EST Pre-Admission Testing [facility] Pre-Admit Testing [address] [place] [id number] [facility] Start: 03-02-2024 End: 03-02-2024 Patient encounter procedure 03/02/2024 2:20 PM EST [facility] [address] [place] [address] [place] [address] Yareli Louis, SURVEY ASSOCIATE - DIRECTOR OF BROADCAST [address] [facility] [place] [address] [place] [address] [facility] Start: 02-24-2024 End: 02-24-2024 Clinical Support 02/24/2024 2:30 PM EST Clinical Support [facility] [address] [facility] [place] [address] [facility] Start: 01-31-2024 End: 01-31-2024 Patient encounter procedure 01/31/2024 10:00 AM EST Office Visit [facility] [address] [facility] [address] [place] [address] Mainor Lakhani MD [address] [facility] [address] [place] [address] [facility] [place] Start: 01-22-2024 End: 01-22-2024 Patient encounter procedure 01/22/2024 3:20 PM EDT Office Visit [facility] [address] [facility] [place] [address] [place] [address] Yareli Louis, SURVEY ASSOCIATE - DIRECTOR OF BROADCAST [address] [facility] [place] [address] [facility] Start: 01-22-2024 End: 01-21-2025 Potassium [Moles/volume] in Serum or Plasma Potassium Lab Routine Acne vulgaris SVT (supraventricular tachycardia) (HCC) Hypokalemia Expected: 01/22/2024 (Approximate), Expires: 01/21/2025 [facility] Work Phone: Comment on above: Expected: 01/22/2024 (Approximate), Expi res: 01/21/2025 Start: 01-21-2024 End: 01-21-2024 Clinical Support 01/21/2024 10:30 AM EDT Clinical Support [facility] [address] [place] [address] [place] [address] [facility] Start: 01-12-2024 Lipid screen Lipid screen [facility] [place] Start: 12-25-2023 End: 12-25-2023 Clinical Support [facility] Start: 12-13-2023 End: 12-13-2023 Patient encounter procedure [facility] Start: 12-09-2023 End: 12-09-2023 Clinical Support 12/09/2023 10:00 AM EDT Clinical Support [facility] [address] [facility] [place] [address] [facility] Start: 11-27-2023 End: 11-27-2023 Patient encounter procedure 11/27/2023 10:15 AM EDT Office Visit [facility] [address] [place] [address] [place] [phone] Genevieve Cardona PA-C [address] [place], [place] [address] [facility] Start: 11-24-2023 COVID-19 Vaccine ( season) COVID-19 Vaccine ( season) [facility] Start: 11-24-2023 COVID-19 Vaccine ( season) COVID-19 Vaccine ( season) [facility] Start: 11-24-2023 Influenza vaccination [facility] Start: 11-17-2023 Diabetes screen Diabetes screen [facility] Start: 11-13-2023 End: 11-13-2023 Patient encounter procedure 11/13/2023 11:30 AM EDT Office Visit [facility] [address] [place] [phone] Shellie Fisher MD [address] [facility] [place] [address] [place] [address] [facility] Start: 11-11-2023 End: 11-10-2024 Comprehensive metabolic 1998 panel - Serum or Plasma Comprehensive metabolic panel Lab Routine SVT (supraventricular tachycardia) (HCC) Hypokalemia Hyperlipidemia LDL goal <100 Clotting disorder (CMS/HCC) (HCC) H/O deep venous thrombosis Hyperhomocysteinemia (HCC) Anxiety Panic attack Screening for diabetes mellitus Expected: 11/11/2023 (Approximate), Expires: 11/10/2024 [facility] Comment on above: Expected: 11/11/2023 (Approximate), Expi res: 11/10/2024 Start: 11-11-2023 End: 11-10-2024 Hemoglobin A1c measurement Hemoglobin A1c Lab Routine Family history of diabetes mellitus Screening for diabetes mellitus Expected: 11/11/2023 (Approximate), Expires: 11/10/2024 [facility] [facility] Work Phone: Comment on above: Expected: 11/11/2023 (Approximate), Expi res: 11/10/2024 Start: 11-11-2023 End: 11-10-2024 Lipid 1996 panel - Serum or Plasma Lipid panel Lab Routine Hyperlipidemia LDL goal <100 Expected: 11/11/2023 (Approximate), Expires: 11/10/2024 [facility] Comment on above: Expected: 11/11/2023 (Approximate), Expi res: 11/10/2024 Start: 11-11-2023 End: 11-11-2023 Patient encounter procedure 11/11/2023 10:00 AM EDT Procedure Visit [facility] [address] [place] [address] [place] [address] Yareli Louis, SURVEY ASSOCIATE - DIRECTOR OF BROADCAST [address] [facility] [place] [address] [facility] Start: 11-05-2023 End: 11-05-2023 Clinical Support [facility] Start: 11-01-2023 End: 09-30-2024 Potassium [Moles/volume] in Serum or Plasma Potassium Lab Routine Acne vulgaris Expected: 11/01/2023 (Approximate), Expires: 09/30/2024 [facility] Work Phone: Comment on above: Expected: 11/01/2023 (Approximate), Expi res: 09/30/2024 Start: 10-29-2023 End: 10-29-2023 Clinical Support 10/29/2023 10:00 AM EDT Clinical Support [address] [address] [place] [address] [facility] Start: 10-22-2023 End: 10-22-2023 Clinical Support 10/22/2023 10:00 AM EDT Clinical Support [address] [address] [facility] Start: 10-16-2023 End: 10-15-2024 Potassium [Moles/volume] in Serum or Plasma Potassium Lab Routine Acne vulgaris Expected: 10/16/2023 (Approximate), Expires: 10/15/2024 [facility] Work Phone: Comment on above: Expected: 10/16/2023 (Approximate), Expi res: 10/15/2024 Start: 10-01-2023 End: 10-01-2023 Patient encounter procedure 10/01/2023 11:00 AM EDT Office Visit [facility] D[facility] [address] [facility] [address] [place] [phone] Racheal De Leon PA-C [address] [facility] [address] [place] [address] [facility] Start: 09-30-2023 End: 09-30-2023 Clinical Support 09/30/2023 9:00 AM EDT Clinical Support [facility] [address] [place] [address] [place] [address] [facility] Start: 09-23-2023 End: 09-23-2023 Patient encounter procedure 09/23/2023 9:20 AM EDT Office Visit [facility] [address] [place] [address] [place] [address] Yareli Louis, SURVEY ASSOCIATE - DIRECTOR OF BROADCAST [address] [place] [address] [facility] Start: 09-09-2023 End: 09-08-2024 CBC panel - Blood by Automated count CBC Lab Routine Rash and nonspecific skin eruption Expected: 09/09/2023 (Approximate), Expires: 09/08/2024 [facility] Work Phone: Comment on above: Expected: 09/09/2023 (Approximate), Expi res: 09/08/2024 Start: 09-09-2023 End: 09-09-2023 Patient encounter procedure 09/09/2023 9:00 AM EDT Office Visit [facility] [address] [place] [address] [place] [address] Yareli Louis, SURVEY ASSOCIATE - DIRECTOR OF BROADCAST [address] [place] [address] [facility] Start: 09-04-2023 Depression Screening Depression Screening [facility] Start: 09-03-2023 End: 09-03-2023 Clinical Support 09/03/2023 10:00 AM EDT Clinical Support [facility] [address] [place] [address] [place] [address] [facility] Start: 08-26-2023 Subsequent hospital visit by physician 08/26/2023 8:15 AM EDT Hospital Encounter [facility] [place] [address] [place] [phone] Yareli Louis, SURVEY ASSOCIATE - DIRECTOR OF BROADCAST [address] [place] [address] [facility] Start: 08-06-2023 End: 08-06-2023 Clinical Support 08/06/2023 10:00 AM EDT Clinical Support [facility] [address] [place] [address] [facility] Start: 07-17-2023 End: 07-17-2023 Patient encounter procedure 07/17/2023 10:00 AM EDT Appointment [facility] [address] [place] [id number] Loraine Jernigan, SURVEY ASSOCIATE - DIRECTOR OF BROADCAST [address] [place] [address] [facility] Start: 07-09-2023 End: 07-09-2023 Clinical Support 07/09/2023 10:00 AM EDT Clinical Support [facility] [address] [place] [address] [facility] Start: 07-03-2023 End: 07-03-2023 Patient encounter procedure 07/03/2023 11:00 AM EDT Appointment [facility] [address] [place] [phone] [facility] Start: 07-03-2023 Subsequent hospital visit by physician 07/03/2023 11:00 AM EDT Hospital Encounter [facility] [address] [place] [phone] [facility] Start: 06-28-2023 Screening for malignant neoplasm of breast Mammogram [facility] Start: 06-26-2023 Lipid screen Lipid screen [facility] [place] Start: 06-11-2023 End: 06-11-2023 Clinical Support 06/11/2023 10:30 AM EDT Clinical Support [facility] [address] [place] [address] [facility] Start: 05-14-2023 COVID-19 Vaccine (4 - Booster for Moderna series) COVID-19 Vaccine (4 - Booster for Moderna series) [facility] Comment on above: Postponed from 04/08/2021 (Patient Refus ed) Start: 05-14-2023 COVID-19 Vaccine (4 - Moderna series) COVID-19 Vaccine (4 - Moderna series) [facility] Comment on above: Postponed from 04/08/2021 (Patient Refus ed) Start: 05-14-2023 End: 05-14-2023 Clinical Support 05/14/2023 10:30 AM EST Clinical Support [address] [place] [address] [facility] Start: 05-07-2023 End: 05-07-2023 Clinical Support 05/07/2023 10:30 AM EST Clinical Support [address] [place] [address] [facility] Start: 04-24-2023 End: 04-24-2023 Clinical Support 04/24/2023 10:00 AM EST Clinical Support [facility] [address] [place] [address] [facility] Start: 04-13-2023 Diabetes mellitus screening Diabetes Screening [facility] Start: 04-12-2023 Hepatitis C screening Hepatitis C Screening [facility] Comment on above: Postponed from 1991 (Patient Refus ed) Start: 04-12-2023 HIV screening HIV Screening [facility] Comment on above: Postponed from 1973 (Patient Refus ed) Start: 03-27-2023 End: 03-27-2023 Clinical Support 03/27/2023 10:00 AM EST Clinical Support [address] [place] [address] [facility] Start: 2023 Pneumococcal Vaccine: 50+ Years (1 of 1 - PCV) Pneumococcal Vaccine: 50+ Years (1 of 1 - PCV) [facility] Start: 2023 Shingles Vaccine (1 of 2) Shingles Vaccine (1 of 2) [facility] Work Phone: Start: 2023 Zoster Vaccines (1 of 2) Zoster Vaccines (1 of 2) [facility] Start: 2023 End: 2023 Patient encounter procedure 2023 11:00 AM EST Office Visit [facility] [address] [place] [address] [place] [address] Yareli Louis, SURVEY ASSOCIATE - DIRECTOR OF BROADCAST [address] [facility] [place] [address] [facility] Start: 03-05-2023 Depression Monitoring Depression Monitoring [facility] Start: 03-05-2023 Depresssion Monitoring Depresssion Monitoring [facility] Start: 02-26-2023 End: 02-26-2023 Clinical Support 02/26/2023 10:00 AM EST Clinical Support [facility] [address] [facility] [place] [address] [facility] Start: 02-13-2023 End: 02-14-2024 XR Skull 4 Views XR skull complete 4+ views Imaging Routine Skull deformity Expected: 02/13/2023, Expires: 02/14/2024 [facility] Work Phone: Comment on above: Expected: 02/13/2023, Expires: Start: 01-28-2023 End: 01-28-2023 Clinical Support 01/28/2023 10:00 AM EST Clinical Support [facility] [address] [place] [address] [facility] Start: 01-17-2023 End: 01-17-2023 Clinical Support 01/17/2023 10:30 AM EDT Clinical Support [facility] [address] [place] [address] [facility] Start: 12-24-2022 End: 12-24-2022 Patient encounter procedure [facility] Start: 12-20-2022 End: 12-20-2022 Clinical Support 12/20/2022 8:30 AM EDT Clinical Support [facility] [address] [place] [facility] [address] [facility] Start: 12-13-2022 End: 12-13-2022 Clinical Support 12/13/2022 9:00 AM EDT Clinical Support [facility] [address] [place] [facility] [address] [facility] Start: 11-28-2022 End: 11-28-2022 Patient encounter procedure 11/28/2022 11:20 AM EDT Office Visit [facility] [address] [facility] [place] [address] Yareli Louis S, SURVEY ASSOCIATE - DIRECTOR OF BROADCAST [address] [place] [address] [facility] Start: 11-23-2022 COVID-19 Vaccine ( season) COVID-19 Vaccine ( season) [facility] Start: 11-23-2022 Influenza vaccination Influenza Vaccine (#1) [facility] Start: 11-10-2022 Depression Screen Depression Screen [facility] Start: 11-07-2022 End: 11-29-2022 TB Skin Test TB Skin Test Point of Care Testing Routine Screening for tuberculosis Expected: 11/07/2022, Expires: 11/29/2022 [facility] Comment on above: Expected: 11/07/2022, Expires: Start: 11-07-2022 End: 11-07-2022 Clinical Support 11/07/2022 10:00 AM EDT Clinical Support [facility] [address] [facility] [place] [address] [facility] Start: 11-05-2022 End: 11-05-2022 Clinical Support 11/05/2022 10:00 AM EDT Clinical Support [facility] [address] [facility] [place] [address] [facility] Start: 10-31-2022 End: 10-31-2022 Clinical Support 10/31/2022 7:30 AM EDT Clinical Support [facility] [address] [facility] [address] [place] [address] [facility] Start: 10-29-2022 End: 10-30-2023 Comprehensive metabolic 1998 panel - Serum or Plasma Comprehensive metabolic panel Lab Routine Hyperlipidemia LDL goal <100 Tachycardia Clotting disorder (CMS/HCC) (HCC) H/O deep venous thrombosis Hypokalemia Anxiety Panic attack Class 1 obesity due to excess calories without serious comorbidity with body mass index (BMI) of 32.0 to 32.9 in adult Chronic eczema Screening for diabetes mellitus Expected: 10/29/2022 (Approximate), Expires: 10/30/2023 [facility] Comment on above: Expected: 10/29/2022 (Approximate), Expi res: 10/30/2023 Start: 10-29-2022 End: 10-30-2023 Lipid 1996 panel - Serum or Plasma Lipid panel Lab Routine Hyperlipidemia LDL goal <100 Expected: 10/29/2022 (Approximate), Expires: 10/30/2023 [facility] [employer] [facility] Work Phone: Comment on above: Expected: 10/29/2022 (Approximate), Expi res: 10/30/2023 Start: 10-29-2022 End: 10-29-2022 Patient encounter procedure [facility] Start: 07-23-2022 End: 07-23-2022 Patient encounter procedure 07/23/2022 Office Visit Cardiology George Reynoso MD [address] [place] [address] [address] [place] [address] [facility] Start: 06-27-2022 End: 06-27-2022 Patient encounter procedure 06/27/2022 Office Visit Dermatology Racheal De Leon PA [address] [facility] [address] [place] [address] [facility] Start: 06-18-2022 End: 06-18-2022 Clinical Support 06/18/2022 Clinical Support Family Medicine [facility] Start: 06-11-2022 End: 06-11-2022 Patient encounter procedure 06/11/2022 Office Visit Dermatology Racheal De Leon PA [address] [facility] [address] [place] [address] [facility] Start: 06-03-2022 End: 06-17-2023 MG Breast - bilateral Diagnostic Bilateral diagnostic mammogram Imaging Routine Calcification of right breast on mammography Expected: 06/03/2022, Expires: 06/17/2023 [employer] Work Phone: Comment on above: Expected: 06/03/2022, Expires: Start: 05-29-2022 End: 05-29-2022 Clinical Support 05/29/2022 Clinical Support Family Medicine [facility] Start: 05-28-2022 End: 05-28-2022 Patient encounter procedure 05/28/2022 Office Visit Family Medicine Yareli Louis S, SURVEY ASSOCIATE - DIRECTOR OF BROADCAST [address] [place] [address] [facility] Start: 05-28-2022 End: 05-29-2023 Estrogens, total Estrogens, total Lab Routine Tachycardia SVT (supraventricular tachycardia) (CMS/HCC) (HCC) Expected: 05/28/2022 (Approximate), Expires: 05/29/2023 [employer] Work Phone: Comment on above: Expected: 05/28/2022 (Approximate), Expi res: 05/29/2023 Start: 05-28-2022 End: 05-29-2023 Follicle stimulating hormone Follicle stimulating hormone Lab Routine Tachycardia SVT (supraventricular tachycardia) (CMS/HCC) (HCC) Expected: 05/28/2022 (Approximate), Expires: 05/29/2023 [employer] Comment on above: Expected: 05/28/2022 (Approximate), Expi res: 05/29/2023 Start: 05-28-2022 End: 05-29-2023 Luteinizing hormone Luteinizing hormone Lab Routine Tachycardia SVT (supraventricular tachycardia) ([facility]) ([facility]) Expected: 05/28/2022 (Approximate), Expires: 05/29/2023 [facility] Comment on above: Expected: 05/28/2022 (Approximate), Expi res: 05/29/2023 Start: 05-28-2022 End: 05-29-2023 Prolactin Prolactin Lab Routine Tachycardia SVT (supraventricular tachycardia) ([facility]) ([facility]) Expected: 05/28/2022 (Approximate), Expires: 05/29/2023 [facility] Comment on above: Expected: 05/28/2022 (Approximate), Expi res: 05/29/2023 Start: 05-28-2022 End: 05-29-2023 Testo,Free/Total-Female Testo,Free/Total-Female Lab Routine Tachycardia SVT (supraventricular tachycardia) ([facility]) ([facility]) Expected: 05/28/2022 (Approximate), Expires: 05/29/2023 [facility] Comment on above: Expected: 05/28/2022 (Approximate), Expi res: 05/29/2023 Start: 05-28-2022 End: 05-29-2023 Thyrotropin [Units/volume] in Serum or Plasma TSH Lab Routine Anxiety Tachycardia SVT (supraventricular tachycardia) ([facility]) ([facility]) Expected: 05/28/2022 (Approximate), Expires: 05/29/2023 [facility] Comment on above: Expected: 05/28/2022 (Approximate), Expi res: 05/29/2023 Start: 05-28-2022 End: 05-29-2023 Thyroxine (T4) free [Mass/volume] in Serum or Plasma T4, free Lab Routine Anxiety Tachycardia SVT (supraventricular tachycardia) ([facility]) ([facility]) Expected: 05/28/2022 (Approximate), Expires: 05/29/2023 [facility] Comment on above: Expected: 05/28/2022 (Approximate), Expi res: 05/29/2023 Start: 05-28-2022 End: 03-06-2024 Triiodothyronine (T3) Free [Mass/volume] in Serum or Plasma T3, free Lab Routine Anxiety Tachycardia SVT (supraventricular tachycardia) (CMS/HCC) (HCC) Expected: 05/28/2022 (Approximate), Expires: 05/29/2023 [employer] Work Phone: Comment on above: Expected: 05/28/2022 (Approximate), Expi res: 05/29/2023 Start: 05-25-2022 Screening for malignant neoplasm of breast Mammogram [facility] Start: 05-14-2022 End: 05-14-2023 Basic metabolic 1997 panel - Serum or Plasma Basic metabolic panel Lab Routine SVT (supraventricular tachycardia) (CMS/HCC) (HCC) Clotting disorder (CMS/HCC) (HCC) Hypokalemia Anxiety Panic attack Expected: 05/14/2022 (Approximate), Expires: 05/14/2023 [employer] Work Phone: Comment on above: Expected: 05/14/2022 (Approximate), Expi res: 05/14/2023 Start: 05-14-2022 End: 05-14-2023 Prothrombin time (PT) in Blood by Coagulation assay Protime-INR Lab Routine SVT (supraventricular tachycardia) (CMS/HCC) (HCC) Clotting disorder (CMS/HCC) (HCC) H/O deep venous thrombosis Expected: 05/14/2022 (Approximate), Expires: 05/14/2023 [employer] Comment on above: Expected: 05/14/2022 (Approximate), Expi res: 05/14/2023 Start: 05-14-2022 End: 05-14-2022 Patient encounter procedure [facility] Start: 04-13-2022 End: 04-12-2023 Basic metabolic 1997 panel - Serum or Plasma Basic metabolic panel Lab Routine Elevated fasting glucose Expected: 04/13/2022 (Approximate), Expires: 04/12/2023 [facility] Comment on above: Expected: 04/13/2022 (Approximate), Expi res: 04/12/2023 Start: 04-13-2022 End: 04-12-2023 Hemoglobin A1c/Hemoglobin.total in Blood Hemoglobin A1c Lab Routine Elevated fasting glucose Expected: 04/13/2022 (Approximate), Expires: 04/12/2023 [facility] Work Phone: Comment on above: Expected: 04/13/2022 (Approximate), Expi res: 04/12/2023 Start: 04-13-2022 End: 04-13-2023 XR Hand - left 3 Views XR hand 3+ views left Imaging Routine Chronic pain of left thumb Expected: 04/13/2022, Expires: 04/13/2023 [facility] Comment on above: Expected: 04/13/2022, Expires: 4 Start: 04-13-2022 End: 04-13-2023 XR Hip - right 3 Views XR hip right 2 or 3 views Imaging Routine Chronic right hip pain Expected: 04/13/2022, Expires: 04/13/2023 [facility] Comment on above: Expected: 04/13/2022, Expires: 4 Start: 01-01-2022 End: 01-01-2022 Patient encounter procedure 01/01/2022 Office Visit Dermatology Racheal De Leon PA [address] [facility] [address] [place] [address] [facility] Start: 12-07-2021 End: 12-07-2021 Nursing evaluation of patient and report 12/07/2021 Nurse Only Family Medicine [facility] Start: 11-23-2021 Influenza vaccination [facility] Start: 11-16-2021 Lipid panel [facility] Start: 10-16-2021 End: 10-16-2021 Patient encounter procedure 10/16/2021 Office Visit Family Medicine Yareli Louis, SURVEY ASSOCIATE - DIRECTOR OF BROADCAST [address] [place] [address] [facility] Start: 10-12-2021 Depression Screen Depression Screen [facility] Start: 04-08-2021 COVID-19 VACCINE (4 - Booster for Moderna series) COVID-19 VACCINE (4 - Booster for Moderna series) [facility] Start: 01-01-2022 DEPRESSION ASSESSMENT DEPRESSION ASSESSMENT [facility] Start: 09-14-2020 Pneumococcal 0-64 years Vaccine (1 of 1 - PPSV23) Pneumococcal 0-64 years Vaccine (1 of 1 - PPSV23) [facility] [place] Comment on above: Postponed from 1979 (Patient Refus ed) Start: 03-16-2020 End: 03-16-2020 Office Visit 03/16/2020 Office Visit Family Medicine Yareli Louis, SURVEY ASSOCIATE - DIRECTOR OF BROADCAST [address] [place] [address] [phone] [facility] Start: 11-24-2019 Influenza vaccination Flu vaccine (#1) [facility] [place] Start: 10-04-2019 Cervical cancer screen Cervical cancer screen [place], [place] Start: 07-01-2019 End: 07-01-2019 Office Visit 07/01/2019 Office Visit Family Medicine Yareli Louis, SURVEY ASSOCIATE - DIRECTOR OF BROADCAST [address] [place] [address] [phone] [facility] Start: 01-28-2019 End: 01-28-2019 Nurse Only 01/28/2019 Nurse Only [facility] Start: 01-21-2019 End: 01-21-2019 Appointment 01/21/2019 Appointment Radiology Yareli Louis, SURVEY ASSOCIATE - DIRECTOR OF BROADCAST [address] [place] [address] [phone] [facility] Start: 2018 COLOGUARD (FIT-DNA) COLOGUARD (FIT-DNA) [facility] Start: 2018 Colonoscopy COLONOSCOPY [facility] Start: 2018 COLORECTAL CANCER SCREENING COLORECTAL CANCER SCREENING [facility] Start: [address] COLONOGRAPHY [facility] Start: 2018 DIABETES SCREEN DIABETES SCREEN [facility] Start: 2018 FECAL OCCULT BLOOD FECAL OCCULT BLOOD [facility] Start: 2018 LIPID SCREEN LIPID SCREEN [facility] Start: 2018 Screening for malignant neoplasm of colon [facility] Start: 2018 SIGMOIDOSCOPY SIGMOIDOSCOPY [facility] Start: 03-25-2016 Urine microalbumin profile DTAP,TDAP,TD (2 - Td or Tdap) [facility] Start: 02-23-2016 PAP TESTING PAP TESTING [facility] Start: 2013 Diabetes screen Diabetes screen [place], [place] Start: 2013 Mammography MAMMOGRAM [facility] Start: 2003 HPV TESTING HPV TESTING [facility] Start: 1991 HEPATITIS C SCREENING HEPATITIS C SCREENING [facility] Start: 1991 HIV SCREENING HIV SCREENING [facility] Start: 1979 PNEUMOCOCCAL (1 - PCV) PNEUMOCOCCAL (1 - PCV) [facility] Start: 1979 Pneumococcal 0-64 years Vaccine (1 of 1 - PPSV23) Pneumococcal 0-64 years Vaccine (1 of 1 - PPSV23) [place] Start: 1973 Screening for malignant neoplasm of colon [facility] Cytology Cervical or vaginal smear or scraping study Pap Smear Pathology and Cytology Routine Encounter for Papanicolaou smear for cervical cancer screening 10/29/2022 10:35 AM EDT [facility] Cytology Cervical or vaginal smear or scraping study Pap Smear Pathology and Cytology Routine Encounter for Papanicolaou smear for cervical cancer screening Ordered: 11/16/2024 [employer] Comment on above: Ordered: 11/16/2024 ECG 12 lead - CLINIC PERFORMED ECG 12 lead - CLINIC PERFORMED CV ECG Routine SVT (supraventricular tachycardia) (CMS/HCC) (HCC) 07/23/2022 1:18 PM EDT [facility] Work Phone: HPV High Risk PCR HPV High Risk PCR Microbiology Routine Encounter for Papanicolaou smear for cervical cancer screening 10/29/2022 10:35 AM EDT [facility] End: 05-13-2019 LIVIA BREAST SPECIMEN LIVIA BREAST SPECIMEN Imaging Routine Once for 1 Occurrences starting 05/13/2019 until 05/13/2019 [place] Comment on above: Once for 1 Occurrences starting 05/13/19 20 until 05/13/2019 LIVIA BREAST SPECIMEN LIVIA BREAST S PECIMEN Imaging Routine 05/13/2019 1:56 PM EST [place] End: 05-13-2019 LIVIA STEREO BREAST BX W LOC DEVICE 1ST LESION LEFT LIVIA STEREO BREAST BX W LOC DEVICE 1ST LESION LEFT Imaging Routine Once for 1 Occurrences starting 05/13/2019 until 05/13/2019 [facility] Comment on above: Once for 1 Occurrences starting 05/13/19 until 05/13/2019 LIVIA STEREO BREAST BX W LOC DEVICE 1ST LESION LEFT LIVIA STEREO BREAST BX W LOC DEVICE 1ST LESION LEFT Imaging Routine 05/13/2019 1:56 PM EST [facility] End: 05-06-2019 LIVIA MARTIN DIGITAL DIAGNOSTIC UNILATERAL LEFT LIVIA MARTIN DIGITAL DIAGNOSTIC UNILATERAL LEFT Imaging Routine Once for 1 Occurrences starting 05/06/2019 until 05/06/2019 [facility] Work Phone: Comment on above: Once for 1 Occurrences starting 05/06/19 until 05/06/2019 LIVIA MARTIN DIGITAL DIAGNOSTIC UNILATERAL LEFT [facility] Work Phone: End: 11-11-2019 LIVIA MARTIN DIGITAL DIAGNOSTIC UNILATERAL LEFT LIVIA MARTIN DIGITAL DIAGNOSTIC UNILATERAL LEFT Imaging Routine Once for 1 Occurrences starting 11/11/2019 until 11/11/2019 [facility] Comment on above: Once for 1 Occurrences starting 11/11/19 until 11/11/2019 OUTSIDE PROCEDURE SCAN OUTSIDE P ROCEDURE SCAN Procedures Ordered: 02/19/2023 [facility] Region Comment on above: Ordered: 02/19/2023 OUTSIDE PROCEDURE SCAN OUTSIDE P ROCEDURE SCAN Procedures Ordered: 07/09/2023 [facility] Comment on above: Ordered: 07/09/2023 OUTSIDE PROCEDURE SCAN OUTSIDE P ROCEDURE SCAN Procedures Ordered: 07/16/2023 [facility] Comment on above: Ordered: 07/16/2023 OUTSIDE PROCEDURE SCAN OUTSIDE P ROCEDURE SCAN Procedures Ordered: 05/10/2022 [facility] Comment on above: Ordered: 05/10/2022 End: 10-10-2023 Prothrombin time (PT) in Blood by Coagulation assay Protime-INR Lab Routine Clotting disorder (CMS/HCC) (HCC) 99 Occurrences starting 10/09/2022 until 10/10/2023 [facility] [email or web address] Work Phone: Comment on above: 99 Occurrences starting 10/09/2022 until 10/10/2023 End: 11-10-2024 Prothrombin time (PT) in Blood by Coagulation assay Protime-INR Lab Routine Clotting disorder (CMS/HCC) (HCC) H/O deep venous thrombosis Every 4 weeks for 24 Occurrences starting 11/11/2023 until 11/10/2024 [facility] [employer] Comment on above: Every 4 weeks for 24 Occurrences startin g 11/11/2023 until 11/10/2024 Repair complex eyelid/nose/ear/lip 1.1-2.5 cm REPAIR COMPLEX WOUND OF EYELIDS NOSE 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 [facility] Operating Room Repair intermediate f/e/e/n/l&/muc 2.5 cm/< [facility] Operating [facility] End: 04-15-2019 Screening digital breast tomosynthesis bi LIVIA MARTIN DIGITAL SCREEN BILATERAL Imaging Routine Once for 1 Occurrences starting 04/15/2019 until 04/15/2019 [facility] Work Phone: Comment on above: Once for 1 Occurrences starting 04/15/19 until 04/15/2019 Screening digital breast tomosynthesis bi LIVIA MARTIN DIGITAL SCREEN BILATERAL Imaging Routine 04/15/2019 3:30 PM EST [facility] Work Phone: End: 07-17-2023 US Head and neck soft tissue [facility] [employer] Work Phone: Comment on above: Once for 1 Occurrences starting 07/17/19 24 until 07/17/2023 End: 05-10-2022 XR Hand - left 3 Views [facility] [employer] Work Phone: Comment on above: Once for 1 Occurrences starting 05/10/19 23 until 05/10/2022 End: 02-19-2023 XR Skull 4 Views [facility] Work Phone: Comment on above: Once for 1 Occurrences starting 02/20/20 23 until 02/19/2023 Immunizations Immunization Date Immunization Notes Care Provider Fa regino 11-05-2023 tuberculin skin test ; purified protein derivative solution, intradermal Yareli Louis SURVEY ASSOCIATE - DIRECTOR OF BROADCAST Work Phone: [facility] 10-29-2023 tuberculin skin test ; purified protein derivative solution, intradermal Henrique Mckee MD Work Phone: [facility] 05-28-2023 influenza, injectabl e, quadrivalent, preservative free Yareli Heriberto SURVEY ASSOCIATE - DIRECTOR OF BROADCAST Work Phone: [facility] 05-28-2023 influenza virus vaccine, unspecified formulation Yareli Heriberto SURVEY ASSOCIATE - DIRECTOR OF BROADCAST Work Phone: [facility] 11-05-2022 tuberculin skin test ; purified protein derivative solution, intradermal Josiane D'Meliton [facility] 10-29-2022 tuberculin skin test ; purified protein derivative solution, intradermal Yareli Heriberto SURVEY ASSOCIATE - DIRECTOR OF BROADCAST Work Phone: [facility] 04-13-2022 Seasonal, quadrivalent, recombinant, injectable influenza vaccine, preservative free Yareli Heriberto SURVEY ASSOCIATE - DIRECTOR OF BROADCAST Work Phone: [facility] 04-13-2022 influenza virus vaccine, unspecified formulation Loraine Jernigan SURVEY ASSOCIATE - DIRECTOR OF BROADCAST Work Phone: [facility] 05-03-2021 influenza, injectabl e, quadrivalent, preservative free Yareli Heriberto SURVEY ASSOCIATE - DIRECTOR OF BROADCAST Work Phone: [facility] 02-11-2021 COVID-19, Moderna, Primary or Immunocompromised, PF, 100mcg/0.5mL Yareli Heriberto SURVEY ASSOCIATE - DIRECTOR OF BROADCAST Work Phone: [facility] Work Phone: 04-27-2020 COVID-19, Moderna, Primary or Immunocompromised, PF, 100mcg/0.5mL Yareli Heriberto SURVEY ASSOCIATE - DIRECTOR OF BROADCAST Work Phone: [facility] Work Phone: 04-01-2020 COVID-19, Moderna, Primary or Immunocompromised, PF, 100mcg/0.5mL Yareli Heriberto SURVEY ASSOCIATE - DIRECTOR OF BROADCAST Work Phone: [facility] Work Phone: 01-27-2020 influenza, injectabl e, quadrivalent, contains preservative Yareli Heriberto SURVEY ASSOCIATE - DIRECTOR OF BROADCAST Work Phone: [facility] Work Phone: 12-24-2018 influenza, injectabl e, quadrivalent, contains preservative Yareli Heriberto [facility] 02-05-2017 influenza virus vaccine, unspecified formulation Shb 3 [facility] Work Phone: 02-05-2017 influenza, seasonal, injectable [facility] 02-05-2017 influenza, seasonal, injectable, preservative free Yareli Louis SURVEY ASSOCIATE - DIRECTOR OF BROADCAST Work Phone: [facility] 08-08-2016 tetanus toxoid, reduced diphtheria toxoid, and acellular pertussis vaccine, adsorbed Yareli Louis [facility], [place] 04-04-2007 hepatitis B vaccine, adult dosage Yareli Louis [facility] 04-04-2007 hepatitis B vaccine, unspecified formulation Yarelibushra Louis [facility] 11-01-2006 hepatitis B vaccine, adult dosage Yareli [facility] 11-01-2006 hepatitis B vaccine, unspecified formulation Yareli [facility] 10-01-2006 hepatitis B vaccine, adult dosage Yareli [facility] 10-01-2006 hepatitis B vaccine, unspecified formulation [facility], [place] 10-01-2006 measles, mumps and rubella virus vaccine Yareli [facility] [place] 03-25-2006 tetanus toxoid, reduced diphtheria toxoid, and acellular pertussis vaccine, adsorbed aYreli Louis [facility] Payers Date Payer Category Payer Self-pay [id number] 2018 Commercial [facility] C are - O O SUPERMED [id number] 2018 Unknown 2016 Unknown [employer] [address] xxxxxxxxxxxx 2016-Present [phone] [address] [place] [address] xxxxxxxxxxxx [id number] 2015 Unknown [id number] 1973 Unknown [id number] 1973 Unknown [id number] 1973 Unknown [id number] Unknown [id number] Unknown [id number] Social History Date Type Detail Facility Start: 12-24-2018 End: 09-20-2023 Tobacco smoking status NHIS Former smoker [facility] Start: 03-25-1997 History of tobacco use Cigarette Smo [place] Start: 12-24-2018 End: 01-22-2024 Cigarettes smoked current (pack per day) - Reported [place] Start: 12-24-2018 End: 01-22-2024 Alcohol intake No [place] Start: 1975 Sex Assigned At Not on file M [place] Start: 01-14-2019 End: 05-28-2022 Alcohol intake Current non-drinker of alcohol (finding) [facility] Work Phone: Start: 09-16-2019 End: 09-20-2023 Tobacco use and exposure Never used [place] Start: 09-16-2019 End: 11-08-2021 History SDOH Physical Activity DPW 5 [place] Start: 09-16-2019 End: 10-11-2020 [facility] SD[facility] Start: 09-16[facility]2019 End: 11-08-2021 History SDOH Food Worry 1 [facility] ANDRA Start: 09-16-2019 End: 11-08-2021 History SDOH Transport Med 2 [place] Exposure to SARS-CoV -2 (event) Yes [facility] Start: 11-30-2020 End: 11-29-2021 Tobacco smoking status NHIS Unknown if ever smoked [facility] Start: 07-24-2019 None [facility] Start: 07-24-2019 With Family [facility] Start: 1975 Sex Assigned At Female [facility] Start: 03-25-1997 History of tobacco use Current smoke r [facility] Work Phone: Start: 10-31-2021 End: 12-13-2022 Exposure to SARS-CoV-2 (event) Not sure [facility] Start: 12-29-2021 Tobacco smoking stat us SCIS Smokes tobacco daily [facility] Start: 12-29-2021 End: 12-08-2024 Alcohol intake Current drinker of alcohol (finding) [facility] Start: 09-22-2011 History SDOH Alcohol Comment less than 1 drink per month [facility] Adolescent depressio n screening assessment 14 [facility] How often to you hav e a drink containing alcohol? Monthly or less [facility] How many standard drinks containing alcohol do you have on a typical day? 1 or 2 [facility] How often do you hav e 6 or more drinks on 1 occasion? Never [facility] (I/We) worried wheth er (my/our) food would run out before (I/we) got money to buy more. Never true [facility] In the past 12 month s, was there a time when you were not able to pay the mortgage or rent on time? No [facility] Start: 04-15-2023 Alcohol Comment Social [facility] Start: 10-23-2021 Sex Female (finding) [facility] Are you now , , , , never or living with a partner? [facility] How hard is it for y ou to pay for the very basics like food, housing, medical care, and heating Somewhat hard [employer] Do you feel stress - tense, restless, nervous, or anxious, or unable to sleep at night because your mind is troubled all the time - these days [OSQ] To some extent [employer] Goals Date Patient Goal Desired Activity /State Comment on above: Self-Management Plan : Anxiety/Depression Patient Stated Goal: To continue to have good control over her anxiety and panic attacks. Barriers to success: stress Plan for overcoming my barriers: Take medication as prescribed. Encouraged and recommended by provider. Confidence: 01/01 Date goal set: 06/25/18 Patient given educational materials below via AVS. Patient received counseling about current lifestyle goal. Patient was encouraged to take medications as prescribed. Discussed the importance of counseling. Discussed social support resources. Discussed potentially disabling symptoms of their anxiety/depression, which could potentially render them unable to function adequately. Provider Goal: To find the value of finding pleasure in daily living. Discussed how relationships, personal fulfillment, and optimism can work together to combat anxiety/depression. Patient given after visit summary which includes educational information on Anxiety. Discussed use, benefit, and side effects of prescribed medications and barriers to medication compliance addressed, if applicable. All patient questions answered and patient voiced understanding. Patient was given a copy of this, and was advised to call if any questions. Formatting of this n ote might be different from the original. Self-Management Plan: Anxiety/Depression Patient Stated Goal: To continue to have good control over her anxiety and panic attacks. Barriers to success: stress Plan for overcoming my barriers: Take medication as prescribed. Encouraged and recommended by provider. Confidence: 01/01 Date goal set: 06/25/18 Patient given educational materials below via AVS. Patient received counseling about current lifestyle goal. Patient was encouraged to take medications as prescribed. Discussed the importance of counseling. Discussed social support resources. Discussed potentially disabling symptoms of their anxiety/depression, which could potentially render them unable to function adequately. Provider Goal: To find the value of finding pleasure in daily living. Discussed how relationships, personal fulfillment, and optimism can work together to combat anxiety/depression. Patient given after visit summary which includes educational information on Anxiety. Discussed use, benefit, and side effects of prescribed medications and barriers to medication compliance addressed, if applicable. All patient questions answered and patient voiced understanding. Patient was given a copy of this, and was advised to call if any questions. Functional Status Date Assessment Result Facility 09-16-2024 Patient Health Questionnaire 2 item (PHQ- 2) [Reported] [facility] 09-16-2024 PHQ-9 quick depression assessment panel [ Reported.PHQ] [facility] 09-16-2024 Generalized anxiety disorder 7 item (ARTHUR- 7) [facility] Clinical Notes 12-29-2021 to 12-08-2024 Maria Del Carmen Garza APRN - NILDA - 12/08/2024 3:40 PM EDTTelephone Encounter - Franny De Los Santos MA - 11/26/2024 11:01 AM EDTTelephone Encounter - Franny De Los Santos MA - 11/26/2024 11:01 AM EDT Note Date & Type Note Facility 12-08-2024 History of Present illness Narrative Images from the original note were not included. 12/08/2024 Antionette Sandoval (: 1975) is a 49 y.o. female , Established patient, here for evaluation of the following chief complaint(s): Generalized Body Aches (COVID test last from yesterday was negative, all symptoms started Saturday ), Chills, Nausea, Poor Appetite, and Fever ASSESSMENT/PLAN: 1. Upper respiratory tract infection, unspecified type Acute, no signs distress. Home COVID test was negative, Rapid Flu test negative. Advised to continue with Tylenol, Zinc, and Vitamin C for immune support. Advised rest and hydration and to report if symptoms worsen or persist. - AMB POC RAPID INFLUENZA DNA/RNA 2. Body aches See above. - AMB POC RAPID INFLUENZA DNA/RNA 3. Shortness of breath Acute, patient reports occasional and mild shortness of breath with onset of symptoms yesterday. Shortness of breath occurs with activity. Patient denies any chest pain or respiratory distress. Will prescribe albuterol for relief of symptoms as patient states she had similar illness last year and required albuterol inhaler, which helped. Advised to report if symptoms worsen or persist. - albuterol (Ventolin HFA) 108 (90 Base) MCG/ACT inhaler; Inhale 2 puffs every 4 hours as needed for wheezing or shortness of breath., Starting 12/08/2024, Until 02/06/2025 at 2359, Normal 4. Seasonal allergic rhinitis, unspecified trigger Chronic, stable. Continue with Zyrtec 10 mg daily and Flonase as needed. Patient advised to report if symptoms worsen or persist. Follow up if symptoms worsen or fail to improve. SUBJECTIVE/OBJECTIVE: ERICA Sandoval (: 1975) is a 49 y.o. female , Established patient, here for the evaluation of the following chief complaint(s): Generalized Body Aches (COVID test last from yesterday was negative, all symptoms started Saturday ), Chills, Nausea, Poor Appetite, and Fever Patient presents for concerns of flu-like symptoms. Symptoms began suddenly yesterday morning with nausea, muscle aches, chills, and fever. She has decreased appetite and occasional shortness of breath. Denies sore throat, chest pain, cough, vomiting, or diarrhea. She has a mild runny nose attributed to allergies which she takes Zyrtec and Flonase for. No known sick contacts. She has been taking Tylenol, vitamin C, zinc, and hot baths which help. Symptoms are unchanged today. She has been mostly resting, sleeping, and taking baths since onset. She reports that she had a similar illness in 2019 with pneumonia and shortness of breath requiring albuterol inhaler. COVID test at home last night was negative. Current Medications[1] Review of Systems Constitutional: Positive for appetite change, chills and fever. Negative for activity change, diaphoresis, fatigue and unexpected weight change. Decreased appetite, still able to tolerate oral intake HENT: Positive for rhinorrhea. Negative for congestion, ear discharge, ear pain, postnasal drip, sinus pressure, sinus pain, sneezing, sore throat and trouble swallowing. Eyes: Negative. Respiratory: Positive for shortness of breath. Negative for apnea, cough, choking, chest tightness, wheezing and stridor. Cardiovascular: Negative. Gastrointestinal: Positive for nausea. Negative for abdominal distention, abdominal pain, blood in stool, constipation, diarrhea and vomiting. Genitourinary: Negative. Musculoskeletal: Positive for myalgias. Negative for arthralgias, back pain, gait problem, joint swelling, neck pain and neck stiffness. Skin: Negative. Neurological: Negative. Psychiatric/Behavioral: Negative. Vitals: 12/08/24 1556 BP: 129/78 Pulse: 69 Temp: 36.7 C (98 F) TempSrc: Oral SpO2: 95% Weight: 207 lb 9.6 oz (94.2 kg) Height: 5' 6.5" (1.689 m) Physical Exam Vitals reviewed. Constitutional: Appearance: Normal appearance. She is obese. HENT: Head: Normocephalic and atraumatic. Right Ear: Tympanic membrane, ear canal and external ear normal. Left Ear: Tympanic membrane and ear canal normal. Nose: Rhinorrhea present. Mouth/Throat: Mouth: Mucous membranes are moist. Pharynx: Oropharynx is clear. No oropharyngeal exudate or posterior oropharyngeal erythema. Eyes: Extraocular Movements: Extraocular movements intact. Conjunctiva/sclera: Conjunctivae normal. Pupils: Pupils are equal, round, and reactive to light. Cardiovascular: Rate and Rhythm: Normal rate and regular rhythm. Pulses: Normal pulses. Heart sounds: Normal heart sounds. Pulmonary: Effort: Pulmonary effort is normal. Breath sounds: Normal breath sounds. Comments: No signs of respiratory distress, Patient is speaking in full sentences and moving around comfortably Abdominal: General: Abdomen is flat. Bowel sounds are normal. There is no distension. Palpations: Abdomen is soft. Tenderness: There is abdominal tenderness. There is no guarding. Musculoskeletal: General: Normal range of motion. Cervical back: Neck supple. Lymphadenopathy: Cervical: Cervical adenopathy present. Skin: General: Skin is warm and dry. Capillary Refill: Capillary refill takes less than 2 seconds. Neurological: General: No focal deficit present. Mental Status: She is alert and oriented to person, place, and time. Mental status is at baseline. Psychiatric: Mood and Affect: Mood normal. Behavior: Behavior normal. An electronic signature was used to authenticate this note. MIGEL Campos CNP 12/08/2024 5:31 PM [1] Current Outpatient Medications Medication Sig Dispense Refill acetaminophen (Tylenol 8 Hour) 650 MG ER tablet Take by mouth. ALPRAZolam (Xanax) 0.25 MG tablet Take 1 tablet (0.25 mg) by mouth every 8 hours as needed for anxiety. 15 tablet 0 ascorbic acid (Vitamin C) 500 MG ER capsule Take 500 mg by mouth. atorvastatin (Lipitor) 20 MG tablet Take 1 tablet (20 mg) by mouth daily. 90 tablet 1 b complex vitamins capsule Take 1 capsule by mouth daily. buPROPion XL (Wellbutrin XL) 150 MG 24 hr tablet Take 1 tablet (150 mg) by mouth every morning. Do not crush, chew, or split. 90 tablet 1 cetirizine (ZyrTEC) 10 MG tablet Take by mouth. diphenhydrAMINE (BENADryl) 25 MG capsule Take 25 mg by mouth every 8 hours as needed. fluticasone (Flonase) 50 MCG/ACT nasal spray Administer 2 sprays into each nostril as needed. lidocaine (Lidoderm) 5 % patch Place 1 patch on the skin. metoprolol succinate XL (Toprol-XL) 50 MG 24 hr tablet Take 1 tablet (50 mg) by mouth daily. 90 tablet 1 mupirocin (Bactroban) 2 % ointment APPLY TO AFFECTED AREA 3 TIMES A DAY potassium chloride CR (Klor-Con) 10 MEQ ER tablet Take 20 mEq by mouth daily. pramoxine (Proctofoam) 1 % foam Apply to anal area, as needed, up to 5 times daily. 15 g 0 Pramoxine-HC (Hydrocortisone Shay-Pramoxine) 2.5-1 % cream Insert into the rectum. scopolamine (Transderm-Scop) 1 MG/3DAYS patch 72 hour Apply 1 patch behind ear at least 4 hours prior to required antiemetic effect for use up to 72 hours; if needed for >72 hours, remove old patch and place new one behind other ear. 10 patch 0 semaglutide (Ozempic) 2 MG/3ML solution pen-injector Inject 0.25 mg under the skin 1 (one) time per week. 3 mL 0 sertraline (Zoloft) 25 MG tablet Take 1 tablet (25 mg) by mouth daily. tretinoin (Retin-A) 0.025 % cream Apply a thin layer to affected areas every third night, increase to nightly as tolerated. 45 g 6 warfarin (Coumadin) 5 MG tablet take 1 tablet by mouth NIGHTLY 90 tablet 1 Zinc Acetate 50 MG capsule Take by mouth. albuterol (Ventolin HFA) 108 (90 Base) MCG/ACT inhaler Inhale 2 puffs every 4 hours as needed for wheezing or shortness of breath. 8 g 1 No current facility-administered medications for this visit. documented in this encounter [facility] 11-26-2024 Note Patient notified and refused referral at this time. [facility] 11-26-2024 Telephone encounter Note Patient notified and refused referral at this time. [facility] 11-26-2024 Miscellaneous Notes Patient notified and refused referral at this time. I would recommend consulting with the weight management team through [facility]. Would she like me to place the referral? Spoke with patient and advised of soraya's message. Patient would like to know what route she should take now, please advise. We are no longer allowed to prescribe compounded GLP-1 medications as they are not approved by the FDA as there is no longer a shortage of the medications. PA was denied through patients insurance this medication is only covered if patient has a diagnosis of Type 2 Diabetes. I did notify patient and she wants to know if you do compounding and if so she would like it sent to [facility] in [place] ([phone]) fax ([phone]). See patients media for denial letter. Called patient and updated her on PA and that is was faxed by paper to her insurance company yesterday 11/19/24 and this could take up to 2 weeks for a decision from insurance company. Patient voiced understanding and I will follow up on PA Saturday when I am back in the office. Name of caller: Antionette Contact phone number: [phone] Relationship to Patient: patient Provider: Dr Mckee Practice: [facility] Chief Complaint/Reason for Call: Patient is following up on request for prior authorization for semaglutide (Ozempic) 2 MG/3ML solution pen-injector. Patient states that she has not received an update from office or insurance provider and she would like status. Please advise. Best time of day caller can be reached: any Patient advised that office/PCP has 24-48 business hours to return their call: Yes PA started 11/19/24 for patients Ozempic sent by fax. See scanned in PA Form that was filled out and sent with patients recent office notes and labs. documented in this encounter [facility] 11-26-2024 Note I would recommend co nsulting with the weight management team through [facility]. Would she like me to place the referral? [facility] 11-26-2024 Telephone encounter Note I would recommend consulting with the weight management team through [facility]. Would she like me to place the referral? [facility] 11-25-2024 Telephone encounter Note Spoke with patient and advised of soraya's message. Patient would like to know what route she should take now, please advise. [facility] 11-25-2024 Miscellaneous Notes Spoke with patient and advised of soraya's message. Patient would like to know what route she should take now, please advise. We are no longer allowed to prescribe compounded GLP-1 medications as they are not approved by the FDA as there is no longer a shortage of the medications. PA was denied through patients insurance this medication is only covered if patient has a diagnosis of Type 2 Diabetes. I did notify patient and she wants to know if you do compounding and if so she would like it sent to [facility] in [place] ([phone]) fax ([phone]). See patients media for denial letter. Called patient and updated her on PA and that is was faxed by paper to her insurance company yesterday 11/19/24 and this could take up to 2 weeks for a decision from insurance company. Patient voiced understanding and I will follow up on PA Saturday when I am back in the office. Name of caller: Antionette Contact phone number: [phone] Relationship to Patient: patient Provider: Dr Mckee Practice: [facility] Chief Complaint/Reason for Call: Patient is following up on request for prior authorization for semaglutide (Ozempic) 2 MG/3ML solution pen-injector. Patient states that she has not received an update from office or insurance provider and she would like status. Please advise. Best time of day caller can be reached: any Patient advised that office/PCP has 24-48 business hours to return their call: Yes PA started 11/19/24 for patients Ozempic sent by fax. See scanned in PA Form that was filled out and sent with patients recent office notes and labs. documented in this encounter [facility] 11-24-2024 Telephone encounter Note We are no longer allowed to prescribe compounded GLP-1 medications as they are not approved by the FDA as there is no longer a shortage of the medications. [facility] 11-24-2024 Miscellaneous Notes We are no longer allowed to prescribe compounded GLP-1 medications as they are not approved by the FDA as there is no longer a shortage of the medications. PA was denied through patients insurance this medication is only covered if patient has a diagnosis of Type 2 Diabetes. I did notify patient and she wants to know if you do compounding and if so she would like it sent to [facility] in [place] ([phone]) fax ([phone]). See patients media for denial letter. Called patient and updated her on PA and that is was faxed by paper to her insurance company yesterday 11/19/24 and this could take up to 2 weeks for a decision from insurance company. Patient voiced understanding and I will follow up on PA Saturday when I am back in the office. Name of caller: Antionette Contact phone number: [phone] Relationship to Patient: patient Provider: Dr Mckee Practice: [facility] Chief Complaint/Reason for Call: Patient is following up on request for prior authorization for semaglutide (Ozempic) 2 MG/3ML solution pen-injector. Patient states that she has not received an update from office or insurance provider and she would like status. Please advise. Best time of day caller can be reached: any Patient advised that office/PCP has 24-48 business hours to return their call: Yes PA started 11/19/24 for patients Ozempic sent by fax. See scanned in PA Form that was filled out and sent with patients recent office notes and labs. documented in this encounter [employer] 11-24-2024 Telephone encounter Note PA was denied through patients insurance this medication is only covered if patient has a diagnosis of Type 2 Diabetes. I did notify patient and she wants to know if you do compounding and if so she would like it sent to [facility] in [place] ([phone]) fax ([phone]). See patients media for denial letter. [facility] Telephone encounter Note Called patient and updated her on PA and that is was faxed by paper to her insurance company yesterday 11/19/24 and this could take up to 2 weeks for a decision from insurance company. Patient voiced understanding and I will follow up on PA Saturday when I am back in the office. [facility] 11-20-2024 Miscellaneous Notes Called patient and updated her on PA and that is was faxed by paper to her insurance company yesterday 11/19/24 and this could take up to 2 weeks for a decision from insurance company. Patient voiced understanding and I will follow up on PA Saturday when I am back in the office. Name of caller: Antionette Contact phone number: [phone] Relationship to Patient: patient Provider: Dr Mckee Practice: [facility] Chief Complaint/Reason for Call: Patient is following up on request for prior authorization for semaglutide (Ozempic) 2 MG/3ML solution pen-injector. Patient states that she has not received an update from office or insurance provider and she would like status. Please advise. Best time of day caller can be reached: any Patient advised that office/PCP has 24-48 business hours to return their call: Yes PA started 11/19/24 for patients Ozempic sent by fax. See scanned in PA Form that was filled out and sent with patients recent office notes and labs. documented in this encounter [facility] 11-20-2024 Telephone encounter Note Name of caller: Antionette Contact phone number: [phone] Relationship to Patient: patient Provider: Dr Mckee Practice: [facility] Chief Complaint/Reason for Call: Patient is following up on request for prior authorization for semaglutide (Ozempic) 2 MG/3ML solution pen-injector. Patient states that she has not received an update from office or insurance provider and she would like status. Please advise. Best time of day caller can be reached: any Patient advised that office/PCP has 24-48 business hours to return their call: Yes [facility] 11-19-2024 Telephone encounter Note PA started 11/19/24 for patients Ozempic sent by fax. See scanned in PA Form that was filled out and sent with patients recent office notes and labs. [facility] 11-16-2024 History of Present illness Narrative Images from the original note were not included. [address] [id number] Antionette Sandoval is a 49 y.o. female who presents for [facility] Women Visit, Blood Work, and Health Maintenance (Zoster- refused/PNA- refused /COVID 4- refused) Assessment/Plan 1. [facility] [address] female exam with routine gynecological exam (Z01.419) - Pap smear performed today - Mammogram completed in July, stable findings, resume routine screening 2. SVT (supraventricular tachycardia) (I47.10) - chronic, stable - Continue metoprolol 3. Clotting disorder (D68.9) - chronic, stable - Continue Coumadin 5mg daily - INR checked today, last value 2.4 on October 13 4. Hyperhomocysteinemia (E72.11) - chronic, stable - Continue Coumadin 5mg daily - INR checked today, last value 2.4 on October 13 5. Mild episode of recurrent major depressive disorder (F33.0) - improving - Patient reports feeling much better on combination of Sertraline and Wellbutrin - Adjust Sertraline to 25mg daily and continue Wellbutrin as prescribed 6. Essential hypertension (I10) - chronic, stable - Continue metoprolol as prescribed 7. Hypokalemia (E87.6) - chronic, stable - Continue potassium supplementation 20mEq daily - Last level in April was 4.2 mmol/L, rechecking today 8. Hyperlipidemia LDL goal <100 (E78.5) - chronic, stable - Continue atorvastatin daily - Lipid panel ordered today 9. H/O deep venous thrombosis (Z86.718) - chronic, stable - Continue Coumadin 5mg daily - INR checked today, last value 2.4 on October 13 10. Anxiety (F41.9) - improving - Continue current management with Sertraline and as-needed Xanax, and continue Wellbutrin as prescribed 11. Panic attack (F41.0) - episodic - Continue as-needed Xanax, patient reports minimal use - Adjust Sertraline to 25mg daily and continue Wellbutrin as prescribed 12. Prediabetes (R73.03) - chronic, stable - Last A1C 5.9% - A1C ordered today - Discussed starting Ozempic for prediabetes management - Prescription for Ozempic 0.25mg weekly initiated 13. Class 1 obesity due to excess calories without serious comorbidity with body mass index (BMI) of 33.0 to 33.9 in adult (E66.811, E66.09, Z68.33) - chronic - Discussed starting Ozempic for weight management - Encouraged continuation of current exercise routine and diet modifications 14. Other hemorrhoids (K64.8) - acute, worsening - Patient reports current flare - Recommend continued use of Preparation H as needed 15. Seborrheic keratosis (L82.1) - Multiple seborrheic keratoses noted on back - Benign in appearance, no concerning features - Discussed option for cryotherapy if desired 16. Encounter for Papanicolaou smear for cervical cancer screening (Z12.4) - Pap smear performed today - Follow-up: - Plan to follow up in one month to assess response to Ozempic Antionette was seen today for well women visit, blood work and health maintenance. Diagnoses and all orders for this visit: Well female exam with routine gynecological exam (Primary) SVT (supraventricular tachycardia) (HCC) - Comprehensive metabolic panel; Future - CBC; Future - Comprehensive metabolic panel - CBC Clotting disorder (CMS/HCC) (HCC) - Comprehensive metabolic panel; Future - CBC; Future - Comprehensive metabolic panel - CBC Hyperhomocysteinemia (HCC) - Comprehensive metabolic panel; Future - CBC; Future - Comprehensive metabolic panel - CBC Mild episode of recurrent major depressive disorder (HCC) - Comprehensive metabolic panel; Future - CBC; Future - Comprehensive metabolic panel - CBC Essential hypertension - Comprehensive metabolic panel; Future - CBC; Future - Comprehensive metabolic panel - CBC Hypokalemia - Comprehensive metabolic panel; Future - CBC; Future - Comprehensive metabolic panel - CBC Hyperlipidemia LDL goal <100 - Comprehensive metabolic panel; Future - Lipid panel; Future - CBC; Future - semaglutide (Ozempic) 2 MG/3ML solution pen-injector; Inject 0.25 mg under the skin 1 (one) time per week. - Comprehensive metabolic panel - Lipid panel - CBC H/O deep venous thrombosis - Comprehensive metabolic panel; Future - CBC; Future - Comprehensive metabolic panel - CBC Anxiety - Comprehensive metabolic panel; Future - CBC; Future - sertraline (Zoloft) 25 MG tablet; Take 1 tablet (25 mg) by mouth daily. - Comprehensive metabolic panel - CBC Panic attack - Comprehensive metabolic panel; Future - CBC; Future - Comprehensive metabolic panel - CBC Prediabetes - Comprehensive metabolic panel; Future - Hemoglobin A1c; Future - semaglutide (Ozempic) 2 MG/3ML solution pen-injector; Inject 0.25 mg under the skin 1 (one) time per week. - Comprehensive metabolic panel - Hemoglobin A1c Class 1 obesity due to excess calories without serious comorbidity with body mass index (BMI) of 33.0 to 33.9 in adult - semaglutide (Ozempic) 2 MG/3ML solution pen-injector; Inject 0.25 mg under the skin 1 (one) time per week. Other hemorrhoids Seborrheic keratosis Encounter for Papanicolaou smear for cervical cancer screening - Pap Smear Follow up in about 4 weeks (around 12/14/2024) for weight check- Anatoliy. Subjective History of Present Illness Antionette Sandoval, a 49-year-old female, presents for her annual well female exam and fasting blood work. No longer has menstrual cycles- had a hysterectomy. SVT/Hypertension: Takes Metoprolol as prescribed and feels symptoms are well controlled. Last saw cardiology, Dr. Lakhani, in January 2024. States she only needed to follow up with cardiology as needed. Hypokalemia: Takes Potassium 20 mEq supplementation as prescribed. Potassium stable at 4.2 mmol/L on 05/20/24. Will check her potassium level today. Hyperlipidemia: Takes her Atorvastatin daily as prescribed. Last had her cholesterol checked in October of 2023. Will recheck today. Component Ref Range & Units (11/11/23) (10/29/22) (12/11/21) (11/16/20) (10/12/20) (09/16/19) CHOLESTEROL, TOTAL <200 mg/dL 170 168 HDL CHOLESTEROL > OR = 50 mg/dL 41 Low 39 Low 36 Low R 37 Low R 30 Low R 39 Low R TRIGLYCERIDES <150 mg/dL 164 High 172 High 146 199 Abnormal 304 Abnormal 142 LDL-CHOLESTEROL mg/dL (calc) 103 High 102 High CM CHOL/HDLC RATIO <5.0 (calc) 4.1 4.3 NON HDL CHOLESTEROL <130 mg/dL (calc) 129 129 CM Clotting Disorder/History of Venous Thrombosis/Hyperhomocysteinemia: Takes her Coumadin as prescribed. Denies signs of active bleeding. Most recent INR was 2.4 on 10/13/24. Will recheck today. Depression/Anxiety/Panic Attack: Takes daily Sertraline and Wellbutrin and will take Alprazolam as needed. Regarding her medications, she reports feeling much better since starting Wellbutrin in combination with her Sertraline for depression and anxiety. She has reduced her Sertraline dosage to 25mg as the higher dose was causing some issues when taken at night. She rarely uses Xanax, stating she uses maybe one tablet occasionally. CSA signed for Alprazolam 09/16/24. Pre-Diabetes/Obesity: Most recent hemoglobin A1c was 5.9% on 05/20/24. Strives for a diet rich in protein. Trying to limit sugars and carbohydrates in diet. Has been using a walk-fit trevor and has been exercising 8 minutes daily. The patient states she is having a hemorrhoid flare that started yesterday, which she hasn't experienced in a long time. She uses Preparation H for management. A friend noticed a mole on her back while swimming in August, which the patient would like checked. She denies any discharge, crusting, itching, or irritation associated with the mole. Health Maintenance: Last mammogram was 07/30/24. Last pap smear was 10/29/22- negative HPV. Vaccinated for COVID-19 x3 with most recent dose on 02/11/21- declines additional doses. Declines to be vaccinated for shingles. Tdap current: 08/08/16. Colonoscopy: 07/24/[address] 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 Declines a pneumococcal vaccination. Had a hysterectomy and has one ovary remaining. I obtained verbal consent from the patient and/or patient's guardian to use ambient listening technology during this encounter before the ambient technology was engaged. Review of Systems Constitutional: Negative for chills and fever. HENT: Negative for hearing loss and trouble swallowing. Eyes: Negative for pain and visual disturbance. Respiratory: Negative for cough, chest tightness, shortness of breath and wheezing. Cardiovascular: Negative for chest pain, palpitations and leg swelling. Gastrointestinal: Positive for rectal pain. Negative for abdominal distention, abdominal pain, blood in stool, constipation and diarrhea. Endocrine: Negative for polydipsia, polyphagia and polyuria. Genitourinary: Negative for dysuria, hematuria, pelvic pain, vaginal bleeding, vaginal discharge and vaginal pain. Musculoskeletal: Negative for arthralgias and myalgias. Skin: Negative for color change, pallor, rash and wound. Neurological: Negative for dizziness, syncope, weakness and headaches. Hematological: Bruises/bleeds easily. Psychiatric/Behavioral: Positive for dysphoric mood. Negative for self-injury and suicidal ideas. The patient is nervous/anxious. Objective BP 98/66 Pulse 72 Ht 5' 6.5" (1.689 m) Wt 208 lb 6.4 oz (94.5 kg) SpO2 93% BMI 33.13 kg/m Last 3 ARTHUR-7 Scores 09/16/2024 1000 05/20/2024 1400 ARTHUR-7 Total Score: 0 5 Last 3 PHQ-2 Scores 09/16/2024 1049 Patient Health Questionnaire-2 Score: 6 Last 3 PHQ-9 Scores 09/16/2024 1049 Patient Health Questionnaire-9 Score: 18 Physical Exam Constitutional: General: Not in acute distress. Appearance: Not ill-appearing or diaphoretic. HENT: Head: Normocephalic and atraumatic. Right Ear: Tympanic membrane, ear canal and external ear normal. There is no impacted cerumen. Left Ear: Tympanic membrane, ear canal and external ear normal. There is no impacted cerumen. Nose: Nose normal. No congestion or rhinorrhea. Mouth/Throat: Mouth: Mucous membranes are moist. Pharynx: Oropharynx is clear. No oropharyngeal exudate or posterior oropharyngeal erythema. Eyes: General: No scleral icterus. Extraocular Movements: Extraocular movements intact. Pupils: Pupils are equal, round, and reactive to light. Neck: Thyroid: No thyroid mass or thyromegaly. Vascular: No carotid bruit. Cardiovascular: Rate and Rhythm: Normal rate and regular rhythm. Pulses: Normal pulses. Heart sounds: Normal heart sounds. No murmur heard. No friction rub. Pulmonary: Effort: Pulmonary effort is normal. Breath sounds: Normal breath sounds. No wheezing, rhonchi or rales. Chest: Breast Examination: Declines. Abdominal: General: Bowel sounds are normal. There is no distension. Palpations: Abdomen is soft. There is no hepatomegaly, splenomegaly or mass. Tenderness: There is no abdominal tenderness. There is no guarding or rebound. Pelvic Examination: There is no rash, tenderness, or lesion on the right labia. There is no rash, tenderness or lesion on the left labia. Urethra without swelling or lesion. External hemorrhoid noted. Rectum negative for lesions or abnormal tone. Vagina with normal rugae. Uterus absent. Cervix absent. Right adnexum not palpable. Left adnexum displays no mass, no tenderness and no fullness. Pap smear obtained. Musculoskeletal: General: No deformity. Normal range of motion. Cervical back: Normal range of motion and neck supple. Right lower leg: No edema. Left lower leg: No edema. Lymphadenopathy: Cervical: No cervical adenopathy. Skin: General: Skin is warm and dry. Capillary Refill: Capillary refill takes less than 2 seconds. Coloration: Skin is not jaundiced or pale. Findings: No erythema or rash. Small, waxy, brown lesions noted on back. Neurological: Mental Status: Alert and oriented to person, place, and time. Motor: No weakness. Coordination: Coordination normal. Gait: Gait normal. Psychiatric: Mood and Affect: Mood normal. Behavior: Behavior normal. Thought Content: Thought content normal. Judgment: Judgment normal. Results documented in this encounter [facility] 11-11-2024 Telephone encounter Note Message released to patient as written re missed INR lab draw 11/10/24. Patient's further questions if applicable: Patient states she was called yesterday 11/10/24 and it has been rescheduled for 11/17/24. Were all questions from office addressed or relayed to the patient from encounter: Yes [facility] 11-11-2024 Miscellaneous Notes Message released to patient as written re missed INR lab draw 11/10/24. Patient's further questions if applicable: Patient states she was called yesterday 11/10/24 and it has been rescheduled for 11/17/24. Were all questions from office addressed or relayed to the patient from encounter: Yes Lm to return call Lm letting pt know she missed having her inr drawn today- pt can call the office or send mychart msg on when she is able to come in for inr documented in this encounter [facility] 11-11-2024 Telephone encounter Note Lm to return call [facility] 11-10-2024 Telephone encounter Note Lm letting pt know she missed having her inr drawn today- pt can call the office or send mychart msg on when she is able to come in for inr [facility] 11-09-2024 Telephone encounter Note Rx sent. Follow up as scheduled. [facility] 11-09-2024 Miscellaneous Notes Rx sent. Follow up as scheduled. Prescription Request: Last medication check: 05/20/24 Last physical exam: 11/11/23 Next scheduled appointment: 11/16/24 Last date of refill on this medication 04/06/24 180 tablets no refills documented in this encounter [facility] 11-09-2024 Telephone encounter Note Rx sent. Follow up as scheduled. [facility] 11-09-2024 Miscellaneous Notes Rx sent. Follow up as scheduled. Prescription Request: Last medication check: 09/16/24 Last physical exam:11/11/23 Last completed appointment: 09/16/24 Next scheduled appointment: 11/16/24 Last date of refill on this medication:10/09/24 documented in this encounter [facility] 11-09-2024 Telephone encounter Note Prescription Request: Last medication check: 09/16/24 Last physical exam:11/11/23 Last completed appointment: 09/16/24 Next scheduled appointment: 11/16/24 Last date of refill on this medication:10/09/24 [facility] 11-09-2024 Telephone encounter Note Prescription Request: Last medication check: 05/20/24 Last physical exam: 11/11/23 Next scheduled appointment: 11/16/24 Last date of refill on this medication 04/06/24 180 tablets no refills T [facility] 09-16-2024 History of Present illness Narrative Images from the original note were not included. 09/16/2024 Antionette Sandoval (: 1975) is a 49 y.o. female , Established patient, here for evaluation of the following chief complaint(s): Medication Check (Discuss alternative medications, some of her medications are not working for her. ) I obtained verbal consent from the patient and/or patient s guardian to use ambient listening technology during this encounter before the ambient technology was engaged. Assessment/Plan 1. Other depression - buPROPion XL (Wellbutrin XL) 150 MG 24 hr tablet; Take 1 tablet (150 mg) by mouth every morning. Do not crush, chew, or split., Starting Sat09/16/2024, Until 11/15/2024, Normal - acute, worsening - PHQ-9 score indicates severe depression - Continue sertraline - Add Wellbutrin XL (bupropion) for depression and focus/concentration- Information provided in AVS on new medication. - Follow up in 2 months (November 16) to assess medication efficacy 2. Difficulty concentrating - buPROPion XL (Wellbutrin XL) 150 MG 24 hr tablet; Take 1 tablet (150 mg) by mouth every morning. Do not crush, chew, or split., Starting Sat09/16/2024, Until 11/15/2024, Normal - Acute, worsening - Will start on Wellbutrin XL (bupropion) and see if this helps her focus and concentrate more effectively- Information provided in AVS on new medication. 3. Anxiety - ALPRAZolam (Xanax) 0.25 MG tablet; Take 1 tablet (0.25 mg) by mouth every 8 hours as needed for anxiety., Starting Sat09/16/2024, Normal - chronic, stable - ARTHUR-7 score indicates well-controlled anxiety - Continue current management with sertraline - Refill alprazolam (Xanax) 0.25 mg, #15 tablets for as-needed use - New controlled substance agreement to be signed - [place] report reviewed with no discrepancies I performed the above service AI scribed on my behalf, and I have reviewed and confirmed the accuracy and completeness of the medical documentation. Follow up in 2 months (on 11/16/2024) for Next scheduled follow-up. Subjective History of Present Illness Antionette Sandoval, a 49-year-old female, presents today to discuss her prescriptions, specifically sertraline, which she feels is not working well for her. She reports feeling sad for the past couple of months. Initially, she thought it might be due to finishing school and preparing for board exams, but now believes the medication is no longer effective. She describes having trouble focusing, stating she'll go into a room to do something and get distracted, unable to accomplish tasks. She lacks motivation and doesn't want to clean her house. The patient reports a history of being on Effexor, which she states "really made me crazy." She also tried Wellbutrin in the past to quit smoking, which was successful, but she is unsure why she stopped taking it. She currently takes sertraline and alprazolam as needed for anxiety. She mentions her alprazolam prescription has , with only 2-3 tablets remaining. Antionette expresses confusion about her current state, noting that she has positive life events occurring, such as starting a new job on Saturday and taking board exams next month. Despite these positive developments, she continues to experience persistent feelings of sadness. The patient enjoys camping with her in their new camper, which seems to be the only activity she currently enjoys. Her favorite camping spot is [facility], and they also go to [place] to ride their [id number]. Review of Systems Respiratory: Negative for shortness of breath. Cardiovascular: Negative for chest pain. Psychiatric/Behavioral: Positive for decreased concentration and dysphoric mood. Negative for self-injury and suicidal ideas. The patient is nervous/anxious. Objective Vitals: 09/16/24 1040 BP: 106/75 BP Location: Left arm Patient Position: Sitting Pulse: 77 SpO2: 95% Weight: 208 lb (94.3 kg) Height: 5' 6" (1.676 m) Body mass index is 33.57 kg/m . Last 3 ARTHUR-7 Scores 09/16/2024 1000 ARTHUR-7 Total Score: 0 Last 3 PHQ-2 Scores 09/16/2024 1049 Patient Health Questionnaire-2 Score: 6 Last 3 PHQ-9 Scores 09/16/2024 1049 Patient Health Questionnaire-9 Score: 18 Physical Exam Constitutional: General: She is not in acute distress. Appearance: She is not ill-appearing or diaphoretic. Cardiovascular: Rate and Rhythm: Normal rate and regular rhythm. Heart sounds: Normal heart sounds. No murmur heard. No friction rub. Pulmonary: Effort: Pulmonary effort is normal. Skin: General: Skin is warm and dry. Coloration: Skin is not pale. Findings: No erythema or rash. Neurological: Mental Status: She is alert and oriented to person, place, and time. Psychiatric: Attention and Perception: Attention and perception normal. Mood and Affect: Affect is flat. Speech: Speech normal. Behavior: Behavior normal. Behavior is cooperative. Thought Content: Thought content normal. Cognition and Memory: Cognition and memory normal. Judgment: Judgment normal. Data Reviewed An electronic signature was used to authenticate this note. MIGEL Wagner CNP 09/16/2024 11:01 AM Patient verified by last name and . documented in this encounter [facility] 09-16-2024 History of Present illness Narrative INR on 09/15 is 2.5 Notified patient while she was here for appt documented in this encounter [facility] 08-11-2024 Telephone encounter Note Message released to patient as written. Yes Patient's further questions if applicable: No Were all questions from office addressed or relayed to the patient from encounter: Yes [facility] 08-11-2024 Miscellaneous Notes Message released to patient as written. Yes Patient's further questions if applicable: No Were all questions from office addressed or relayed to the patient from encounter: Yes Lm to return call- also sent mychart msg to pt Lm to return call- give mammogram results below ----- Message from MIGEL Pino CNP sent at 08/10/2024 9:47 AM EDT ----- Diagnostic mammogram of the left breast shows benign calcifications. Recommendation is to return to annual routine screening mammograms. ----- Message ----- From: Interface, Radiology Results In Sent: 08/10/2024 9:01 AM EDT To: MIGEL Wagner CNP documented in this encounter [facility] 08-11-2024 Telephone encounter Note Lm to return call- also sent mychart msg to pt [facility] 08-10-2024 Telephone encounter Note Lm to return call- give mammogram results below [facility] 08-10-2024 Telephone encounter Note ----- Message from MIGEL Pino CNP sent at 08/10/2024 9:47 AM EDT ----- Diagnostic mammogram of the left breast shows benign calcifications. Recommendation is to return to annual routine screening mammograms. ----- Message ----- From: Interface, Radiology Results In Sent: 08/10/2024 9:01 AM EDT To: MIGEL Wagner CNP [facility] 05-20-2024 History of Present illness Narrative Images from the original note were not included. 05/20/2024 Antionette Sandoval (: 1975) is a 49 y.o. female , Established patient, here for evaluation of the following chief complaint(s): Medication Check, Anxiety, Health Maintenance (Flu- not due until july- Covid- not done ), Hypertension, and Hyperlipidemia ASSESSMENT/PLAN: 1. SVT (supraventricular tachycardia) (HCC) - Comprehensive metabolic panel - Stable with Metoprolol. Will continue current treatment plan. 2. Essential hypertension - Comprehensive metabolic panel - Stable with Metoprolol. Will continue current treatment plan. 3. Hypokalemia - Comprehensive metabolic panel - Stable with Potassium supplementation. Will continue current treatment plan. 4. Hyperlipidemia LDL goal <100 - Comprehensive metabolic panel - Stable with Atorvastatin. Will continue current treatment plan. 5. Clotting disorder (CMS/HCC) (HCC) - Comprehensive metabolic panel - Stable with Coumadin. Will continue current treatment plan. 6. H/O deep venous thrombosis - Stable with Coumadin. Will continue current treatment plan. 7. Hyperhomocysteinemia (HCC) - Comprehensive metabolic panel - Stable. Will continue current treatment plan. 8. Anxiety - Comprehensive metabolic panel - Stable with daily Sertraline and PRN Alprazolam. Will continue current treatment plan. 9. Panic attack - Comprehensive metabolic panel - Stable with daily Sertraline and PRN Alprazolam. Will continue current treatment plan. 10. Prediabetes - Hemoglobin A1c - Comprehensive metabolic panel - Will notify of blood work results and provide recommendations accordingly. 11. Motion sickness, initial encounter - scopolamine (Transderm-Scop) 1 MG/3DAYS patch 72 hour; Apply 1 patch behind ear at least 4 hours prior to required antiemetic effect for use up to 72 hours; if needed for >72 hours, remove old patch and place new one behind other ear., Normal 12. Right sided abdominal pain - Comprehensive metabolic panel - Will notify of blood work results. - Discussed signs and symptoms warranting follow up in the office- verbalized understanding. 13. Screening mammogram for breast cancer - Bilateral screening mammogram with tomosynthesis 14. Influenza vaccine refused Follow up in about 6 months (around 11/17/2024) for WFE and fasting blood work. SUBJECTIVE/OBJECTIVE: ERICA Riggins presents today for follow up on her chronic health conditions. SVT/Hypertension: Takes Metoprolol as prescribed and feels symptoms are well controlled. Last saw cardiology, Dr. Lakhani, in January 2024. States she only needed to follow up with cardiology as needed. Hypokalemia: Takes Potassium 20 mEq supplementation as prescribed. Potassium stable at 4.0 mmol/L on 01/22/24. Will check her potassium level today. Hyperlipidemia: Takes her Atorvastatin daily as prescribed. Last had her cholesterol checked in October of 2023. Component Ref Range & Units 6 mo ago (11/11/23) 1 yr ago (10/29/22) 2 yr ago (12/11/21) 3 yr ago (11/16/20) 3 yr ago (10/12/20) 4 yr ago (09/16/19) CHOLESTEROL, TOTAL <200 mg/dL 170 168 HDL CHOLESTEROL > OR = 50 mg/dL 41 Low 39 Low 36 Low R 37 Low R 30 Low R 39 Low R TRIGLYCERIDES <150 mg/dL 164 High 172 High 146 199 Abnormal 304 Abnormal 142 LDL-CHOLESTEROL mg/dL (calc) 103 High 102 High CM CHOL/HDLC RATIO <5.0 (calc) 4.1 4.3 NON HDL CHOLESTEROL <130 mg/dL (calc) 129 129 CM Clotting Disorder/History of Venous Thrombosis/Hyperhomocysteinemia: Takes her Coumadin as prescribed. Denies signs of active bleeding. Most recent INR was 2.4 on 04/27/24. Will recheck today. Anxiety/Panic Attack: Takes daily Sertraline and will take Alprazolam as needed. Feels the medications work well for her. Pre-Diabetes: Most recent hemoglobin A1c was 6.1% on 11/11/23. Strives for a diet rich in protein. Trying to limit sugars and carbohydrates in diet. Will be going on a cruise at the end of May and want to have Scopolamine patches on hand. Has been experiencing some right sided pain that feels "deep". Had a similar pain a few years ago and imaging did not reveal anything. Would like to have her liver enzymes checked today. Health Maintenance: Last mammogram was 07/03/23- would like an order placed for this year's imaging today. Last pap smear was 10/29/22. Vaccinated for COVID-19 x3 with most recent dose on 02/11/21- declines additional doses. Declines to be vaccinated for shingles. Tdap current: 08/08/16. Colonoscopy: 07/24/[address] 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 Declines a pneumococcal vaccination. Declines a flu vaccination. Review of Systems Constitutional: Negative for chills and fever. Respiratory: Negative for chest tightness and shortness of breath. Cardiovascular: Negative for chest pain, palpitations and leg swelling. Gastrointestinal: Positive for abdominal pain (right side). Negative for abdominal distention and blood in stool. Endocrine: Negative for polydipsia, polyphagia and polyuria. Genitourinary: Negative for hematuria. Skin: Negative for color change, pallor, rash and wound. Neurological: Negative for dizziness, syncope, weakness and headaches. Hematological: Does not bruise/bleed easily. Vitals: 05/20/24 1342 BP: 99/61 BP Location: Left arm Patient Position: Sitting Pulse: 76 SpO2: 95% Weight: 206 lb 6.4 oz (93.6 kg) Height: 5' 6.5" (1.689 m) Body mass index is 32.81 kg/m . Last 3 ARTHUR-7 Scores 05/20/2024 1400 ARTHUR-7 Total Score: 5 Physical Exam Constitutional: General: She is not in acute distress. Appearance: She is not ill-appearing or diaphoretic. Neck: Vascular: No carotid bruit. Cardiovascular: Rate and Rhythm: Normal rate and regular rhythm. Pulses: Normal pulses. Heart sounds: Normal heart sounds. No murmur heard. No friction rub. Pulmonary: Effort: Pulmonary effort is normal. Breath sounds: Normal breath sounds. No wheezing, rhonchi or rales. Abdominal: General: Abdomen is protuberant. Bowel sounds are normal. There is no distension. Palpations: Abdomen is soft. There is no hepatomegaly, splenomegaly or mass. Tenderness: There is no abdominal tenderness. There is no guarding or rebound. Musculoskeletal: Cervical back: Neck supple. Right lower leg: No edema. Left lower leg: No edema. Skin: General: Skin is warm. Coloration: Skin is not jaundiced or pale. Findings: No bruising, erythema or rash. Neurological: Mental Status: She is alert and oriented to person, place, and time. Psychiatric: Mood and Affect: Mood normal. Behavior: Behavior normal. Thought Content: Thought content normal. Judgment: Judgment normal. Data Reviewed Labs: Imaging/Testing: An electronic signature was used to authenticate this note. MIGEL Wagner CNP 05/20/2024 2:48 PM documented in this encounter [facility] 04-28-2024 Note Addended by: HENRIQUE MCKEE on: 04/28/2024 05:36 AM Modules accepted: Orders [facility] Work Phone: 04-28-2024 Miscellaneous Notes Addended by: HENRIQUE MCKEE on: 04/28/2024 05:36 AM Modules accepted: Orders [place], [place] updated Patient came into the office today to have her INR labs checked, she did want to notify you that she is no longer taking her Spironolactone since she is going on vacation and wants to olea she also stated it was no longer helping her acne. Please update med list. documented in this encounter [facility] 04-28-2024 Telephone encounter Note Okdebbie, chart updated [facility] 04-27-2024 Telephone encounter Note Patient came into the office today to have her INR labs checked, she did want to notify you that she is no longer taking her Spironolactone since she is going on vacation and wants to olea she also stated it was no longer helping her acne. Please update med list. [facility] 04-21-2024 Miscellaneous Notes Reviewed chart. Refill appropriate. RX sent. Prescription Request: Last medication check: 01/22/24 Last physical exam: 11/11/23 Next scheduled appointment: 05/04/24 Last date of refill on this medication 10/07/23 documented in this encounter [facility] 04-21-2024 Telephone encounter Note Reviewed chart. Refill appropriate. RX sent. [facility] 04-21-2024 Telephone encounter Note Prescription Request: Last medication check: 01/22/24 Last physical exam: 11/11/23 Next scheduled appointment: 05/04/24 Last date of refill on this medication 10/07/23 [facility] 04-06-2024 Telephone encounter Note Reviewed chart. Refill appropriate. RX sent. [facility] 04-06-2024 Miscellaneous Notes Reviewed chart. Refill appropriate. RX sent. Prescription Request: Last medication check: 01/22/24 Last physical exam: 11/11/23 Next scheduled appointment: 05/11/24 Last date of refill on this medication 09/06/23 documented in this encounter [facility] 04-06-2024 Telephone encounter Note Prescription Request: Last medication check: 01/22/24 Last physical exam: 11/11/23 Next scheduled appointment: 05/11/24 Last date of refill on this medication 09/06/23 [facility] 04-06-2024 Telephone encounter Note Refill request received for Spironolactone. Last filled 01/02/2024 by Racheal. Patient last seen 10/01/2023 by Racheal. Patient does have a follow up appointment scheduled on 06/03/2024. [facility] 04-06-2024 Miscellaneous Notes Refill request received for Spironolactone. Last filled 01/02/2024 by Racheal. Patient last seen 10/01/2023 by Racheal. Patient does have a follow up appointment scheduled on 06/03/2024. documented in this encounter [facility] 01-31-2024 Evaluation + Plan note Associated Problem(s): Hypokalemia On aldactone for skin condition which also helps support K+ level. Also on K+ suppl as well. -F/u with PCP with labs to be sure K+ continues to be stable. [facility] 01-31-2024 Miscellaneous Notes Associated Problem(s): Hypokalemia On aldactone for skin condition which also helps support K+ level. Also on K+ suppl as well. -F/u with PCP with labs to be sure K+ continues to be stable. 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 No hx of CAD, CVD, HF. Very low RCRI risk. Hx of SVT easy to break with adenosine. -Low risk of cardiac events, ok to proceed to non-cardiac surgery -Biggest cardiac risk is for SVT which can be handled with intra-op and post-op monitoring; if occurs start with Valsalva maneuver, if fails then use routine adenosine protocol for that facility -Continue Toprol perioperatively -Continue lipitor perioperatively Associated Problem(s): Essential hypertension Stable. Target <130/80 mmHg -Continue Toprol, aldactone Associated Problem(s): SVT (supraventricular tachycardia) (HCC) Hx of presumed SVT with c/w description of increased HR and broke with adenosine. But no scanned strips of these rhythms available. Has hx of palpitations. She is aware of manuvers that break the arrhythmia. Episodes 2019 and 2022. 02/2020 24 hr Holter showed no significant arrhythmia. 04/2022 48 hr holter that showed no atrial arrhythmia despite symptoms of palpitations. -Continue Toprol -Pt will send copy of EMS tracing to us via [employer] -She does not feel the need to EP at this time -If has frequent symptomatic recurrence, rec 30 d event monitor and referral to EP to discuss risks/benefits of ablation -1 yr followup with me; can see us yearly or PRN given infrequency of the arrhythmia Associated Problem(s): Clotting disorder (CMS/HCC) (HCC) Hx multiple thrombotic episodes. One of those was unprovoked. Believed to have hypercoagulable state. Side effect with Xarelto, switched to warfarin, without recurrent episodes. Also has quit smoking. -Not on OAC for cardiac reasons -Mgt per PCP documented in this encounter [facility] 01-31-2024 Telephone encounter Note Called patient and she wanted surgery by end of year for deduct. Advised on vacation for holiday. 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 She will call back when ready to schedule. [facility] 01-31-2024 Miscellaneous Notes Called patient and she wanted surgery by end of year for deduct. Advised on vacation for holiday. 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 She will call back when ready to schedule. LM with patient to move surgery to 1-20-25. Needs ACH due to SVT. documented in this encounter [facility] 01-31-2024 Telephone encounter Note Missed Tre's call, please call back. [facility] 01-31-2024 Miscellaneous Notes Missed Tre's call, please call back. documented in this encounter [facility] 01-31-2024 Telephone encounter Note LM with patient to move surgery to 04-13-24. Needs ACH due to SVT. 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 No hx of CAD, CVD, HF. Very low RCRI risk. Hx of SVT easy to break with adenosine. -Low risk of cardiac events, ok to proceed to non-cardiac surgery -Biggest cardiac risk is for SVT which can be handled with intra-op and post-op monitoring; if occurs start with Valsalva maneuver, if fails then use routine adenosine protocol for that facility -Continue Toprol perioperatively -Continue lipitor perioperatively [facility] 01-31-2024 History of Present illness Narrative Images from the original note were not included. [facility] [place] [address] [facility] [place], [facility] [address] [place] [address] Dept: [phone] Dept Visit type: Established : 1975 Reason for Visit: Follow-up Assessment and Plan 1. SVT (supraventricular tachycardia) (HCC) Assessment & Plan: Hx of presumed SVT with c/w description of increased HR and broke with adenosine. But no scanned strips of these rhythms available. Has hx of palpitations. She is aware of manuvers that break the arrhythmia. Episodes 2019 and 2022. 02/2020 24 hr Holter showed no significant arrhythmia. 04/2022 48 hr holter that showed no atrial arrhythmia despite symptoms of palpitations. -Continue Toprol -Pt will send copy of EMS tracing to us via [employer] -She does not feel the need to EP at this time -If has frequent symptomatic recurrence, rec 30 d event monitor and referral to EP to discuss risks/benefits of ablation -1 yr followup with me; can see us yearly or PRN given infrequency of the arrhythmia Orders: - ECG 12 lead - [facility] 2. Clotting disorder (CMS/HCC) (HCC) Assessment & Plan: Hx multiple thrombotic episodes. One of those was unprovoked. Believed to have hypercoagulable state. Side effect with Xarelto, switched to warfarin, without recurrent episodes. Also has quit smoking. -Not on OAC for cardiac reasons -Mgt per PCP Orders: - [facility] 3. Essential hypertension Assessment & Plan: Stable. Target <130/80 mmHg -Continue Toprol, aldactone 4. Hypokalemia Assessment & Plan: On aldactone for skin condition which also helps support K+ level. Also on K+ suppl as well. -F/u with PCP with labs to be sure K+ continues to be stable. 5. 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 No hx of CAD, CVD, HF. Very low RCRI risk. Hx of SVT easy to break with adenosine. -Low risk of cardiac events, ok to proceed to non-cardiac surgery -Biggest cardiac risk is for SVT which can be handled with intra-op and post-op monitoring; if occurs start with Valsalva maneuver, if fails then use routine adenosine protocol for that facility -Continue Toprol perioperatively -Continue lipitor perioperatively Follow up in about 1 year (around 01/30/2025) for me. Subjective Establish new cardiovascular physician. Formerly saw [facility] and Dr. Reynoso (who is further away at [facility]). Hx SVT documented X2 requiring medical intervention. First time she thought she was just anxious. Had a sinus infection and was on Sudafed. Then was clear it was a tachyarrhythmia. Needed two dose of adenosine to break it. Toprol 25 started. Second time, she bent over to get her dog out of the kennel and felt HR go fast. 3.4 K+. Needed one dose of adenosine to break rhythm and vagal manuvers did not help. Toprol increased to 50 mg after this episode. Has done well. Previously was having regular palpitations but these were not by the satellite project site monitor associated with concerning arrhythmias and improved with the BB by past report. Recently aldactone 50 mg added for acne but also has benefit of supporting her potassium level which has been on the lower side. Per pt f/u labs have been stable. 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 Brother has Afib and is s/p multiple ablations. She would not want this. Discussed that her rhythm issues are not like his and if ablated, would most likely but curative. Hx hypercoag state with mult thrombotic events, managed by PCP on warfarin (intolerant to Xarelto). Tob- quit 9 yrs ago ETOH- minimal Recr drugs - none Would like to f/u cardiology in [facility]. Antionette Sandoval Review of Systems Constitutional: Negative for activity change, chills, diaphoresis, fatigue and fever. HENT: Negative for nosebleeds and trouble swallowing. Eyes: Negative for discharge and visual disturbance. Respiratory: Negative for apnea, cough, chest tightness, shortness of breath and wheezing. Cardiovascular: Positive for leg swelling (left leg, occasional). Negative for chest pain and palpitations. Gastrointestinal: Negative for abdominal distention, abdominal pain, blood in stool, diarrhea, nausea and vomiting. Endocrine: Negative for cold intolerance and heat intolerance. Genitourinary: Negative for hematuria. Musculoskeletal: Negative for gait problem and myalgias. Skin: Negative for color change and rash. Neurological: Negative for dizziness, seizures, syncope, facial asymmetry, speech difficulty, weakness, light-headedness, numbness and headaches. Hematological: Does not bruise/bleed easily. Psychiatric/Behavioral: Negative for dysphoric mood. Allergies Allergen Reactions Enoxaparin Other reaction(s): Cellulitis Iron Hives and Itching Infusion but tolerates oral prep Infusion but tolerates oral prep Meperidine Hcl Other reaction(s): Severe nausea & vomiting Nickel Other reaction(s): Contact dermatitis Rivaroxaban Unknown Other reaction(s): Chest pain Rosuvastatin Other reaction(s): Unknown Arthralgias Arthralgias Tape Other reaction(s): Hives, Hives and/or rash Rash, Blisters Wound Dressing Adhesive Hives and Unknown Other reaction(s): Hives and/or rash Meperidine Nausea And Vomiting Other reaction(s): Vomiting nausea Sulfa Antibiotics Rash Outpatient Medications Prior to Visit Medication Sig Dispense Refill acetaminophen (Tylenol 8 Hour) 650 MG ER tablet Take by mouth. ALPRAZolam (Xanax) 0.25 MG tablet Take 1 tablet (0.25 mg) by mouth every 8 hours as needed for anxiety. 30 tablet 0 ascorbic acid (Vitamin C) 500 MG ER capsule Take 500 mg by mouth. atorvastatin (Lipitor) 20 MG tablet take 1 tablet by mouth once daily 180 tablet 0 b complex vitamins capsule Take 1 capsule by mouth daily. benzoyl peroxide (Benzoyl Peroxide Wash) 5 % external wash Use to wash affected areas on the face and groin once daily in the shower. Rinse thoroughly as this can bleach out fabrics, so rinse skin well. 236 g 6 cetirizine (ZyrTEC) 10 MG tablet Take by mouth. cholecalciferol (Vitamin D-3) 50 MCG (2000 UT) capsule Take 400 Units by mouth daily. clindamycin (Cleocin T) 1 % lotion Apply a thin layer to affected areas on the face and groin once daily. 60 mL 6 diphenhydrAMINE (BENADryl) 25 MG capsule Take 25 mg by mouth every 8 hours as needed. fluticasone (Flonase) 50 MCG/ACT nasal spray Administer 2 sprays into each nostril as needed. lidocaine (Lidoderm) 5 % patch Place 1 patch on the skin. metoprolol succinate XL (Toprol-XL) 50 MG 24 hr tablet Take 1 tablet (50 mg) by mouth daily. 90 tablet 1 mupirocin (Bactroban) 2 % ointment APPLY TO AFFECTED AREA 3 TIMES A DAY potassium chloride CR (Klor-Con) 10 MEQ ER tablet Take 20 mEq by mouth daily. pramoxine (Proctofoam) 1 % foam Apply to anal area, as needed, up to 5 times daily. 15 g 0 Pramoxine-HC (Hydrocortisone Shay-Pramoxine) 2.5-1 % cream Insert into the rectum. sertraline (Zoloft) 50 MG tablet take 1 tablet by mouth once daily 90 tablet 1 spironolactone (Aldactone) 50 MG tablet take 1 tablet by mouth once daily 30 tablet 1 tretinoin (Retin-A) 0.025 % cream Apply a thin layer to affected areas every third night, increase to nightly as tolerated. 45 g 6 warfarin (Coumadin) 1 MG tablet take 1 tablet by mouth ON SATURDAY, SATURDAY, AND SATURDAY ALONG WITH 5MG TABLET TO EQUAL 6MG 60 tablet 1 warfarin (Coumadin) 5 MG tablet take 1 tablet by mouth nightly 90 tablet 1 Zinc Acetate 50 MG capsule Take by mouth. potassium chloride CR (Klor-Con M10) 10 MEQ ER tablet Take 2 tablets (20 mEq) by mouth in the morning. (Patient not taking: Reported on 01/31/2024) 1 tablet 0 No facility-administered medications prior to visit. Past Medical History: Diagnosis Date Acute bilateral low back pain without sciatica 01/01/2022 Last Assessment & Plan: Symptoms improving, no red flags. Continue muscle relaxant and topical lidocaine. Begin gentle stretches. 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 Dr Ng Headache History of blood clots 2000 Increased homocysteine Left hip pain 12/07/2020 Pulmonary emboli (HCC) Tinnitus Tobacco use Social History Tobacco Use Smoking status: Former Average packs/day: 0.5 packs/day for 17.0 years (8.5 ttl pk-yrs) Types: Cigarettes Start date: 1997 Smokeless tobacco: Never Substance Use Topics Alcohol use: Yes Comment: Social Past Surgical History: Procedure Laterality Date BREAST BIOPSY Right 01/27/2013 BREAST BIOPSY Left 05/13/2019 Benign stereo CHOLECYSTECTOMY 2001 COLONOSCOPY 2007 DILATION AND CURETTAGE OF UTERUS 2001 TOTAL ABDOMINAL HYSTERECTOMY 01/23/2017 has one ovary- left Family History Problem Relation Name Age of Onset Breast cancer Mother Lory Wick 52 52 and again at 70 Other ([id number]) Mother Lory Wick DVT High Blood Pressure Mother Lory Wick Cancer Mother Lory Wick Depression Mother Lory Wick Hyperlipidemia Mother Lory Wick Heart attack Mother Lory Wick Diabetes Father Gerard Wick High Blood Pressure Father Gerard Wick Heart disease Father Gerard Wick Hypertension Father Gerard Wick Stroke Maternal Grandmother Morenita Huynh and Bruno De Los Santos Cervical cancer Paternal Grandmother 65 Objective Vitals: 01/31/24 1014 BP: 100/72 BP Location: Left arm Patient Position: Sitting BP Cuff Size: Adult Pulse: 73 Weight: 203 lb (92.1 kg) Height: 5' 6.5" (1.689 m) Physical Exam Vitals reviewed. Constitutional: General: She is not in acute distress. Appearance: She is well-developed. Neck: Vascular: No JVD. Cardiovascular: Rate and Rhythm: Normal rate and regular rhythm. Heart sounds: Normal heart sounds. No murmur heard. Pulmonary: Effort: Pulmonary effort is normal. Breath sounds: Normal breath sounds. Abdominal: General: Bowel sounds are normal. Palpations: Abdomen is soft. Neurological: Mental Status: She is alert. Psychiatric: Attention and Perception: Attention normal. Behavior: Behavior is cooperative. Data Reviewed and Summarized No results found for: "EFBP", "PLVEF", "LVEFPHYS", "LVEF2D", "EF" Review of tests/labs done/ordered within my specialty: EKG in office: 01/31/24 ECG 12-LEAD 01/31/2024 10:42 AM (Final) Narrative Sinus Rhythm Low voltage in precordial leads. -Nonspecific T-abnormality. Signed by: Mainor Lakhani on 01/31/2024 10:42 AM Review of tests/labs done/ordered outside my specialty: Independent interpretation of tests: Mainor Lakhani MD documented in this encounter [facility] 01-31-2024 Telephone encounter Note Wants to know if in fact she is scheduled for sx in Dec because she needs to notify her boss. [facility] 01-31-2024 Miscellaneous Notes Wants to know if in fact she is scheduled for sx in Dec because she needs to notify her boss. documented in this encounter [facility] 01-31-2024 Evaluation + Plan note Associated Problem(s): Essential hypertension Stable. Target <130/80 mmHg -Continue Toprol, aldactone [facility] 01-31-2024 Evaluation + Plan note Associated Problem(s): SVT (supraventricular tachycardia) (HCC) Hx of presumed SVT with c/w description of increased HR and broke with adenosine. But no scanned strips of these rhythms available. Has hx of palpitations. She is aware of manuvers that break the arrhythmia. Episodes 2019 and 2022. 02/2020 24 hr Holter showed no significant arrhythmia. 04/2022 48 hr holter that showed no atrial arrhythmia despite symptoms of palpitations. -Continue Toprol -Pt will send copy of EMS tracing to us via [employer] -She does not feel the need to EP at this time -If has frequent symptomatic recurrence, rec 30 d event monitor and referral to EP to discuss risks/benefits of ablation -1 yr followup with me; can see us yearly or PRN given infrequency of the arrhythmia [facility] 01-31-2024 Evaluation + Plan note Associated Problem(s): Clotting disorder (CMS/HCC) (HCC) Hx multiple thrombotic episodes. One of those was unprovoked. Believed to have hypercoagulable state. Side effect with Xarelto, switched to warfarin, without recurrent episodes. Also has quit smoking. -Not on OAC for cardiac reasons -Mgt per PCP [facility] 01-23-2024 Telephone encounter Note Genevieve Cardona PA-C to Tre Boyd 12/25/23 3:07 PM Robert Toledo, I already sent you this patient's chart. I see you already made a telephone encounter with the surgical orders. I talked to her today, and she is comfortable proceeding with scheduling at this point of time. Of note, she is on Coumadin for clotting disorder. She will need to stop the Coumadin at least 5 days prior to surgery and restart on the day of her surgery. 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 Please let me know if you have any questions. MARC Askew, You please schedule this patient for Excision right occipital bony mass excision with bone substitute in the form of hydroxyapatite to fill the deficit. General. 1.5 hours. City only. Genevieve Cardona PA-C [facility] 01-23-2024 Miscellaneous Notes Genevieve Cardona PA-C to Tre Boyd 12/25/23 3:07 PM Robert Toledo, I already sent you this patient's chart. I see you already made a telephone encounter with the surgical orders. I talked to her today, and she is comfortable proceeding with scheduling at this point of time. Of note, she is on Coumadin for clotting disorder. She will need to stop the Coumadin at least 5 days prior to surgery and restart on the day of her surgery. 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 Please let me know if you have any questions. MARC Askew, You please schedule this patient for Excision right occipital bony mass excision with bone substitute in the form of hydroxyapatite to fill the deficit. General. 1.5 hours. City only. Genevieve Cardona PA-C Faxed surgical clearance request form to Dr. Reynoso's office today at . Confirmation fax received. Case# Procedure: Excision right occipital bony mass excision with bone substitute in the form of hydroxyapatite to fill the deficit. Sx Date: 03/16/2024 7:30 AM Time: 1.5 hrs Location: [facility] Anesthesia: General CPT: 00343, 86275, 61473 ICD-10: D16.4 Special Equipment: N/A PAT: [facility] Submitted auth through portal. NR. Scanned into chart. Called patient to schedule surgery. Lvm with surgery date and asked patient to call and confirm or reschedule. Patient would like to schedule in February if no malignancy is found on CT scan. Patient on coumadin. Would need Lovenox shot prior to surgery per patient. Of note, she is on Coumadin for clotting disorder. She will need to stop the Coumadin at least 5 days prior to surgery and restart on the day of her surgery. 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 Please let me know if you have any questions. documented in this encounter [facility] 01-22-2024 History of Present illness Narrative Images from the original note were not included. 01/22/2024 Antionette Sandoval (: 1975) is a 48 y.o. female , Established patient, here for evaluation of the following chief complaint(s): Procedure (Surgery scheduled for February, mainly wants to talk about how her coumadin and inr would play out with the surgery) ASSESSMENT/PLAN: 1. 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 2. Acne vulgaris - Potassium - Will notify of blood work results. 3. SVT (supraventricular tachycardia) (HCC) - Potassium - [facility] - Referral placed with Dr. Segovia for cardiac clearance and for management of anticoagulation management for upcoming surgery. 4. Clotting disorder (CMS/HCC) (HCC) - [facility] - Referral placed with Dr. Segovia for cardiac clearance and for management of anticoagulation management for upcoming surgery. 5. Hypokalemia - Potassium - Will notify of blood work results. Follow up for surgical clearance within 30 days of surgery on 03/16/24. SUBJECTIVE/OBJECTIVE: ERICA Riggins presents today for discussion of an upcoming surgery in February. Will be getting a benign tumor excised from her scalp and was told she will need to be off of her Coumadin to have the procedure done. Will be having pre-admission testing completed on 03/09/24 and the surgery will be on 03/16/24. Will be getting put under via general anesthesia. Was told she will need cardiac clearance as well for the surgery- has not seen cardiology in over a year and a half and would like to see Dr. Segovia. Has been taking Spironolactone for her acne and is also on potassium supplementation for her hypokalemia and would like to have her potassium level checked today. Is also due to have her INR level checked today. Health Maintenance: Had a flu vaccination in July due to school so she does not want one today. Review of Systems Constitutional: Negative for chills and fever. Respiratory: Negative for shortness of breath. Cardiovascular: Negative for chest pain, palpitations and leg swelling. Vitals: 01/22/24 1507 BP: 122/80 Pulse: 71 SpO2: 97% Weight: 204 lb 1.6 oz (92.6 kg) Height: 5' 6" (1.676 m) Body mass index is 32.94 kg/m . Physical Exam Constitutional: General: She is not in acute distress. Appearance: She is not ill-appearing or diaphoretic. Cardiovascular: Rate and Rhythm: Normal rate and regular rhythm. Heart sounds: Normal heart sounds. No murmur heard. No friction rub. Pulmonary: Effort: Pulmonary effort is normal. Skin: General: Skin is warm and dry. Coloration: Skin is not pale. Findings: No bruising or erythema. Neurological: Mental Status: She is alert and oriented to person, place, and time. Psychiatric: Mood and Affect: Mood normal. Behavior: Behavior normal. Thought Content: Thought content normal. Judgment: Judgment normal. An electronic signature was used to authenticate this note. MIGEL Wagner CNP 01/22/2024 3:47 PM Patient verified by last name and . documented in this encounter [facility] 01-03-2024 Telephone encounter Note Faxed surgical clearance request form to Dr. Reynoso's office today at . Confirmation fax received. [facility] 01-03-2024 Miscellaneous Notes Faxed surgical clearance request form to Dr. Reynoso's office today at . Confirmation fax received. Case# Procedure: Excision right occipital bony mass excision with bone substitute in the form of hydroxyapatite to fill the deficit. Sx Date: 03/05/2024 12:30 PM Time: 1.5 hrs Location: [facility] Anesthesia: General CPT: 47299, 67927, 40992 ICD-10: D16.4 Special Equipment: N/A PAT: [facility] Submitted auth through portal. PCNR. Scanned into chart. Called patient to schedule surgery. Lvm with surgery date and asked patient to call and confirm or reschedule. Patient would like to schedule in February if no malignancy is found on CT scan. Patient on coumadin. Would need Lovenox shot prior to surgery per patient. Of note, she is on Coumadin for clotting disorder. She will need to stop the Coumadin at least 5 days prior to surgery and restart on the day of her surgery. 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 Please let me know if you have any questions. documented in this encounter [facility] 01-03-2024 Miscellaneous Notes Faxed surgical clearance request form to Dr. Reynoso's office today at . Confirmation fax received. Case# Procedure: Excision right occipital bony mass excision with bone substitute in the form of hydroxyapatite to fill the deficit. Sx Date: 03/16/2024 7:30 AM Time: 1.5 hrs Location: [facility] Anesthesia: General CPT: 46608, 61776, 50795 ICD-10: D16.4 Special Equipment: N/A PAT: [facility] Submitted auth through portal. PCNR. Scanned into chart. Called patient to schedule surgery. Lvm with surgery date and asked patient to call and confirm or reschedule. Patient would like to schedule in February if no malignancy is found on CT scan. Patient on coumadin. Would need Lovenox shot prior to surgery per patient. Of note, she is on Coumadin for clotting disorder. She will need to stop the Coumadin at least 5 days prior to surgery and restart on the day of her surgery. 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 Please let me know if you have any questions. documented in this encounter [facility] 01-02-2024 Telephone encounter Note Refill request received for Spironolactone. Last filled 10/01/2023 by Racheal. Patient last seen 10/01/2023 by Racheal. Patient does have a follow up appointment scheduled on 12/10/2023. [facility] 01-02-2024 Miscellaneous Notes Refill request received for Spironolactone. Last filled 10/01/2023 by Racheal. Patient last seen 10/01/2023 by Racheal. Patient does have a follow up appointment scheduled on 12/10/2023. documented in this encounter [facility] 12-25-2023 History of Present illness Narrative Department of Plastic Surgery - Adult Attending Consult Note CHIEF COMPLAINT: Finalize surgical planning, right occipital skull mass History Obtained From: patient, EMR HISTORY OF PRESENT ILLNESS: The patient is a 48 y.o. female with past medical history significant for clotting disorder (STUART-1) indefinitely on Coumadin who presents to finalize surgical planning for excision of right occipital skull mass. We were waiting on an addendum to patient's CT max face results performed on 11/27/2023 before finalizing surgical planning. Patient states her hairdresser first noticed the mass approximately 1 year ago when shampooing her hair. She does not think it has grown since she first noticed it. It has not changed in color or had any discharge or bleeding. She has not had the mass biopsied or removed previously. Denies recent changes in her health history. Past Medical History: Past Medical History: Diagnosis Date Acute bilateral low back pain without sciatica 01/01/2022 Last Assessment & Plan: Symptoms improving, no red flags. Continue muscle relaxant and topical lidocaine. Begin gentle stretches. 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 Dr Ng Headache History of blood clots 2000 Increased homocysteine Left hip pain 12/07/2020 Pulmonary emboli (HCC) Tinnitus Tobacco use Past Surgical History: Past Surgical History: Procedure Laterality Date BREAST BIOPSY Right 01/27/2013 BREAST BIOPSY Left 05/13/2019 Benign stereo CHOLECYSTECTOMY 2000 COLONOSCOPY 2006 DILATION AND CURETTAGE OF UTERUS 2000 TOTAL ABDOMINAL HYSTERECTOMY 01/23/2017 has one ovary- left Current Medications: Current Outpatient Medications Medication Instructions acetaminophen (Tylenol 8 Hour) 650 MG ER tablet Oral ALPRAZolam (XANAX) 0.25 mg, Oral, Every 8 hours PRN ascorbic acid (VITAMIN C) 500 mg, Oral atorvastatin (Lipitor) 20 MG tablet take 1 tablet by mouth once daily b complex vitamins capsule 1 capsule, Oral, Daily benzoyl peroxide (Benzoyl Peroxide Wash) 5 % external wash Use to wash affected areas on the face and groin once daily in the shower. Rinse thoroughly as this can bleach out fabrics, so rinse skin well. cetirizine (ZyrTEC) 10 MG tablet Oral cholecalciferol (VITAMIN D-3) 400 Units, Oral, Daily clindamycin (Cleocin T) 1 % lotion Apply a thin layer to affected areas on the face and groin once daily. diphenhydrAMINE (BENADRYL) 25 mg, Oral, Every 8 hours PRN fluticasone (Flonase) 50 MCG/ACT nasal spray 2 sprays, Each Nostril, PRN lidocaine (Lidoderm) 5 % patch 1 patch, TransDERmal metoprolol succinate XL (TOPROL-XL) 50 mg, Oral, Daily mupirocin (Bactroban) 2 % ointment APPLY TO AFFECTED AREA 3 TIMES A DAY potassium chloride CR (Klor-Con M10) 10 MEQ ER tablet 20 mEq, Oral, Daily pramoxine (Proctofoam) 1 % foam Apply to anal area, as needed, up to 5 times daily. Pramoxine-HC (Hydrocortisone Shay-Pramoxine) 2.5-1 % cream Rectal sertraline (ZOLOFT) 50 mg, Oral, Daily spironolactone (Aldactone) 50 MG tablet Take one tablet by mouth QD. tretinoin (Retin-A) 0.025 % cream Apply a thin layer to affected areas every third night, increase to nightly as tolerated. warfarin (Coumadin) 1 MG tablet take 1 tablet by mouth ON SATURDAY, SATURDAY, AND SATURDAY ALONG WITH 5MG TABLET TO EQUAL 6MG warfarin (COUMADIN) 5 mg, Oral, Nightly Zinc Acetate 50 MG capsule Oral Allergies: Enoxaparin, Iron, Meperidine hcl, Nickel, Rivaroxaban, Rosuvastatin, Tape, Wound dressing adhesive, Meperidine, and Sulfa antibiotics Social History: Social History Socioeconomic History Marital status: Spouse name: Not on file Number of children: Not on file Years of education: Not on file Highest education level: Not on file Occupational History Not on file Tobacco Use Smoking status: Former Average packs/day: 0.5 packs/day for 17.0 years (8.5 ttl pk-yrs) Types: Cigarettes Start date: 1997 Smokeless tobacco: Never Vaping Use Vaping status: Never Used Substance and Sexual Activity Alcohol use: Yes Comment: Social Drug use: No Sexual activity: Yes Partners: Male control/protection: Post-menopausal, Male Sterilization Other Topics Concern Not on file Social History Narrative Not on file Social Determinants of Health Financial Resource Strain: Low Risk (10/29/2022) Overall Financial Resource Strain (CARDIA) Difficulty of Paying Living Expenses: Not hard at all Food Insecurity: No Food Insecurity (10/29/2022) Hunger Vital Sign Worried About Running Out of Food in the Last Year: Never true Ran Out of Food in the Last Year: Never true Transportation Needs: No Transportation Needs (10/29/2022) PRAPARE - Transportation Lack of Transportation (Medical): No Lack of Transportation (Non-Medical): No Physical Activity: Insufficiently Active (10/29/2022) Exercise Vital Sign Days of Exercise per Week: 2 days Minutes of Exercise per Session: 20 min Stress: Not on file Social Connections: Not on file Intimate Partner Violence: Not on file Housing Stability: Low Risk (10/29/2022) Housing Stability Vital Sign Unable to Pay for Housing in the Last Year: No Number of Places Lived in the Last Year: 1 Unstable Housing in the Last Year: No Family History: Family History Problem Relation Name Age of Onset Breast cancer Mother Lory Wick 52 52 and again at 70 Other ([id number]) Mother Lory Wick DVT High Blood Pressure Mother Lory Wick Cancer Mother Lory Wick Depression Mother Lory Wick Hyperlipidemia Mother Lory Wick Heart attack Mother Lory Wick Diabetes Father Gerard Wick High Blood Pressure Father Gerard Wick Heart disease Father Gerard Wick Hypertension Father Gerard Wick Stroke Maternal Grandmother Morenita Huynh and Bruno De Los Santos Cervical cancer Paternal Grandmother 65 REVIEW OF SYSTEMS: CONSTITUTIONAL: negative for fevers, chills, sweats and fatigue EYES: negative for dipolpia or acute vision loss. RESPIRATORY: negative for dry cough, cough with sputum, dyspnea, wheezing and chest pain CARDIOVASCULAR: negative for chest pain, dyspnea, palpitations, syncope GASTROINTESTINAL: negative for nausea, vomiting, change in bowel habits, diarrhea, constipation and abdominal pain EXTREMITIES: negative for edema MUSCULOSKELETAL: negative for muscle weakness SKIN: negative for itching or rashes. BEHAVIOR/PSYCH: negative for poor appetite, increased appetite, decreased sleep and poor concentration PHYSICAL EXAM: VITALS: BP 109/73 (BP Location: Right arm, Patient Position: Sitting, BP Cuff Size: Adult) Pulse 79 Ht 5' 6" (1.676 m) Wt 201 lb (91.2 kg) BMI 32.44 kg/m CONSTITUTIONAL: awake, alert, cooperative, no apparent distress, and appears stated age EYES: PERRLA, EOMI, no signs of occular infection LUNGS: No increased work of breathing, good air exchange, clear to auscultation bilaterally, no crackles or wheezing CARDIOVASCULAR: Normal apical impulse, regular rate and rhythm, normal S1 and S2, no S3 or S4, and no murmur noted ABDOMEN: Soft, nontender, nondistended. EXTREMITIES: no signs of clubbing or cyanosis. MUSCULOSKELETAL: negative for flaccid muscle tone or spastic movements. SKIN: Palpable bony mass of the right occipital scalp. Measures approximately 2 cm x 1.5 cm. Overlying scalp is normal in color with regular hair growth. Round and regular border. Raised. No signs of bleeding, drainage, or infection. It is nontender to palpation. The overlying scalp is mobile over the mass, suggesting that it seems to originate from the underlying skull rather than the soft tissue. NEURO: Cranial nerves II-XII grossly intact. No signs of agitated mood. CBC: Lab Results Component Value Date WBC 6.0 09/09/2023 RBC 4.96 09/09/2023 HGB 13.9 09/09/2023 HCT 43.8 09/09/2023 MCV 88.3 09/09/2023 MCH 28.0 09/09/2023 MCHC 31.7 (L) 09/09/2023 RDW 14.1 09/09/2023 PLT 207 09/09/2023 MPV 11.0 09/09/2023 BMP: Lab Results Component Value Date NA 140 12/11/2021 K 4.1 12/11/2021 CL 109 (H) 12/11/2021 CO2 28 11/11/2023 BUN 14 11/11/2023 CREATININE 0.57 11/11/2023 CALCIUM 9.3 11/11/2023 LABGLOM 128 02/19/2020 GLUCOSE 100 (H) 11/11/2023 Hepatic Function Panel: Lab Results Component Value Date ALKPHOS 77 11/11/2023 ALT 33 (H) 11/11/2023 AST 22 11/11/2023 PROT 6.4 11/11/2023 BILITOT 0.4 11/11/2023 Data- Radiology Review: [facility] Name[facility] 1975 [id number] Exam Date/Time: 11/27/2023 10:58 Procedure: CT MAXILLOFACIAL W IV CONTRAST Ordering Provider: FISHER MOHEB Reason For Exam: Bone mass or bone pain, skull, no prior imaging --------ADDENDUM #1 -------- ADDENDUM: The 20 mm area of superficial osseous thickening in the right parietal area (appears to arise from periosteum) , 5 mm in width, has overall benign appearing morphology and appears unchanged since last exam 3.5 months ago (CT head). Patient first noticed one year ago without interval change. However, the exact etiology is not certain. Differential includes an area of prior healed trauma or old healed infection, unusual shaped benign osteoma, congenital focal dysplastic thickening (this seems unlikely by history), metabolic disease (unlikely). Appearance is not suggestive of malignant etiology such as osteosarcoma or metastatic disease. Additional interval 3-6 month follow-up (as clinically dictated) could provide a higher degree of certainty that this is indeed a benign finding. Report Dictated on Electronically Signed By: Joe Foster MD Electronically Signed Date/Time: 12/13/2023 4:42 PM EDT --------ORIGINAL REPORT -------- HISTORY: Tumor of bone or skull Axial scans of the paranasal sinuses were performed with coronal and sagittal reconstructions. Dose reduction was employed with automated exposure control. A radiopaque marker is placed over the area of palpable abnormality. The frontal, ethmoid, and sphenoid sinuses show no abnormality. There is mild rightward nasal septal deviation with left-sided bob bullosa. Maxillary sinuses show no abnormalities. Partial ossification stylohyoid ligaments, degenerated disc at C5-C6, periodontal disease about wisdom teeth. IMPRESSION: 1. There is slight smooth asymmetry in the cortex of the calvarium in the right parietal area which is thicker on the right compared to the left (can be seen in retrospect on CT 3.5 months ago and is unchanged, measuring 5 mm in depth and 20 mm in width). No adjacent skin or subcutaneous soft tissue abnormalities are seen. No other areas of focal skull thickening are seen. Report Dictated on Electronically Signed By: Joe Foster MD Electronically Signed Date/Time: 11/27/2023 3:49 PM EDT IMPRESSION/RECOMMENDATIONS: Diagnosis: 1-right occipital skull bony mass The Patients EMR report has been reviewed. We will plan to proceed with excision right occipital skull mass with complex closure, possible use of hydroxy apatite for contour irregularity. Patient currently is on Coumadin for clotting disorder. She will need to stop the Coumadin at least 5 days prior to surgery, and plan to restart the morning of surgery. Risks or complications including but not limited to pain, paresthesias, bleeding, hematoma or seroma formation, infection, wound healing complications, traumatic alopecia, asymmetry, and/or need for additional procedures in the future. She agrees the risks and would like to proceed as discussed. Orders are in. Our office to coordinate surgery. We will need clearance from her walking dragline oiler. Follow up for surgery. Genevieve Cardona PA-C \\ documented in this encounter [facility] 12-20-2023 Telephone encounter Note Case# Procedure: Excision right occipital bony mass excision with bone substitute in the form of hydroxyapatite to fill the deficit. Sx Date: 03/16/2024 7:30 AM Time: 1.5 hrs Location: [facility] Anesthesia: General CPT: 16262, 96409, 18783 ICD-10: D16.4 Special Equipment: N/A PAT: [facility] Submitted auth through portal. PCNR. Scanned into chart. Called patient to schedule surgery. Lvm with surgery date and asked patient to call and confirm or reschedule. Patient would like to schedule in February if no malignancy is found on CT scan. Patient on coumadin. Would need Lovenox shot prior to surgery per patient. Of note, she is on Coumadin for clotting disorder. She will need to stop the Coumadin at least 5 days prior to surgery and restart on the day of her surgery. 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 Please let me know if you have any questions. [facility] 12-20-2023 Miscellaneous Notes Case# Procedure: Excision right occipital bony mass excision with bone substitute in the form of hydroxyapatite to fill the deficit. Sx Date: 03/05/2024 12:30 PM Time: 1.5 hrs Location: [facility] Anesthesia: General CPT: 11580, 36998, [id number] ICD-10: D16.4 Special Equipment: N/A PAT: [facility] Submitted auth through portal. PCNR. Scanned into chart. Called patient to schedule surgery. Lvm with surgery date and asked patient to call and confirm or reschedule. Patient would like to schedule in February if no malignancy is found on CT scan. Patient on coumadin. Would need Lovenox shot prior to surgery per patient. Of note, she is on Coumadin for clotting disorder. She will need to stop the Coumadin at least 5 days prior to surgery and restart on the day of her surgery. 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 Please let me know if you have any questions. documented in this encounter [facility] 12-13-2023 History of Present illness Narrative Antionette Sandoval is presenting in follow-up to finalize surgical planning for excision bony right occipital skull mass. We were waiting on a reread of the patient's CT max face from the radiologist to guide surgical management. The reread does not definitively state what the mass may be, whether it is benign or possibly malignant. S: Doing well. Patient notes minor increase in pain and tenderness of the mass. O: Unchanged from initial examination, please see Dr. Fisher's note below. IMPRESSION: 1. There is slight smooth asymmetry in the cortex of the calvarium in the right parietal area which is thicker on the right compared to the left (can be seen in retrospect on CT 3.5 months ago and is unchanged, measuring 5 mm in depth and 20 mm in width). No adjacent skin or subcutaneous soft tissue abnormalities are seen. No other areas of focal skull thickening are seen. 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 Awaiting reread of CT max face. P: Our office has contacted the radiologist who originally read the CT scan for a reread. Unfortunately, they are currently out of the office and we will be unable to perform reread until early next week. Once we have a more definitive answer regarding what this mass may be, we will plan to finalize surgical planning . Will likely plan for excision right occipital bony mass, reconstruction of the defect utilizing hydroxyapatite. We will reach out to the patient next week once we hear back from the radiology department. At that time, we will place surgical orders and plan to authorize patient's surgery. Patient was reeducated regarding the risk and complications of surgery. Our office to contact patient regarding scheduling.. Patient is to return as needed for redness, swelling, discomfort, or any concern about her surgery. The physician was present, and has seen and examined the patient at the bedside with me. Department of Plastic Surgery - Adult Attending Consult Note CHIEF COMPLAINT: Lesion of scalp History Obtained From: patient HISTORY OF PRESENT ILLNESS: The patient is a 48 y.o. female who presents with a palpable mass of the right occipital scalp. The patient states that they first noticed the lesion 1 year ago. It has not grown in size since they first noticed the lesion. The lesion has not changed in color and has not had discharge or bleeding. The pt has not the lesion biopsied previously. The patient has not had the lesion removed previously. The patient states the lesion is not painfull, yet slightly tender. The pt denies any associated symptoms. Patient denies any associated headache. She was seen and evaluated by dermatology and was sent for evaluation and treatment of this right occipital mass. Patient has a clotting disorder [facility]. She is on Coumadin for anticoagulation following a prior DVT on 10/2000. Past Medical History: Medical History Past Medical History: Diagnosis Date Acute bilateral low back pain without sciatica 01/01/2022 Last Assessment & Plan: Symptoms improving, no red flags. Continue muscle relaxant and topical lidocaine. Begin gentle stretches. 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 Dr Ng Headache History of blood clots 2000 Increased homocysteine Left hip pain 12/07/2020 Pulmonary emboli (HCC) Tinnitus Tobacco use Past Surgical History: Surgical History Past Surgical History: Procedure Laterality Date BREAST BIOPSY Right 01/27/2013 BREAST BIOPSY Left 05/13/2019 Benign stereo CHOLECYSTECTOMY 2000 COLONOSCOPY 2006 DILATION AND CURETTAGE OF UTERUS 2000 TOTAL ABDOMINAL HYSTERECTOMY 01/23/2017 has one ovary- left Current Medications: Current Outpatient Medications Medication Instructions acetaminophen (Tylenol 8 Hour) 650 MG ER tablet Oral ALPRAZolam (XANAX) 0.25 mg, Oral, Every 8 hours PRN ascorbic acid (VITAMIN C) 500 mg, Oral atorvastatin (Lipitor) 20 MG tablet take 1 tablet by mouth once daily b complex vitamins capsule 1 capsule, Oral, Daily benzoyl peroxide (Benzoyl Peroxide Wash) 5 % external wash Use to wash affected areas on the face and groin once daily in the shower. Rinse thoroughly as this can bleach out fabrics, so rinse skin well. cetirizine (ZyrTEC) 10 MG tablet Oral cholecalciferol (VITAMIN D-3) 400 Units, Oral, Daily clindamycin (Cleocin T) 1 % lotion Apply a thin layer to affected areas on the face and groin once daily. diphenhydrAMINE (BENADRYL) 25 mg, Oral, Every 8 hours PRN fluticasone (Flonase) 50 MCG/ACT nasal spray 2 sprays, Each Nostril, PRN lidocaine (Lidoderm) 5 % patch 1 patch, TransDERmal metoprolol succinate XL (TOPROL-XL) 50 mg, Oral, Daily mupirocin (Bactroban) 2 % ointment APPLY TO AFFECTED AREA 3 TIMES A DAY potassium chloride CR (Klor-Con M10) 10 MEQ ER tablet 20 mEq, Oral, Daily pramoxine (Proctofoam) 1 % foam Apply to anal area, as needed, up to 5 times daily. Pramoxine-HC (Hydrocortisone Shay-Pramoxine) 2.5-1 % cream Rectal sertraline (ZOLOFT) 50 mg, Oral, Daily spironolactone (Aldactone) 50 MG tablet Take one tablet by mouth QD. tretinoin (Retin-A) 0.025 % cream Apply a thin layer to affected areas every third night, increase to nightly as tolerated. triamcinolone (Kenalog) 0.1 % cream Apply thin layer to affected area 1-2 times daily as needed. warfarin (Coumadin) 1 MG tablet take 1 tablet by mouth ON SATURDAY, SATURDAY, AND SATURDAY ALONG WITH 5MG TABLET TO EQUAL 6MG warfarin (COUMADIN) 5 mg, Oral, Nightly Zinc Acetate 50 MG capsule Oral Allergies: Enoxaparin, Iron, Meperidine hcl, Nickel, Rivaroxaban, Rosuvastatin, Tape, Wound dressing adhesive, Meperidine, and Sulfa antibiotics Social History: Social History Socioeconomic History Marital status: Spouse name: Not on file Number of children: Not on file Years of education: Not on file Highest education level: Not on file Occupational History Not on file Tobacco Use Smoking status: Former Average packs/day: 0.5 packs/day for 17.0 years (8.5 ttl pk-yrs) Types: Cigarettes Start date: 1997 Smokeless tobacco: Never Vaping Use Vaping status: Never Used Substance and Sexual Activity Alcohol use: Yes Comment: Social Drug use: No Sexual activity: Yes Partners: Male control/protection: Post-menopausal, Male Sterilization Other Topics Concern Not on file Social History Narrative Not on file Social Determinants of Health Financial Resource Strain: Low Risk (10/29/2022) Overall Financial Resource Strain (CARDIA) Difficulty of Paying Living Expenses: Not hard at all Food Insecurity: No Food Insecurity (10/29/2022) Hunger Vital Sign Worried About Running Out of Food in the Last Year: Never true Ran Out of Food in the Last Year: Never true Transportation Needs: No Transportation Needs (10/29/2022) PRAPARE - Transportation Lack of Transportation (Medical): No Lack of Transportation (Non-Medical): No Physical Activity: Insufficiently Active (10/29/2022) Exercise Vital Sign Days of Exercise per Week: 2 days Minutes of Exercise per Session: 20 min Stress: Not on file Social Connections: Not on file Intimate Partner Violence: Not on file Housing Stability: Low Risk (10/29/2022) Housing Stability Vital Sign Unable to Pay for Housing in the Last Year: No Number of Places Lived in the Last Year: 1 Unstable Housing in the Last Year: No Family History: Family History Family History Problem Relation Name Age of Onset Breast cancer Mother Lory Wick 52 52 and again at 70 Other ([id number]) Mother Lory Wick DVT High Blood Pressure Mother Lory Wick Cancer Mother Lory Wick Depression Mother Lory Wick Hyperlipidemia Mother Lory Wick Heart attack Mother Lory Wick Diabetes Father Gerard Wick High Blood Pressure Father Gerard Wick Heart disease Father Gerard Wick Hypertension Father Gerard Wick Stroke Maternal Grandmother Morenita Huynh and Bruno De Los Santos Cervical cancer Paternal Grandmother 65 REVIEW OF SYSTEMS: Review of Systems Constitutional: Negative. HENT: Negative. Eyes: Negative. Respiratory: Negative. Cardiovascular: Negative. Gastrointestinal: Negative. Endocrine: Negative. Genitourinary: Negative. Musculoskeletal: Negative. Skin: Negative. Allergic/Immunologic: Negative. Neurological: Negative. Hematological: Negative. Psychiatric/Behavioral: Negative. PHYSICAL EXAM: VITALS: BP 110/76 (BP Location: Left arm, Patient Position: Sitting, BP Cuff Size: Large adult) Pulse 80 Ht 5' 6" (1.676 m) Wt 201 lb (91.2 kg) BMI 32.44 kg/m CONSTITUTIONAL: awake, alert, cooperative, no apparent distress, and appears stated age EYES: PERRLA, EOMI, no signs of occular infection LUNGS: No increased work of breathing, good air exchange, clear to auscultation bilaterally, no crackles or wheezing CARDIOVASCULAR: Normal apical impulse, regular rate and rhythm, normal S1 and S2, no S3 or S4, and no murmur noted ABDOMEN: Soft, nontender nondistended. EXTREMITIES: no signs of clubbing or cyanosis. MUSCULOSKELETAL: negative for flaccid muscle tone or spastic movements. NEURO: Cranial nerves II-XII grossly intact. No signs of agitated mood. SKIN: Right occipital scalp as the palpable or mass/lump-2.5 cm x 1.5 cm, overlying scalp is normal in color, regular border, raised, no signs of bleeding,drainage or infection. Non tender to palpation. Overlying scalp glides freely over the mass which seems to originate from the underlying skull bone and the soft tissue. The palpable lump is slightly tender to palpation DATA: Labs: CBC: Lab Results Component Value Date WBC 6.0 09/09/2023 RBC 4.96 09/09/2023 HGB 13.9 09/09/2023 HCT 43.8 09/09/2023 MCV 88.3 09/09/2023 MCH 28.0 09/09/2023 MCHC 31.7 (L) 09/09/2023 RDW 14.1 09/09/2023 PLT 207 09/09/2023 MPV 11.0 09/09/2023 BMP: Lab Results Component Value Date NA 140 12/11/2021 K 4.1 12/11/2021 CL 109 (H) 12/11/2021 CO2 28 11/11/2023 BUN 14 11/11/2023 CREATININE 0.57 11/11/2023 CALCIUM 9.3 11/11/2023 LABGLOM 128 02/19/2020 GLUCOSE 100 (H) 11/11/2023 Radiology Review: Patient has a CT scan of the head dated in July 2023. I have reviewed the images and the patient has a bony mass occupying the right occipital skull most likely originating from the outer cortex. 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 Pathology Review: Not applicable IMPRESSION/RECOMMENDATIONS: Diagnosis -) Right occipital skull bony mass. Our office will contact the radiology department to reevaluate the CT images and comment on the mass arising from the occipital skull bone. Will have a follow-up appointment with the patient in 2 weeks to discuss the results and hence the surgical treatment. Patient was informed that if this is an osteoid osteoma, it is a benign tumor. The treatment can be observational versus surgical excision with bone substitute in the form of hydroxyapatite to fill the deficit. The risks include infection, bleeding, seroma and hematoma formation as well as infection requiring removal of the only substitute. 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 Photos obtained Please disregard any typographical errors. This note was partially dictated using voice recognition software. documented in this encounter [facility] 11-13-2023 History of Present illness Narrative Department of Plastic Surgery - Adult Attending Consult Note CHIEF COMPLAINT: Lesion of scalp History Obtained From: patient HISTORY OF PRESENT ILLNESS: The patient is a 48 y.o. female who presents with a palpable mass of the right occipital scalp. The patient states that they first noticed the lesion 1 year ago. It has not grown in size since they first noticed the lesion. The lesion has not changed in color and has not had discharge or bleeding. The pt has not the lesion biopsied previously. The patient has not had the lesion removed previously. The patient states the lesion is not painfull, yet slightly tender. The pt denies any associated symptoms. Patient denies any associated headache. She was seen and evaluated by dermatology and was sent for evaluation and treatment of this right occipital mass. Patient has a clotting disorder CMS-HCC. She is on Coumadin for anticoagulation following a prior DVT on 10/2000. Past Medical History: Past Medical History: Diagnosis Date Acute bilateral low back pain without sciatica 01/01/2022 Last Assessment & Plan: Symptoms improving, no red flags. Continue muscle relaxant and topical lidocaine. Begin gentle stretches. 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 Dr Ng Headache History of blood clots 2000 Increased homocysteine Left hip pain 12/07/2020 Pulmonary emboli ([facility]) Tinnitus Tobacco use Past Surgical History: Past Surgical History: Procedure Laterality Date BREAST BIOPSY Right 01/27/2013 BREAST BIOPSY Left 05/13/2019 Benign stereo CHOLECYSTECTOMY 2000 COLONOSCOPY 2006 DILATION AND CURETTAGE OF UTERUS 2000 TOTAL ABDOMINAL HYSTERECTOMY 01/23/2017 has one ovary- left Current Medications: Current Outpatient Medications Medication Instructions acetaminophen (Tylenol 8 Hour) 650 MG ER tablet Oral ALPRAZolam (XANAX) 0.25 mg, Oral, Every 8 hours PRN ascorbic acid (VITAMIN C) 500 mg, Oral atorvastatin (Lipitor) 20 MG tablet take 1 tablet by mouth once daily b complex vitamins capsule 1 capsule, Oral, Daily benzoyl peroxide (Benzoyl Peroxide Wash) 5 % external wash Use to wash affected areas on the face and groin once daily in the shower. Rinse thoroughly as this can bleach out fabrics, so rinse skin well. cetirizine (ZyrTEC) 10 MG tablet Oral cholecalciferol (VITAMIN D-3) 400 Units, Oral, Daily clindamycin (Cleocin T) 1 % lotion Apply a thin layer to affected areas on the face and groin once daily. diphenhydrAMINE (BENADRYL) 25 mg, Oral, Every 8 hours PRN fluticasone (Flonase) 50 MCG/ACT nasal spray 2 sprays, Each Nostril, PRN lidocaine (Lidoderm) 5 % patch 1 patch, TransDERmal metoprolol succinate XL (TOPROL-XL) 50 mg, Oral, Daily mupirocin (Bactroban) 2 % ointment APPLY TO AFFECTED AREA 3 TIMES A DAY potassium chloride CR (Klor-Con M10) 10 MEQ ER tablet 20 mEq, Oral, Daily pramoxine (Proctofoam) 1 % foam Apply to anal area, as needed, up to 5 times daily. Pramoxine-HC (Hydrocortisone Shay-Pramoxine) 2.5-1 % cream Rectal sertraline (ZOLOFT) 50 mg, Oral, Daily spironolactone (Aldactone) 50 MG tablet Take one tablet by mouth QD. tretinoin (Retin-A) 0.025 % cream Apply a thin layer to affected areas every third night, increase to nightly as tolerated. triamcinolone (Kenalog) 0.1 % cream Apply thin layer to affected area 1-2 times daily as needed. warfarin (Coumadin) 1 MG tablet take 1 tablet by mouth ON SATURDAY, SATURDAY, AND SATURDAY ALONG WITH 5MG TABLET TO EQUAL 6MG warfarin (COUMADIN) 5 mg, Oral, Nightly Zinc Acetate 50 MG capsule Oral Allergies: Enoxaparin, Iron, Meperidine hcl, Nickel, Rivaroxaban, Rosuvastatin, Tape, Wound dressing adhesive, Meperidine, and Sulfa antibiotics Social History: Social History Socioeconomic History Marital status: Spouse name: Not on file Number of children: Not on file Years of education: Not on file Highest education level: Not on file Occupational History Not on file Tobacco Use Smoking status: Former Average packs/day: 0.5 packs/day for 17.0 years (8.5 ttl pk-yrs) Types: Cigarettes Start date: 1997 Smokeless tobacco: Never Vaping Use Vaping status: Never Used Substance and Sexual Activity Alcohol use: Yes Comment: Social Drug use: No Sexual activity: Yes Partners: Male control/protection: Post-menopausal, Male Sterilization Other Topics Concern Not on file Social History Narrative Not on file Social Determinants of Health Financial Resource Strain: Low Risk (10/29/2022) Overall Financial Resource Strain (CARDIA) Difficulty of Paying Living Expenses: Not hard at all Food Insecurity: No Food Insecurity (10/29/2022) Hunger Vital Sign Worried About Running Out of Food in the Last Year: Never true Ran Out of Food in the Last Year: Never true Transportation Needs: No Transportation Needs (10/29/2022) PRAPARE - Transportation Lack of Transportation (Medical): No Lack of Transportation (Non-Medical): No Physical Activity: Insufficiently Active (10/29/2022) Exercise Vital Sign Days of Exercise per Week: 2 days Minutes of Exercise per Session: 20 min Stress: Not on file Social Connections: Not on file Intimate Partner Violence: Not on file Housing Stability: Low Risk (10/29/2022) Housing Stability Vital Sign Unable to Pay for Housing in the Last Year: No Number of Places Lived in the Last Year: 1 Unstable Housing in the Last Year: No Family History: Family History Problem Relation Name Age of Onset Breast cancer Mother Lory Wick 52 52 and again at 70 Other ([id number]) Mother Lory Wick DVT High Blood Pressure Mother Lory Wick Cancer Mother oLry Wick Depression Mother Lory Wick Hyperlipidemia Mother Lory Wick Heart attack Mother Lory Wick Diabetes Father Gerard Wick High Blood Pressure Father Gerard Wick Heart disease Father eGrard Wick Hypertension Father Gerard Wick Stroke Maternal Grandmother Morenita Huynh and Bruno De Los Santos Cervical cancer Paternal Grandmother 65 REVIEW OF SYSTEMS: Review of Systems Constitutional: Negative. HENT: Negative. Eyes: Negative. Respiratory: Negative. Cardiovascular: Negative. Gastrointestinal: Negative. Endocrine: Negative. Genitourinary: Negative. Musculoskeletal: Negative. Skin: Negative. Allergic/Immunologic: Negative. Neurological: Negative. Hematological: Negative. Psychiatric/Behavioral: Negative. PHYSICAL EXAM: VITALS: BP 110/76 (BP Location: Left arm, Patient Position: Sitting, BP Cuff Size: Large adult) Pulse 80 Ht 5' 6" (1.676 m) Wt 201 lb (91.2 kg) BMI 32.44 kg/m CONSTITUTIONAL: awake, alert, cooperative, no apparent distress, and appears stated age EYES: PERRLA, EOMI, no signs of occular infection LUNGS: No increased work of breathing, good air exchange, clear to auscultation bilaterally, no crackles or wheezing CARDIOVASCULAR: Normal apical impulse, regular rate and rhythm, normal S1 and S2, no S3 or S4, and no murmur noted ABDOMEN: Soft, nontender nondistended. EXTREMITIES: no signs of clubbing or cyanosis. MUSCULOSKELETAL: negative for flaccid muscle tone or spastic movements. NEURO: Cranial nerves II-XII grossly intact. No signs of agitated mood. SKIN: Right occipital scalp as the palpable or mass/lump-2.5 cm x 1.5 cm, overlying scalp is normal in color, regular border, raised, no signs of bleeding,drainage or infection. Non tender to palpation. Overlying scalp glides freely over the mass which seems to originate from the underlying skull bone and the soft tissue. The palpable lump is slightly tender to palpation DATA: Labs: CBC: Lab Results Component Value Date WBC 6.0 09/09/2023 RBC 4.96 09/09/2023 HGB 13.9 09/09/2023 HCT 43.8 09/09/2023 MCV 88.3 09/09/2023 MCH 28.0 09/09/2023 MCHC 31.7 (L) 09/09/2023 RDW 14.1 09/09/2023 PLT 207 09/09/2023 MPV 11.0 09/09/2023 BMP: Lab Results Component Value Date NA 140 12/11/2021 K 4.1 12/11/2021 CL 109 (H) 12/11/2021 CO2 28 11/11/2023 BUN 14 11/11/2023 CREATININE 0.57 11/11/2023 CALCIUM 9.3 11/11/2023 LABGLOM 128 02/19/2020 GLUCOSE 100 (H) 11/11/2023 Radiology Review: Patient has a CT scan of the head dated in July 2023. I have reviewed the images and the patient has a bony mass occupying the right occipital skull most likely originating from the outer cortex. 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 Pathology Review: Not applicable IMPRESSION/RECOMMENDATIONS: Diagnosis -) Right occipital skull bony mass. Our office will contact the radiology department to reevaluate the CT images and comment on the mass arising from the occipital skull bone. Will have a follow-up appointment with the patient in 2 weeks to discuss the results and hence the surgical treatment. Patient was informed that if this is an osteoid osteoma, it is a benign tumor. The treatment can be observational versus surgical excision with bone substitute in the form of hydroxyapatite to fill the deficit. The risks include infection, bleeding, seroma and hematoma formation as well as infection requiring removal of the only substitute. 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 Photos obtained Please disregard any typographical errors. This note was partially dictated using voice recognition software. documented in this encounter [facility] [facility] 11-11-[facility]23 History of Present illness Narrative Patient verified by last name and . Images from the original note were not included. [employer] [facility] [employer] [facility] [facility] [address] [facility] [address] Dept: [phone] Dept Loc: [phone] HPI: Antionette Sandoval is a 48 y.o. female who presents today for her medical conditions/complaints as noted below. Antionette Sandoval is c/o of Gynecologic Exam, Health Maintenance (4th Covid- not done/Zoster- declines ), and Blood Work HPI- Antionette Sandoval presents today for her well female examination. No longer has menstrual cycles- had a hysterectomy in 2017- non cancerous concerns. Has her left ovary remaining. States there is significant family history of diabetes and would like a hemoglobin A1c checked with blood work. SVT: Takes Metoprolol as prescribed and feels symptoms are well controlled. 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 Reynoso. Hypokalemia: Takes Potassium supplementation as prescribed. Will recheck her level today. Hyperlipidemia: Takes her Atorvastatin daily as prescribed. Last had her cholesterol checked in October of 2022. Will recheck today. Component Ref Range & Units 1 yr ago (10/29/22) 1 yr ago (12/11/21) 2 yr ago (11/16/20) 3 yr ago (10/12/20) 4 yr ago (09/16/19) CHOLESTEROL, TOTAL <200 mg/dL 168 HDL CHOLESTEROL > OR = 50 mg/dL 39 Low 36 Low R 37 Low R 30 Low R 39 Low R TRIGLYCERIDES <150 mg/dL 172 High 146 199 Abnormal 304 Abnormal 142 LDL-CHOLESTEROL mg/dL (calc) 102 High CHOL/HDLC RATIO <5.0 (calc) 4.3 NON HDL CHOLESTEROL <130 mg/dL (calc) 129 Clotting Disorder/History of Venous Thrombosis/Hyperhomocysteinemia: Takes her Coumadin as prescribed. Denies signs of active bleeding. Most recent INR was 3.5 on 10/29/23. Will recheck today. Anxiety/Panic Attack: Takes daily Sertraline and will take Alprazolam as needed. Signed a new CSA for the Alprazolam. Has been struggling with external hemorrhoids. States they have been more painful and is requesting a medication for pain relief. Health Maintenance: Performs self breast examinations; denies nipple discharge, nodules, or discoloration. Positive family history of breast cancer- mother. Last mammogram was 07/03/23. Last pap smear was 10/29/22. Declines screening for STI's. Vaccinated for COVID-19 x3 with most recent dose on 02/11/21- declines additional doses. Declines to be vaccinated for shingles. Tdap current: 08/08/16. Colonoscopy: 07/24/[address] 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 See ROS for additional information. Past Medical History: Diagnosis Date Acute bilateral low back pain without sciatica 01/01/2022 Last Assessment & Plan: Symptoms improving, no red flags. Continue muscle relaxant and topical lidocaine. Begin gentle stretches. 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 Dr Ng Headache History of blood clots 2000 Increased homocysteine Left hip pain 12/07/2020 Pulmonary emboli (HCC) Tinnitus Tobacco use Past Surgical History: Procedure Laterality Date BREAST BIOPSY Right 01/27/2013 BREAST BIOPSY Left 05/13/2019 Benign stereo CHOLECYSTECTOMY 2001 COLONOSCOPY 2007 DILATION AND CURETTAGE OF UTERUS 2000 TOTAL ABDOMINAL HYSTERECTOMY 01/23/2017 has one ovary- left Family History Problem Relation Name Age of Onset Breast cancer Mother Lory Wick 52 52 and again at 70 Other ([id number]) Mother Lory Wick DVT High Blood Pressure Mother Lory Wick Cancer Mother Loyr Wick Depression Mother Lory Wick Hyperlipidemia Mother Lory Wick Heart attack Mother Lory Wick Diabetes Father Gerard Wick High Blood Pressure Father Gerard Wick Heart disease Father Gerard Wick Hypertension Father Gerard Wick Stroke Maternal Grandmother Morenita Huynh and Bruno De Los Santos Cervical cancer Paternal Grandmother 65 Social History Tobacco Use Smoking status: Former Average packs/day: 0.5 packs/day for 17.0 years (8.5 ttl pk-yrs) Types: Cigarettes Start date: 1997 Smokeless tobacco: Never Substance Use Topics Alcohol use: Yes Comment: Social E-cigarette/Vaping Questions Responses E-cigarette/Vaping Use Never User Current Outpatient Medications Medication Sig Dispense Refill acetaminophen (Tylenol 8 Hour) 650 MG ER tablet Take by mouth. ALPRAZolam (Xanax) 0.25 MG tablet Take 1 tablet (0.25 mg) by mouth every 8 hours as needed for anxiety. 30 tablet 0 ascorbic acid (Vitamin C) 500 MG ER capsule Take 500 mg by mouth. atorvastatin (Lipitor) 20 MG tablet take 1 tablet by mouth once daily 180 tablet 0 b complex vitamins capsule Take 1 capsule by mouth daily. benzoyl peroxide (Benzoyl Peroxide Wash) 5 % external wash Use to wash affected areas on the face and groin once daily in the shower. Rinse thoroughly as this can bleach out fabrics, so rinse skin well. 236 g 6 cetirizine (ZyrTEC) 10 MG tablet Take by mouth. cholecalciferol (Vitamin D-3) 50 MCG (1999 UT) capsule Take 400 Units by mouth daily. clindamycin (Cleocin T) 1 % lotion Apply a thin layer to affected areas on the face and groin once daily. 60 mL 6 diphenhydrAMINE (BENADryl) 25 MG capsule Take 25 mg by mouth every 8 hours as needed. fluticasone (Flonase) 50 MCG/ACT nasal spray Administer 2 sprays into each nostril as needed. lidocaine (Lidoderm) 5 % patch Place 1 patch on the skin. metoprolol succinate XL (Toprol-XL) 50 MG 24 hr tablet Take 1 tablet (50 mg) by mouth daily. 90 tablet 1 mupirocin (Bactroban) 2 % ointment APPLY TO AFFECTED AREA 3 TIMES A DAY potassium chloride CR (Klor-Con M10) 10 MEQ ER tablet Take 2 tablets (20 mEq) by mouth in the morning. 1 tablet 0 Pramoxine-HC (Hydrocortisone Shay-Pramoxine) 2.5-1 % cream Insert into the rectum. sertraline (Zoloft) 50 MG tablet take 1 tablet by mouth once daily 90 tablet 1 spironolactone (Aldactone) 50 MG tablet Take one tablet by mouth QD. 30 tablet 1 tretinoin (Retin-A) 0.025 % cream Apply a thin layer to affected areas every third night, increase to nightly as tolerated. 45 g 6 triamcinolone (Kenalog) 0.1 % cream Apply thin layer to affected area 1-2 times daily as needed. 45 g 0 warfarin (Coumadin) 1 MG tablet take 1 tablet by mouth ON SATURDAY, SATURDAY, AND SATURDAY ALONG WITH 5MG TABLET TO EQUAL 6MG 60 tablet 1 warfarin (Coumadin) 5 MG tablet take 1 tablet by mouth nightly 90 tablet 1 Zinc Acetate 50 MG capsule Take by mouth. pramoxine (Proctofoam) 1 % foam Apply to anal area, as needed, up to 5 times daily. 15 g 0 No current facility-administered medications for this visit. Allergies Allergen Reactions Enoxaparin Other reaction(s): Cellulitis Iron Hives and Itching Infusion but tolerates oral prep Infusion but tolerates oral prep Meperidine Hcl Other reaction(s): Severe nausea & vomiting Nickel Other reaction(s): Contact dermatitis Rivaroxaban Unknown Other reaction(s): Chest pain Rosuvastatin Other reaction(s): Unknown Arthralgias Arthralgias Tape Other reaction(s): Hives, Hives and/or rash Rash, Blisters Wound Dressing Adhesive Hives and Unknown Other reaction(s): Hives and/or rash Meperidine Nausea And Vomiting Other reaction(s): Vomiting nausea Sulfa Antibiotics Rash Health Maintenance Topic Date Due COVID-19 Vaccine ( season) 2022 Zoster Vaccines (1 of 2) Never done Diabetes Screening 04/13/2023 Depression Screening 09/04/2023 Influenza Vaccine (1) 11/24/2023 Mammogram 07/02/2024 DTaP/Tdap/Td Vaccines (3 - Td or Tdap) 08/08/2026 Lipid Panel 10/30/2027 Colorectal Cancer Screening 08/11/2032 RSV Immunization aged 60 or older (1 - 1-dose 60+ series) 2033 Hepatitis B Vaccines Completed MMR Vaccines Completed HIV Screening Completed Hepatitis C Screening Completed RSV Immunization under 20 Months Aged Out HIB Vaccines Aged Out IPV Vaccines Aged Out Hepatitis A Vaccines Aged Out Meningococcal Vaccine Aged Out Rotavirus Vaccines Aged Out HPV Vaccines Aged Out Pneumococcal Vaccine: Pediatrics (0 to 5 Years) and At-Risk Patients (6 to 64 Years) Aged Out Subjective: Review of Systems Constitutional: Negative for chills and fever. HENT: Negative for hearing loss and trouble swallowing. Eyes: Negative for pain and visual disturbance. Respiratory: Negative for cough, chest tightness, shortness of breath and wheezing. Cardiovascular: Negative for chest pain, palpitations and leg swelling. Gastrointestinal: Negative for abdominal distention, abdominal pain, blood in stool, constipation and diarrhea. Endocrine: Negative for polydipsia, polyphagia and polyuria. Genitourinary: Negative for dysuria, hematuria, menstrual problem, vaginal bleeding, vaginal discharge and vaginal pain. Musculoskeletal: Negative for arthralgias and myalgias. Skin: Negative for color change, pallor, rash and wound. Neurological: Negative for dizziness, syncope, weakness and headaches. Hematological: Does not bruise/bleed easily. Psychiatric/Behavioral: Negative for dysphoric mood, self-injury and suicidal ideas. The patient is nervous/anxious. Objective: BP 118/82 Pulse 84 Ht 5' 6.5" (1.689 m) Wt 201 lb 3.2 oz (91.3 kg) SpO2 96% BMI 31.99 kg/m Last 3 ARTHUR-7 Scores 11/11/2023 1000 ARTHUR-7 Total Score: 2 Last 3 PHQ-2 Scores 11/11/2023 1008 Patient Health Questionnaire-2 Score: 0 Last 3 PHQ-9 Scores 11/11/2023 1008 Patient Health Questionnaire-9 Score: 3 Physical Exam Constitutional: Oriented to person, place, and time. Appears well-developed and well-nourished. No distress. HENT: Head: Normocephalic and atraumatic. Right Ear: External ear normal. Left Ear: External ear normal. Nose: Nose normal. Mouth/Throat: Oropharynx is clear and moist. No oropharyngeal exudate. Bilateral TM's pearly shah with a good cone of light bilaterally. Eyes: Conjunctivae and EOM are normal. Pupils are equal, round, and reactive to light. Right eye exhibits no discharge. Left eye exhibits no discharge. Neck: Normal range of motion. Neck supple. No thyromegaly present. Cardiovascular: Normal rate, regular rhythm, normal heart sounds and intact distal pulses. Exam reveals no friction rub. No murmur heard. Carotid upstrokes brisk and without bruits bilaterally. Pulmonary/Chest: Effort normal and breath sounds normal. No respiratory distress. No wheezes. No rales. Breast Examination: Bilateral breast symmetrical and smooth without masses. Free from discoloration, thickening of the skin, and prominent pores. Nipples without discharge,asymmetry, ulcerations, rashes, and inversions bilaterally. Breasts free from dimpling and retractions. Tail of Bullock palpated bilaterally and free from axillary lymphadenopathy. Abdominal: Soft. Bowel sounds are normal. No distension and no mass. There is no hepatosplenomegaly. There is no tenderness. Pelvic Examination: There is no rash, tenderness, or lesion on the right labia. There is no rash, tenderness or lesion on the left labia. Urethra without swelling or lesion. Rectum positive for external hemorrhoid. Negative for lesions or abnormal tone. Vagina with normal rugae. Uterus absent. Left adnexum displays no mass, no tenderness and no fullness. Musculoskeletal: Normal range of motion. No edema, tenderness or deformity. Strength 5/5 with flexion and extension of extremities x4. Lymphadenopathy: No cervical adenopathy. Neurological: Alert and oriented to person, place, and time.Normal reflexes. Coordination normal. Skin: Skin is warm and dry. No rash noted. No erythema. No pallor. Psychiatric: Normal mood and affect. Behavior is normal. Judgment and thought content normal. Assessment and Plan: 1. Well female exam with routine gynecological exam - Encouraged a healthy diet low in cholesterol and saturated fats. - Encouraged regular exercise. 2. SVT (supraventricular tachycardia) (HCC) - Comprehensive metabolic panel - Stable with Metoprolol. Will continue current treatment plan. 3. Hypokalemia - Comprehensive metabolic panel - Stable with Potassium supplementation. Will continue current treatment plan. 4. Hyperlipidemia LDL goal <100 - Lipid panel - Comprehensive metabolic panel - Stable with Atorvastatin. Will continue current treatment plan. 5. Clotting disorder (CMS/HCC) (HCC) - Comprehensive metabolic panel - Stable with Coumadin. Will continue current treatment plan. 6. H/O deep venous thrombosis - Comprehensive metabolic panel - Stable with Coumadin. Will continue current treatment plan. 7. Hyperhomocysteinemia (HCC) - Comprehensive metabolic panel - Stable. 8. Anxiety - Comprehensive metabolic panel - Stable with Sertraline and PRN Alprazolam. Will continue current treatment plan. - New CSA signed today for the Alprazolam. 9. Panic attack - Comprehensive metabolic panel - Stable with Sertraline and PRN Alprazolam. Will continue current treatment plan. - New CSA signed today for the Alprazolam. 10. External hemorrhoids - pramoxine (Proctofoam) 1 % foam; Apply to anal area, as needed, up to 5 times daily., Normal - Discussed signs and symptoms warranting follow up in the office- verbalized understanding. 11. Family history of diabetes mellitus - Hemoglobin A1c - Will notify of blood work results. 12. Screening for diabetes mellitus - Hemoglobin A1c - Comprehensive metabolic panel - Will notify of blood work results. Antionette received counseling on the following healthy behaviors: continue current medications Discussed use, benefit, and side effects of prescribed medications. Barriers to medication compliance addressed. All patient questions answered. Pt voiced understanding. Follow Up: Follow up in about 6 months (around 05/13/2024) for medication maintenance. Orders Placed This Encounter Procedures Hemoglobin A1c Standing Status: Future Number of Occurrences: 1 Standing Expiration Date: 11/10/2024 Lipid panel Standing Status: Future Number of Occurrences: 1 Standing Expiration Date: 11/10/2024 Comprehensive metabolic panel Standing Status: Future Number of Occurrences: 1 Standing Expiration Date: 11/10/2024 MIGEL Wagner CNP 11/11/2023 10:40 AM documented in this encounter [facility] 11-11-2023 Miscellaneous Notes Addended by: YARELI LOUIS on: 11/11/2023 10:47 AM Modules accepted: Orders documented in this encounter [facility] 11-11-2023 Note Addended by: YARELI LOUIS on: 11/11/2023 10:47 AM Modules accepted: Orders [facility] 11-11-2023 Note Addended by: YARELI LOUIS on: 11/11/2023 10:47 AM Modules accepted: Orders [facility] 11-11-2023 Note Addended by: YARELI LOUIS on: 11/11/2023 10:47 AM Modules accepted: Orders [facility] 10-22-2023 Telephone encounter Note [facility] 10-22-2023 Miscellaneous Notes documented in this encounter [facility] 10-16-2023 Telephone encounter Note Potassium order signed. Patient notified through [employer]. [facility] 10-16-2023 Miscellaneous Notes Potassium order signed. Patient notified through [employer]. Addended by: HILLARY COBIAN on: 10/16/2023 09:14 AM Modules accepted: Orders Patient informed of result/message within and expressed understanding. She is taking the potassium supplement. She will have her INR checked again in 2 weeks. She would like to know if we should check her potassium level again in 2 weeks. ----- Message from Racheal De Leon PA-C sent at 10/15/2023 7:09 AM EDT ----- Please let patient know potassium is 4.4 which is right in the middle of the normal range. Okay to continue the spironolactone. Let's check it again in 3 months. Is she still taking her potassium supplement? documented in this encounter [facility] 10-16-2023 Note Addended by: HILLARY COBIAN on: 10/16/2023 09:14 AM Modules accepted: Orders [facility] 10-16-2023 Note Addended by: HILLARY COBIAN on: 10/16/2023 09:14 AM Modules accepted: Orders [facility] 10-15-2023 Telephone encounter Note Patient informed of result/message within and expressed understanding. She is taking the potassium supplement. She will have her INR checked again in 2 weeks. She would like to know if we should check her potassium level again in 2 weeks. [facility] 10-15-2023 Telephone encounter Note ----- Message from Racheal De Leon PA-C sent at 10/15/2023 7:09 AM EDT ----- Please let patient know potassium is 4.4 which is right in the middle of the normal range. Okay to continue the spironolactone. Let's check it again in 3 months. Is she still taking her potassium supplement? [facility] 10-15-2023 History of Present illness Narrative INR 2.6 on 10/14/[address] Mckee, "Coumadin level is good, recheck 4 weeks." Notified Antionette, she states with her being on Spironolactone she doesn't want to wait 4 weeks to recheck. Please advise. Can follow-up in 2 weeks if she would like Notified and scheduled. documented in this encounter [facility] 10-01-2023 History of Present illness Narrative DATE OF SERVICE: 10/01/2023 PATIENT NAME: Antionette Sandoval : 1975 AGE: 48 y.o. CLINIC NUMBER: [id number] Visit type: Established patient Chief Complaint Patient presents with Follow-up LV 12/24/2022 ([facility]) Subjective HISTORY OF PRESENT ILLNESS: This is a 48 y.o. female who presents for evaluation of scalp mass, HS, and acne; last seen 1. C/o-skin lesion located on the right scalp x 1 year. Admits tenderness. Denies itching, bleeding, pain. Denies changes in size, shape, color. Admits previous treatment xray, CT Scan, and an ultrasound. F/u-hidradenitis suppurativa to the pubic area. Improved since last visit. Currently treating with BPO Wash and Clindamycin Lotion. Denies flares. Admits painful, enlarging, draining cysts, and scarring. F/u-acne located on the face. Stable since last visit. Currently treating with BPO Wash, Clindamycin Lotion, and Tretinoin Cream. Admits new breakouts. Admits pimples. Are you , trying to become or ? Not Applicable, hysterectomy- has one ovary. History of pacemaker/ defibrillator? No History of HIV/ Hep C? No Allergies to Lidocaine, Epinephrine, Latex or Adhesive? Yes, allergy to adhesives. Can't have Epi d/t SVTs. Review of Systems Orders Placed This Encounter Medications spironolactone (Aldactone) 50 MG tablet Sig: Take one tablet by mouth QD. Dispense: 30 tablet Refill: 1 There were no vitals filed for this visit. PHYSICAL EXAM GENERAL APPEARANCE:?Alert & oriented x3, pleasant. Well developed, well nourished. PSYCH: appropriate mood and affect. DERMATOLOGY: (all measurements are in cm, unless otherwise noted) 1. Pilar cyst of scalp Right Parietal Scalp Soft, tender, mobile subcutaneous nodule with out central comedone Reviewed no treatment is needed unless cyst becomes inflamed, infected, or bothersome. Treatment options include injections, I&D, or complete surgical removal. Patient would like to treat with excision. Related Procedures [facility] [place] 2. Acne vulgaris Head - Anterior (Face) Scattered acneiform papules, open and closed comedones with mild scarring and PIH. [x]Chronic []Acute []Stable [x]Flaring/Exacerbation Educated and reassured. Treatment options, risks, benefits, and expectations reviewed. Start: - Spironolactone: Take one tablet by mouth once daily. Patient has known hypokalemia. On supplement. Recent labs reviewed and potassium levels low-normal. Will monitor closely. Continue: - BPO 5% wash - Clindamycin 1% lotion - Tretinoin 0.025% cream Declined script for Doxycycline due to being on Warfarin therapy. Reviewed that most acne medications will need to be used for at least 2-3 months to determine if they are effective. It is normal for acne to get worse before it begins to get better when starting or changing treatment. Many acne medications can make you more sensitive to the sun, use a facial moisturizer with SPF every morning. Related Procedures Potassium Related Medications tretinoin (Retin-A) 0.025 % cream Apply a thin layer to affected areas every third night, increase to nightly as tolerated. spironolactone (Aldactone) 50 MG tablet Take one tablet by mouth QD. 3. Hidradenitis suppurativa Pubic, Right Axilla Erythematous, draining cysts/nodules with tunneling/scarring comedones. [x]Chronic []Acute [x]Stable []Flaring/Exacerbation Hidradenitis Suppurativa (HS) This is a systemic inflammatory disorder, and there is no known cure. It is chronic skin inflammation that occurs in the skin folds (buttocks, groin, armpits and breasts). It is associated with obesity and smoking (and contact with tobacco smoke). It is more common in women, and Americans. We do not know what causes this skin disease. Patient should wear loose, light clothing and actively avoid excessive heat, friction, and shearing trauma to the skin. Washing with loofahs or brushes should be avoided to prevent unnecessary skin trauma and irritation. Weight loss and smoking cessation can improve symptoms. The [place] Tobacco Quit Line can be reached at 5-491-ETOM-NOW ( ). The GOAL OF TREATMENT is to prevent flares of HS by gaining long-term control of the skin. Medical Treatment: Rx: Benzoyl Peroxide wash. Use to cleanse the affected areas once per day. This can bleach out fabrics, so rinse skin well. Rx: Clindamycin Lotion. Apply to the affected areas 1-2 times per day. This is an antibiotic lotion. Related Medications benzoyl peroxide (Benzoyl Peroxide Wash) 5 % external wash Use to wash affected areas on the face and groin once daily in the shower. Rinse thoroughly as this can bleach out fabrics, so rinse skin well. clindamycin (Cleocin T) 1 % lotion Apply a thin layer to affected areas on the face and groin once daily. 4. Stasis dermatitis Left Lower Leg - Anterior, Right Lower Leg - Anterior Reddish-brown, cayenne pepper macules and patches with out open wound and excoriations. [x]Chronic []Acute []Stable [x]Flaring/Exacerbation Educated and reassured. Advised patient to use compression stockings which can help alleviate symptoms and prevent worsening of the swelling and itching. Leg elevation also helps to temporarily relieve symptoms. Patient advised to speak with PCP and/or Education Reviewer about any further treatment. - Elevate legs - Wear Compression Socks 5. Scalp mass Related Procedures [facility] Follow up in about 6 months (around 04/02/2024). Racheal De Leon PA-C 10/01/23 7:16 AM REFERRING MD: Obdulio Luciano [facility] [address] [place] [address] documented in this encounter [facility] 10-01-2023 Instructions Hillary Cobian LPN - 10/01/2023 11:00 AM EDT [facility] [address] [place] [facility] [place], [place] [address] Potassium- Please have lab work done around 1 month from today. documented in this encounter [facility] 09-09-2023 History of Present illness Narrative Images from the original note were not included. 09/09/2023 Antionette Sandoval (: 1975) is a 48 y.o. female , Established patient, here for evaluation of the following chief complaint(s): Rash (Has some sort of rash on both legs and stomach, thinks that it could be from her coumadin. ) ASSESSMENT/PLAN: 1. Rash and nonspecific skin eruption - CBC - Will check platelet count. - She is to apply Triamcinolone cream twice a day x7 days and will do a close follow up in 1 week. Follow up in about 1 week (around 09/16/2023) for follow up on rash on lower extremities and abdomen. SUBJECTIVE/OBJECTIVE: HPI - Antionette presents today with concerns of a rash on her legs and stomach that she first noticed back in May. Symptoms are not worsening or improving. Is on daily Coumadin due to a clotting disorder and is worried it is petechiae. Has applied lotion to the area with no improvement. States it itches at times. Review of Systems Respiratory: Negative for chest tightness and shortness of breath. Cardiovascular: Negative for chest pain. Gastrointestinal: Negative for abdominal distention, abdominal pain and blood in stool. Genitourinary: Negative for hematuria. Skin: Positive for color change and rash. Hematological: Does not bruise/bleed easily. Vitals: 09/09/23 0903 BP: 126/84 Pulse: 83 SpO2: 96% Weight: 204 lb (92.5 kg) Height: 5' 6.5" (1.689 m) Body mass index is 32.43 kg/m . Physical Exam Constitutional: General: She is not in acute distress. Appearance: She is not ill-appearing. Cardiovascular: Rate and Rhythm: Normal rate and regular rhythm. Heart sounds: Normal heart sounds. No murmur heard. No friction rub. Pulmonary: Effort: Pulmonary effort is normal. Skin: Findings: Rash (urticarial rash noted to anterior aspect of both shings and across lower abdomen- raised. Blanches when palpated.) present. Neurological: Mental Status: She is alert and oriented to person, place, and time. Psychiatric: Mood and Affect: Mood normal. Behavior: Behavior normal. Thought Content: Thought content normal. Judgment: Judgment normal. An electronic signature was used to authenticate this note. MIGEL Wagner CNP 09/09/2023 9:21 AM Patient verified by last name and . documented in this encounter [facility] 09-06-2023 Telephone encounter Note [facility] 09-06-2023 Miscellaneous Notes Prescription Request: Last medication check: 08/15/22 Last physical exam: 10/29/22 Next scheduled appointment: 09/09/23 Last date of refill on this medication 12/31/22 documented in this encounter [facility] 09-06-2023 Telephone encounter Note Prescription Request: Last medication check: 08/15/22 Last physical exam: 10/29/22 Next scheduled appointment: 09/09/23 Last date of refill on this medication 12/31/22 [facility] 08-21-2023 Telephone encounter Note MCM sent to pt with info [facility] 08-21-2023 Miscellaneous Notes MCM sent to pt with info Addended by: YARELI LOUIS on: 08/21/2023 07:04 AM Modules accepted: Orders Referral placed with [facility] location for the etl analyst developer. Notified, agreeable to derm referral. Would like referral info sent in a [employer]ves[employer] message. Images from the original note were not included. MIGEL Wagner CNP [facility] [place] Aaliyah Hartman Clinical Support Staff24 minutes ago (9:28 AM) Since it appears to be in the tissue, I would recommend consulting dermatology for further evaluation. Left a message to return call. Images from the original note were not included. MIGEL Wagner CNP [facility] [place] Aaliyah Clinical Support Staff24 minutes ago (9:28 AM) Since it appears to be in the tissue, I would recommend consulting dermatology for further evaluation. Left a message to return call. Since it appears to be in the tissue, I would recommend consulting dermatology for further evaluation. Yes, Antionette states the mass is still there. Is she still able to palpate a mass/raised area? If she cannot feel anything anymore then, based on the CT imaging it appears to have resolved. ----- Message from MIGEL Wagner CNP sent at 08/13/2023 10:57 AM EDT ----- Normal head CT. No acute intracranial abnormalities. The impression notes that the extracranial abnormality seen on ultrasound four weeks ago is not identified on the imaging. Notified, she wants to know where she should go from here since the ultrasound showed something. Asking what are the next steps? documented in this encounter [facility] 08-21-2023 Note Addended by: YARELI LOUIS on: 08/21/2023 07:04 AM Modules accepted: Orders [facility] 08-21-2023 Telephone encounter Note Referral placed with [facility] [place] Lozano location for the etl analyst developer. [facility] 08-20-2023 Telephone encounter Note Notified, agreeable to derm referral. Would like referral info sent in a Aveso message. [facility] 08-15-2023 Telephone encounter Note Images from the original note were not included. MIGEL Wagner CNP [facility] Aaliyah Hartman Clinical Support Staff24 minutes ago (9:28 AM) Since it appears to be in the tissue, I would recommend consulting dermatology for further evaluation. Left a message to return call. [facility] 08-14-2023 Telephone encounter Note Images from the original note were not included. MIGEL Wagner CNP Clinical Support Staff24 minutes ago (9:28 AM) Since it appears to be in the tissue, I would recommend consulting dermatology for further evaluation. Left a message to return call. [facility] 08-14-2023 Telephone encounter Note Since it appears to be in the tissue, I would recommend consulting dermatology for further evaluation. [facility] 08-13-2023 Telephone encounter Note Yes, Antionette states the mass is still there. [facility] 08-13-2023 Telephone encounter Note Is she still able to palpate a mass/raised area? If she cannot feel anything anymore then, based on the CT imaging it appears to have resolved. [facility] 08-13-2023 Telephone encounter Note ----- Message from MIGEL Wagner CNP sent at 08/13/2023 10:57 AM EDT ----- Normal head CT. No acute intracranial abnormalities. The impression notes that the extracranial abnormality seen on ultrasound four weeks ago is not identified on the imaging. Notified, she wants to know where she should go from here since the ultrasound showed something. Asking what are the next steps? [facility] 07-10-2023 Telephone encounter Note Noted. [facility] 07-10-2023 Miscellaneous Notes Noted. S-Pt was calling for results of Hep B titre and states she just got it on My Chart R-No further triage at this time. Reason for Disposition Health Information question, no triage required and triager able to answer question Answer Assessment - Initial Assessment Questions . Protocols used: Information Only Call - No [id number] documented in this encounter [facility] 07-10-2023 Telephone encounter Note S-Pt was calling for results of Hep B titre and states she just got it on My Chart R-No further triage at this time. [facility] 07-10-2023 Telephone encounter Note Reason for Disposition Health Information question, no triage required and triager able to answer question Answer Assessment - Initial Assessment Questions . Protocols used: Information Only Call - No [id number] [facility] 05-08-2023 History of Present illness Narrative INR 4.3 on 05/07/23 Coumadin level is significantly elevated, needs to hold x 2 days and since it had been good at that dosing for quite a while restart the same dose and recheck in 1 week. See TE, pt was notified. documented in this encounter [facility] 04-29-2023 Telephone encounter Note Reviewed chart. Refill appropriate. RX sent. [facility] 04-29-2023 Miscellaneous Notes Reviewed chart. Refill appropriate. RX sent. documented in this encounter [facility] 04-17-2023 History of Present illness Narrative Images from the original note were not included. 04/17/2023 Antionette Sandoval (: 1975) is a 48 y.o. female , Established patient, here for evaluation of the following chief complaint(s): Covid-19 Home Monitoring Video Visit Patient was identified and seen today via Telehealth by agreement and consent. I used the following Telehealth technology: Audio and video capabilities. Patient location: Patient Location: Home. This patient encounter is appropriate and reasonable under the circumstances: too sick to leave home . The patient has been advised of the potential risks and limitations of this mode of treatment (including but not limited to the absence of in-person examination) and has agreed to be treated in a remote fashion in spite of them. Any and all of the patient's/patient's family's questions on this issue have been answered and I have made no promises or guarantees to the patient. The patient has also been advised to contact this office for worsening conditions or problems, and seek emergency medical treatment and/or call 911 if the patient deems either necessary. The patient stated that they are currently in the state [facility]. If the patient is a minor, permission has been obtained by the parent or guardian for the patient to receive medical care at this visit. ASSESSMENT/PLAN: 1. COVID-19 virus infection - Continue Tylenol as needed for pain/fever relief. - Discussed signs and symptoms warranting immediate attention- verbalized understanding. - She is to send an update on Saturday how she is feeling and if she is still running any fevers via [employer]- verbalized understanding. 2. Clotting disorder (CMS/HCC) (HCC) - Stable with Coumadin. Will continue current treatment plan. Follow up if symptoms worsen or fail to improve. SUBJECTIVE/OBJECTIVE: ERICA Riggins presents today for a video virtual visit for close follow up on her COVID-19 illness. Tested positive Saturday last week with symptom onset Saturday as well. States her headache and sore throat have improved but is still experiencing intermittent fevers up to 101 F. Fever does come down with OTC Tylenol. Denies chest pain or difficulty breathing. Will experience mild shortness of breath on exertion. Denies shortness of breath or chest tightness at rest. Denies any new or worsening symptoms. Has a clotting disorder so she was not a candidate for Paxlovid. Had her INR checked yesterday and it was borderline low, but stable at 1.9. Review of Systems Constitutional: Positive for chills, fatigue and fever. HENT: Negative for sore throat. Respiratory: Positive for cough and shortness of breath. Negative for chest tightness and wheezing. Cardiovascular: Negative for chest pain. Neurological: Negative for headaches. There were no vitals filed for this visit. There is no height or weight on file to calculate BMI. Physical Exam Constitutional: General: She is not in acute distress. Appearance: She is ill-appearing. HENT: Head: Normocephalic and atraumatic. Pulmonary: Effort: Pulmonary effort is normal. Comments: Speaking in full sentences. Negative for audible wheezing or signs of respiratory distress. Skin: Coloration: Skin is not pale. Findings: No erythema. Neurological: Mental Status: She is alert and oriented to person, place, and time. Psychiatric: Mood and Affect: Mood normal. Behavior: Behavior normal. Thought Content: Thought content normal. Judgment: Judgment normal. Due to the current efforts to prevent transmission of COVID-19 and also the need to preserve PPE for other caregivers, a [id number] encounter with the patient was not performed. That being said, all relevant records and diagnostic tests were reviewed, including laboratory results and imaging. Please reference any relevant documentation elsewhere. Care will be coordinated with the primary service. An electronic signature was used to authenticate this note. MIGEL Wagner CNP 04/17/2023 3:10 PM documented in this encounter [facility] 04-12-2023 History of Present illness Narrative Images from the original note were not included. 04/12/2023 Antionette Sandoval (: 1975) is a 48 y.o. female , Established patient, here for evaluation of the following chief complaint(s): Epidemic Concern (COVID) Patient was identified and seen today via Telehealth by agreement and consent. I used the following Telehealth technology: Audio and video capabilities. Patient location: Patient Location: Home. This patient encounter is appropriate and reasonable under the circumstances: too sick to leave home . The patient has been advised of the potential risks and limitations of this mode of treatment (including but not limited to the absence of in-person examination) and has agreed to be treated in a remote fashion in spite of them. Any and all of the patient's/patient's family's questions on this issue have been answered and I have made no promises or guarantees to the patient. The patient has also been advised to contact this office for worsening conditions or problems, and seek emergency medical treatment and/or call 911 if the patient deems either necessary. The patient stated that they are currently in the state [facility]. If the patient is a minor, permission has been obtained by the parent or guardian for the patient to receive medical care at this visit. ASSESSMENT/PLAN: 1. COVID-19 virus infection - Paxlovid not recommended with taking Coumadin. - Home care measures reviewed. - Recommend she monitor her pulse oximeter and gave parameters. - Reviewed isolation/quarantine recommendations per CDC guidelines. - Discussed signs and symptoms warranting immediate attention- verbalized understanding. - Will do a close follow up next week. 2. Clotting disorder (CMS/HCC) (HCC) - Stable with Coumadin. Will continue current treatment plan. Follow up in 5 days (on 04/17/2023) for follow up on COVID-19 infection- VV. SUBJECTIVE/OBJECTIVE: HPI - Antionette presents today for a video virtual visit with concerns of a positive home COVID-19 test this morning. Symptoms started around 1 AM this morning. Had a temperature of 101.7 F. Took Tylenol this morning around 9 AM. Has a home pulse oximeter but has not checked her oxygen level. Main symptom is a headache and malaise. Denies chest pain, shortness of breath, or difficulty breathing. Is on daily Coumadin for a clotting disorder. See ROS for additional information. Review of Systems Constitutional: Positive for chills and fever. HENT: Positive for congestion and rhinorrhea. Respiratory: Positive for cough. Negative for chest tightness, shortness of breath and wheezing. Cardiovascular: Negative for chest pain. Neurological: Positive for headaches. There were no vitals filed for this visit. There is no height or weight on file to calculate BMI. Physical Exam Constitutional: General: She is not in acute distress. Appearance: She is ill-appearing. She is not diaphoretic. HENT: Head: Normocephalic and atraumatic. Pulmonary: Effort: Pulmonary effort is normal. Comments: Speaking in full sentences. Negative for audible wheezing or signs of respiratory distress. Skin: Findings: No erythema or rash. Neurological: Mental Status: She is alert and oriented to person, place, and time. Psychiatric: Mood and Affect: Mood normal. Behavior: Behavior normal. Thought Content: Thought content normal. Judgment: Judgment normal. Due to the current efforts to prevent transmission of COVID-19 and also the need to preserve PPE for other caregivers, a eezd-li-uitl encounter with the patient was not performed. That being said, all relevant records and diagnostic tests were reviewed, including laboratory results and imaging. Please reference any relevant documentation elsewhere. Care will be coordinated with the primary service. An electronic signature was used to authenticate this note. MIGEL Wagner CNP 04/12/2023 1:29 PM documented in this encounter [facility] 04-12-2023 Telephone encounter Note S: Patient spoke with [facility] nurse regarding covid positive, joint pain, headache, coughing, fever B: Onset of symptoms/concern one day A: Pt c/o body aches, fever, VEGA, sinus congestion, and occasional cough. Denies CP or breathing difficulty. Tested positive for Covid today. R: MyChart video visit scheduled with Yareli Louis CNP for today at 1:20 pm. Patient understands care advice. No further needs at this time. Patient instructed to call back with new or worsening symptoms. Reason for Disposition [1] COVID-19 diagnosed by positive lab test (e.g., PCR, rapid self-test kit) AND [2] mild symptoms (e.g., cough, fever, others) AND [3] no complications or SOB Protocols used: Coronavirus (COVID-19) Diagnosed or [id number] [facility] 04-12-2023 Miscellaneous Notes S: Patient spoke with [facility] nurse regarding covid positive, joint pain, headache, coughing, fever B: Onset of symptoms/concern one day A: Pt c/o body aches, fever, VEGA, sinus congestion, and occasional cough. Denies CP or breathing difficulty. Tested positive for Covid today. R: MyChart video visit scheduled with Yareli Louis CNP for today at 1:20 pm. Patient understands care advice. No further needs at this time. Patient instructed to call back with new or worsening symptoms. Reason for Disposition [1] COVID-19 diagnosed by positive lab test (e.g., PCR, rapid self-test kit) AND [2] mild symptoms (e.g., cough, fever, others) AND [3] no complications or SOB Protocols used: Coronavirus (COVID-19) Diagnosed or [id number] documented in this encounter [facility] 04-01-2023 Telephone encounter Note Rx sent. Follow up as scheduled. [facility] 04-01-2023 Miscellaneous Notes Rx sent. Follow up as scheduled. Prescription Request: Last medication check: 02-13-23 Last physical exam: 10-29-22 Next scheduled appointment: 04-24-23 Last date of refill on this medication 12-31-22 documented in this encounter [facility] 04-01-2023 Telephone encounter Note Prescription Request: Last medication check: 02-13-23 Last physical exam: 10-29-22 Next scheduled appointment: 04-24-23 Last date of refill on this medication 12-31-22 [facility] 02-13-2023 History of Present illness Narrative Patient was verified by name and . Images from the original note were not included. 02/13/2023 Antionette Sandoval (: 1975) is a 47 y.o. female , Established patient, here for evaluation of the following chief complaint(s): Weight Check, Mass (On head), and Health Maintenance (Declines flu vaccine today) ASSESSMENT/PLAN: 1. Skull deformity - XR skull complete 4+ views - Will obtain an x-ray as it appears to be part of the skull versus tissue. 2. Class 1 obesity due to excess calories without serious comorbidity with body mass index (BMI) of 32.0 to 32.9 in adult - naltrexone-buPROPion ER (Contrave) 8-90 MG ER tablet; One tab once daily in the morning for 1 week; week 2, increase to 1 table twice daily; at week 3, increase to 2 tablets in the morning and 1 tablet in the evening; at week 4, increase to 2 tablets twice daily., Normal - Encouraged a healthy diet and regular exercise. - Rx resent for Contrave. Follow up for follow up on obesity- weight check. SUBJECTIVE/OBJECTIVE: HPI - Antionette presents today with concerns of a raised, tender area on the right side of her scalp. States this has been present for about a year or more and has become more tender over time. Has noticed some ringing in her ears as symptoms progressed as well. Would also like to discuss her weight. States she is the heaviest she has ever been and would like to start something for weight loss. Had a prescription sent for Contrave but never started taking this. Would like this resent today. Denies regular exercise. Eats about two meals per day and strives for a healthy diet. Review of Systems Constitutional: Negative for chills and fever. Eyes: Negative for visual disturbance. Respiratory: Negative for chest tightness and shortness of breath. Cardiovascular: Negative for chest pain. Gastrointestinal: Negative for nausea and vomiting. Skin: Negative for wound. Neurological: Negative for dizziness, syncope, speech difficulty, weakness and light-headedness. Vitals: 02/13/23 1006 BP: 120/77 Pulse: 75 SpO2: 96% Weight: 204 lb (92.5 kg) Height: 5' 6.5" (1.689 m) Body mass index is 32.43 kg/m . Physical Exam Constitutional: General: She is not in acute distress. Appearance: She is not ill-appearing or diaphoretic. HENT: Head: Right Ear: Tympanic membrane, ear canal and external ear normal. Left Ear: Tympanic membrane, ear canal and external ear normal. Eyes: Extraocular Movements: Extraocular movements intact. Cardiovascular: Rate and Rhythm: Normal rate and regular rhythm. Heart sounds: Normal heart sounds. No murmur heard. No friction rub. Pulmonary: Effort: Pulmonary effort is normal. Skin: General: Skin is warm and dry. Coloration: Skin is not pale. Findings: No erythema. Neurological: Mental Status: She is alert and oriented to person, place, and time. Cranial Nerves: No cranial nerve deficit. Motor: No weakness. Coordination: Coordination normal. Gait: Gait normal. Psychiatric: Mood and Affect: Mood normal. Behavior: Behavior normal. Thought Content: Thought content normal. Judgment: Judgment normal. An electronic signature was used to authenticate this note. MIGEL Wagner CNP 02/13/2023 11:52 AM documented in this encounter [facility] 01-28-2023 Telephone encounter Note Rx sent. [facility] 01-28-2023 Miscellaneous Notes Rx sent. Prescription Request: Last medication check: 09/03/22 Last physical exam: 10/29/22 Next scheduled appointment: none Last date of refill on this medication 07/17/22 90 tablets 1 refill documented in this encounter [facility] 01-28-2023 Telephone encounter Note Prescription Request: Last medication check: 09/03/22 Last physical exam: 10/29/22 Next scheduled appointment: none Last date of refill on this medication 07/17/22 90 tablets 1 refill [facility] 12-31-2022 Telephone encounter Note Reviewed chart. Refill appropriate. RX sent. [facility] 12-31-2022 Miscellaneous Notes Reviewed chart. Refill appropriate. RX sent. Prescription Request: Last medication check: 09-03-22 Last physical exam: 11-10-21 Next scheduled appointment: 01-17-23 Last date of refill on this medication Aorvastatin 07-09-22 Sertraline 09-12-22 documented in this encounter [facility] 12-31-2022 Telephone encounter Note Prescription Request: Last medication check: 09-03-22 Last physical exam: 11-10-21 Next scheduled appointment: 01-17-23 Last date of refill on this medication Aorvastatin 07-09-22 Sertraline 09-12-22 [facility] 12-24-2022 History of Present illness Narrative DATE OF SERVICE: 12/24/2022 PATIENT NAME: Antionette Sandoval : 1975 AGE: 47 y.o. CLINIC NUMBER: [id number] Visit type: Established patient Chief Complaint Patient presents with Acne Subjective HISTORY OF PRESENT ILLNESS: This is a 47 y.o. female who presents for F/u-acne located on the face; last seen 06/27/22. Stable since last visit. Currently treating with Tretinoin 0.025% cream, BPO 5% wash and Clindamycin 1% lotion. Patient is using Tretinoin 3x's weekly. Admits new breakouts. Patient states her skin clears and then flares again. Admits pimples, deep painful cysts, blackheads, whiteheads, dark spots and scarring. Patient states it is a bad day for how her skin normally looks. Patient requesting refill of Tretinoin. F/u-hidradenitis suppurativa; Improved since last visit. Currently treating with BPO 5% wash and Clindamycin lotion. Denies current flares. Denies painful, enlarging, draining cysts, tunneling and scarring. Are you , trying to become or ? No History of pacemaker/ defibrillator? No History of HIV/ Hep C? No Allergies to Lidocaine, Epinephrine, Latex or Adhesive? Yes, Epinephrine- heart issues. Review of Systems Orders Placed This Encounter Medications tretinoin (Retin-A) 0.025 % cream Sig: Apply a thin layer to affected areas every third night, increase to nightly as tolerated. Dispense: 45 g Refill: 6 There were no vitals filed for this visit. PHYSICAL EXAM GENERAL APPEARANCE:?Alert & oriented x3, pleasant. Well developed, well nourished. PSYCH: appropriate mood and affect DERMATOLOGY: (all measurements are in cm, unless otherwise noted) 1. Acne vulgaris Head - Anterior (Face) Scattered acneiform papules, open and closed comedones with mild scarring and PIH. [x]Chronic []Acute []Stable [x]Flaring/Exacerbation Educated and reassured. Treatment options, risks, benefits, and expectations reviewed. Continue: - BPO 5% wash - Clindamycin 1% lotion - Tretinoin 0.025% cream Declined script for Doxycycline due to being on Warfarin therapy. Reviewed that most acne medications will need to be used for at least 2-3 months to determine if they are effective. It is normal for acne to get worse before it begins to get better when starting or changing treatment. Many acne medications can make you more sensitive to the sun, use a facial moisturizer with SPF every morning. Related Medications tretinoin (Retin-A) 0.025 % cream Apply a thin layer to affected areas every third night, increase to nightly as tolerated. 2. Hidradenitis suppurativa Pubic, Right Axilla Erythematous, draining cysts/nodules with tunneling/scarring comedones. [x]Chronic []Acute [x]Stable []Flaring/Exacerbation Hidradenitis Suppurativa (HS) This is a systemic inflammatory disorder, and there is no known cure. It is chronic skin inflammation that occurs in the skin folds (buttocks, groin, armpits and breasts). It is associated with obesity and smoking (and contact with tobacco smoke). It is more common in women, and Americans. We do not know what causes this skin disease. Patient should wear loose, light clothing and actively avoid excessive heat, friction, and shearing trauma to the skin. Washing with loofahs or brushes should be avoided to prevent unnecessary skin trauma and irritation. Weight loss and smoking cessation can improve symptoms. The [place] Tobacco Quit Line can be reached at 7-653-TQUD-NOW ( ). The GOAL OF TREATMENT is to prevent flares of HS by gaining long-term control of the skin. Medical Treatment: Rx: Benzoyl Peroxide wash. Use to cleanse the affected areas once per day. This can bleach out fabrics, so rinse skin well. Rx: Clindamycin Lotion. Apply to the affected areas 1-2 times per day. This is an antibiotic lotion. Related Medications benzoyl peroxide (Benzoyl Peroxide Wash) 5 % external wash Use to wash affected areas on the face and groin once daily in the shower. Rinse thoroughly as this can bleach out fabrics, so rinse skin well. clindamycin (Cleocin T) 1 % lotion Apply a thin layer to affected areas on the face and groin once daily. Follow up in about 10 months (around 10/25/2023) for Acne f/u. RALPH Garcia 12/24/22 1:32 PM REFERRING MD: documented in this encounter [facility] 12-24-2022 Instructions Elena Yusuf LPN - 12/24/2022 1:20 PM EDT Cosmetic Dermatologists: [facility] [place] [address] [place] [id number] P: [phone] [facility] locations P: [phone] [place] [facility] [address] [place] [address] P: [phone] [facility] [address] Yang [address], [address] [place] [address] P: [phone] [facility] [place]Khris Nelson & Dr. Gipson [address] , [place] [address] P: [phone] [place] [address] [address] P: [phone] documented in this encounter [facility] 12-17-2022 Telephone encounter Note Notified. [facility] 12-17-2022 Miscellaneous Notes Notified. I have never heard of Benadryl affecting Coumadin and when I look it up and a block with the 0 is no interaction Per Rosemarie- pt wanted you to know she has been taking benadryl twice a day since and that this can affect her coumadin level She had pt/inr drawn today 12/13/22 documented in this encounter [facility] 12-13-2022 Telephone encounter Note I have never heard of Benadryl affecting Coumadin and when I look it up and a block with the 0 is no interaction [facility] 12-13-2022 Telephone encounter Note Per Rosemarie- pt wanted you to know she has been taking benadryl twice a day since and that this can affect her coumadin level She had pt/inr drawn today 12/13/22 [facility] 12-06-2022 Note Addended by: LORAINE TURNER on: 12/06/2022 02:50 PM Modules accepted: Orders [facility] 12-06-2022 Note Addended by: LORAINE TURNER on: 12/06/2022 02:50 PM Modules accepted: Orders [facility] 12-06-2022 Note Addended by: LORAINE TURNER on: 12/06/2022 02:50 PM Modules accepted: Orders [facility] 12-06-2022 Note Addended by: LORAINE TURNER on: 12/06/2022 02:50 PM Modules accepted: Orders [facility] 12-06-2022 Miscellaneous Notes Addended by: LORAINE JERNIGAN on: 12/06/2022 02:50 PM Modules accepted: Orders Patient notified and needs 1 mg tablets sent to [facility] in [place]. Coumadin level is slightly improved but still too low, recommend increasing Saturday and Saturday Coumadin dose to 6 mg and continue 5 mg on Saturday and Saturday and recheck in 1 week. Images from the original note were not included. ADDENDUM: Nurse notified office of results, provider will be notified. S: Patient spoke with [facility] nurse regarding B: Onset of symptoms/concern A: Naun with [facility] called to report the following lab results from 12/06/2022. Nurse instructed lab they were already in the patient's chart. Ordering provider is KELSEY Rangel. R: Message sent HP to provider for review. Reason for Disposition Lab or radiology calling with test results Protocols used: PCP Call - No [id number] documented in this encounter [facility] 12-06-2022 Telephone encounter Note Patient notified and needs 1 mg tablets sent to [facility]. [facility] 12-06-2022 Telephone encounter Note Coumadin level is slightly improved but still too low, recommend increasing Saturday and Saturday Coumadin dose to 6 mg and continue 5 mg on Saturday and Saturday and recheck in 1 week. [facility] 12-06-2022 Telephone encounter Note Images from the original note were not included. ADDENDUM: Nurse notified office of results, provider will be notified. S: Patient spoke with [facility] nurse regarding B: Onset of symptoms/concern A: Naun with [facility] called to report the following lab results from 12/06/2022. Nurse instructed lab they were already in the patient's chart. Ordering provider is KELSEY Rangel. R: Message sent HP to provider for review. Reason for Disposition Lab or radiology calling with test results Protocols used: PCP Call - No [id number] [facility] 12-05-2022 History of Present illness Narrative Spoke with patient she said that she missed a couple doses due to her work schedule. She will come back today Thank you documented in this encounter [facility] 11-07-2022 Telephone encounter Note Notified. [facility] 11-07-2022 Miscellaneous Notes Notified. Patient coming in office 11/07/22 noted in appt to give results to patient. Called patient no answer LVM to call office or check mychart message. ----- Message from MIGEL Wagner CNP sent at 11/05/2022 8:06 PM EDT ----- Negative for HPV documented in this encounter [facility] 11-06-2022 Telephone encounter Note Patient coming in office 11/07/22 noted in appt to give results to patient. [facility] 11-06-2022 Telephone encounter Note Called patient no answer LVM to call office or check mychart message. [facility] 11-06-2022 Telephone encounter Note ----- Message from MIGEL Wagner CNP sent at 11/05/2022 8:06 PM EDT ----- Negative for HPV [facility] 10-31-2022 Note [facility] Specimen Adequacy The specimen is satisfactory for evaluation. 10/31/2022 11:56 AM EDT [facility]22 Note Gynecologic cytology smear evaluation is subject to false positive and false negative interpretation as evidenced by published data. Your patient's Pap test results should thus be interpreted in conjunction with their clinical history and physical examination. 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 After obtaining consent, and per orders of Yareli COEL, injection of 0.1ml tubersol given in left lower forearm by Cat Duarte. Patient instructed to report any adverse reaction immediately. Images from the original note were not included. [facility] [address] [facility] [address] Dept: [phone] Dept Loc: [phone] HPI: Antionette Sandoval is a 47 y.o. female who presents today for her medical conditions/complaints as noted below. Antionette Sandoval is c/o of Gynecologic Exam and Health Maintenance (Hep C--thinks she had it done ,HIV--thinks she had it done, COVID 4-- has not had and does not want ) HPI- Antionette Sandoval presents today for her well female examination- had a hysterectomy in 2017 with her left ovary remaining. Was told she still needs pap smears despite the hysterectomy from her previous [employer]. Hyperlipidemia: Continues to take Atorvastatin daily with a CoQ10. Levels were stable when last checked in November of 2021. Will recheck today. Supraventricular Tachycardia/Clotting Disorder/History of DVT (L)/Hypokalemia: Continues to take her Metoprolol and potassium as prescribed. Continues to take her Coumadin daily- INR was 2.6 on 10/09/22. Is going to be following up with electrophysiology due to her recent episode of SVT- actively follows up with Dr. Reynoso as well. Discussed getting an ablation but she does not want to do this at this time. Feels like symptoms are stable. Would like her INR checked today. Anxiety with Panic Attacks: Continues to take her Sertraline daily as prescribed. Will still use Xanax as needed. Feels symptoms are stable. Obesity: Is frustrated with her weight. States she is more sedentary for work and school and has not been able to exercise regularly. Has been striving to be more active around the house. Has been doing Weight Watchers for the past 2 months. Last 4 pounds the first week but states she has hit a wall and has not been able to lose anymore weight. Based on her heart history I would not recommend Adipex. Would like to try Contrave. Denies history of uncontrolled hypertension; seizure disorder or a history of seizures; bulimia or anorexia nervosa; abrupt discontinuation of alcohol, benzodiazepines, barbiturates, and antiepileptic drugs; and concomitant use of MAOIs currently or within the past 14 days. Also needs a two-step TB skin test completed for school and would like to have her first administration of this today while she is here. Has chronic eczema behind her left ear that responds well to as needed Triamcinolone cream. Requesting a refill on this today. Health Maintenance: Performs self breast examinations; denies nipple discharge, nodules, or discoloration. Positive family history of breast cancer- mother. Last mammogram was 06/27/22 with stable findings and recommendation to repeat in 1 year. Last pap smear was about 1-2 years ago. Declines screening for STI's. Vaccinated for COVID-19 x3 with most recent dose on 02/11/21- declines additional doses. Tdap is current: 08/08/16. Colonoscopy: 08/11/22. See ROS for additional information. Past Medical History: Diagnosis Date Acute bilateral low back pain without sciatica 01/01/2022 Last Assessment & Plan: Symptoms improving, no red flags. Continue muscle relaxant and topical lidocaine. Begin gentle stretches. 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 Dr Ng History of blood clots 2000 Increased homocysteine Left hip pain 12/07/2020 Pulmonary emboli (HCC) Tinnitus Tobacco use Past Surgical History: Procedure Laterality Date BREAST BIOPSY Right 01/27/2013 BREAST BIOPSY Left 05/13/2019 Benign stereo CHOLECYSTECTOMY 2000 COLONOSCOPY 2006 DILATION AND CURETTAGE OF UTERUS 2000 TOTAL ABDOMINAL HYSTERECTOMY 01/23/2017 has one ovary- left Family History Problem Relation Name Age of Onset Breast cancer Mother 52 52 and again at 70 Other ([id number]) Mother DVT High Blood Pressure Mother Diabetes Father High Blood Pressure Father Heart disease Father Cervical cancer Paternal Grandmother 65 Social History Tobacco Use Smoking status: Former Packs/day: 0.50 Types: Cigarettes Smokeless tobacco: Never Substance Use Topics Alcohol use: No Alcohol/week: 0.0 standard drinks of alcohol Current Outpatient Medications Medication Sig Dispense Refill acetaminophen (Tylenol 8 Hour) 650 MG ER tablet Take by mouth. ALPRAZolam (Xanax) 0.25 MG tablet Take 1 tablet (0.25 mg) by mouth every 8 hours as needed for anxiety. 30 tablet 0 ascorbic acid (Vitamin C) 500 MG ER capsule Take 500 mg by mouth. atorvastatin (Lipitor) 20 MG tablet take 1 tablet by mouth once daily 90 tablet 1 b complex vitamins capsule Take 1 capsule by mouth daily. benzoyl peroxide (Benzoyl Peroxide Wash) 5 % external wash Use to wash affected areas on the face and groin once daily in the shower. Rinse thoroughly as this can bleach out fabrics, so rinse skin well. 236 g 6 cetirizine (ZyrTEC) 10 MG tablet Take by mouth. clindamycin (Cleocin T) 1 % lotion Apply a thin layer to affected areas on the face and groin once daily. 60 mL 6 coenzyme Q-10 75 MG capsule Take by mouth. diphenhydrAMINE (BENADryl) 25 MG capsule 25 mg. fluticasone (Flonase) 50 MCG/ACT nasal spray Administer 2 sprays into affected nostril(s). lidocaine (Lidoderm) 5 % patch Place 1 patch on the skin. metoprolol succinate XL (Toprol-XL) 50 MG 24 hr tablet Take 1 tablet (50 mg) by mouth daily. 90 tablet 1 mupirocin (Bactroban) 2 % ointment APPLY TO AFFECTED AREA 3 TIMES A DAY potassium chloride CR (Klor-Con M10) 10 MEQ ER tablet Take 2 tablets (20 mEq) by mouth in the morning. 1 tablet 0 Pramoxine-HC (Hydrocortisone Shay-Pramoxine) 2.5-1 % cream Insert into the rectum. sertraline (Zoloft) 50 MG tablet Take 1 tablet (50 mg) by mouth daily. 90 tablet 0 tretinoin (Retin-A) 0.025 % cream Apply a thin layer to affected areas every third night, increase to nightly as tolerated. 45 g 6 warfarin (Coumadin) 5 MG tablet Take 1 tablet (5 mg) by mouth Nightly. 90 tablet 1 Zinc Acetate 50 MG capsule Take by mouth. naltrexone-buPROPion ER (Contrave) 8-90 MG ER tablet One tab once daily in the morning for 1 week; week 2, increase to 1 table twice daily; at week 3, increase to 2 tablets in the morning and 1 tablet in the evening; at week 4, increase to 2 tablets twice daily. 70 tablet 0 triamcinolone (Kenalog) 0.1 % cream Apply thin layer to affected area 1-2 times daily as needed. 45 g 0 No current facility-administered medications for this visit. Allergies Allergen Reactions Azithromycin Hives and Unknown Other reaction(s): Hives and/or rash Enoxaparin Other reaction(s): Cellulitis Iron Hives and Itching Infusion but tolerates oral prep Infusion but tolerates oral prep Meperidine Hcl Other reaction(s): Severe nausea & vomiting Nickel Other reaction(s): Contact dermatitis Rivaroxaban Unknown Other reaction(s): Chest pain Rosuvastatin Other reaction(s): Unknown Arthralgias Arthralgias Tape Other reaction(s): Hives, Hives and/or rash Rash, Blisters Wound Dressing Adhesive Hives and Unknown Other reaction(s): Hives and/or rash Meperidine Nausea And Vomiting Other reaction(s): Vomiting nausea Sulfa Antibiotics Rash Health Maintenance Topic Date Due Influenza Vaccine (1) 11/23/2022 COVID-19 Vaccine (4 - Booster for Moderna series) 05/14/2023 (Originally 04/08/2021) Depresssion Monitoring 03/05/2023 Zoster Vaccines (1 of 2) 2023 Diabetes Screening 04/13/2023 Mammogram 06/28/2023 DTaP/Tdap/Td Vaccines (3 - Td or Tdap) 08/08/2026 Colorectal Cancer Screening 08/11/2032 Hepatitis B Vaccines Completed MMR Vaccines Completed HIV Screening Completed Hepatitis C Screening Completed HIB Vaccines Aged Out IPV Vaccines Aged Out Hepatitis A Vaccines Aged Out Meningococcal Vaccine Aged Out Rotavirus Vaccines Aged Out HPV Vaccines Aged Out Pneumococcal Vaccine: Pediatrics (0 to 5 Years) and At-Risk Patients (6 to 64 Years) Aged Out Subjective: Review of Systems Constitutional: Negative for chills and fever. HENT: Negative for hearing loss and trouble swallowing. Eyes: Negative for pain and visual disturbance. Respiratory: Negative for cough, chest tightness, shortness of breath and wheezing. Cardiovascular: Negative for chest pain, palpitations and leg swelling. Gastrointestinal: Negative for abdominal distention, abdominal pain, blood in stool, constipation and diarrhea. Endocrine: Negative for polydipsia, polyphagia and polyuria. Genitourinary: Negative for dysuria, hematuria, menstrual problem, pelvic pain, vaginal bleeding, vaginal discharge and vaginal pain. Musculoskeletal: Negative for arthralgias and myalgias. Skin: Negative for color change, pallor, rash and wound. Neurological: Negative for dizziness, syncope, weakness and headaches. Hematological: Does not bruise/bleed easily. Psychiatric/Behavioral: Negative for dysphoric mood, self-injury and suicidal ideas. The patient is nervous/anxious. Objective: BP 114/68 Pulse 66 Ht 5' 6" (1.676 m) Wt 199 lb (90.3 kg) SpO2 98% BMI 32.12 kg/m Waist Circumference: 44.25 inches Last 3 ARTHUR-7 Scores 10/29/2022 1000 09/12/2022 0900 ARTHUR-7 Total Score: 5 11 Physical Exam Constitutional: Oriented to person, place, and time. Appears well-developed and well-nourished. No distress. HENT: Head: Normocephalic and atraumatic. Right Ear: External ear normal. Left Ear: External ear normal. Nose: Nose normal. Mouth/Throat: Oropharynx is clear and moist. No oropharyngeal exudate. Bilateral TM's pearly shah with a good cone of light bilaterally. Eyes: Conjunctivae and EOM are normal. Pupils are equal, round, and reactive to light. Right eye exhibits no discharge. Left eye exhibits no discharge. Neck: Normal range of motion. Neck supple. No thyromegaly present. Cardiovascular: Normal rate, regular rhythm, normal heart sounds and intact distal pulses. Exam reveals no friction rub. No murmur heard. Carotid upstrokes brisk and without bruits bilaterally. Pulmonary/Chest: Effort normal and breath sounds normal. No respiratory distress. No wheezes. No rales. Breast Examination: Bilateral breast symmetrical and smooth without masses. Free from discoloration, thickening of the skin, and prominent pores. Nipples without discharge,asymmetry, ulcerations, rashes, and inversions bilaterally. Breasts free from dimpling and retractions. Tail of [place] palpated bilaterally and free from axillary lymphadenopathy. Abdominal: Soft. Bowel sounds are normal. No distension and no mass. There is no hepatosplenomegaly. There is no tenderness. Protuberant abdomen impairing examination. Pelvic Examination: There is no rash, tenderness, or lesion on the right labia. There is no rash, tenderness or lesion on the left labia. Vagina with normal rugae. Uterus absent. Cervix absent. Left adnexum displays no mass, no tenderness and no fullness. Pap smear obtained. Musculoskeletal: Normal range of motion. No edema, tenderness or deformity. Strength 5/5 with flexion and extension of extremities x4. Lymphadenopathy: No cervical adenopathy. Neurological: Alert and oriented to person, place, and time.Normal reflexes. Coordination normal. Skin: Skin is warm and dry. No rash noted. No erythema. No pallor. Psychiatric: Normal mood and affect. Behavior is normal. Judgment and thought content normal. Assessment and Plan: 1. Well female exam with routine gynecological exam - Encouraged a healthy diet low in cholesterol and saturated fats. - Encouraged regular exercise. 2. Hyperlipidemia LDL goal <100 - Lipid panel - Comprehensive metabolic panel - Stable with Atorvastatin. Will continue current treatment plan. 3. Tachycardia - Comprehensive metabolic panel - Stable. Follow up with specialist as directed. 4. Clotting disorder (CMS/HCC) (HCC) - Comprehensive metabolic panel - Stable with Coumadin. Will continue current treatment plan. 5. H/O deep venous thrombosis - Comprehensive metabolic panel - Stable with Coumadin. Will continue current treatment plan. 6. Hypokalemia - Comprehensive metabolic panel - Stable with potassium supplementation. Will continue current treatment plan. 7. Anxiety - Comprehensive metabolic panel - Stable with Sertraline and PRN Xanax. Will continue current treatment plan. 8. Panic attack - Comprehensive metabolic panel - Stable with Sertraline and PRN Xanax. Will continue current treatment plan. 9. Class 1 obesity due to excess calories without serious comorbidity with body mass index (BMI) of 32.0 to 32.9 in adult - Comprehensive metabolic panel - naltrexone-buPROPion ER (Contrave) 8-90 MG ER tablet; One tab once daily in the morning for 1 week; week 2, increase to 1 table twice daily; at week 3, increase to 2 tablets in the morning and 1 tablet in the evening; at week 4, increase to 2 tablets twice daily., Normal - Will start on Contrave for weight loss. Discussed the importance of healthy eating and regular exercise. - Weight loss goal of 5% of today's baseline weight at the 3 month paty on the Contrave, which would be 9.95 pounds. - Information provided in AVS on new medication. 10. Chronic eczema - Comprehensive metabolic panel - triamcinolone (Kenalog) 0.1 % cream; Apply thin layer to affected area 1-2 times daily as needed., Normal - Stable with PRN Triamcinolone cream. Will continue current treatment plan. 11. Screening for tuberculosis - TB Skin Test - TB Skin Test 12. Screening for diabetes mellitus - Comprehensive metabolic panel - Will notify of blood work results. 13. Encounter for Papanicolaou smear for cervical cancer screening - Pap Smear Antionette received counseling on the following healthy behaviors: continue current medications Patient given educational materials on: Contrave Discussed use, benefit, and side effects of prescribed medications. Barriers to medication compliance addressed. All patient questions answered. Pt voiced understanding. Follow Up: Follow up in about 4 weeks (around 11/26/2022) for weight check/waist circumference. Orders Placed This Encounter Procedures Lipid panel Standing Status: Future Number of Occurrences: 1 Standing Expiration Date: 10/30/2023 Comprehensive metabolic panel Standing Status: Future Number of Occurrences: 1 Standing Expiration Date: 10/30/2023 TB Skin Test TB Skin Test Standing Status: Future Standing Expiration Date: 11/29/2022 MIGEL Wagner CNP 10/29/2022 10:39 AM documented in this encounter [facility] 10-09-2022 Telephone encount er Note Patient coming in for INR, can you please enter the order. Thank you! [facility] 10-09-2022 Miscellaneous Notes Formattin g of this note might be different from the original. Patient coming in for INR, can you please enter the order. Thank you! documented in this encounter [facility] 09-12-2022 History of Presen t illness Narrative Images from the original note were not included. 09/12/2022 Antionette Sandoval (: 1975) is a 47 y.o. female , Established patient, here for evaluation of the following chief complaint(s): Anxiety and Follow-up ASSESSMENT/PLAN: 1. Anxiety - sertraline (Zoloft) 50 MG tablet; Take 1 tablet (50 mg) by mouth daily., Starting 09/12/2022, Normal - Stable with Sertraline. Will continue current treatment plan. 2. Grief - sertraline (Zoloft) 50 MG tablet; Take 1 tablet (50 mg) by mouth daily., Starting 09/12/2022, Normal - Stable with Sertraline. Will continue current treatment plan. Follow up in 7 weeks (on 10/29/2022) for Next scheduled follow-up. SUBJECTIVE/OBJECTIVE: HPI Maru Riggins presents today for follow up on her grief and anxiety. Feels she has been doing better overall. Continues to take her Sertraline daily as prescribed. Is on FMLA through 09/20/22. 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 Feels ready to return overall. Would like to continue with current dose of the Sertraline and needs a refill today- requesting a 90 day supply. Will be returning to school the second week of September and is looking forward to completing her schooling. Review of Systems Cardiovascular: Negative for chest pain. Psychiatric/Behavioral: Negative for self-injury and suicidal ideas. The patient is nervous/anxious. Vitals: 09/12/22 0941 BP: 130/78 Pulse: 71 SpO2: 98% Weight: 201 lb (91.2 kg) Height: 5' 6" (1.676 m) Last 3 ARTHUR-7 Scores 09/12/2022 0900 09/03/2022 1000 08/14/2022 1100 ARTHUR-7 Total Score: 11 12 13 Physical Exam Cardiovascular: Rate and Rhythm: Normal rate and regular rhythm. Heart sounds: Normal heart sounds. No murmur heard. No friction rub. Pulmonary: Effort: Pulmonary effort is normal. Skin: General: Skin is warm and dry. Coloration: Skin is not pale. Findings: No erythema. Neurological: Mental Status: She is alert and oriented to person, place, and time. Psychiatric: Mood and Affect: Mood normal. Behavior: Behavior normal. Thought Content: Thought content normal. Judgment: Judgment normal. An electronic signature was used to authenticate this note. MIGEL Wagner CNP 09/12/2022 9:57 AM documented in this encounter [facility] 09-12-2022 History of Presen t illness Narrative Images from the original note were not included. 09/12/2022 Antionette Sandoval (: 1975) is a 47 y.o. female , Established patient, here for evaluation of the following chief complaint(s): Anxiety and Follow-up ASSESSMENT/PLAN: 1. Anxiety - sertraline (Zoloft) 50 MG tablet; Take 1 tablet (50 mg) by mouth daily., Starting Sat09/12/2022, Normal - Stable with Sertraline. Will continue current treatment plan. 2. Grief - sertraline (Zoloft) 50 MG tablet; Take 1 tablet (50 mg) by mouth daily., Starting Sat09/12/2022, Normal - Stable with Sertraline. Will continue current treatment plan. Follow up in 7 weeks (on 10/29/2022) for Next scheduled follow-up. SUBJECTIVE/OBJECTIVE: ERICA Riggins presents today for follow up on her grief and anxiety. Feels she has been doing better overall. Continues to take her Sertraline daily as prescribed. Is on FMLA through 09/20/22. 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 Feels ready to return overall. Would like to continue with current dose of the Sertraline and needs a refill today- requesting a 90 day supply. Will be returning to school the second week of September and is looking forward to completing her schooling. Review of Systems Cardiovascular: Negative for chest pain. Psychiatric/Behavioral: Negative for self-injury and suicidal ideas. The patient is nervous/anxious. Vitals: 09/12/22 0941 BP: 130/78 Pulse: 71 SpO2: 98% Weight: 201 lb (91.2 kg) Height: 5' 6" (1.676 m) Last 3 ARTHUR-7 Scores 09/12/2022 0900 09/03/2022 1000 08/14/2022 1100 ARTHUR-7 Total Score: 11 12 13 Physical Exam Cardiovascular: Rate and Rhythm: Normal rate and regular rhythm. Heart sounds: Normal heart sounds. No murmur heard. No friction rub. Pulmonary: Effort: Pulmonary effort is normal. Skin: General: Skin is warm and dry. Coloration: Skin is not pale. Findings: No erythema. Neurological: Mental Status: She is alert and oriented to person, place, and time. Psychiatric: Mood and Affect: Mood normal. Behavior: Behavior normal. Thought Content: Thought content normal. Judgment: Judgment normal. An electronic signature was used to authenticate this note. MIGEL Wagner CNP 09/12/2022 9:57 AM documented in this encounter [facility] 09-12-2022 Miscellaneous Notes Addended by: YARELI LOUIS on: 09/13/2022 05:11 PM Modules accepted: Level of Service documented in this encounter [facility] 09-12-2022 Note Addended by: YARELI LOUIS on: 09/13/2022 05:11 PM Modules accepted: Level of Service [facility] 07-23-2022 History of Presen t illness Narrative Images from the original note were not included. [facility] [address] [facility] [address] Dept: [phone] Dept Loc: [phone] DATE of SERVICE:07/23/22 TIME of SERVICE: 1:32 PM : 1975 Chief Complaint: Chief Complaint Patient presents with New Patient History of PresentIllness: Antionette Sandoval is a 47 y.o. female here for a new patient visit. She has a history of venous thromboembolic disease. She also has a history of supraventricular tachycardia. In 2000 she had a deep vein thrombosis that she said was related to post miscarriage, cigarette use, and control pills. She was treated with an oral anticoagulant. In 2014 while on aspirin and still smoking she had a pulmonary embolism. She has been on a blood thinner for oral anticoagulant since then. 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 She tried rivaroxaban but had chest pain, lightheadedness, and forgetfulness and went back to warfarin. She has been on warfarin since that time. In July 2019 she had a supraventricular tachycardia at a rate of 250 to 260 bpm. She was given adenosine twice and converted after about 30 minutes. She had a similar episode in April of this year and required only 1 dose. That 1 lasted about 15 minutes. She has really brief episodes of rapid palpitations almost daily. She understands vagal maneuvers and can usually get them to break very quickly. She was placed on metoprolol and that has helped. In reviewing her records she had an echocardiogram August 2019 that was normal. Her left ventricular ejection fraction is 55% there was no significant valvular disease. In April 2022 her hemoglobin is 15.2, platelets 198. I reviewed the twelve-lead electrocardiogram from April 27, 2019 she had a Holter monitor January 2020 that showed some atrial premature complexes and ventricular premature complexes. Otherwise normal. Her last INR was normal at 2.3. She says she is usually about 2-3, therapeutic. 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 Very busy. She is not exercising regularly. However, when she does do her physical work such as housework or walking her dog, she has no alarming dyspnea or chest pain. The most severe symptoms that she has had with the SVT is a sense of being short of breath. She has not had syncope. She is on a high intensity statin. She has not smoked since her second pulmonary embolism. Past Medical History: Past Medical History: Diagnosis Date Acute non-recurrent frontal sinusitis 06/13/2022 Breast fibroadenoma Clotting disorder (CMS/HCC) (HCC) DVT (deep venous thrombosis) (HCC) 10/2000 post-operative, had recently SAb, and she was on COCP History of blood clots 2000 Increased homocysteine Left hip pain 12/07/2020 Pulmonary emboli (HCC) Tinnitus Tobacco use Past Surgical History Past Surgical History: Procedure Laterality Date BREAST BIOPSY Right 01/27/2013 BREAST BIOPSY Left 05/13/2019 Benign stereo CHOLECYSTECTOMY 2000 COLONOSCOPY 2006 DILATION AND CURETTAGE OF UTERUS 2000 TOTAL ABDOMINAL HYSTERECTOMY 01/23/2017 has one ovary- left Family History Family History Problem Relation Name Age of Onset Breast cancer Mother 52 52 and again at 70 Other (07[address]) Mother DVT High Blood Pressure Mother Diabetes Father High Blood Pressure Father Heart disease Father Cervical cancer Paternal Grandmother 65 Social History Social History Tobacco Use Smoking status: Former Packs/day: 0.50 Types: Cigarettes Smokeless tobacco: Never Substance Use Topics Alcohol use: No Alcohol/week: 0.0 standard drinks Drug use: No Allergies: Allergies Allergen Reactions Azithromycin Hives and Unknown Other reaction(s): Hives and/or rash Enoxaparin Other reaction(s): Cellulitis Iron Hives and Itching Infusion but tolerates oral prep Infusion but tolerates oral prep Meperidine Hcl Other reaction(s): Severe nausea & vomiting Nickel Other reaction(s): Contact dermatitis Rivaroxaban Unknown Other reaction(s): Chest pain Rosuvastatin Other reaction(s): Unknown Arthralgias Arthralgias Tape Other reaction(s): Hives, Hives and/or rash Rash, Blisters Wound Dressing Adhesive Hives and Unknown Other reaction(s): Hives and/or rash Meperidine Nausea And Vomiting Other reaction(s): Vomiting nausea Sulfa Antibiotics Rash Medications: Current Outpatient Medications: acetaminophen (Tylenol 8 Hour) 650 MG ER tablet, Take by mouth., Disp: , Rfl: ALPRAZolam (Xanax) 0.25 MG tablet, Take 0.25 mg by mouth., Disp: , Rfl: ascorbic acid (Vitamin C) 500 MG ER capsule, Take 500 mg by mouth., Disp: , Rfl: atorvastatin (Lipitor) 20 MG tablet, take 1 tablet by mouth once daily, Disp: 90 tablet, Rfl: 1 b complex vitamins capsule, Take 1 capsule by mouth daily., Disp: , Rfl: benzoyl peroxide (Benzoyl Peroxide Wash) 5 % external wash, Use to wash affected areas on the face and groin once daily in the shower. Rinse thoroughly as this can bleach out fabrics, so rinse skin well., Disp: 236 g, Rfl: 6 cetirizine (ZyrTEC) 10 MG tablet, Take by mouth., Disp: , Rfl: clindamycin (Cleocin T) 1 % lotion, Apply a thin layer to affected areas on the face and groin once daily., Disp: 60 mL, Rfl: 6 coenzyme Q-10 75 MG capsule, Take by mouth., Disp: , Rfl: Diclofenac Sodium (Voltaren) 1 % gel, Apply 2 g topically 2 times daily as needed (pain)., Disp: 50 g, Rfl: 2 diphenhydrAMINE (BENADryl) 25 MG capsule, 25 mg., Disp: , Rfl: fluticasone (Flonase) 50 MCG/ACT nasal spray, Administer 2 sprays into affected nostril(s)., Disp: , Rfl: lidocaine (Lidoderm) 5 % patch, Place 1 patch on the skin., Disp: , Rfl: metoprolol succinate XL (Toprol-XL) 50 MG 24 hr tablet, Take 1 tablet (50 mg) by mouth daily., Disp: 90 tablet, Rfl: 1 mupirocin (Bactroban) 2 % ointment, APPLY TO AFFECTED AREA 3 TIMES A DAY, Disp: , Rfl: potassium chloride CR (Klor-Con M10) 10 MEQ ER tablet, Take 2 tablets (20 mEq) by mouth in the morning., Disp: 1 tablet, Rfl: 0 Pramoxine-HC (Hydrocortisone Shay-Pramoxine) 2.5-1 % cream, Insert into the rectum., Disp: , Rfl: sertraline (Zoloft) 50 MG tablet, Take 1 tablet (50 mg) by mouth daily., Disp: 90 tablet, Rfl: 1 tretinoin (Retin-A) 0.025 % cream, Apply a thin layer to affected areas every third night, increase to nightly as tolerated., Disp: 45 g, Rfl: 6 Zinc Acetate 50 MG capsule, Take by mouth., Disp: , Rfl: warfarin (Coumadin) 5 MG tablet, Take 1 tablet (5 mg) by mouth Nightly. (Patient not taking: Reported on 07/23/2022), Disp: 90 tablet, Rfl: 1 Review of Systems: Review of Systems Constitutional: Negative for activity change, chills, diaphoresis, fatigue and fever. HENT: Negative for nosebleeds and trouble swallowing. Eyes: Negative for discharge and visual disturbance. Respiratory: Negative for apnea, cough, chest tightness, shortness of breath and wheezing. Cardiovascular: Positive for palpitations and leg swelling (L>R hx DVT). Negative for chest pain. Gastrointestinal: Negative for abdominal distention, abdominal pain, blood in stool, diarrhea, nausea and vomiting. Endocrine: Negative for cold intolerance and heat intolerance. Genitourinary: Negative for hematuria. Musculoskeletal: Negative for gait problem and myalgias. Skin: Negative for color change and rash. Neurological: Negative for dizziness, seizures, syncope, facial asymmetry, speech difficulty, weakness, light-headedness, numbness and headaches. Hematological: Does not bruise/bleed easily. Psychiatric/Behavioral: Negative for dysphoric mood. Physical Examination: Vitals: Vitals: 07/23/22 1318 BP: 110/60 BP Location: Left arm Patient Position: Sitting BP Cuff Size: Adult Pulse: 79 SpO2: 95% Weight: 199 lb 6.4 oz (90.4 kg) Height: 5' 6" (1.676 m) Body mass index is 32.18 kg/m . Physical Exam She appears well. She has no jugular venous distention. Her lungs are clear. Her heart sounds are normal. Palpation of her abdomen is normal. Her posterior tibial pulses are normal. Laboratory Tests: Lab Results Component Value Date WBC 8.7 12/11/2021 HGB 14.1 12/11/2021 MCV 86.4 12/11/2021 Lab Results Component Value Date GLUCOSE 103 05/14/2022 CALCIUM 9.6 05/14/2022 NA 140 12/11/2021 K 4.1 12/11/2021 CO2 29 05/14/2022 CL 109 (H) 12/11/2021 BUN 14 05/14/2022 CREATININE 0.63 05/14/2022 @LASTCMP@ Lab Results Component Value Date CHOL 160 12/11/2021 CHOL 171 11/16/2020 CHOL 213 (A) 10/12/2020 Lab Results Component Value Date TRIG 146 12/11/2021 TRIG 199 (A) 11/16/2020 TRIG 304 (A) 10/12/2020 Lab Results Component Value Date HDL 36 (L) 12/11/2021 HDL 37 (L) 11/16/2020 HDL 30 (L) 10/12/2020 No results found for: LDLCALC, LDLDIRECT No components found for: LVEF, LVEFMODE Assessment and Plan: @DIAGREFRESH@ Medical decision making My assessment is that she has supraventricular tachycardia. I do not actually have the rhythm strips of that. Her twelve-lead EKGs (I reviewed 3 of them) do not show a delta wave or any other abnormality. She has a normal echocardiogram and no other structural heart disease that would put her at high risk from SVT. She does not have known preexcitation. Diagnostically, sent no further tests. Therapeutically, made no changes. We decided just to keep her on the warfarin for her venous thromboembolic disease. It appears that she needs lifelong anticoagulation. If she ends up having trouble with warfarin we could switch her to apixaban and see if she tolerates that. I told her that supraventricular tachycardia ablation is usually curative. However, it is an invasive procedure and so I generally refer people only for quality of life issues. I will see her back in a year. documented in this encounter [facility] 06-27-2022 History of Presen t illness Narrative DATE OF SERVICE: 06/27/2022 PATIENT NAME: Antionette Sandoval : 1975 AGE: 47 y.o. CLINIC NUMBER: [id number] Visit type: Established patient Chief Complaint Patient presents with Other LV 03/07/22 w/ Racheal De Leon PA-C (JERRICA) Subjective HISTORY OF PRESENT ILLNESS: This is a 47 y.o. female who presents for evaluation of hidradenitis suppurativa; last seen 03/07/22. F/u-hidradenitis suppurativa; Improved since last visit. Previously prescribed benzoyl peroxide 5% wash, clindamycin 1% lotion. Denies flaring. Denies painful, enlarging, draining cysts, tunneling and scarring. F/u acne; Improved since last visit. Prevously prescribed benzoyl peroxide 5% wash & clindamycin 1% lotion. Denies new breakouts. Denies pimples, deep painful cysts, blackheads, whiteheads, dark spots and scarring. Are you , trying to become or ? No History of pacemaker/ defibrillator? No History of HIV/ Hep C? No Allergies to Lidocaine, Epinephrine, Latex or Adhesive? Yes, epinephrine-heart issues. Review of Systems Orders Placed This Encounter Medications benzoyl peroxide (Benzoyl Peroxide Wash) 5 % external wash Sig: Use to wash affected areas on the face and groin once daily in the shower. Rinse thoroughly as this can bleach out fabrics, so rinse skin well. Dispense: 236 g Refill: 6 clindamycin (Cleocin T) 1 % lotion Sig: Apply a thin layer to affected areas on the face and groin once daily. Dispense: 60 mL Refill: 6 tretinoin (Retin-A) 0.025 % cream Sig: Apply a thin layer to affected areas every third night, increase to nightly as tolerated. Dispense: 45 g Refill: 6 There were no vitals filed for this visit. PHYSICAL EXAM GENERAL APPEARANCE:?Alert & oriented x3, pleasant. Well developed, well nourished. PSYCH: appropriate mood and affect DERMATOLOGY: (all measurements are in cm, unless otherwise noted) 1. Hidradenitis suppurativa Pubic, Right Axilla Erythematous, draining cysts/nodules with tunneling/scarring comedones. [x]Chronic []Acute []Stable [x]Flaring/Exacerbation Educated and reassured. Treatment options, risks, benefits, and expectations reviewed. Continue: -Benzoyl peroxide 5% wash -Clindamycin 1% lotion Related Medications benzoyl peroxide (Benzoyl Peroxide Wash) 5 % external wash Use to wash affected areas on the face and groin once daily in the shower. Rinse thoroughly as this can bleach out fabrics, so rinse skin well. clindamycin (Cleocin T) 1 % lotion Apply a thin layer to affected areas on the face and groin once daily. 2. Acne vulgaris Head - Anterior (Face) Scattered acneiform papules, open and closed comedones with mild scarring and PIH. [x]Chronic []Acute []Stable [x]Flaring/Exacerbation Educated and reassured. Treatment options, risks, benefits, and expectations reviewed. Side affect profile discussed with patient. Start: -Tretinoin 0.025% cream Continue: -Benzoyl peroxide 5% wash -Clindamycin 1% lotion Related Medications tretinoin (Retin-A) 0.025 % cream Apply a thin layer to affected areas every third night, increase to nightly as tolerated. Follow up in about 6 months (around 12/27/2022). RALPH Garcia 06/27/22 1:13 PM REFERRING MD: documented in this encounter [facility] 06-13-2022 Evaluation + Plan note Associated Problem(s): Acute non-recurrent frontal sinusitis Will treat with antibiotics for bacterial sinusitis due to severity of symptoms, not improving. [facility] 06-13-2022 Miscellaneous Notes Associate d Problem(s): Acute non-recurrent frontal sinusitis Will treat with antibiotics for bacterial sinusitis due to severity of symptoms, not improving. documented in this encounter [facility] 06-13-2022 History of Presen t illness Narrative Images from the original note were not included. 06/13/2022 Antionette Sandoval (: 1975) is a 47 y.o. female , Established patient, here for evaluation of the following chief complaint(s): No chief complaint on file. Patient was seen today via Telehealth by agreement and consent in light of the current COVID-19 pandemic. I used the following Telehealth technology: Audio and video capabilities Patient location: Home. This patient encounter is appropriate and reasonable under the circumstances given the patient's particular presentation at this time. The patient has been advised of the potential risks and limitations of this mode of treatment (including but not limited to the absence of in-person examination) and has agreed to be treated in a remote fashion in spite of them. Any and all of the patient's/patient's family's questions on this issue have been answered and I have made no promises or guarantees to the patient. The patient has also been advised to contact this office for worsening conditions or problems, and seek emergency medical treatment and/or call 911 if the patient deems either necessary. The patient stated that they are currently in the [facility]. If the patient is a minor, permission has been obtained by the parent or guardian for the patient to receive medical care at this visit. ASSESSMENT/PLAN: 1. Acute non-recurrent frontal sinusitis Assessment & Plan: Will treat with antibiotics for bacterial sinusitis due to severity of symptoms, not improving. Orders: - azithromycin (Zithromax) 250 MG tablet; Take 2 tabs (500 mg) by mouth today, than 1 daily for 4 days., Normal Reviewed and provided written patient education/instructions regarding diagnosis and management. Reviewed symptom management with non-pharmacological interventions and appropriate use of otc medications for relief of symptoms. Follow up for worsening or no improvement in symptoms. Follow up in about 5 days (around 06/18/2022) for inr check. SUBJECTIVE/OBJECTIVE: HPI - Antionette Sandoval (: 1975) is a 47 y.o. female , Established patient, here for the evaluation of the following chief complaint(s): No chief complaint on file. Started 4-5 days ago. Covid 19 negative x 2, Nasal congestion, sinus pressure, cough productive. Is limited to taking otc medication d/t hx of SVT. Using flonase, humidification, acetaminophen. Not helping much. No fever but has been chilled. No chest pain or shortness of breath, feels fatigued. Feels slightly better than yesterday but not much. Uses flonase. Prior to Admission medications Medication Sig Start Date End Date Taking? Authorizing Provider acetaminophen (Tylenol 8 Hour) 650 MG ER tablet Take by mouth. 11/29/21 Historical Provider, albuterol 108 (90 Base) MCG/ACT inhaler Inhale 2 puffs every 6 hours as needed. 12/09/18 Historical Provider, ALPRAZolam (Xanax) 0.25 MG tablet Take 0.25 mg by mouth. 07/24/19 Historical Provider, ascorbic acid (Vitamin C) 500 MG ER capsule Take 500 mg by mouth. 01/23/17 Historical Provider, atorvastatin (Lipitor) 20 MG tablet Take 1 tablet by mouth daily. 11/29/21 Historical Provider, b complex vitamins capsule Take 1 capsule by mouth daily. Historical Provider, benzoyl peroxide (Benzoyl Peroxide Wash) 5 % external wash Use to wash affected areas on the face and groin once daily in the shower. Rinse thoroughly as this can bleach out fabrics, so rinse skin well. 03/07/22 RALPH Garcia cetirizine (ZyrTEC) 10 MG tablet Take by mouth. Historical Provider, clindamycin (Cleocin T) 1 % lotion Apply a thin layer to affected areas on the face and groin once daily. 03/07/22 RALPH Garcia coenzyme Q-10 75 MG capsule Take by mouth. 11/29/21 Historical Provider, Diclofenac Sodium (Voltaren) 1 % gel Apply 2 g topically 2 times daily as needed (pain). 04/13/22 Yareli Louis APRN - DIRECTOR OF BROADCAST diphenhydrAMINE (BENADryl) 25 MG capsule 25 mg. 01/23/17 Historical Provider, fluticasone (Flonase) 50 MCG/ACT nasal spray Administer 2 sprays into affected nostril(s). 01/10/22 Historical Provider, folic acid (Folvite) 1 MG tablet Take by mouth. 12/23/09 Historical Provider, lidocaine (Lidoderm) 5 % patch Place 1 patch on the skin. 01/01/22 Historical Provider, metoprolol succinate XL (Toprol-XL) 50 MG 24 hr tablet Take 1 tablet (50 mg) by mouth daily. 06/05/22 MIGEL Wilson CNP mupirocin (Bactroban) 2 % ointment APPLY TO AFFECTED AREA 3 TIMES A DAY 05/03/21 Historical Provider, potassium chloride CR (Klor-Con M10) 10 MEQ ER tablet Take 2 tablets (20 mEq) by mouth in the morning. 05/14/22 MIGEL Wagner CNP Pramoxine-HC (Hydrocortisone Shay-Pramoxine) 2.5-1 % cream Insert into the rectum. 04/16/18 Historical Provider, pyridoxine (B-6) 100 MG tablet Take 100 mg by mouth in the morning. 09/22/11 Historical Provider, sertraline (Zoloft) 50 MG tablet Take 1 tablet (50 mg) by mouth daily. 05/28/22 07/27/22 MIGEL Wagner CNP warfarin (Coumadin) 5 MG tablet Take 1 tablet by mouth daily. 10/17/17 Historical Provider, Zinc Acetate 50 MG capsule Take by mouth. 11/29/21 Historical Provider, Health Maintenance Due Topic Date Due Mammogram 05/25/2022 Review of Systems Constitutional: Negative for chills, fatigue and fever. HENT: Positive for congestion, postnasal drip, sinus pressure and sinus pain. Negative for sore throat and trouble swallowing. Respiratory: Negative for cough and shortness of breath. Cardiovascular: Negative for chest pain. Gastrointestinal: Negative. Neurological: Positive for headaches. There were no vitals filed for this visit. Physical Exam Constitutional: Appearance: Normal appearance. She is ill-appearing (moderately). Pulmonary: Effort: Pulmonary effort is normal. Comments: Sounds congested. Neurological: Mental Status: She is alert and oriented to person, place, and time. An electronic signature was used to authenticate this note. MIGEL Wilson CNP 06/13/2022 12:59 PM documented in this encounter [facility] 06-11-2022 Telephone encount er Note Noted. [facility] 06-11-2022 Miscellaneous Notes Formattin g of this note might be different from the original. Noted. Name of caller: Antionette Contact phone number: [phone] Relationship to Patient: pt Provider: RALPH De Leon Practice: Dermatology Chief Complaint/Reason for Call: Pt needed to cancel 06/11 at 9:20 and R/S for 06/27 at 1:20 Best time of day caller can be reached: any Patient advised that office/PCP has 24-48 business hours to return their call: No documented in this encounter [facility] 06-11-2022 Telephone encount er Note Name of caller: Antionette Contact phone number: [phone] Relationship to Patient: pt Provider: RALPH De Leon Practice: Dermatology Chief Complaint/Reason for Call: Pt needed to cancel 06/11 at 9:20 and R/S for 06/27 at 1:20 Best time of day caller can be reached: any Patient advised that office/PCP has 24-48 business hours to return their call: No [facility] 06-05-2022 Telephone encount er Note Reviewed chart. Refill appropriate. RX sent. [facility] 06-05-2022 Miscellaneous Notes Formattin g of this note might be different from the original. Reviewed chart. Refill appropriate. RX sent. Prescription Request: Last medication check: 05/14/2022 Last physical exam: 11/10/21 Last completed appointment: 05/28/2022 Next scheduled appointment: 10/29/2022 Last date of refill on this medication: 05/14/2022 documented in this encounter [facility] 06-05-2022 Telephone encount er Note Prescription Request: Last medication check: 05/14/2022 Last physical exam: 11/10/21 Last completed appointment: 05/28/2022 Next scheduled appointment: 10/29/2022 Last date of refill on this medication: 05/14/2022 [facility] 05-28-2022 History of Presen t illness Narrative Images from the original note were not included. 05/28/2022 Antionette Sandoval (: 1975) is a 47 y.o. female , Established patient, here for evaluation of the following chief complaint(s): Anxiety and Follow-up ASSESSMENT/PLAN: 1. Anxiety - T3, free - T4, free - TSH - sertraline (Zoloft) 50 MG tablet; Take 1 tablet (50 mg) by mouth daily., Starting 05/28/2022, Until Sat07/27/2022, Normal - Improved. Continue on current dose of Sertraline. 2. SVT (supraventricular tachycardia) (CMS/HCC) (HCC) - T3, free - T4, free - TSH - Estrogens, total - Follicle stimulating hormone - Luteinizing hormone - Prolactin - Testo,Free/Total-Female - Stable. Will notify of blood work results. 3. Tachycardia - T3, free - T4, free - TSH - Estrogens, total - Follicle stimulating hormone - Luteinizing hormone - Prolactin - Testo,Free/Total-Female - Stable. Will notify of blood work results. Follow up in about 5 months (around 10/28/2022) for WFE. SUBJECTIVE/OBJECTIVE: HPI Maru Riggins presents today for follow up on her anxiety. She had the dose of her Sertraline increased to 50 mg daily about 2 weeks ago and states she has noticed a lot of improvement. Has noticed improvement in her motivation and has not felt as anxious. Feels she is doing well on the higher dose and would like to continue taking it. Denies any unwanted side effects/intolerances. States she recently had a lecture on hormones and how they impact her heart rate and rhythm. Is requesting to have blood work done to test various hormones and her thyroid function to make sure there are no abnormalities that would be contributing to her SVT and tachycardia. Review of Systems Respiratory: Negative for chest tightness and shortness of breath. Cardiovascular: Negative for chest pain. Psychiatric/Behavioral: The patient is nervous/anxious. Vitals: 05/28/22 1536 BP: 108/60 Pulse: 74 SpO2: 98% Weight: 200 lb (90.7 kg) Height: 5' 3.5" (1.613 m) Physical Exam Constitutional: General: She is not in acute distress. Appearance: She is not ill-appearing or diaphoretic. Cardiovascular: Rate and Rhythm: Normal rate and regular rhythm. Heart sounds: Normal heart sounds. No murmur heard. No friction rub. Pulmonary: Effort: Pulmonary effort is normal. Breath sounds: Normal breath sounds. No wheezing, rhonchi or rales. Skin: General: Skin is warm and dry. Coloration: Skin is not pale. Findings: No erythema. Neurological: Mental Status: She is alert and oriented to person, place, and time. Psychiatric: Mood and Affect: Mood normal. Behavior: Behavior normal. Thought Content: Thought content normal. Judgment: Judgment normal. An electronic signature was used to authenticate this note. MIGEL Wagner CNP 05/28/2022 3:59 PM documented in this encounter [facility] 05-28-2022 History of Presen t illness Narrative Images from the original note were not included. 05/28/2022 Antionette Sandoval (: 1975) is a 47 y.o. female , Established patient, here for evaluation of the following chief complaint(s): Anxiety and Follow-up ASSESSMENT/PLAN: 1. Anxiety - T3, free - T4, free - TSH - sertraline (Zoloft) 50 MG tablet; Take 1 tablet (50 mg) by mouth daily., Starting Sat05/28/2022, Until Sat07/27/2022, Normal - Improved. Continue on current dose of Sertraline. 2. SVT (supraventricular tachycardia) (CMS/HCC) (HCC) - T3, free - T4, free - TSH - Estrogens, total - Follicle stimulating hormone - Luteinizing hormone - Prolactin - Testo,Free/Total-Female - Stable. Will notify of blood work results. 3. Tachycardia - T3, free - T4, free - TSH - Estrogens, total - Follicle stimulating hormone - Luteinizing hormone - Prolactin - Testo,Free/Total-Female - Stable. Will notify of blood work results. Follow up in about 5 months (around 10/28/2022) for WFE. SUBJECTIVE/OBJECTIVE: ERICA Riggins presents today for follow up on her anxiety. She had the dose of her Sertraline increased to 50 mg daily about 2 weeks ago and states she has noticed a lot of improvement. Has noticed improvement in her motivation and has not felt as anxious. Feels she is doing well on the higher dose and would like to continue taking it. Denies any unwanted side effects/intolerances. States she recently had a lecture on hormones and how they impact her heart rate and rhythm. Is requesting to have blood work done to test various hormones and her thyroid function to make sure there are no abnormalities that would be contributing to her SVT and tachycardia. Review of Systems Respiratory: Negative for chest tightness and shortness of breath. Cardiovascular: Negative for chest pain. Psychiatric/Behavioral: The patient is nervous/anxious. Vitals: 05/28/22 1536 BP: 108/60 Pulse: 74 SpO2: 98% Weight: 200 lb (90.7 kg) Height: 5' 3.5" (1.613 m) Physical Exam Constitutional: General: She is not in acute distress. Appearance: She is not ill-appearing or diaphoretic. Cardiovascular: Rate and Rhythm: Normal rate and regular rhythm. Heart sounds: Normal heart sounds. No murmur heard. No friction rub. Pulmonary: Effort: Pulmonary effort is normal. Breath sounds: Normal breath sounds. No wheezing, rhonchi or rales. Skin: General: Skin is warm and dry. Coloration: Skin is not pale. Findings: No erythema. Neurological: Mental Status: She is alert and oriented to person, place, and time. Psychiatric: Mood and Affect: Mood normal. Behavior: Behavior normal. Thought Content: Thought content normal. Judgment: Judgment normal. An electronic signature was used to authenticate this note. MIGEL Wagner CNP 05/28/2022 3:59 PM documented in this encounter [facility] 05-28-2022 Miscellaneous Notes Addended by: YARELI OLUIS on: 06/01/2022 06:51 AM Modules accepted: Level of Service documented in this encounter [facility] 05-28-2022 Note Addended by: YARELI LOUIS on: 06/01/2022 06:51 AM Modules accepted: Level of Service [facility] 05-14-2022 History of Presen t illness Narrative Images from the original note were not included. 05/14/2022 Antionette Sandoval (: 1975) is a 47 y.o. female , Established patient, here for evaluation of the following chief complaint(s): Anxiety, Hyperlipidemia, Medication Check, and Health Maintenance (Hep C--declines, HIV--declines, COVID4--declines) ASSESSMENT/PLAN: 1. SVT (supraventricular tachycardia) ([facility]/HCC) ([facility]) - [facility] - Basic metabolic panel - metoprolol succinate XL (Toprol-XL) 50 MG 24 hr tablet; Take 1 tablet (50 mg) by mouth daily., Starting 05/14/2022, Sample - Protime-INR - Referral placed with cardiology. Continue with current dose of Metoprolol. 2. Clotting disorder (CMS/HCC) ([facility]) - [facility] - Basic metabolic panel - Protime-INR - Will notify of blood work results. Continue Coumadin. 3. H/O deep venous thrombosis - [facility] - Protime-INR - Will notify of blood work results. Continue Coumadin. 4. Hypokalemia - [facility] - Basic metabolic panel - potassium chloride CR (Klor-Con M10) 10 MEQ ER tablet; Take 2 tablets (20 mEq) by mouth in the morning., Starting Sat05/14/2022, Sample - Will notify of blood work results. 5. Anxiety - Basic metabolic panel - sertraline (Zoloft) 50 MG tablet; Take 1 tablet (50 mg) by mouth daily., Starting Sat05/14/2022, Until Sat07/13/2022, Sample - Poorly controlled. Will increase Sertraline to 50 mg daily and do a close follow up in 2 weeks. 6. Panic attack - Basic metabolic panel - sertraline (Zoloft) 50 MG tablet; Take 1 tablet (50 mg) by mouth daily., Starting Sat05/14/2022, Until Sat07/13/2022, Sample - Poorly controlled. Will increase Sertraline to 50 mg daily and do a close follow up in 2 weeks. 7. Chronic pain of left thumb - External Referral to Orthopedic Surgery Follow up in about 2 weeks (around 05/28/2022) for follow up on anxiety. SUBJECTIVE/OBJECTIVE: ERICA Riggins presents today for her 6 month follow up on her chronic health conditions. Hyperlipidemia: Continues to take Atorvastatin daily with a CoQ10. Levels were stable when last checked in November of 2021. Supraventricular Tachycardia/Clotting Disorder/History of DVT (L)/Hypokalemia: Continues to take her Metoprolol and potassium as prescribed- recently had potassium increased to 20 meQ daily and her Metoprolol increased to 50 mg daily due to an episode of SVT- this happened about 3 weeks ago and was cardioverted with Adenosine in her driveway by the EMT's. Continues to take her Coumadin daily- INR was 2.3 about 3 weeks ago and would like her level rechecked today. Is going to be following up with electrophysiology due to her recent episode of SVT. Would like to see Dr. Reynoso for further evaluation as well. Does not plan to follow up with Dr. Johnson anymore. Got clearance from Dr. Johnson's office to start exercising again. Anxiety with Panic Attacks: Started back on her Sertraline back in January. Currently taking 25 mg daily. Does not feel like symptoms are as well controlled and is interested in trying a higher dose. Will still use Xanax as needed. Has not used this recently. Continues to experience left thumb pain and swelling. Had a hand x-ray on 05/10/22 with normal findings. Would like to see a specialist for further evaluation- requesting Dr. Agustin Salcido in [place], [place]. Health Maintenance: Last mammogram was 12/04/21- due for bilateral diagnostic mammogram in May- active order in place. Last pap smear was 10/03/16. Has had a hysterectomy and has had a normal pap smear since the hyster. Has her left ovary. Tdap current: 08/08/16. Colonoscopy: 05/09/18- due for repeat- scheduled to follow with Nic for this. Vaccinated for COVID-19 (Moderna) x3 with most recent dose on 02/11/21. Declines screening for HIV and Hep C. Review of Systems Cardiovascular: Positive for palpitations. Negative for chest pain and leg swelling. Musculoskeletal: Positive for arthralgias (left thumb). Psychiatric/Behavioral: The patient is nervous/anxious. Vitals: 05/14/22 1139 BP: 122/78 Pulse: 79 SpO2: 98% Weight: 196 lb (88.9 kg) Height: 5' 6.5" (1.689 m) Physical Exam Constitutional: General: She is not in acute distress. Appearance: She is not ill-appearing or diaphoretic. Cardiovascular: Rate and Rhythm: Normal rate and regular rhythm. Heart sounds: Normal heart sounds. No murmur heard. No friction rub. Pulmonary: Effort: Pulmonary effort is normal. Breath sounds: Normal breath sounds. No wheezing, rhonchi or rales. Abdominal: General: Bowel sounds are normal. Palpations: Abdomen is soft. Musculoskeletal: Comments: Joint swelling with limited ROM in DIP of left thumb. Skin: General: Skin is warm and dry. Coloration: Skin is not pale. Findings: No erythema. Neurological: Mental Status: She is alert and oriented to person, place, and time. Psychiatric: Attention and Perception: Attention and perception normal. Mood and Affect: Affect is tearful. Speech: Speech normal. Behavior: Behavior normal. Behavior is cooperative. Thought Content: Thought content normal. Cognition and Memory: Cognition and memory normal. Judgment: Judgment normal. An electronic signature was used to authenticate this note. MIGEL Wagner CNP 05/14/2022 12:25 PM documented in this encounter [facility] 04-18-2022 Telephone encount er Note New order placed. Thank you. [facility] 04-18-2022 Miscellaneous Notes Formattin g of this note might be different from the original. New order placed. Thank you. Pt had a Diag MAMM (R) on 12/04/21. It suggested a 6 month follow up. Please verify if pt still needs. Will need new order if needed, please. documented in this encounter [facility] 04-17-2022 Telephone encount er Note Pt had a Diag MAMM (R) on 12/04/21. It suggested a 6 month follow up. Please verify if pt still needs. Will need new order if needed, please. [facility] 04-13-2022 History of Presen t illness Narrative Images from the original note were not included. 04/13/2022 Antionette Sandoval (: 1975) is a 47 y.o. female , Established patient, here for evaluation of the following chief complaint(s): Hip Pain (Right hip), thumb pain (Thinks she broke her left thumb), and Health Maintenance (Hep C--declines, HIV--declines, Colon--wants referral, COVID 4--has not had yet, Flu-- wants ) ASSESSMENT/PLAN: 1. Chronic right hip pain - XR hip right 2 or 3 views - Diclofenac Sodium (Voltaren) 1 % gel; Apply 2 g topically 2 times daily as needed (pain)., Starting 04/13/2022, Normal - Will obtain an x-ray for further evaluation. 2. Chronic pain of left thumb - XR hand 3+ views left - Diclofenac Sodium (Voltaren) 1 % gel; Apply 2 g topically 2 times daily as needed (pain)., Starting Sat04/13/2022, Normal - Will obtain an x-ray for further evaluation. 3. Injury due to fall, initial encounter 4. Elevated fasting glucose - Hemoglobin A1c - Basic metabolic panel - Will notify of blood work results. 5. Flu vaccine need - Flu vaccine, quadrivalent, recombinant, preservative free 6. Screening for colon cancer - External referral to Gastroenterology (Dr. Hoemro Lucero, [place], [place]) Follow up in 1 month (on 05/14/2022) for Next scheduled follow-up. SUBJECTIVE/OBJECTIVE: ERICA Riggins presents today with concerns of right hip pain and left thumb pain. States she fell off of a ladder around [facility] and landed on her left side. States she fell from a height of 2-3 feet. Did not hit her head when she fell and denies loss of consciousness. The right hip pain has been ongoing and even before her fall. Sitting for extended periods of time will aggravate the pain. Points to her right outer hip when describing the location of her pain. Fell in October and landed on her right hip at that time. Hip pain did not start until December. Denies history of right hip injuries/surgeries prior to her fall. Denies pain radiating down her right leg. Denies hip instability or weakness. Her fasting blood sugar was also elevated at 120 on 12/11/21 and is due to have this rechecked with a hemoglobin A1c. Will check this today while she is here. Health Maintenance: Would like a colonoscopy for colon cancer screening. Would like a flu vaccination. Vaccinated for COVID-19 (Moderna) x3- debating getting a 4th dose. Declines screening for HIV and Hep C. Review of Systems Endocrine: Negative for polydipsia, polyphagia and polyuria. Musculoskeletal: Positive for arthralgias. Skin: Negative for color change, pallor, rash and wound. Vitals: 04/13/22 0939 BP: 130/76 Pulse: 80 SpO2: 98% Weight: 196 lb (88.9 kg) Height: 5' 5.5" (1.664 m) Physical Exam Constitutional: General: She is not in acute distress. Appearance: She is not ill-appearing or diaphoretic. Cardiovascular: Rate and Rhythm: Normal rate and regular rhythm. Heart sounds: Normal heart sounds. No murmur heard. No friction rub. Pulmonary: Effort: Pulmonary effort is normal. Musculoskeletal: Arms: Right hip: No deformity, lacerations, bony tenderness or crepitus. Normal range of motion. Normal strength. Legs: Skin: General: Skin is warm and dry. Coloration: Skin is not pale. Findings: No erythema. Neurological: Mental Status: She is alert and oriented to person, place, and time. Psychiatric: Mood and Affect: Mood normal. Behavior: Behavior normal. Thought Content: Thought content normal. Judgment: Judgment normal. An electronic signature was used to authenticate this note. MIGEL Wagner CNP 04/13/2022 10:29 AM After obtaining consent, and per orders of Yareli COLE, injection of 0.5ml flu vaccine given in right deltoid by Cat Duarte. Patient instructed to report any adverse reaction immediately. documented in this encounter [facility] 12-29-2021 History of Presen t illness Narrative Patient presents with: Low Back Pain: X2 days, no known injury, radiating to R hip HPI: Back pain: Duration: 3 days Character: sharp and shooting Location: right lower back Radiation: to the center and up Aggravating: standing up, bending, twisting Relieving: lying down Pain relievers: Tylenol and heating pad Associated: had right hip pain a couple weeks ago which resolved without treatment Pertinent negatives: Denies numbness or weakness, fever, loss of bladder or bowel control, hematuria, frequency. Imaging: none Physical Therapy: no PAST MEDICAL HISTORY Diagnosis Date Epicondylitis syndrome of elbow Dr Ng History of DVT of lower extremity 2000 DVT in left calf on OCP and s/p lap saray/D&C 2000 Hyperhomocysteinemia (HCC) Renal calculus incidental on CT 2006 Tobacco use PAST SURGICAL HISTORY Procedure Laterality Date CHOLECYSTECTOMY 2000 laparoscopic DILATION & CURETTAGE DX&/THER NONOBSTETRIC 2000 Dilation & curettage SIGMOIDOSCOPY 10/22/06 normal THERMAL ENDOMETRIAL ABLATION 02/2011 Dr Espinosa MEDICATIONS: acetaminophen 650 mg CR tablet Take by mouth. ALPRAZolam (XANAX) 0.25 mg tablet Take 0.25 mg by mouth. ascorbic acid, vitamin C, 500 mg cap Take 500 mg by mouth. atorvastatin (LIPITOR) 20 mg tablet Take by mouth. diphenhydrAMINE (BENADRYL) 25 mg capsule 25 mg. metoprolol succinate ER (TOPROL XL) 25 mg 24 hr tablet Take 25 mg by mouth once daily. potassium chloride ER (K-DUR, KLOR-CON M10) 10 mEq tablet Take 1 tablet by mouth once daily. Coenzyme Q10 75 mg cap Take by mouth. Zinc Acetate, Oral, 50 mg (zinc) cap Take by mouth. warfarin (COUMADIN) 5 mg tablet TAKE 1 TABLET BY MOUTH EVERY DAY albuterol HFA (PROAIR HFA) 90 mcg/actuation inhaler Inhale 2 Puffs as instructed every 6 hours as needed. pyridoxine 100 mg tablet Take 1 tablet by mouth once daily. folic acid 1 mg ORAL tablet Take one(1) tablet daily. vitamin b complex (B COMPLEX-VITAMIN B12) ORAL Tab ALLERGIES: ALLERGIES Allergen Reactions Adhesive Hives, Unknown Azithromycin Hives, Unknown Demerol [Meperidine* Vomiting nausea Iron Hives, Itching Infusion but tolerates oral prep Rivaroxaban Intolerance Rosuvastatin Unknown Arthralgias Sulfa (Sulfonamide * Rash VITALS: BP 118/84 Pulse 94 Temp 36.6 C (97.9 F) Resp 18 Wt 90.4 kg (199 lb 3.2 oz) SpO2 98% PHYSICAL EXAM: GEN: pleasant, no acute distress, alert HEART: regular rate, regular rhythm, no murmurs LUNGS: clear to auscultation, no wheezes or crackles, no increased WOB ABD: soft, non-distended, no masses palpated, non-tender EXT: no clubbing, no cyanosis, no edema BACK: Normal curvature of spine. Midline lumbar and bilateral paraspinal tenderness. Straight leg test negative. Deep tendon reflexes 2+/4 at patellas. Normal lower extremity strength. Painful transitions. Glucose 70 - 100 mg/dL 120 High ASSESSMENT/PLAN: 1. Acute right-sided low back pain without sciatica - ICD9: 724.2, ICD10: M54.50 Conservative treatment with as needed analgesia. She may use acetaminophen or heat. Avoid steroids because of hyperglycemia and NSAID because of warfarin use. - CYCLOBENZAPRINE 10 MG TABLET has used before and tolerated. Cautioned about drowsiness potential. Provided back exercise handout. She has follow-up with her PCP on Saturday. Seek immediate evaluation for loss of bladder or bowel control, unexplained fever, or progressive weakness or numbness. Jeromy Stephens MD documented in this encounter [facility] Evaluation note Diagnosis Abnormality of right breast on screening mammogram documented in this encounter [facility] Work Phone: Evaluation noteNo assessment information available [facility] Work Phone: Evaluation note* Diagnosis Onset Date Resolution Status Clotting disorder acute Mixed hyperlipidemia acute Tachycardia acute Hypokalemia chronic [facility] Work Phone: Evaluation note* Diagnosis Acute right-sided low back pain without sciatica- Primary [facility] Anxiety- Primary Anxiety state, unspecified SVT (supraventricular tachycardia) (CMS/HCC) ([facility]) Other specified cardiac dysrhythmias Tachycardia Unspecified tachycardia [facility] Diagnosis SVT (supraventricular tachycardia) (CMS/HCC) (HCC) Other specified cardiac dysrhythmias [facility] Diagnosis Acute non-recurrent frontal sinusitis- Primary [facility] Diagnosis Hidradenitis suppurativa Hidradenitis Acne vulgaris Other acne [facility] Diagnosis Calcification of right breast on mammography [facility] Diagnosis SVT (supraventricular tachycardia) (CMS/HCC) (HCC) Other specified cardiac dysrhythmias Clotting disorder (CMS/HCC) (HCC) Other and unspecified coagulation defects Hypokalemia Hypopotassemia H/O deep venous thrombosis [facility] Diagnosis Anxiety- Primary Anxiety state, unspecified Grief Adjustment disorder with depressed mood [facility] Diagnosis Anxiety- Primary Anxiety state, unspecified Grief Adjustment disorder with depressed mood [facility] Diagnosis Clotting disorder (CMS/HCC) (HCC)- Primary Other and unspecified coagulation defects [facility] Diagnosis Well female exam with routine gynecological exam- Primary Routine gynecological examination Hyperlipidemia LDL goal <100 Other and unspecified hyperlipidemia Tachycardia Unspecified tachycardia Clotting disorder (CMS/HCC) (HCC) Other and unspecified coagulation defects H/O deep venous thrombosis Hypokalemia Hypopotassemia Anxiety Anxiety state, unspecified Panic attack Panic disorder without agoraphobia Class 1 obesity due to excess calories without serious comorbidity with body mass index (BMI) of 32.0 to 32.9 in adult Chronic eczema Contact dermatitis and other eczema, due to unspecified cause Screening for tuberculosis Screening examination for pulmonary tuberculosis Screening for diabetes mellitus Encounter for Papanicolaou smear for cervical cancer screening [facility] Diagnosis H/O deep venous thrombosis [Z86.718 (ICD-10-CM)] [facility]* Diagnosis Clotting disorder (CMS/HCC) (HCC)- Primary Other and unspecified coagulation defects [facility] Diagnosis Acne vulgaris Other acne Hidradenitis suppurativa Hidradenitis [facility]* Diagnosis Anxiety Anxiety state, unspecified Grief Adjustment disorder with depressed mood [facility]* Diagnosis Skull deformity- Primary Class 1 obesity due to excess calories without serious comorbidity with body mass index (BMI) of 32.0 to 32.9 in adult [facility]* Diagnosis Skull deformity [facility]* Diagnosis Anxiety Anxiety state, unspecified Grief Adjustment disorder with depressed mood [facility]* Diagnosis COVID-19 virus infection- Primary Clotting disorder (CMS/HCC) (HCC) Other and unspecified coagulation defects [facility] Diagnosis COVID-19 virus infection- Primary Clotting disorder (CMS/HCC) (HCC) Other and unspecified coagulation defects documented in this encounter [facility]Evaluation note* Diagnosis Clotting disorder (CMS/HCC) (HCC) Other and unspecified coagulation defects documented in this encounter [facility]Evaluation note* Diagnosis Calcification of right breast on mammography [facility]* Diagnosis Skull deformity documented in this encounter [facility]Evaluation note* Diagnosis Skull deformity Scalp mass documented in this encounter [facility]Evaluation note* Diagnosis Scalp mass- Primary documented in this encounter [facility]Evaluation note* Diagnosis Rash and nonspecific skin eruption- Primary Rash and other nonspecific skin eruption documented in this encounter [facility]Evaluation note* Diagnosis Pilar cyst of scalp Acne vulgaris Other acne Hidradenitis suppurativa Hidradenitis Stasis dermatitis Varicose veins of lower extremities with inflammation Scalp mass [facility]* Diagnosis Acne vulgaris- Primary Other acne documented in this encounter [facility]Evaluation note* Diagnosis Clotting disorder (CMS/HCC) (HCC) Other and unspecified coagulation defects documented in this encounter [facility]Evaluation note* Diagnosis Well female exam with routine gynecological exam- Primary Routine gynecological examination SVT (supraventricular tachycardia) (HCC) Other specified cardiac dysrhythmias Hypokalemia Hypopotassemia Hyperlipidemia LDL goal <100 Other and unspecified hyperlipidemia Clotting disorder (CMS/HCC) (HCC) Other and unspecified coagulation defects H/O deep venous thrombosis 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 documented in this encounter [facility]Evaluation note* Diagnosis Acne vulgaris Other acne documented in this encounter [facility] note* Diagnosis 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 Acne vulgaris Other acne SVT (supraventricular tachycardia) (HCC) Other specified cardiac dysrhythmias Clotting disorder (CMS/HCC) (HCC) Other and unspecified coagulation defects Hypokalemia Hypopotassemia 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 documented in this encounter [facility] note* Diagnosis SVT (supraventricular tachycardia) (HCC)- Primary Other specified cardiac dysrhythmias Clotting disorder (CMS/HCC) (HCC) Other and unspecified coagulation defects Essential hypertension Unspecified essential hypertension Hypokalemia Hypopotassemia Preop cardiovascular exam Pre-operative cardiovascular examination documented in this encounter [facility] note* Diagnosis Chronic right hip pain- Primary Chronic pain of left thumb Injury due to fall, initial encounter Elevated fasting glucose Impaired fasting glucose Flu vaccine need Screening for colon cancer Special screening for malignant neoplasms, colon documented in this encounter [facility]Evaluation note* Diagnosis Calcification of right breast on mammography- Primary documented in this [facility]* Diagnosis Localized swelling, mass and lump, trunk- Primary Localized swelling, mass and lump, trunk documented in this encounter [facility]Evaluation note* Diagnosis Chronic pain of left thumb Chronic right hip pain documented in this encounter [facility]Evaluation note* Diagnosis SVT (supraventricular tachycardia) (CMS/HCC) (HCC)- Primary Other specified cardiac dysrhythmias Clotting disorder (CMS/HCC) (HCC) Other and unspecified coagulation defects H/O deep venous thrombosis Hypokalemia Hypopotassemia Anxiety Anxiety state, unspecified Panic attack Panic disorder without agoraphobia Chronic pain of left thumb documented in this [facility]* Diagnosis SVT (supraventricular tachycardia) (HCC)- Primary Other specified cardiac dysrhythmias Clotting disorder (CMS/HCC) (HCC) Other and unspecified coagulation defects Essential hypertension Unspecified essential hypertension Hypokalemia Hypopotassemia Preop cardiovascular exam Pre-operative cardiovascular examination Acne vulgaris Other acne documented in this [facility]* Diagnosis SVT (supraventricular tachycardia) (HCC)- Primary Other specified cardiac dysrhythmias Clotting disorder (CMS/HCC) (HCC) Other and unspecified coagulation defects Essential hypertension Unspecified essential hypertension Hypokalemia Hypopotassemia Preop cardiovascular exam Pre-operative cardiovascular examination Anxiety Anxiety state, unspecified Grief Adjustment disorder with depressed mood documented in this encounter [facility]Evaluation note* Diagnosis SVT (supraventricular tachycardia) (HCC)- Primary Other specified cardiac dysrhythmias Clotting disorder (CMS/HCC) (HCC) Other and unspecified coagulation defects Essential hypertension Unspecified essential hypertension Hypokalemia Hypopotassemia Preop cardiovascular exam Pre-operative cardiovascular examination SVT (supraventricular tachycardia) (HCC)- Primary Other specified cardiac dysrhythmias Essential hypertension Unspecified essential hypertension Hypokalemia Hypopotassemia Hyperlipidemia LDL goal <100 Other and unspecified hyperlipidemia Clotting disorder (CMS/HCC) (HCC) Other and unspecified coagulation defects H/O deep venous thrombosis Hyperhomocysteinemia (HCC) Disturbances of sulphur-bearing amino-acid metabolism Anxiety Anxiety state, unspecified Panic attack Panic disorder without agoraphobia Prediabetes Other abnormal glucose Motion sickness, initial encounter Right sided abdominal pain Abdominal pain, unspecified site Screening mammogram for breast cancer Influenza vaccine refused documented in this encounter [facility]Evaluation note* Diagnosis SVT (supraventricular tachycardia) (HCC)- Primary Other specified cardiac dysrhythmias Clotting disorder (CMS/HCC) (HCC) Other and unspecified coagulation defects Essential hypertension Unspecified essential hypertension Hypokalemia Hypopotassemia Preop cardiovascular exam Pre-operative cardiovascular examination Screening mammogram for breast cancer documented in this encounter [facility] note* Diagnosis SVT (supraventricular tachycardia) (HCC)- Primary Other specified cardiac dysrhythmias Clotting disorder (CMS/HCC) (HCC) Other and unspecified coagulation defects Essential hypertension Unspecified essential hypertension Hypokalemia Hypopotassemia Preop cardiovascular exam Pre-operative cardiovascular examination Calcification of left breast on mammography- Primary Abnormality of left breast on screening mammogram documented in this encounter [facility]Evaluation note* Diagnosis SVT (supraventricular tachycardia) (HCC)- Primary Other specified cardiac dysrhythmias Clotting disorder (CMS/HCC) (HCC) Other and unspecified coagulation defects Essential hypertension Unspecified essential hypertension Hypokalemia Hypopotassemia Preop cardiovascular exam Pre-operative cardiovascular examination Calcification of left breast on mammography Abnormality of left breast on screening mammogram [facility] Diagnosis SVT (supraventricular tachycardia) (HCC)- Primary Other specified cardiac dysrhythmias Clotting disorder (CMS/HCC) (HCC) Other and unspecified coagulation defects Essential hypertension Unspecified essential hypertension Hypokalemia Hypopotassemia Preop cardiovascular exam Pre-operative cardiovascular examination Other depression- Primary Difficulty concentrating Other general symptoms Anxiety Anxiety state, unspecified documented in this encounter [facility]* Diagnosis SVT (supraventricular tachycardia) (HCC)- Primary Other specified cardiac dysrhythmias Clotting disorder (CMS/HCC) (HCC) Other and unspecified coagulation defects Essential hypertension Unspecified essential hypertension Hypokalemia Hypopotassemia Preop cardiovascular exam Pre-operative cardiovascular examination Other depression Difficulty concentrating Other general symptoms documented in this encounter [facility]* Diagnosis SVT (supraventricular tachycardia) (HCC)- Primary Other specified cardiac dysrhythmias Clotting disorder (CMS/HCC) (HCC) Other and unspecified coagulation defects Essential hypertension Unspecified essential hypertension Hypokalemia Hypopotassemia Preop cardiovascular exam Pre-operative cardiovascular examination Well female exam with routine gynecological exam- Primary Routine gynecological examination SVT (supraventricular tachycardia) (HCC) Other specified cardiac dysrhythmias Clotting disorder (CMS/HCC) (HCC) Other and unspecified coagulation defects Hyperhomocysteinemia (HCC) 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* Diagnosis SVT (supraventricular tachycardia) (HCC)- Primary Other specified cardiac dysrhythmias Clotting disorder (CMS/HCC) (HCC) Other and unspecified coagulation defects Essential hypertension Unspecified essential hypertension Hypokalemia Hypopotassemia Preop cardiovascular exam Pre-operative cardiovascular examination Upper respiratory tract infection, unspecified type- Primary Body aches Generalized pain Shortness of breath Seasonal allergic rhinitis, unspecified trigger [facility] Attachments The following attachments cannot be sent through Care Everywhere. * Naltrexone and Bupropion, ADULT (Maldivian) [facility] Attachments The following attachments cannot be sent through Care Everywhere. * Bupropion, ADULT (Maldivian) documented in this [facility]* Attachments The following attachments cannot be sent through Care Everywhere. * Semaglutide, ADULT (Maldivian) [facility] this [facility] (n[facility]ative)* Consultation (Routine) - Pending Review Specialty Diagnoses / Procedures Referred By Contac t Referred To Contact Dermatology Diagnoses Scalp mass Procedures TX OFFICE/OUTPATIENT [facility] 60 MINUTES Yareli Louis APRN - CNP [address] [facility] [place] [address] [facility] Derm [address] [facility] [address] [place] [phone] Referral ID Status Reason Start Date Expiration Date Visits Requested Visits Authorized [id number] Pending Review Specialty Services Required 08/21/2023 08/20/2024 1 1 [facility] for referral (narrative)* Consultation (Routine) - Pending Review Specialty Diagnoses / Procedures Referred By Contac t Referred To Contact Plastic Surgery Diagnoses Pilar cyst of scalp Procedures TX OFFICE/OUTPATIENT [facility] 60 MINUTES Racheal De Leon PA-C [address] [facility] [address] [place] [address] Shellie Fisher MD [address] [place] [address] [place] [address] Referral ID Status Reason Start Date Expiration Date Visits Requested Visits Authorized [id number] Pending Review Specialty Services Required 10/01/2023 09/30/2024 1 1 [facility] Consultation (Routine) - Pending Review Specialty Diagnoses / Procedures Referred By Contac t Referred To Contact Gastroenterology Diagnoses Screening for colon cancer Procedures TX OFFICE/OUTPATIENT [facility] 60-74 MINUTES Yareli Louis APRN - NILDA [address] [place] [address] Homero Lucero [address] [place] [address] Referral ID Status Reason Start Date Expiration Date Visits Requested Visits Authorized [id number] Pending Review Specialty Services Required 04/13/2022 04/13/2023 1 1 [facility] for referral (narrative)* Consultation (Routine) - Pending Review Specialty Diagnoses / Procedures Referred By Contac t Referred To Contact Orthopedic Surgery Diagnoses Chronic pain of left thumb Yareli Louis APRN - CNP [address] [place] [address] Agustin Salcido [address] [facility] [address] [place] [address] Referral ID Status Reason Start Date Expiration Date Visits Requested Visits Authorized [id number] Pending Review Specialty Services Required 05/14/2022 05/14/2023 1 1 * Consultation (Routine) - Pending Review Specialty Diagnoses / Procedures Referred By Contac t Referred To Contact Cardiology Diagnoses SVT (supraventricular tachycardia) (CMS/HCC) (HCC) Clotting disorder (CMS/HCC) (HCC) Hypokalemia H/O deep venous thrombosis Procedures TX OFFICE/OUTPATIENT [facility] 60-74 MINUTES Yareli Louis APRN - NILDA [address] [place] [address] George Reynoso MD [address] [place] [address], [address] [place] [address] Referral ID Status Reason Start Date Expiration Date Visits Requested Visits Authorized [id number] Pending Review Specialty Services Required 05/14/2022 05/14/2023 1 1 [facility] Health Summary Purpose Family History No Family History Records Found Relationship Condition Age at Onset Recorded Date/T leonardo mother Hypertension Unknown History of deep venous thrombosis Unknown Malignant neoplasm Unknown father Cardiac disease Unknown Diabetes mellitus Unknown Hypertension Unknown Lupus Unknown Advance Directives No Advanced Directives Records FoundDocuments on File Type Date Recorded Patient Needle Setter Expl anation Advance Directives and Living Will Power of Weight Yardage Checker Documents on File Type Date Recorded Patient Needle Setter Expl anation Advance Directives and Living Will Power of Weight Yardage Checker Documents on File Type Date Recorded Patient Needle Setter Expl anation ACP-Advance Directive ACP-Power of Weight Yardage Checker Latest Code Status on File Code Status Date Activated Date Inactivated Comments Full Code 12/07/2020 9:32 PM 12/09/2020 2:23 PM Advance Directive Response Recorded Date/ Time Living Will No July 24, 2019 11 :09am Power of Weight Yardage Checker No July 24, 2019 11:09am Advance Directive Response Recorded Date/ Time Living Will No July 24, 2019 10 :09am Power of Weight Yardage Checker No July 24, 2019 10:09am Reason for Referral Status Reason Specialty Diagnoses / Procedures Referre d By Contact Referred To Contact Open Radiology Diagnoses Right-sided abdominal pain of unknown cause Procedures US Abdomen Complete Yareli Louis APRN - DIRECTOR OF BROADCAST [address] [facility] [place] [address] [place] [address] Specialty Diagnoses / Procedures Referred By Contac t Referred To Contact Radiology Diagnoses Skull deformity Scalp mass Procedures CT head w IV contrast Yareli Louis APRN - CNP [address] 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 Procedures CT MAXILLOFACIAL W IV CONTRAST Shellie Fisher MD [address] [place] [id number] Referral ID Status Reason Start Date Expiration Date Visits Re quested Visits Authorized [id number] Closed 11/14/2023 11/13/2024 1 1 Chief Complaint and Reason for Visit Chief Complaint S/O INR S/O INR S/O INR S/O INR Chief Complaint S/O INR S/O INR S/O INR 1 Y FU S/O INR Reason for Visit Clotting disorder Mixed hyperlipidemia Tachycardia Hypokalemia Chief Complaint S/O INR 1 Y FU S/O INR S/O INR Reason for Visit Clotting disorder Mixed hyperlipidemia Tachycardia Hypokalemia Chief Complaint S/O INR S/O INR Additional Source Comments INFORMATION SOURCE (unrecogn ized section and content) DATE CREATED AUTHOR 12/24/2018 [facility] DATE CREATED AUTHOR AUTHOR'S ORGANIZ ATION 01/02/2019 [facility] DATE CREATED AUTHOR AUTHOR'S ORGANIZ ATION 10/17/2019 [facility] DATE CREATED AUTHOR AUTHOR'S ORGANIZ ATION 12/25/2019 [facility] DATE CREATED AUTHOR AUTHOR'S ORGANIZ ATION 12/04/2021 [facility] DATE CREATED AUTHOR AUTHOR'S ORGANIZ ATION 12/22/2021 [facility] DATE CREATED AUTHOR AUTHOR'S ORGANIZ ATION 01/03/2025 [facility] DATE CREATED AUTHOR AUTHOR'S ORGANIZ ATION 01/06/2025 [facility] Care Teams (unrecognized sec tion and content) Nick Setter Relationship Specialty Start Date [place] [address] PCP - General Family Medicine 04/24/18 Nick Setter Relationship Specialty Start Date End Date Henrique Mckee MD [place], [place] [id number] PCP - General Family Medicine 04/24/18 Nick Setter Relationship Specialty Start Date [place] [address] PCP - General Family Medicine 04/24/18 Nick Setter Relationship Specialty Start Date End Date Henrique Mckee [address] [place], [place] [address] [id number] PCP - General Family Medicine 12/09/18 Team Status: Active Member Role Status Dates Dr. Radha Collazo MD Family Provider Active Dr. Henrique Mckee MD Primary Care Provider Active Team Status: Inactive Member Role Status Dates Dr. Henrique Mckee MD Primary Care Provider Active Dr. Jose Johnson MD Attending Provider, Referring Provider Active Marisela Felipe PROTOTYPE DEICER ASSEMBLER, PROTOTYPE DEICER ASSEMBLER-C Other Provider Active Nick Setter Relationship Specialty Start Date End Date Henrique Mckee MD [address] [place] [address] PCP - General 04/24/18 Nick Setter Relationship Specialty Start Date End Date Henrique Mckee MD [address] [place] [address] PCP - General 04/24/18 Nick Setter Relationship Specialty Start Date End Date Henrique Mckee MD [address] [place], [place] [address] [address] PCP - General 04/24/18 Nick Setter Relationship Specialty Start Date End Date Henrique Mckee MD [address] [place], [place] [address] [address] PCP - General 04/24/18 Nick Setter Relationship Specialty Start Date End Date Henrique Mckee MD [address] [place], [place] [address] [address] PCP - General 04/24/18 Nick Setter Relationship Specialty Start Date End Date Henrique Mckee MD [address] [place], [place] [address], [place] [address] PCP - General 04/24/18 Nick Setter Relationship Specialty Start Date End Date Henrique Mckee MD [address] [facility] [place] [address] PCP - General 04/24/18 Nick Setter Relationship Specialty Start Date End Date Henrique Mckee MD [address] [facility] [place] [address] PCP - General 04/24/18 Nick Setter Relationship Specialty Start Date End Date Henrique Mckee MD [address] [facility] [place] [address] PCP - General 04/24/18 Nick Setter Relationship Specialty Start Date End Date Henrique Mckee MD [address] [facility] [place] [address] PCP - General 04/24/18 Nick Setter Relationship Specialty Start Date End Date Henrique Mckee MD [address] [facility] [place] [address] PCP - General 04/24/18 Nick Setter Relationship Specialty Start Date End Date Henrique Mckee MD [address] [place] [address] PCP - General 04/24/18 Nick Setter Relationship Specialty Start Date End Date Henrique Mckee MD [address] [facility] [place] [address] PCP - General 04/24/18 Nick Setter Relationship Specialty Start Date End Date Henrique Mckee MD [address] [facility] [place] [address] PCP - General 04/24/18 Nick Setter Relationship Specialty Start Date End Date Henrique Mckee MD [address] [facility] [place] [address] PCP - General 04/24/18 Nick Setter Relationship Specialty Start Date End Date Henrique Mckee MD [address] [facility] [place] [address] PCP - General 04/24/18 Nick Setter Relationship Specialty Start Date End Date Henrique Mckee MD [address] [facility] [place] [address] PCP - General 04/24/18 Nick Setter Relationship Specialty Start Date End Date Henrique Mckee MD [address] [facility] [place] [address] PCP - General 04/24/18 Nick Setter Relationship Specialty Start Date End Date Henrique Mckee MD [address] [facility] [place] [address] PCP - General 04/24/18 Nick Setter Relationship Specialty Start Date End Date Henrique Mckee MD [address] [facility] [place] [address] PCP - General 04/24/18 Nick Setter Relationship Specialty Start Date End Date Henrique Mckee MD [address] [facility] [place] [address] PCP - General 04/24/18 Nick Setter Relationship Specialty Start Date End Date Henrique Mckee MD [address] [facility] [place] [address] PCP - General 04/24/18 Nick Setter Relationship Specialty Start Date End Date Henrique Mckee MD [address] [facility] [place] [address] PCP - General 04/24/18 Nick Setter Relationship Specialty Start Date End Date Henrique Mckee MD [address] [facility] [place] [address] PCP - General 04/24/18 Nick Setter Relationship Specialty Start Date End Date Henrique Mckee MD [address] [facility] [place] [address] PCP - General 04/24/18 Nick Setter Relationship Specialty Start Date End Date Henrique Mckee MD [address] [facility] [place] [address] PCP - General 04/24/18 Nick Setter Relationship Specialty Start Date End Date Henrique Mckee MD [address] [facility] [place] [address] PCP - General 04/24/18 Nick Setter Relationship Specialty Start Date End Date Henrique Mckee MD [address] [facility] [place] [address] PCP - General 04/24/18 Nick Setter Relationship Specialty Start Date End Date Henrique Mckee MD [address] [facility] [place] [address] PCP - General 04/24/18 Nick Setter Relationship Specialty Start Date End Date Henrique Mckee MD [address] [facility] [place] [address] PCP - General 04/24/18 Nick Setter Relationship Specialty Start Date End Date Henrique Mckee MD [address] [facility] [place] [address] PCP - General 04/24/18 Nick Setter Relationship Specialty Start Date End Date Henrique Mckee MD [address] [facility] [place] [address] PCP - General 04/24/18 Nick Setter Relationship Specialty Start Date End Date Henrique Mckee MD [address] [facility] [place] [address] PCP - General 04/24/18 Nick Setter Relationship Specialty Start Date End Date Henrique Mckee MD [address] [facility] [place] [address] PCP - General 04/24/18 Nick Setter Relationship Specialty Start Date End Date Henrique Mckee MD [address] [facility] [place] [address] PCP - General 04/24/18 Nick Setter Relationship Specialty Start Date End Date Henrique Mckee MD [address] [place] [address] PCP - General 04/24/18 Nick Setter Relationship Specialty Start Date End Date Henrique Mckee MD [address] [place] [address] PCP - General 04/24/18 Nick Setter Relationship Specialty Start Date End Date Henrique Mckee MD [address] [place] [address] PCP - General 04/24/18 Nick Setter Relationship Specialty Start Date End Date Henrique Mckee MD [address] [place] [address] PCP - General 04/24/18 Nick Setter Relationship Specialty Start Date End Date Henrique Mckee MD [address] [place] [address] PCP - General 04/24/18 Nick Setter Relationship Specialty Start Date End Date Henrique Mckee MD [address] [place] [address] PCP - General 04/24/18 Nick Setter Relationship Specialty Start Date End Date Henrique Mckee MD [address] [place] [address] [address] PCP - General 04/24/18 Nick Setter Relationship Specialty Start Date End Date Henrique Mckee MD [address] [place] [address] PCP - General 04/24/18 Nick Setter Relationship Specialty Start Date End Date Henrique Mckee MD [address] [place] [address] PCP - General 04/24/18 Nick Setter Relationship Specialty Start Date End Date Henrique Mckee MD 25 [place] [address] PCP - General 04/24/18 Nick Setter Relationship Specialty Start Date [place] [address] PCP - General 04/24/18 Nick Setter Relationship Specialty Start Date End Date Henrique Mckee MD [address] [place] [address] PCP - General 04/24/18 Nick Setter Relationship Specialty Start Date [place] [address] PCP - General 04/24/18 Nick Setter Relationship Specialty Start Date End Date Henrique Mckee MD 25 [facility] [address] PCP - General 04/24/18 Nick Setter Relationship Specialty Start Date End Date Henrique Mckee MD 25 [place] [address] PCP - General 04/24/18 Nick Setter Relationship Specialty Start Date End Date Henrique Mckee MD [facility] [place] [address] PCP - General 04/24/18 Nick Setter Relationship Specialty Start Date End Date Henrique Mckee MD [address] [facility] [place] [address] PCP - General 04/24/18 Nick Setter Relationship Specialty Start Date End Date Henrique Mckee MD [address] [facility] [place] [address] PCP - General 04/24/18 Nick Setter Relationship Specialty Start Date End Date Henrique Mckee MD 25 [place] [address] PCP General 04/24/18 Goals (unrecognized section and content) Goals may be documented in a n alternate sectionGoals may be documented in an alternate sectionGoals may be documented in an alternate sectionGoals may be documented in an alternate sectionGoals may be documented in an alternate sectionGoals may be documented in an alternate sectionGoals may be documented in an alternate sectionGoals may be documented in an alternate section Source Comments (unrecognize d section and content) In the event this informatio n is protected by the Federal Confidentiality of Alcohol and Drug Abuse Patient Records regulations: The Federal rules restrict any use of the information to criminally investigate or prosecute any alcohol or drug abuse patient.[facility] Reason for Visit (unrecogniz ed section and content) Reason Comments Generalized Body Aches COVID test last f rom yesterday was negative, all symptoms started Saturday Chills Nausea Poor Appetite Fever Reason Onset Date Comments Prior Authorization 11/19/2024 Reason Comments Well Women Visit Blood Work Health Maintenance Zoster- refusedPNA- refused COVID 4- refused Reason Onset Date Comments Orders 11/10/2024 Release of Information 11/10/2024 Re INR mi ssed appointment Reason Onset Date Comments Med Refill 11/07/2024 Reason Onset Date Comments Results 08/10/2024 Reason Comments Medication Check Discuss alternative medications, some of her medications are not working for her. Reason Comments Medication Check Anxiety Health Maintenance Flu- not due until m ay PNA- declines 4th Covid- not done Hypertension Hyperlipidemia Reason Onset Date Comments cancel and R/S appt 06/11/2022 Reason Comments Anxiety Hyperlipidemia Medication Check Health Maintenance Hep C--declines, HIV --declines, COVID4--declines Reason Onset Date Comments Results 04/17/2022 [facility] results Reason Comments Hip Pain Right hip thumb pain Thinks she broke her left thumb Health Maintenance Hep C--declines, HIV --declines, Colon--wants referral, COVID 4--has not had yet, Flu-- wants Reason Comments Follow-up Specialty Diagnoses / Procedures Referred By Maurilio llamas Referred To Contact Cardiology Diagnoses SVT (supraventricular tachycardia) (HCC) Clotting disorder (CMS/HCC) (HCC) Procedures TX OFFICE/OUTPATIENT [facility] MDM 60 MINUTES Yareli Louis, SURVEY ASSOCIATE - DIRECTOR OF BROADCAST [address] [facility] [place] [address] [place] [address] Phone: tel: fax: Mainor Lakhani MD [address] [place] [address] [address] [place] [address] Phone: tel: fax: Referral ID Status Reason Start Date Expiration Date V isits Requested Visits Authorized [id number] Closed Specialty Services Required 01/22/2024 01/21/2025 1 1 Reason Onset Date Comments Surgery Scheduling 01/31/2024 Move surgery date Reason Comments Procedure Surgery scheduled february, mainly wants to talk about how her coumadin and inr would play out with the surgery Reason Onset Date Comments Surgery Scheduling 12/20/2023 [facility] Specialty Diagnoses / Procedures Referred By Contac t Referred To Contact Radiology Diagnoses 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 C/o being a little tender noticed the lump fall of last year. Specialty Diagnoses / Procedures Referred By Bestac t Referred To Contact Plastic Surgery Diagnoses Pilar cyst of scalp Procedures [place] OFFICE/OUTPATIENT NEW HIGH MDM 60 MINUTES Racheal De Leon PA-C [address] [facility] [address] [place] [address] Shellie Fisher MD [address] [place] [address] Referral ID Status Reason Start Date Expiration Date Visits Requested Visits Authorized [id number] Pending Review Specialty Services Required 10/01/2023 09/30/2024 1 1 Reason Comments Gynecologic Exam Health Maintenance 4th Covid- not doneZ chucky- declines Blood Work Reason Onset Date Comments Results 10/15/2023 Reason Comments Follow-up LV 12/24/2022 ([facility]) Specialty Diagnoses / Procedures Referred By Maurilio t Referred To Contact Dermatology Diagnoses Scalp mass Procedures [place] OFFICE/OUTPATIENT NEW HIGH MDM 60 MINUTES Yareli Louis S, SURVEY ASSOCIATE - DIRECTOR OF BROADCAST [address] [facility] [place] [address] [place] [address] [facility] [address] [facility] [address] [place] [address] Referral ID Status Reason Start Date Expiration Date Visits Requested Visits Authorized [id number] Pending Review Specialty Services Required 08/21/2023 08/20/2024 1 1 Reason Comments Rash Has some sort of tena h on both legs and stomach, thinks that it could be from her coumadin. Reason Onset Date Comments Results 08/13/2023 Specialty Diagnoses / Procedures Referred By Contac t Referred To Contact Radiology Diagnoses Skull deformity Scalp mass Procedures CT head w IV contrast Yareli Louis, SURVEY ASSOCIATE - DIRECTOR OF BROADCAST [address] [place] [address] Referral ID Status Reason Start Date Expiration Date Visits Re quested Visits Authorized [id number] Closed 07/19/2023 07/18/2024 1 1 Reason Onset Date Comments Results 07/10/2023 Reason Onset Date Comments Epidemic Concern 04/12/2023 Reason Comments Covid-19 Home Monitoring Video Visit Reason Comments Epidemic Concern COVID Reason Comments Weight Check Mass On head Health Maintenance Declines flu vaccine today Reason Comments Med Refill Reason Comments Acne Reason Onset Date Comments fyi 12/13/2022 Reason Onset Date Comments Results 12/06/2022 Reason Onset Date Comments Results 11/06/2022 Reason Comments Gynecologic Exam Health Maintenance Hep C--thinks she vega d it done ,HIV--thinks she had it done, COVID 4-- has not had and does not want Reason Comments New Patient Specialty Diagnoses / Procedures Referred By Contac t Referred To Contact Cardiology Diagnoses Supraventricular tachycardia (HCC) Tachycardia, unspecified Procedures TX OFFICE/OP CONSLTJ NEW/EST PT SF MDM 20 MINUTES Timothy Valdivia, SURVEY ASSOCIATE - DIRECTOR OF BROADCAST [address] [facility] [address] [place] [address] Patrick Mukherjee MD [address] [place] [address] [address] [place] [address] Referral ID Status Reason Start Date Expiration Date Visits Re quested Visits Authorized [id number] Closed 05/24/2022 11/20/2022 1 1 Reason Comments Other LV 03/07/22 w/ Linda De Leon PA-C (JERRICA) Reason Comments Sinusitis Reason Onset Date Comments Med Refill 06/04/2022 Reason Comments Anxiety Follow-up FOR RECORDS PERTAINING TO PATIENTS WHO ARE OR HAVE BEEN ENROLLED IN A CHEMICAL DEPENDENCY/SUBSTANCEABUSE PROGRAM, SOME INFORMATION MAY BE OMITTED. This clinical summary was aggregated from multiple sources. Caution should be exercised in using it in the provision of clinical care. This summary normalizes information from multiple sources, and as a consequence, information in this document may materially change the coding, format and clinical context of patient data. In addition, data may be omitted in some cases. CLINICAL DECISIONS SHOULD BE BASED ON THE PRIMARY CLINICAL RECORDS. [email or web address] [facility]. provides no warranty or guarantee of the accuracy or completeness of information in this document.
[2025-01-07 08:22] LABS: Prothrombin Time (Protime)PT. 35.2 SECONDS (11.7-14.9)
== END | disposition home or self-care (01) ==
LOC: LAB 07:49
PROVIDERS: PCP Nurse Practitioner Family; Referring Provider Nurse Practitioner Family; Visit Provider Nurse Practitioner Family
DX: Z86.718 Personal history of other venous thrombosis and embolism (principal); Z86.711 Personal history of pulmonary embolism
CPT/HCPCS: 36415; 85610

== ENCOUNTER 2025-01-19 08:38 | Outpatient (RCR) | payer OTHER, SELFPAY ==
[2025-01-19 13:03] LABS: Prothrombin Time (Protime)PT. 26.9 SECONDS (11.7-14.9)
== END 2025-01-22 23:59 ==
LOC: VSLAB 08:38
PROVIDERS: PCP Nurse Practitioner Family; Visit Provider Nurse Practitioner Family
DX: Z86.718 Personal history of other venous thrombosis and embolism (principal); Z86.711 Personal history of pulmonary embolism
CPT/HCPCS: 36415; 85610

== ENCOUNTER 2025-02-25 08:31 | Outpatient (RCR) | payer OTHER, SELFPAY ==
[2025-02-25 09:01] LABS: Prothrombin Time (Protime)PT. 28.2 SECONDS (11.7-14.9)
== END 2025-02-25 18:00 | disposition home or self-care (01) ==
LOC: LAB 08:31
PROVIDERS: PCP Nurse Practitioner Family; Visit Provider Nurse Practitioner Family
DX: Z86.718 Personal history of other venous thrombosis and embolism (principal); Z86.711 Personal history of pulmonary embolism
CPT/HCPCS: 36415; 85610